=== PATIENT | female | born 1965 ===

== ENCOUNTER 2020-04-21 08:56 | Outpatient (REF) | payer MEDICARE, MEDICAID, SELFPAY ==
--- NOTE | 2020-04-21 13:27 | MHC.AU.AEV ---
Adult Audiological Evaluation Date of Visit: 04/21/20 Reason for Appointment: Audiologic evaluation due to intermittent difficulty understanding speech, particularly when in a noisy environment or when the speaker is talking from a different room. Does patient feel they have a hearing loss?: Yes If Yes, Which Ear?: Both Ears When Was Hearing Difficulty First Noticed?: Approximately one year ago. Has hearing been tested previously?: No Hearing Handicap Inventory HHIE SCORE: 18 Based on HHIE score, patient has: Mild to moderate perceived hearing handicap Ear History: Family History of Hearing Loss?: Yes: Father Recent Ear Infections: Both Ears Medical History: Medical History: Experiences intermittent episodes of sharp ear pain which may last anywhere a few seconds to 2 days. Was treated with eardrops for an ear infection approximately 2 months ago. Medication List: Elissa is also diagnosed with a Depressive Disorder for which she takes Effexor and Trazodone. Otoscopy: Right Ear: Unremarkable Left Ear: Unremarkable Tympanometry: Right Ear: Normal Middle Ear System (Type A) Left Ear: Normal Middle Ear System (Type A) Otoacoustic Emissions: Frequency Range Used: 5085-5494 Hz Right Ear Results: Present 3914-0282 Hz Absent 6000 and 8000 Hz Analysis: Present emissions suggest normal cochlear function Reduced/Absent emissions suggest cochlear dysfunction Left Ear Results: Present 9613-6624 Hz Absent 8000 Hz Analysis: Present emissions suggest normal cochlear function Reduced/Absent emissions suggest cochlear dysfunction Hearing Evaluation: Transducer(s) Used: Insert Earphones Method: Conventional Audiometry Stimuli Used: Pure Tones Right Ear: Description of Hearing: Normal hearing thresholds from 250-6000 Hz with a mild loss at 8000 Hz Left Ear: Description of Hearing: Normal hearing thresholds at 250-8000 Hz Speech Recognition Threshold (SRT): Method Used: Monitored Live Voice Stimuli Used: Spondee Words Right Ear: 10 Left Ear: 10 Word Discrimination: Method: Recorded Lists Word Lists Used: NU-6 Right Ear: 92% at 55 dB HL Left Ear: 92% at 55 dB HL QuickSIN: Binaural score of 17 dB SNR Loss which suggests Elissa experiences severe difficulty understanding speech when background noise is present. Comparison: Compared to the most recent evaluation: N/A Recommendations: Recommendations: Audiological re-evaluation if changes are noted. Recommendations (Other): Discussed the difference between hearing and listening skills and how attention influences these skills. Provided a handout to share with her family/friends regarding communication strategies to use to improve speech understanding. Also discussed how medications such as Effexor and Trazodone may slow down auditory processing skills which increases difficulty understanding speech when in difficult listening environments. The communication strategies provided are very important to use in this case. Diagnosis: Primary Diagnosis: H93.293 Abnormal Auditory Perception Services Performed: Services Performed: Comprehensive Audiological Evaluation (CPT 62520) Diagnostic Otoacoustic Emissions (CPT 18845, 26+TC) Tympanometry (CPT 62136) Signature: Provider: Neel Montalvo CCC-A Adult Audiological Evaluation NEEL- Audiology Adult New Evaluation Start: 04/21/20 13:02 Freq: Status: Active Protocol: Activity Type Activity Date Activity User E-Sign Co-Sign Detail Recorded Client Recorded Date Recorded By Document 04/21/20 13:02 TRENA [id number] 04/21/20 13:26 TRENA 04/21/20 13:02 Adult Audiological Evaluation [Date of Visit] -Date of Visit 04/21/20 [Reason For Appointment] -Reason for Appointment Audiologic evaluation due to intermittent difficulty understanding speech, particularly when in a noisy environment or when the speaker is talking from a different room. -Does patient feel they have a hearing Yes loss? -If Yes, Which Ear? Both Ears -When Was Hearing Difficulty First Approximately Noticed? one year ago. [Previous Testing] -Has hearing been tested previously? No [Hearing Handicap Inventory (HHIE)] -Does a hearing problem cause you to No feel embarrassed when you meet new people? -Does a hearing problem cause you to Yes feel frustrated when talking to members of you family? -Do you have difficulty when someone Yes speaks in a whisper? -Do you feel handicapped by a hearing No problem? -Does a hearing problem cause you No difficulty when visiting friends, relatives, or neighbors? -Does a hearing problem cause you to No attend synagogue services less often than you would like? -Does a hearing problem cause you to Yes have arguments with family members? -Does a hearing problem cause you Sometimes difficulty when listening to TV or radio ? -Do you feel that any difficulty with No your hearing limits or hampers your personal or social life? -Does a hearing problem cause you Yes difficulty when in a restaurant with relatives or friends? -HHIE SCORE 18 -Based on HHIE score, patient has: Mild to moderate perceived hearing handicap [Reported History] -Recent Ear Pain Left Ear -Family History of Hearing Loss? Yes: Father -Recent Ear Infections Both Ears [Medical History] -Medical History Experiences intermittent episodes of sharp ear pain which may last anywhere a few seconds to 2 days. Was treated with eardrops for an ear infection approximately 2 months ago. -Medication List Elissa is also diagnosed with a Depressive Disorder for which she takes Effexor and Trazodone. [Otoscopy] -Otoscopy- Right Ear Unremarkable -Otoscopy- Left Ear Unremarkable [Tympanometry] -Tympanometry- Right Ear Normal Middle Ear System ( Type A) -Tympanometry- Left Ear Normal Middle Ear System ( Type A) [Otoacoustic Emissions] -Frequency Range Used: 8627-7354 Hz -Otoacoustic Emissions- Right Ear- Present 1600- Other 5000 Hz Absent 6000 and 8000 Hz -OAE Analysis- Right Ear Present emissions suggest normal cochlear function, Reduced/Absent emissions suggest cochlear dysfunction -Otoacoustic Emissions- Left Ear- Present 1600- Other 6000 Hz Absent 8000 Hz -OAE Analysis- Left Ear Present emissions suggest normal cochlear function, Reduced/Absent emissions suggest cochlear dysfunction [Hearing Test Methods] -Transducer(s) Used Insert Earphones -Method Conventional Audiometry -Stimuli Used Pure Tones [Hearing- Right Ear] -Description of Hearing- Right Ear Normal hearing thresholds from 250-6000 Hz with a mild loss at 8000 Hz [Hearing- Left Ear] -Description of Hearing- Left Ear Normal hearing thresholds at 250-8000 Hz [Speech Recognition Threshold (SRT)] -Method Used Monitored Live Voice -Stimuli Used Spondee Words -Speech Recognition Threshold (SRT)- 10 Right Ear (in dBHL) -Speech Recognition Threshold (SRT)- 10 Left Ear (in dBHL) [Word Discrimination] -Method: Recorded Lists -Word Lists Used: NU-6 -Word Discrimination- Right Ear 92% at 55 dB HL -Word Discrimination- Left Ear 92% at 55 dB HL [QuickSIN] -QuickSIN Binaural score of 17 dB SNR Loss which suggests Elissa experiences severe difficulty understanding speech when background noise is present. [Compared to Most Recent Evaluation:] -Compared to the most recent N/A evaluation: [Recommendations] -Recommendations No further audiological action is indicated at this time., Audiological re -evaluation if changes are noted. -Recommendations (Other) Discussed the difference between hearing and listening skills and how attention influences these skills. Provided a handout to share with her family/friends regarding communication strategies to use to improve speech understanding. Also discussed how medications such as Effexor and Trazodone may slow down auditory processing skills which increases difficulty understanding speech when in difficult listening environments. The communication strategies provided are very important to use in this case. [Diagnosis] -Primary Diagnosis: H93.293 Abnormal Auditory Perception -Secondary Diagnosis: N/A [Services Performed] -Services Performed Comprehensive Audiological Evaluation (CPT 28334), Diagnostic Otoacoustic Emissions (CPT 90165, 26+TC), Tympanometry ( CPT 03002) Signature [Signature] -Provider Neel Montalvo, [facility]
== END 2020-04-21 08:57 | disposition home or self-care (01) ==
LOC: HO.SH 08:56
PROVIDERS: Visit Provider Nurse Practitioner Family
DX: H93.293 Other abnormal auditory perceptions, bilateral (principal)
CPT/HCPCS: 92557; 92567; 92588

== ENCOUNTER 2020-05-03 09:16 | Emergency (ER) | payer MEDICARE, MEDICAID, SELFPAY ==
[2020-05-03 09:22] VITALS: BP 129/75; PULSE 112; RESP 16; TEMP 37.1; O2SAT 96; BMI 31.2
--- NOTE | 2020-05-03 09:22 | XR_ITS ---
EXAMINATION: XR CHEST CLINICAL INFORMATION: Cough COMPARISON: Previous chest x-ray March 2011 TECHNIQUE: Frontal view of the chest was obtained. FINDINGS: No significant abnormality is noted involving the heart, lungs, mediastinum, bony thorax or soft tissues. XR/XR chest 1V IMPRESSION: Unremarkable examination.
[2020-05-03 10:05] LABS: MANUAL DIFF FLAG NO
[2020-05-03] MEDS: methylPREDNISolone Sod Succ/PF 125 MG/2 ML VIAL IVPUSH (10:05)
[2020-05-03 10:06] LABS: Basophils Percent Auto 0.1 % (0-2); Eosinophils Percent Auto 0.3 % (0-4); Hematocrit 45.5 % (37-47); Hemoglobin 14.2 g/dl (12.0-16.0); Imm Gran Abs Auto 0.01 X10*3/uL (0.00-0.03); Imm Gran Pct Auto 0.1 % (0.0-0.4); Lymphocytes Absolute Auto 1.8 X10*3/uL (1.2-4.9); Lymphocytes Percent Auto 26.9 % (20-40); Mean Corpuscular HGB Conc 31.2 g/dl (31.0-35.0); Mean Corpuscular Hemoglobin 26.1 pg (27.0-33.0); Mean Corpuscular Volume 83.6 fL (80-98); Mean Platelet Volume 10.5 fL (9.4-12.3); Monocytes Absolute Auto 0.5 X10*3/uL (0.1-1.2); Monocytes Percent Auto 7.1 % (2-11); Neutrophils Absolute Auto 4.4 X10*3/uL (2.0-8.3); Neutrophils Percent Auto 65.5 % (45-73); Platelet Count 252 X10*3/uL (160-400); Red Blood Count 5.44 X10*6/uL (4.20-5.50); Red Cell Distribution Width 13.7 % (11.0-16.0); White Blood Count 6.7 X10*3/uL (4.8-10.8)
[2020-05-03] MEDS: 0.9 % Sodium Chloride 500 ML 1000 ML IV (10:06)
[2020-05-03 10:11] LABS: Prothrombin Time 12.4 SEC (10.8-13.0)
[2020-05-03 10:13] LABS: Partial Thromboplastin Time 35.8 SEC (24.1-38.0)
[2020-05-03 10:15] LABS: D Dimer < 200 NG/ML
[2020-05-03] MEDS: Albuterol Sulfate 90 MCG 8 GM INHALER 4 PUFF INHALE (10:23)
[2020-05-03 10:34] LABS: Alanine Aminotransferase 19 U/L (0-31); Albumin Level 4.2 g/dL (3.5-5.0); Alkaline Phosphatase 77 U/L (39-117); Anion Gap 14 (12-20); Aspartate Amino Transferase 22 U/L (5-31); Bilirubin Total 0.4 mg/dL (0.0-1.0); Blood Urea Nitrogen 13 mg/dL (9-16); Calcium 8.4 mg/dL (8.4-10.2); Carbon Dioxide 25 mmol/L (22-29); Chloride 105 mmol/L (96-108); Creatinine Clr Calc Pharmacy 71.4; Estimated Glomerular Filt Rate > 60; Glucose Random 93 mg/dL (60-115); Lactate Dehydrogenase 200 U/L (122-220); Potassium 3.6 mmol/l (3.3-5.1); Sodium 140 mmol/L (135-145); Total Protein 7.1 g/dL (6.5-8.0)
[2020-05-03 10:41] LABS: B Type Natriuretic Peptide < 10 pg/mL (<100); Troponin-I High Sensitivity < 3.5 ng/L (<3.5-17.0)
--- NOTE | 2020-05-03 10:45 | ED_ITS ---
HPI - SOB/Dyspnea General Chief Complaint: Dyspnea Stated Complaint: + covid, sob Time Seen by Provider: 05/03/20 09:22 Source: patient Mode of arrival: ambulatory Limitations: no limitations History of Present Illness HPI Narrative: 55-YEAR-OLD FEMALE WITH PAST MEDICAL HISTORY THAT IS SIGNIFICANT FOR ASTHMA WELL OTHER HISTORY NOTED BELOW SHE PRESENTS TODAY WITH COMPLAINT OF STATES SHE WELL HER TESTED POSITIVE FOR COVID-19 HER 'S ASYMPTOMATIC HOWEVER SHE HAS HAD SOME DRY COUGH SINCE YESTERDAY BECAME WORSE TODAY. SHE FOUND OUT YESTERDAY SHE WAS POSITIVE AFTER TESTING OVER THE WEEKEND. SHE DOES REPORT THERE IS COUGH WITH ASSOCIATED CHEST DISCOMFORT. COUGH DOES CAUSE SOME SHORTNESS OF BREATH. THERE IS NO LOWER EXTREMITY SWELLING. THERE IS NO CHEST PAIN WITHOUT THE COUGH. THERE IS NO SHORTNESS OF BREATH WITHOUT COUGH. THERE IS NO RECENT TRAVEL OR RECENT ANTIBIOTIC USE. SHE REPORTS SHE HAS NOT BEEN ADMITTED TO THE HOSPITAL FOR HER ASTHMA IN THE PAST. MD elicited complaint: shortness of breath Pertinent past history: asthma Onset (ago): day(s) (1) Context: recent illness Timing: intermittent Severity: moderate Exacerbating factors: nothing Relieving factors: bronchodilators Known history of: asthma Associated symptoms: chest pain Treatment prior to arrival: bronchodilator Related Data Previous Rx's Medication Instructions Recorded azithromycin [Zithromax Z-Lukasz] 250 mg PO DAILY 6 Days #6 tab 05/03/20 benzonatate [Tessalon Perles] 100 mg PO BID PRN #14 cap 05/03/20 prednisone 60 mg PO DAILY 5 Days #15 tab 05/03/20 Allergies Allergy/AdvReac Type Severity Reaction Status Date / Time No Known Allergies Allergy Verified 05/03/20 09:48 [No Known Allergies*] Review of Systems Review of Systems: Constitutional: No Weight loss, No Fever, + Chills, No Night Sweats, No Fatigue, No Malaise ENT/Mouth: No Hearing loss, No Ear Pain, + Nasal Congestion, No Sinus Pain, No Hoarseness, No sore throat, No Rhinorrhea, No Swallowing Difficulty Eyes: No Eye Pain, No Swelling, No Redness, No Foreign Body, No Discharge, No Vision Changes Cardiovascular: Cough Chest Pain, Cough causes SOB, No Dyspnea on Exertion, No Orthopnea, No Edema, No Palpitations Respiratory: + Cough, No Sputum, + Wheezing, No Smoke Exposure, No Dyspnea Gastrointestinal: No Nausea, No Vomiting, No Diarrhea, No Constipation, No ab dominal Pain, No Hematochezia, No Melena Genitourinary: no irregular bleeding, No Dysuria, No Urinary Frequency, No Hematuria, No Urinary Incontinence, No Urgency, No Flank Pain, No Urinary Flow Changes, No Hesitancy Musculoskeletal: No joint pain, No Myalgias, No Joint Swelling Skin: No Skin Lesions, No rash Neuro: No Weakness, No Numbness, No Paresthesias, No Loss of Consciousness, No Dizziness, No Headache Psych: No Anxiety/Panic, No Social Issues Heme/Lymph: No Bruising, No Bleeding,No Lymphadenopathy Endocrine: No Polyuria, No Polydipsia, No Temperature Intolerance Yes all other systems are reviewed and are negative [facility] Past Medical History Attestation statement: The following information was validated with the patient. Medical History (Updated 05/03/20 @ 11:06 by Roger Messer NP) Arthritis Asthma Hypertension Surgical History Hx of knee surgery Social History Social History Alcohol intake: never Smoking Status: Never smoker Use of substances other than those prescribed or required for medical reasons: No Advance Directives: No Advance Directives Information Provided: No Physical Exam Vital Signs: Vital Signs: Vital Signs Temp Pulse Resp BP Pulse Ox 05/03/20 09:22 98.7 F 112 H 16 129/75 96 Body Mass Index 31.2 REVIEWED Const: General: cooperative and healthy appearing; No acute distress or intoxicated appearing Nutritional Appearance: average body habitus Orientation/consciousness: patient oriented x3 HENMT: Head: Yes normal to inspection Ears: hearing grossly normal bilaterally Eyes: General: appearance normal, both eyes and all related structures Visual White: normal visual white by confrontation Neck: Neck: Yes normal visual inspection and No tender Thyroid: Thyroid normal Chest: Chest palpation & inspection: normal inspection of the chest Resp: Other: + mild dry bronchial cough Effort & Inspection: normal respiratory effort Auscultation: clear to auscultation bilaterally Cardio: Jugular venous distension: no JVD Rate: regular rate Rhythm: regular rhythm GI: Inspection: Yes normal to inspection Percussion: Yes normal to percussion Auscultation: normal bowel sounds : General: Yes no CVA tenderness Back/Spine/Pelvis: Back: no CVA tenderness Skin: General skin exam: no rashes or lesions noted Neuro: General: patient oriented x3 Extrem: General: Yes normal to inspection MDM - SOB/Dyspnea MDM Narrative Medical decision making narrative: Has remained 96-99 % on room air. Did receive IV Solu-Medrol and albuterol inh. Diagnostics rodriguez there is no leukocytosis, comprehensive metabolic profile along with troponin, BNP and D- dimer negative. Differential Diagnosis Differential diagnosis: Likely pneumonia and asthma with exacerbation; Unlikely acute exacerbation of chronic obstructive airways disease, congestive heart failure, pulmonary embolism, pleural effusion, sleep apnea and anemia Medical Records Attestation: I reviewed the patient's medical records. Lab Data Attestation: I reviewed the patient's lab results. Result diagrams: 05/03/20 09:56 05/03/20 09:56 Labs: Lab Results 05/03/20 05/03/20 05/03/20 Range/Units 09:56 09:56 09:56 WBC 6.7 (4.8-10.8) X10*3/uL RBC 5.44 (4.20-5.50) X10*6/uL Hgb 14.2 (12.0-16.0) g/dl Hct 45.5 (37-47) % MCV 83.6 (80-98) fL MCH 26.1 L (27.0-33.0) pg MCHC 31.2 (31.0-35.0) g/dl RDW 13.7 (11.0-16.0) % Plt Count 252 (160-400) X10*3/uL MPV 10.5 (9.4-12.3) fL Immature Gran % (Auto) 0.1 (0.0-0.4) % Neut % (Auto) 65.5 (45-73) % Lymph % (Auto) 26.9 (20-40) % Twiggs % (Auto) 7.1 (2-11) % Eos % (Auto) 0.3 (0-4) % Baso % (Auto) 0.1 (0-2) % Lymph # (Auto) 1.8 (1.2-4.9) X10*3/uL Twiggs # (Auto) 0.5 (0.1-1.2) X10*3/uL Eos # (Auto) 0.0 (0.0-0.4) X10*3/uL Baso # (Auto) 0.0 (0.0-0.2) X10*3/uL Abs Immat Gran (auto) 0.01 (0.00-0.03) X10*3/uL Absolute Neuts (auto) 4.4 (2.0-8.3) X10*3/uL Absolute Nucleated RBC 0.000 (0.0-0.012) X10*3/uL Nucleated RBC % (auto) 0.0 (0.0-0.2) /100WBC PT 12.4 (10.8-13.0) SEC INR 1.0 (0.9-1.1) APTT 35.8 (24.1-38.0) SEC D-Dimer < 200 NG/ML Sodium 140 (135-145) mmol/L Potassium 3.6 (3.3-5.1) mmol/l Chloride 105 (96-108) mmol/L Carbon Dioxide 25 (22-29) mmol/L Anion Gap 14 (12-20) BUN 13 (9-16) mg/dL Creatinine 0.81 (0.5-1.4) mg/dL Estim Creat Clear Calc 71.4 Estimated GFR > 60 Random Glucose 93 (60-115) mg/dL Lactic Acid (0.5-2.0) mmol/L Calcium 8.4 (8.4-10.2) mg/dL Total Bilirubin 0.4 (0.0-1.0) mg/dL AST 22 (5-31) U/L ALT 19 (0-31) U/L Alkaline Phosphatase 77 (39-117) U/L Lactate Dehydrogenase 200 (122-220) U/L Troponin I High Sens (<3.5-17.0) ng/L B-Natriuretic Peptide (<100) pg/mL Total Protein 7.1 (6.5-8.0) g/dL Albumin 4.2 (3.5-5.0) g/dL 05/03/20 05/03/20 Range/Units 09:56 10:35 WBC (4.8-10.8) X10*3/uL RBC (4.20-5.50) X10*6/uL Hgb (12.0-16.0) g/dl Hct (37-47) % MCV (80-98) fL MCH (27.0-33.0) pg MCHC (31.0-35.0) g/dl RDW (11.0-16.0) % Plt Count (160-400) X10*3/uL MPV (9.4-12.3) fL Immature Gran % (Auto) (0.0-0.4) % Neut % (Auto) (45-73) % Lymph % (Auto) (20-40) % Twiggs % (Auto) (2-11) % Eos % (Auto) (0-4) % Baso % (Auto) (0-2) % Lymph # (Auto) (1.2-4.9) X10*3/uL Twiggs # (Auto) (0.1-1.2) X10*3/uL Eos # (Auto) (0.0-0.4) X10*3/uL Baso # (Auto) (0.0-0.2) X10*3/uL Abs Immat Gran (auto) (0.00-0.03) X10*3/uL Absolute Neuts (auto) (2.0-8.3) X10*3/uL Absolute Nucleated RBC (0.0-0.012) X10*3/uL Nucleated RBC % (auto) (0.0-0.2) /100WBC PT (10.8-13.0) SEC INR (0.9-1.1) APTT (24.1-38.0) SEC D-Dimer NG/ML Sodium (135-145) mmol/L Potassium (3.3-5.1) mmol/l Chloride (96-108) mmol/L Carbon Dioxide (22-29) mmol/L Anion Gap (12-20) BUN (9-16) mg/dL Creatinine (0.5-1.4) mg/dL Estim Creat Clear Calc Estimated GFR Random Glucose (60-115) mg/dL Lactic Acid 1.7 (0.5-2.0) mmol/L Calcium (8.4-10.2) mg/dL Total Bilirubin (0.0-1.0) mg/dL AST (5-31) U/L ALT (0-31) U/L Alkaline Phosphatase (39-117) U/L Lactate Dehydrogenase (122-220) U/L Troponin I High Sens < 3.5 (<3.5-17.0) ng/L B-Natriuretic Peptide < 10 (<100) pg/mL Total Protein (6.5-8.0) g/dL Albumin (3.5-5.0) g/dL Imaging Data Chest x-ray: Radiologist's impression: [address] [address] XRay Report Signed Patient: Morgan Cates#: [id number] : 1965Acct:[id number] Age/Sex: 55 / FADM Date: 05/03/20 Loc: .ED Attending Dr: Ordering Physician: Roger Messer NP Date of Service: 05/03/20 Procedure(s): XR chest 1V Accession Number(s): [id number] cc: Roger Messer [employer]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 FINDINGS: No significant abnormality is noted involving the heart, lungs, mediastinum, bony thorax or soft tissues. XR/XR chest 1V IMPRESSION: Unremarkable examination. Dictated By:DEEDEE GLOVER MD Signed By:<Electronically signed by DEEDEE GLOVER MD in OV>05/03/20 1031 DD/ 0922 TD/TT: Sweet Potato Disintegrator: KAREN ECG Data Interpretation: Normal sinus rhythm Heart rate [address] segment changes Discharge Plan Discharge Clinical Impression: COVID-19 Asthma with exacerbation Qualifiers: Asthma severity: unspecified severity Asthma persistence: unspecified Qualified Code(s): J45.901 - Unspecified asthma with (acute) exacerbation Patient Disposition: Home, Self-Care Instructions: Asthma (ED), How to Use a Nebulizer (ED), COVID-19 (Coronavirus Disease 2019) (ED) Additional Instructions: You have COVID-19 that is triggering her asthma. Your medical workup today was overall very reassuring Home care as reviewed including social distancing/wear mask and self-monitoring Take medications as prescribed Monitor oxygen level at home on a pulse oximeter Return if any concerns or worsening symptoms otherwise follow CDC guidelines as provided Thank you Prescriptions: New azithromycin [Zithromax Z-Lukasz] 250 mg tablet 250 mg PO DAILY 6 Days Qty: 6 RF: 0 benzonatate [Tessalon Perles] 100 mg capsule 100 mg PO BID PRN (Reason: cough) Qty: 14 RF: 0 prednisone 20 mg tablet 60 mg PO DAILY 5 Days Qty: 15 RF: 0 Referrals: Rancho Overton NP [Primary Care Provider] - 5 days (PHONE VISIT )
[2020-05-03 11:07] LABS: Lactic Acid 1.7 mmol/L (0.5-2.0)
== END 2020-05-03 12:21 | disposition home or self-care (01) ==
PROVIDERS: Nurse Practitioner Primary Care; Emergency Provider Emergency Medicine; PCP Nurse Practitioner Family
DX: U07.1 COVID-19 (principal); J45.901 Unspecified asthma with (acute) exacerbation; Z79.899 Other long term (current) drug therapy; Z20.828 Contact with and (suspected) exposure to other viral communicable diseases
CPT/HCPCS: 36415; 71045; 80053; 83605; 83615; 83880; 84484; 85025; 85379; 85610; 85730; 87040; 96374; 99284; J2930

== ENCOUNTER 2020-05-05 11:48 | Inpatient (IN) | payer MEDICARE, MEDICAID, SELFPAY ==
[2020-05-05 12:00] VITALS: PULSE 107; RESP 16; TEMP 36.8; O2SAT 93; BMI 31.2
--- NOTE | 2020-05-05 12:20 | XR_ITS ---
EXAMINATION: XR CHEST CLINICAL INFORMATION: Worsening SOB and malaise COMPARISON: Chest 05/03/2020 TECHNIQUE: Frontal view of the chest was obtained. FINDINGS: The lungs are hypoventilated with patchy prominent parenchymal densities in both lungs, new infiltrates or interstitial disease. Heart size and pulmonary vascularity is normal. No gross bony abnormality seen. XR/XR chest 1V IMPRESSION: New patchy focal and interstitial changes with a consolidation left lower lobe consistent with infiltrates likely related to COVID disease at
--- NOTE | 2020-05-05 12:41 | ED_ITS ---
HPI - SOB/Dyspnea General Chief Complaint: Dyspnea Stated Complaint: fever, vomiting Time Seen by Provider: 05/05/20 12:20 Source: patient Mode of arrival: ambulatory Limitations: no limitations History of Present Illness HPI Narrative: 55yoF c PMHx of recently dx c COVID-19 on Friday At [place], asthma and HTN presenting to the ED c c/o worsening malaise, chills, body aches, n/v, dry cough and shortness of breath Since Friday worse today. Denies being on any antibiotics. Denies any other symptoms complaints or concerns at this time. patient was also seen here on Friday and had a full workup and all her lab s were within normal limits. Her chest x-ray was within normal limits. Related Data Home Medications Medication Instructions Recorded Confirmed hydrochlorothiazide 12.5 mg PO DAILY 05/05/20 05/05/20 montelukast 10 mg PO BEDTIME 05/05/20 05/05/20 simvastatin 40 mg PO BEDTIME 05/05/20 05/05/20 trazodone 50 mg PO BEDTIME 05/05/20 05/05/20 venlafaxine 37.5 mg PO DAILY 05/05/20 05/05/20 Allergies Allergy/AdvReac Type Severity Reaction Status Date / Time No Known Allergies Allergy Verified 05/03/20 09:48 [No Known Allergies*] Review of Systems Review of Systems: Constitutional : + Fever, + Chills, + fatigue, + Malaise ENT/Mouth : No sore throat, No runny nose Eyes: No Discharge Cardiovascular : + SOB, No Chest Pain Respiratory : + Cough, No Sputum, No Wheezing, No Smoke Exposure, No Dyspnea Gastrointestinal : + Nausea, + Vomiting, No Diarrhea Genitourinary : No irregular bleeding, No Dysuria, No Urinary Frequency, No Hematuria, No Urinary Incontinence, No Urgency, No Flank Pain, Musculoskeletal : No Myalgia Skin : No rash Neuro : No Headache Yes all other systems are reviewed and are negative [facility] Past Medical History Attestation statement: The following information was validated with the patient. Medical History Arthritis Asthma Coronavirus infection Hypertension Surgical History Hx of knee surgery Social History Social History Alcohol intake: never Smoking Status: Never smoker Physical Exam Vital Signs: Vital Signs: Vital Signs Temp Pulse Resp BP Pulse Ox 05/05/20 15:31 96 05/05/20 15:16 98.7 F 105 H 16 112/68 91 L 05/05/20 12:00 98.3 F 107 H 16 93 Body Mass Index 31.2 vital signs have been reviewed as normal and appeared to be correct. Blood pressure normal. Heart rate normal. Respiration rate normal. Temperature normal. Oxygen saturation normal although on the lower side. Appearance: Alert. Oriented X3. No acute distress. Head: Normal external exam. Normocephalic. Atraumatic. No Levi signs noted. No raccoon eyes noted Eyes: PERRLA. EOMI. Conjunctiva and sclera normal. Eyelids normal. ENT: EAC normal. TM's Normal. Pharynx normal. Uvula midline. Moist mucous membra yusuf. No trismus noted. No drooling noted. No muffled voice noted. Neck: Normal inspection. Neck supple. FROM. No adenopathy. Thyroid Normal. No meningeal signs. No neck mass noted. CVS: Normal heart rate and rhythm. Heart sound normal. No murmurs noted. Pulses normal throughout. Respiratory: No respiratory distress. Painless inspiration. Breath sounds normal. No wheezes/rales/rhonchi noted. Chest nontender. No accessory muscle usage noted or decreased air movement noted. Abdomen: Soft and nontender. Bowel sounds normal in all 4 quadrants. No distention noted. No organomegaly noted. No visible injury noted. Back: No CVA tenderness. Full range of motion noted. Skin: Skin warm and dry. Normal skin color. Normal skin turgor. No rashes/lesions/lacerations noted. Extremities: No lower extremity edema. Extremities exhibit normal range of motion. Extremities nontender. Neuro: Oriented X 3. No motor deficit. No sensory deficit. Reflexes normal. Course Course Course Narrative: 12:20PM - 55yoF c PMHx of recently dx c COVID-19 on Friday At [place], asthma and HTN presenting to the ED c c/o worsening malaise, chills, body aches, n/v, dry cough and shortness of breath since friday worse today. - Concern for COVID-19 vs PNA vs PE. - Plan: Labs, CXR, Blood cultures, Lactic acid, UA, UHCG. EKG. provide IV fluids, IV abx's c zosyn and symptomatic treatment and re-evaluate. Reevaluation(s) Reevaluation #1: Patient's WBC count elevated at 12,500. D-dimer was also elevated at 290. LDH 226. all other labs are within normal limits. CTA of chest and chest x-ray confirmed pneumonia. Therefore I did a walking exercise trial as the patient has been stable at 93 % while on room air with nasal cannula oxygen 2 L she is at 96% air although when she walks on room air she drops to 88% therefore will admit for COVID-19 with pneumonia with hypoxia and sepsis. Patient understands and agrees with this plan. Time: 15:36 MDM - SOB/Dyspnea Medical Records Attestation: I reviewed the patient's medical records. Lab Data Attestation: I reviewed the patient's lab results. Result diagrams: 05/05/20 12:40 05/05/20 12:40 Labs: Lab Results 05/05/20 05/05/20 05/05/20 Range/Units 12:40 12:40 12:40 WBC 12.5 H (4.8-10.8) X10*3/uL RBC 4.74 (4.20-5.50) X10*6/uL Hgb 12.5 (12.0-16.0) g/dl Hct 39.6 (37-47) % MCV 83.5 (80-98) fL MCH 26.4 L (27.0-33.0) pg MCHC 31.6 (31.0-35.0) g/dl RDW 14.0 (11.0-16.0) % Plt Count 236 (160-400) X10*3/uL MPV 10.2 (9.4-12.3) fL Immature Gran % (Auto) 0.6 H (0.0-0.4) % Neut % (Auto) 85.5 H (45-73) % Lymph % (Auto) 8.3 L (20-40) % Barnwell % (Auto) 5.5 (2-11) % Eos % (Auto) 0.0 (0-4) % Baso % (Auto) 0.1 (0-2) % Lymph # (Auto) 1.0 L (1.2-4.9) X10*3/uL Barnwell # (Auto) 0.7 (0.1-1.2) X10*3/uL Eos # (Auto) 0.0 (0.0-0.4) X10*3/uL Baso # (Auto) 0.0 (0.0-0.2) X10*3/uL Abs Immat Gran (auto) 0.07 H (0.00-0.03) X10*3/uL Absolute Neuts (auto) 10.7 H (2.0-8.3) X10*3/uL Absolute Nucleated RBC 0.000 (0.0-0.012) X10*3/uL Nucleated RBC % (auto) 0.0 (0.0-0.2) /100WBC Hold Purple Top SEE NOTE PT 12.9 (10.8-13.0) SEC INR 1.1 (0.9-1.1) D-Dimer 290 NG/ML Sodium (135-145) mmol/L Potassium (3.3-5.1) mmol/l Chloride (96-108) mmol/L Carbon Dioxide (22-29) mmol/L Anion Gap (12-20) BUN (9-16) mg/dL Creatinine (0.5-1.4) mg/dL Estim Creat Clear Calc Estimated GFR Random Glucose (60-115) mg/dL Lactic Acid (0.5-2.0) mmol/L Calcium (8.4-10.2) mg/dL Magnesium (1.6-2.6) mg/dL Ferritin (10-250) ng/mL Total Bilirubin (0.0-1.0) mg/dL Direct Bilirubin (0.0-0.5) mg/dL AST (5-31) U/L ALT (0-31) U/L Alkaline Phosphatase (39-117) U/L Lactate Dehydrogenase (122-220) U/L Troponin I High Sens (<3.5-17.0) ng/L B-Natriuretic Peptide (<100) pg/mL Total Protein (6.5-8.0) g/dL Albumin (3.5-5.0) g/dL 10/30/20 10/30/20 10/30/20 Range/Units 12:40 12:40 12:40 WBC (4.8-10.8) X10*3/uL RBC (4.20-5.50) X10*6/uL Hgb (12.0-16.0) g/dl Hct (37-47) % MCV (80-98) fL MCH (27.0-33.0) pg MCHC (31.0-35.0) g/dl RDW (11.0-16.0) % Plt Count (160-400) X10*3/uL MPV (9.4-12.3) fL Immature Gran % (Auto) (0.0-0.4) % Neut % (Auto) (45-73) % Lymph % (Auto) (20-40) % Barnwell % (Auto) (2-11) % Eos % (Auto) (0-4) % Baso % (Auto) (0-2) % Lymph # (Auto) (1.2-4.9) X10*3/uL Barnwell # (Auto) (0.1-1.2) X10*3/uL Eos # (Auto) (0.0-0.4) X10*3/uL Baso # (Auto) (0.0-0.2) X10*3/uL Abs Immat Gran (auto) (0.00-0.03) X10*3/uL Absolute Neuts (auto) (2.0-8.3) X10*3/uL Absolute Nucleated RBC (0.0-0.012) X10*3/uL Nucleated RBC % (auto) (0.0-0.2) /100WBC Hold Purple Top PT (10.8-13.0) SEC INR (0.9-1.1) D-Dimer NG/ML Sodium 141 (135-145) mmol/L Potassium 3.7 (3.3-5.1) mmol/l Chloride 106 (96-108) mmol/L Carbon Dioxide 25 (22-29) mmol/L Anion Gap 14 (12-20) BUN 19 H (9-16) mg/dL Creatinine 0.76 (0.5-1.4) mg/dL Estim Creat Clear Calc 76.1 Estimated GFR > 60 Random Glucose 100 (60-115) mg/dL Lactic Acid (0.5-2.0) mmol/L Calcium 8.0 L (8.4-10.2) mg/dL Magnesium 2.3 (1.6-2.6) mg/dL Ferritin 104 (10-250) ng/mL Total Bilirubin 0.9 (0.0-1.0) mg/dL Direct Bilirubin 0.3 (0.0-0.5) mg/dL AST 19 (5-31) U/L ALT 16 (0-31) U/L Alkaline Phosphatase 59 D (39-117) U/L Lactate Dehydrogenase 226 H (122-220) U/L Troponin I High Sens < 3.5 (<3.5-17.0) ng/L B-Natriuretic Peptide 50 (<100) pg/mL Total Protein 6.6 (6.5-8.0) g/dL Albumin 3.9 (3.5-5.0) g/dL 05/05/20 Range/Units 12:41 WBC (4.8-10.8) X10*3/uL RBC (4.20-5.50) X10*6/uL Hgb (12.0-16.0) g/dl Hct (37-47) % MCV (80-98) fL MCH (27.0-33.0) pg MCHC (31.0-35.0) g/dl RDW (11.0-16.0) % Plt Count (160-400) X10*3/uL MPV (9.4-12.3) fL Immature Gran % (Auto) (0.0-0.4) % Neut % (Auto) (45-73) % Lymph % (Auto) (20-40) % Barnwell % (Auto) (2-11) % Eos % (Auto) (0-4) % Baso % (Auto) (0-2) % Lymph # (Auto) (1.2-4.9) X10*3/uL Barnwell # (Auto) (0.1-1.2) X10*3/uL Eos # (Auto) (0.0-0.4) X10*3/uL Baso # (Auto) (0.0-0.2) X10*3/uL Abs Immat Gran (auto) (0.00-0.03) X10*3/uL Absolute Neuts (auto) (2.0-8.3) X10*3/uL Absolute Nucleated RBC (0.0-0.012) X10*3/uL Nucleated RBC % (auto) (0.0-0.2) /100WBC Hold Purple Top PT (10.8-13.0) SEC INR (0.9-1.1) D-Dimer NG/ML Sodium (135-145) mmol/L Potassium (3.3-5.1) mmol/l Chloride (96-108) mmol/L Carbon Dioxide (22-29) mmol/L Anion Gap (12-20) BUN (9-16) mg/dL Creatinine (0.5-1.4) mg/dL Estim Creat Clear Calc Estimated GFR Random Glucose (60-115) mg/dL Lactic Acid 1.5 (0.5-2.0) mmol/L Calcium (8.4-10.2) mg/dL Magnesium (1.6-2.6) mg/dL Ferritin (10-250) ng/mL Total Bilirubin (0.0-1.0) mg/dL Direct Bilirubin (0.0-0.5) mg/dL AST (5-31) U/L ALT (0-31) U/L Alkaline Phosphatase (39-117) U/L Lactate Dehydrogenase (122-220) U/L Troponin I High Sens (<3.5-17.0) ng/L B-Natriuretic Peptide (<100) pg/mL Total Protein (6.5-8.0) g/dL Albumin (3.5-5.0) g/dL Imaging Data cxr: Attestation: I personally reviewed and interpreted this imaging study as follows: Radiologist's impression: FINDINGS: The lungs are hypoventilated with patchy prominent parenchymal densities in both lungs, new infiltrates or interstitial disease. Heart size and pulmonary vascularity is normal. No gross bony abnormality seen. XR/XR chest 1V IMPRESSION: New patchy focal and interstitial changes with a consolidation left lower lobe consistent with infiltrates likely related to COVID disease at CTA chest: Attestation: I personally reviewed and interpreted this imaging study as follows: Radiologist's impression: IMPRESSION: No evidence of PE. No evidence aortic dissection. Multilobar infiltrates most prominent in both lower lobes. VTE: Negative Critical Care Time Critical Care Time Critical Care Time: Yes Total Critical Care Time: 60 Attestation: I personally attest to this time spent taking care of the patient Discharge Plan Discharge Prescriptions: No Action venlafaxine 37.5 mg capsule,extended release 24hr 37.5 mg PO DAILY RF: 0 trazodone 50 mg tablet 50 mg PO BEDTIME RF: 0 simvastatin 40 mg tablet 40 mg PO BEDTIME RF: 0 montelukast 10 mg tablet 10 mg PO BEDTIME RF: 0 hydrochlorothiazide 12.5 mg tablet 12.5 mg PO DAILY RF: 0
[2020-05-05] MEDS: 0.9 % Sodium Chloride 1,000 ML 999 ML IVCONT (12:44)
[2020-05-05 12:51] LABS: MANUAL DIFF FLAG NO
--- NOTE | 2020-05-05 12:52 | ECG_ITS ---
Test Reason : SOB Blood Pressure : / mmHG Vent. Rate : 102 BPM Atrial Rate : 102 BPM P-R Int : 122 ms QRS Dur : 094 ms QT Int : 372 ms P-R-T Axes : 036 071 044 degrees QTc Int : 484 ms Sinus tachycardia Otherwise normal ECG When compared with ECG of 17-DEC-2001 08:29, Heart rate has increased Referred By: Gretel Javed Electronically Signed By:JAYLENE GARCIA MD
[2020-05-05 12:53] LABS: Basophils Percent Auto 0.1 % (0-2); Hematocrit 39.6 % (37-47); Hemoglobin 12.5 g/dl (12.0-16.0); Imm Gran Abs Auto 0.07 X10*3/uL (0.00-0.03); Imm Gran Pct Auto 0.6 % (0.0-0.4); Lymphocytes Percent Auto 8.3 % (20-40); Mean Corpuscular HGB Conc 31.6 g/dl (31.0-35.0); Mean Corpuscular Hemoglobin 26.4 pg (27.0-33.0); Mean Corpuscular Volume 83.5 fL (80-98); Mean Platelet Volume 10.2 fL (9.4-12.3); Monocytes Absolute Auto 0.7 X10*3/uL (0.1-1.2); Monocytes Percent Auto 5.5 % (2-11); Neutrophils Absolute Auto 10.7 X10*3/uL (2.0-8.3); Neutrophils Percent Auto 85.5 % (45-73); Platelet Count 236 X10*3/uL (160-400); Red Blood Count 4.74 X10*6/uL (4.20-5.50); White Blood Count 12.5 X10*3/uL (4.8-10.8)
[2020-05-05 13:08] LABS: INTERNATIONAL NORM RATIO 1.1 (0.9-1.1); Prothrombin Time 12.9 SEC (10.8-13.0)
[2020-05-05 13:11] LABS: D Dimer 290 NG/ML
[2020-05-05 13:19] LABS: Lactic Acid 1.5 mmol/L (0.5-2.0)
[2020-05-05 13:22] LABS: Lactate Dehydrogenase 226 U/L (122-220)
[2020-05-05 13:26] LABS: Alanine Aminotransferase 16 U/L (0-31); Albumin Level 3.9 g/dL (3.5-5.0); Alkaline Phosphatase 59 U/L (39-117); Anion Gap 14 (12-20); Aspartate Amino Transferase 19 U/L (5-31); Bilirubin Direct 0.3 mg/dL (0.0-0.5); Bilirubin Total 0.9 mg/dL (0.0-1.0); Blood Urea Nitrogen 19 mg/dL (9-16); Carbon Dioxide 25 mmol/L (22-29); Chloride 106 mmol/L (96-108); Creatinine Clr Calc Pharmacy 76.1; Estimated Glomerular Filt Rate > 60; Glucose Random 100 mg/dL (60-115); Magnesium 2.3 mg/dL (1.6-2.6); Potassium 3.7 mmol/l (3.3-5.1); Sodium 141 mmol/L (135-145); Total Protein 6.6 g/dL (6.5-8.0)
[2020-05-05 13:27] LABS: B Type Natriuretic Peptide 50 pg/mL (<100); Troponin-I High Sensitivity < 3.5 ng/L (<3.5-17.0)
--- NOTE | 2020-05-05 13:31 | CT_ITS ---
EXAMINATION: CT ANGIOGRAM OF THE CHEST WITH AND WITHOUT CONTRAST (CT PULMONARY ANGIOGRAM FOR PE) CLINICAL INFORMATION: Reason for Exam pt c sob ? PE COVID-19 + COMPARISON: None TECHNIQUE: Prior to contrast administration, noncontrast localization images were obtained. Subsequently, multidetector volumetric imaging was performed from the thoracic inlet to below the diaphragms following the administration of 80 mLOmnipaque 350 intravenous contrast. No contrast reaction reported Sagittal, coronal, and MIP oblique sagittal reformatted images were obtained on the CT workstation, uploaded to PACS, and reviewed. This CT examination was performed using dose optimization techniques as appropriate, variously including the following: *Automated exposure control *Adjustment of mA and/or kV according to patient size (this includes techniques or standardized protocols for targeted exams where dose is matched to indication/reason for exam; i.e. extremities or head) *Use of iterative reconstruction technique Total exam dose-length product 257 mGy-cm FINDINGS: QUALITY OF STUDY/CONTRAST BOLUS: Satisfactory. PULMONARY ARTERIES: No central or segmental pulmonary emboli. THORACIC AORTA: No aneurysm or dissection. LUNG: There are small focal areas of ill-defined patchy opacity in both upper lobes, lower lobes. In addition there is bilateral lower lobe airspace consolidation and atelectatic changes in the lingula and right middle lobe. PLEURA: There is minimal bilateral posterior pleural thickening MEDIASTINUM: Normal heart size. No pericardial effusion. No hilar or mediastinal lymphadenopathy. No evidence of septal bowing or right heart strain. CHEST WALL/AXILLA: No axillary or internal mammary lymphadenopathy. OSSEOUS STRUCTURES: There is mild ventral spondylosis. No lytic or sclerotic process seen. UPPER ABDOMEN: Visualized liver, spleen, pancreas and bilateral adrenal glands are unremarkable. No reflux of contrast into the hepatic veins to suggest elevated right heart pressures. CT/CT angio chest PE protocol IMPRESSION: No evidence of PE. No evidence aortic dissection. Multilobar infiltrates most prominent in both lower lobes. VTE: Negative
[2020-05-05] MEDS: guaiFEN/Codeine SF 200/20/10ML 10 ML LIQUID PO (13:38)
[2020-05-05] MEDS: Piperacillin Sodium/Tazobactam 3.375 GM in 0.9 % Sodium Chloride 50 ML IV (13:38)
[2020-05-05 13:45] LABS: Ferritin 104 ng/mL (10-250)
[2020-05-05] MEDS: Albuterol Sulfate 90 MCG 8 GM INHALER 2 PUFF INHALE (14:20)
[2020-05-05] MEDS: iohexoL 350 MG/ML 100 ML INFUS..BTL 65 ML IV (14:25)
[2020-05-05] MEDS: Cyclobenzaprine HCl 10 MG TABLET PO (15:14)
[2020-05-05 15:16] VITALS: BP 112/68; PULSE 105; RESP 16; TEMP 37.1; O2SAT 91
[2020-05-05 15:31] VITALS: O2SAT 96
--- NOTE | 2020-05-05 15:59 | PC.RT ---
PATIENT'S OXYGEN DURING EXERCISE PULSE OXIMETRY WAS 88 PERCENT ON ROOM AIR
[2020-05-05 16:23] LABS: C Reactive Protein 6.27 mg/dL (< or = 0.50)
--- NOTE | 2020-05-05 16:52 | P.HPIM_ITS ---
History of Present Illness Date of Service: 05/05/20 <OLIVER Horan - Last Filed: 05/05/20 17:03> Chief Complaint: body aches <OLIVER Horan - Last Filed: 05/05/20 17:03> this is a 55-year-old female with history of asthma who presents to the emergency department with body aches. Patient reports she started to feel ill last Friday with body aches fever and cough. She was evaluated in Urgent Care over the weekend and her rapid test was positive for coronavirus. she was seen in the emergency department 2 days ago and treated for asthma exacerbation. She was discharged home with prednisone, azithromycin. She returns today with shortness of breath. She was afebrile while in the emergency department. But she did report shortness of breath continues to have cough and body aches. Lab work was essentially unremarkable. She underwent CTA which showed multifocal pneumonia. She was noted to become hypoxic with an oxygen saturation of 88% on room air during ambulation and there further decision was made to admit her for further management. She was given a dose of empiric antibiotics. <OLIVER Horan - Last Filed: 05/05/20 17:03> Review of Systems Review of Systems: Yes all other systems are reviewed and are negative <OLIVER Horan - Last Filed: 05/05/20 17:03> Constitutional: Constitutional: Reports body ache(s) and Reports fever(s) <OLIVER Horan - Last Filed: 05/05/20 17:03> Cardiovascular: Cardiovascular: Reports dyspnea <OLIVER Horan - Last Filed: 05/05/20 17:03> Respiratory: Respiratory: Reports cough and Reports dyspnea <OLIVER Horan - Last Filed: 05/05/20 17:03> [facility] Medical History: Medical History Arthritis Asthma Coronavirus infection Depression HLD (hyperlipidemia) Hypertension <OLIVER Horan Last Filed: 05/05/20 17:03> Functional capacity: independent ambulation <OLIVER Horan - Last Filed: 05/05/20 17:03> Family History: Family History Other No family history of coronary artery disease <OLIVER Horan - Last Filed: 05/05/20 17:03> Surgical History: Surgical History Hx of knee surgery <OLIVER Horan - Last Filed: 05/05/20 17:03> Social History: Social History Household Members: Spouse Housing: Apartment Do you presently have visiting nurse or other home services: No Alcohol intake: never Smoking Status: Never smoker Smoked in Last 30 Days: No Use of substances other than those prescribed or required for medical reasons: No Currently Displaying Signs/Symptoms of Drug Intoxication Withdrawal: No Have you been hit, kicked, punched, or otherwise hurt by someone within the past year? If so, by whom?: No Do you feel safe in your current relationship?: Yes Is there a partner from a previous relationship who is making you feel unsafe now?: No Are you made to feel afraid or neglected: No Advance Directives: No Advance Directives Information Provided: No Advance Directives on File: No Do you have thoughts of harming others: None Do you have a plan to hurt others: No Plan <OLIVER Horan - Last Filed: 05/05/20 17:03> Meds Allergies/Adverse reactions: Allergies Allergy/AdvReac Type Severity Reaction Status Date / Time No Known Allergies Allergy Verified 05/03/20 09:48 [No Known Allergies*] <OLIVER Horan - Last Filed: 05/05/20 17:03> Home medications: Home Medications Medication Instructions Recorded Confirmed Type hydrochlorothiazide 12.5 mg PO DAILY 05/05/20 05/05/20 History montelukast 10 mg PO BEDTIME 05/05/20 05/05/20 History simvastatin 40 mg PO BEDTIME 05/05/20 05/05/20 History trazodone 50 mg PO BEDTIME 05/05/20 05/05/20 History venlafaxine 37.5 mg PO DAILY 05/05/20 05/05/20 History <OLIVER Horan - Last Filed: 05/05/20 17:03> Physical Exam Vital Signs and Narrative: Vital Signs: Last Vital Signs Temp 98.7 F 05/05/20 15:16 Pulse 105 H 05/05/20 15:16 Resp 16 05/05/20 15:16 BP 112/68 05/05/20 15:16 Pulse Ox 96 05/05/20 15:31 Body Mass Index 31.2 <OLIVER Horan - Last Filed: 05/05/20 17:03> Const: Orientation/consciousness: patient oriented x3 <OLIVER Horan - Last Filed: 05/05/20 17:03> HENMT: Head: Yes normocephalic and Yes atraumatic <OLIVER Horan - Last Filed: 05/05/20 17:03> Eyes: Sclerae: sclerae normal <OLIVER Horan - Last Filed: 17:03> Chest: Chest palpation & inspection: normal inspection of the chest <OLIVER Horan - Last Filed: 05/05/20 17:03> Resp: Effort & Inspection: normal respiratory effort and no respiratory distress <OLIVER Horan - Last Filed: 05/05/20 17:03> Auscultation: clear to auscultation bilaterally <OLIVER Horan - Last Filed: 05/05/20 17:03> Cardio: Rate: regular rate <OLIVER Horan - Last Filed: 05/05/20 17:03> Rhythm: regular rhythm <OLIVER Horan - Last Filed: 05/05/20 17:03> GI: Palpation (GI): Soft to palpation and nontender <OLIVER Horan - Last Filed: 05/05/20 17:03> Skin: General skin exam: no rashes or lesions noted <OLIVER Horan - Last Filed: 05/05/20 17:03> Neuro: General: patient oriented x3 <OLIVER Horan - Last Filed: 05/05/20 17:03> Cranial nerves: Yes CN's II-XII intact bilaterally and Yes Bilaterally intact EOM present <OLIVER Horan - Last Filed: 05/05/20 17:03> Extrem: General: Yes normal to inspection <OLIVER Horan - Last Filed: 05/05/20 17:03> Results Labs Labs: Laboratory Tests 05/05/20 05/05/20 05/05/20 12:40 12:40 12:40 WBC 12.5 H RBC 4.74 Hgb 12.5 Hct 39.6 MCV 83.5 MCH 26.4 L MCHC 31.6 RDW 14.0 Plt Count 236 MPV 10.2 Immature Gran % (Auto) 0.6 H Neut % (Auto) 85.5 H Lymph % (Auto) 8.3 L Dyer % (Auto) 5.5 Eos % (Auto) 0.0 Baso % (Auto) 0.1 Lymph # (Auto) 1.0 L Dyer # (Auto) 0.7 Eos # (Auto) 0.0 Baso # (Auto) 0.0 Abs Immat Gran (auto) 0.07 H Absolute Neuts (auto) 10.7 H Absolute Nucleated RBC 0.000 Nucleated RBC % (auto) 0.0 Hold Purple Top SEE NOTE PT 12.9 INR 1.1 D-Dimer 290 Sodium Potassium Chloride Carbon Dioxide Anion Gap BUN Creatinine Estim Creat Clear Calc Estimated GFR Random Glucose Lactic Acid Calcium Magnesium Ferritin Total Bilirubin Direct Bilirubin AST ALT Alkaline Phosphatase Lactate Dehydrogenase Troponin I High Sens C-Reactive Protein B-Natriuretic Peptide Total Protein Albumin 05/05/20 05/05/20 05/05/20 12:40 12:40 12:40 WBC RBC Hgb Hct MCV MCH MCHC RDW Plt Count MPV Immature Gran % (Auto) Neut % (Auto) Lymph % (Auto) Dyer % (Auto) Eos % (Auto) Baso % (Auto) Lymph # (Auto) Dyer # (Auto) Eos # (Auto) Baso # (Auto) Abs Immat Gran (auto) Absolute Neuts (auto) Absolute Nucleated RBC Nucleated RBC % (auto) Hold Purple Top PT INR D-Dimer Sodium 141 Potassium 3.7 Chloride 106 Carbon Dioxide 25 Anion Gap 14 BUN 19 H Creatinine 0.76 Estim Creat Clear Calc 76.1 Estimated GFR > 60 Random Glucose 100 Lactic Acid Calcium 8.0 L Magnesium 2.3 Ferritin 104 Total Bilirubin 0.9 Direct Bilirubin 0.3 AST 19 ALT 16 Alkaline Phosphatase 59 D Lactate Dehydrogenase 226 H Troponin I High Sens < 3.5 C-Reactive Protein 6.27 H B-Natriuretic Peptide 50 Total Protein 6.6 Albumin 3.9 05/05/20 12:41 WBC RBC Hgb Hct MCV MCH MCHC RDW Plt Count MPV Immature Gran % (Auto) Neut % (Auto) Lymph % (Auto) Dyer % (Auto) Eos % (Auto) Baso % (Auto) Lymph # (Auto) Dyer # (Auto) Eos # (Auto) Baso # (Auto) Abs Immat Gran (auto) Absolute Neuts (auto) Absolute Nucleated RBC Nucleated RBC % (auto) Hold Purple Top PT INR D-Dimer Sodium Potassium Chloride Carbon Dioxide Anion Gap BUN Creatinine Estim Creat Clear Calc Estimated GFR Random Glucose Lactic Acid 1.5 Calcium Magnesium Ferritin Total Bilirubin Direct Bilirubin AST ALT Alkaline Phosphatase Lactate Dehydrogenase Troponin I High Sens C-Reactive Protein B-Natriuretic Peptide Total Protein Albumin <OLIVER Horan - Last Filed: 05/05/20 17:03> Assessment and Plan (1) COVID-19: Problem details: She has COVID pneumonia No signs of bacterial infection or atypical infection at this time <OLIVER Horan - Last Filed: 05/05/20 17:03> Status: Acute <OLIVER Horan - Last Filed: 05/05/20 17:03> this is a 55-year-old female with a history of asthma, hypertension, dyslipidemia, recently diagnosed with COVID-19 who presents to the emergency department with shortness of breath found to have multifocal pneumonia and hypoxia. Acute respiratory failure with hypoxia oxygen saturation dropped to 88% on room air during ambulation related to underlying COVID-19 pneumonia - continue supplemental oxygen COVID-19 pneumonia D-dimer 290, LDH 226, ferritin 104, CRP 6.27 CTA no PE, multifocal PNA - dexamethasone - supplemental oxygen as needed - ID consult leukocytosis likely related to recent steroid use. LA wnl. no evidence of sepsis hypertension blood pressure controlled - continue hydrochlorothiazide hyperlipidemia - continue statin mood - continue venlafaxine DVT prophylaxis- Lovenox code status- full code this case was discussed with Dr. Winston <OLIVER Horan - Last Filed: 05/05/20 17:03>
[2020-05-05 17:22] LABS: Procalcitonin 0.04 ng/mL
[2020-05-05 17:30] LABS: SARS COV2 PCR INHOUSE POSITIVE (Negative)
[2020-05-05 17:56] VITALS: BP 123/67; PULSE 96; RESP 16; TEMP 37.1; O2SAT 95
--- NOTE | 2020-05-05 17:58 | PC.NURSE ---
Pt reports decrease in pain, denies needs or complaints. awaiting bed assignment
--- NOTE | 2020-05-05 18:28 | PC.NURSE ---
called for report-awaiting callback
--- NOTE | 2020-05-05 18:52 | P.EN_ITS ---
Event Note Event Note: Patient came to the hospital because of myalgias and tiredness, as per ED physician that patient be sats with walking Denies any chest pain or abdominal pain or fever Patient also says she has cough nonproductive Physical exam: Cvs: rrr, [id number] , no murmur res: Grossly fair air entry, diminished at bases. abd: no rebound or guarding ,nt, bs present. ext pulses present , no cyanosis neuro: axo3 , nonfocal. Lab imaging reviewed Her COVID test is positive and CT also shows Multilobar infiltrates most promin ent in both lower lobes. C-reactive protein high, procalcitonin level low LDH slightly elevated, has lymphopenia D-dimer 290 range Assessment and plan: Probable COVID infection Desats with walking as per ED Will start the patient on she dexamethasone and supportive management for now ID terry
--- NOTE | 2020-05-05 19:18 | PC.NURSE ---
x2 call for report
[2020-05-05 20:00] VITALS: BP 122/78; PULSE 107; RESP 16; TEMP 37.1; O2SAT 97
[2020-05-05 21:19] LABS: Glucose Urine UA NEG (NEG); Leukocyte Esterase Urine NEG (NEG); Nitrite Urine NEG (NEG); Urine Blood NEG (NEG); Urine Ketones NEG (NEG); Urine Protein NEG (NEG-TRACE)
[2020-05-05 21:20] LABS: Appearance Urine CLEAR; Color Urine YELLOW
[2020-05-05 21:22] LABS: UPreg QC Valid YES; Urine Pregnancy NEGATIVE (NEGATIVE)
[2020-05-05 21:50] VITALS: BP 169/80; PULSE 102; RESP 18; TEMP 37.6; O2SAT 97
[2020-05-05] MEDS: dexAMETHasone sod phosphate 4 MG/ML VIAL 6 MG IVPUSH (21:54)
[2020-05-05] MEDS: Acetaminophen 325 MG TABLET 650 MG PO (21:54)
[2020-05-05] MEDS: Enoxaparin Sodium 40 MG/0.4 ML SYRINGE SUBCUT (21:54)
[2020-05-05] MEDS: 0.9 % Sodium Chloride Flush 3 ML SYRINGE IVFLUSH (21:55)
[2020-05-05] MEDS: traZODone HCL 50 MG TABLET PO (21:55)
[2020-05-05] MEDS: Montelukast Sodium 10 MG TABLET PO (21:55)
[2020-05-06] VITALS (10 sets, daily range): BP systolic 115–145; BP diastolic 70–81; PULSE 98–125; RESP 18–20; TEMP 36.4–38.7; O2SAT 90–94
[2020-05-06] MEDS: Acetaminophen 325 MG TABLET 650 MG PO ×2 (03:52→16:05)
[2020-05-06 07:06] LABS: Hematocrit 38.7 % (37-47); Mean Corpuscular Hemoglobin 25.8 pg (27.0-33.0); Mean Platelet Volume 10.2 fL (9.4-12.3); Platelet Count 213 X10*3/uL (160-400); Red Blood Count 4.66 X10*6/uL (4.20-5.50); Red Cell Distribution Width 13.9 % (11.0-16.0); White Blood Count 12.3 X10*3/uL (4.8-10.8)
[2020-05-06 07:28] LABS: Anion Gap 14 (12-20); Blood Urea Nitrogen 16 mg/dL (9-16); Carbon Dioxide 26 mmol/L (22-29); Chloride 104 mmol/L (96-108); Creatinine Clr Calc Pharmacy 81.4; Estimated Glomerular Filt Rate > 60; Glucose Random 106 mg/dL (60-115); Potassium 4.1 mmol/l (3.3-5.1); Sodium 140 mmol/L (135-145)
[2020-05-06] MEDS: dexAMETHasone sod phosphate 4 MG/ML VIAL 6 MG IVPUSH (08:26)
[2020-05-06] MEDS: 0.9 % Sodium Chloride Flush 3 ML SYRINGE IVFLUSH ×3 (08:26→21:22)
[2020-05-06] MEDS: Atorvastatin Calcium 10 MG TABLET PO (08:27)
[2020-05-06] MEDS: Venlafaxine HCl ER 37.5 MG CAP.ER.24H PO (08:27)
[2020-05-06] MEDS: hydroCHLOROthiazide 12.5 MG TABLET PO (08:34)
[2020-05-06] MEDS: guaiFEN/Codeine SF 200/20/10ML 10 ML LIQUID 5 ML PO ×3 (13:11→21:21)
--- NOTE | 2020-05-06 14:04 | P.PNIM_ITS ---
Subjective Subjective Date of Service: 05/06/20 Interval History: covid inf Review of Systems Still feels short of breath and has cough.. Denies any chest pain or abdominal pain or fever or chills, no urinary complaints. Yet Physical Exam Vital Signs: Vital Signs: Vital Signs Temp Pulse Resp BP Pulse Ox 05/06/20 11:29 97.5 F 112 H 18 137/72 92 05/06/20 08:00 97.7 F 100 18 132/75 92 05/06/20 05:26 99.8 F 05/06/20 03:45 101.4 F H 101 H 18 145/74 H 94 05/06/20 00:00 100.2 F 104 H 18 145/81 H 93 05/05/20 21:50 99.7 F 102 H 18 169/80 H 97 05/05/20 20:00 98.7 F 107 H 16 122/78 97 05/05/20 17:56 98.8 F 96 16 123/67 95 05/05/20 15:31 96 05/05/20 15:16 98.7 F 105 H 16 112/68 91 L Body Mass Index 31.2 Physical exam: Constitutional: Nigerian speaking female, seems short of breath HEENT: No rhinorrhea Anicteric Cvs: rrr, [id number] , no murmur res: Air entry slightly diminished at bases, has few rhonchi. abd: no rebound or guarding ,nt, bs present. ext pulses present , no cyanosis neuro: axo3 , nonfocal. Objective Data Current Medications Generic Name Dose Route Start Last Admin Trade Name Freq PRN Reason Stop Dose Admin Acetaminophen 650 mg 05/05/20 20:54 05/06/20 03:52 Acetaminophen 325 Mg Tablet PO 650 mg Q6H PRN Administration Pain, Mild (Pain Scale 1-3) Albuterol Sulfate 2 puff 05/05/20 20:54 Albuterol Sulfate 90 Mcg 8 Gm Inhaler INHALE Q4H PRN shortness of breath Atorvastatin Calcium 10 mg 05/06/20 09:00 05/06/20 08:27 Atorvastatin Calcium 10 Mg Tablet PO 10 mg DAILY KASI Administration Dexamethasone Sodium Phosphate 6 mg 05/05/20 20:54 05/06/20 08:26 Dexamethasone Sod Phosphate 4 Mg/Ml Vial IVPUSH 6 mg DAILY KASI Administration Docusate Sodium 100 mg 05/05/20 20:54 Docusate Sodium 100 Mg Capsule PO DAILY PRN Constipation Enoxaparin Sodium 40 mg 05/05/20 21:00 05/05/20 21:54 Enoxaparin Sodium 40 Mg/0.4 Ml Syringe SUBCUT 40 mg Q24H KASI Administration Guaifenesin/Codeine Phosphate 5 ml 05/06/20 11:00 05/06/20 13:11 Guaifen/Codeine Sf 200/20/10ml 10 Ml Liquid PO 5 ml Q6H KASI Administration Hydrochlorothiazide 12.5 mg 05/06/20 09:00 05/06/20 08:34 Hydrochlorothiazide 12.5 Mg Tablet PO 12.5 mg DAILY KASI Administration Protocol Montelukast Sodium 10 mg 05/05/20 21:00 05/05/20 21:55 Montelukast Sodium 10 Mg Tablet PO 10 mg BEDTIME KASI Administration Ondansetron HCl 4 mg 05/05/20 20:54 Ondansetron Hcl 4 Mg/2 Ml Vial IVPUSH Q8H PRN Nausea and Vomiting Pharmacy Consult 1 each 05/05/20 15:36 Consult Rx Perform Med Rec MISCELLANE ONCE PRN Consult order Sodium Chloride 3 ml 05/06/20 00:00 05/06/20 08:26 0.9 % Sodium Chloride Flush 3 Ml Syringe IVFLUSH 3 ml QSHIFT KASI Administration Trazodone HCl 50 mg 05/05/20 21:00 05/05/20 21:55 Trazodone Hcl 50 Mg Tablet PO 50 mg BEDTIME KASI Administration Venlafaxine HCl 37.5 mg 05/06/20 09:00 05/06/20 08:27 Venlafaxine Hcl Er 37.5 Mg Cap.Er.24h PO 37.5 mg DAILY KASI Administration Labs CBC & Chem 7: 05/06/20 06:33 05/06/20 06:33 Assessment and Plan (1) COVID-19: Status: Acute (2) Pneumonia: Status: Acute Assessment and Plan: 55-year-old female with a history of asthma, hypertension, dyslipidemia, recently diagnosed with COVID-19 who presents to the emergency department with shortness of breath found to have multifocal pneumonia and hypoxia. 1. Acute respiratory failure with hypoxia,COVID-19 pneumonia yesterday oxygen saturation dropped to 88% on room air during ambulation related to underlying COVID-19 pneumonia D-dimer 290, LDH 226, ferritin 104, CRP 6.27 CTA no PE, multifocal PNA Still feel short of breath and has lot of cough nonproductive Still feel winded Will continue dexamethasone, oxygen and supportive care Id evaluation pending. 2. leukocytosis likely related to recent steroid use. LA wnl. no evidence of sepsis 3. hypertension blood pressure controlled- continue hydrochlorothiazide 4.hyperlipidemia- continue statin 5. mood- continue venlafaxine
--- NOTE | 2020-05-06 14:47 | W.PM.IDCN ---
History of Present Illness Data of Consult Service Date: 05/06/20 Requesting physician: Beth Winston Primary Care Provider: Rancho Overton NP HPI Reason for consult: shortness of breath She presents to hospital with shortness of breath She has asthma and body aches Her saturation is 88% RA She has a COVID positive household Her test is positive Review of Systems Review of Systems: Yes all other systems are reviewed and are negative Cardiovascular: Cardiovascular: Reports dyspnea on exertion Respiratory: Respiratory: Reports dyspnea on exertion PMFSH Past Medical History Medical History Arthritis Asthma Coronavirus infection Depression HLD (hyperlipidemia) Hypertension Functional capacity: independent ambulation Family History Family History Other No family history of coronary artery disease Surgical History Surgical History Hx of knee surgery Social History Social History Household Members: Spouse Housing: Apartment Do you presently have visiting nurse or other home services: No Alcohol intake: never Smoking Status: Never smoker Smoked in Last 30 Days: No Use of substances other than those prescribed or required for medical reasons: No Currently Displaying Signs/Symptoms of Drug Intoxication Withdrawal: No Have you been hit, kicked, punched, or otherwise hurt by someone within the past year? If so, by whom?: No Do you feel safe in your current relationship?: Yes Is there a partner from a previous relationship who is making you feel unsafe now?: No Are you made to feel afraid or neglected: No Advance Directives: No Advance Directives Information Provided: No Advance Directives on File: No Do you have thoughts of harming others: None Do you have a plan to hurt others: No Plan service: No Current occupational status: unemployed and disabled Meds Allergies Allergy/AdvReac Type Severity Reaction Status Date / Time No Known Allergies Allergy Verified 05/03/20 09:48 [No Known Allergies*] Home Medications Medication Instructions Recorded Confirmed Type hydrochlorothiazide 12.5 mg PO DAILY 05/05/20 05/05/20 History montelukast 10 mg PO BEDTIME 05/05/20 05/05/20 History simvastatin 40 mg PO BEDTIME 05/05/20 05/05/20 History trazodone 50 mg PO BEDTIME 05/05/20 05/05/20 History venlafaxine 37.5 mg PO DAILY 05/05/20 05/05/20 History Physical Exam Vital Signs: Vital Signs: Vital Signs Temp Pulse Resp BP Pulse Ox 05/06/20 11:29 97.5 F 112 H 18 137/72 92 05/06/20 08:00 97.7 F 100 18 132/75 92 05/06/20 05:26 99.8 F 05/06/20 03:45 101.4 F H 101 H 18 145/74 H 94 05/06/20 00:00 100.2 F 104 H 18 145/81 H 93 05/05/20 21:50 99.7 F 102 H 18 169/80 H 97 05/05/20 20:00 98.7 F 107 H 16 122/78 97 05/05/20 17:56 98.8 F 96 16 123/67 95 05/05/20 15:31 96 05/05/20 15:16 98.7 F 105 H 16 112/68 91 L Body Mass Index 31.2 Const: General: cooperative Orientation/consciousness: patient oriented x3 HENMT: Head: Yes normal to inspection Resp: Effort & Inspection: normal respiratory effort Cardio: Rate: regular rate Rhythm: regular rhythm GI: Palpation (GI): nontender Skin: General skin exam: no rashes or lesions noted Neuro: General: patient oriented x3 Assessment and Plan (1) COVID-19: Problem details: She has COVID pneumonia No signs of bacterial infection or atypical infection at this time Status: Acute Dexamethasone 6 mg IV daily,may change to po when better for 10 days May be Remdesivir candidate if worsens,would run by Pharmacy then No antibiotics Supportive oxygen (2) Sepsis: Qualifiers: Sepsis acute organ dysfunction status: without acute organ dysfunction Sepsis type: sepsis due to unspecified organism Qualified Code(s): A41.9 - Sepsis, unspecified organism Status: Acute (3) Pneumonia: Qualifiers: Laterality: bilateral Lung location: lower lobe of lung Pneumonia type: due to unspecified organism Qualified Code(s): J18.9 - Pneumonia, unspecified organism Status: Acute Results Labs CBC & Chem 7: 05/06/20 06:33 05/07/20 13:13 Labs: Short CBC 05/06/20 Range/Units 06:33 WBC 12.3 H (4.8-10.8) X10*3/uL Hgb 12.0 (12.0-16.0) g/dl Hct 38.7 (37-47) % Plt Count 213 (160-400) X10*3/uL BMP 05/06/20 06:33 Sodium 140 Potassium 4.1 Chloride 104 Carbon Dioxide 26 BUN 16 Creatinine 0.71 Calcium 8.0 L Urine 05/05/20 Range/Units 21:08 Urine Color YELLOW Urine Appearance CLEAR Urine pH 7.0 (5.0-8.0) Ur Specific [place] 1.010 (1.005-1.025) Urine Protein NEG (NEG-TRACE) MG/DL Urine Glucose (UA) NEG (NEG) MG/DL
[2020-05-06] MEDS: traZODone HCL 50 MG TABLET PO (21:21)
[2020-05-06] MEDS: Montelukast Sodium 10 MG TABLET PO (21:21)
[2020-05-06] MEDS: Enoxaparin Sodium 40 MG/0.4 ML SYRINGE SUBCUT (21:21)
[2020-05-07] VITALS (7 sets, daily range): BP systolic 114–158; BP diastolic 70–88; PULSE 96–123; RESP 18–24; TEMP 36.3–38.7; O2SAT 81–98
--- NOTE | 2020-05-07 | XR_ITS ---
EXAMINATION: XR CHEST CLINICAL INFORMATION: Covid pneumonia COMPARISON: Prior chest x-ray 05/05/2020. Chest CT 05/05/2020. TECHNIQUE: Frontal view of the chest was obtained. FINDINGS: Bilateral patchy opacities unchanged. Cardiac silhouette mediastinum pulmonary vascularity normal. Bone and soft tissues unremarkable XR/XR chest 1V IMPRESSION: Stable bilateral lung opacities could reflect bilateral pneumonia.
[2020-05-07] MEDS: diphenhydrAMINE HCL 50 MG/ML VIAL 25 MG IVPUSH (01:00)
--- NOTE | 2020-05-07 01:04 | PC.NURSE ---
PT HAVING EXCESSIVE COUGHING SPELLS AND UNABLE TO CATCH HER BREATH. HR TAHY TO 140S. O2 INCREASD TO 4L NC. PT GIVEN ALBUTEROL INHALER WITH LITTLE EFFECT. MD NOTIFIED. PT GIVEN 5AM DOSE OF COUGH SYRUP EARLY AND ALSO 25MG IV BENADRYL FOR ANXIETY/SLEEP. WILL CONTINUE TO MONITOR.
[2020-05-07] MEDS: Albuterol Sulfate 90 MCG 8 GM INHALER 2 PUFF INHALE (01:50)
[2020-05-07] MEDS: guaiFEN/Codeine SF 200/20/10ML 10 ML LIQUID 5 ML PO (01:59)
[2020-05-07] MEDS: dexAMETHasone sod phosphate 4 MG/ML VIAL 6 MG IVPUSH (08:33)
[2020-05-07] MEDS: 0.9 % Sodium Chloride Flush 3 ML SYRINGE IVFLUSH (08:33)
[2020-05-07] MEDS: Atorvastatin Calcium 10 MG TABLET PO (08:33)
[2020-05-07] MEDS: Venlafaxine HCl ER 37.5 MG CAP.ER.24H PO (08:33)
[2020-05-07] MEDS: hydroCHLOROthiazide 12.5 MG TABLET PO (08:35)
[2020-05-07] MEDS: Acetaminophen 325 MG TABLET 650 MG PO (08:47)
[2020-05-07] MEDS: guaiFEN/Codeine SF 200/20/10ML 10 ML LIQUID PO ×3 (09:48→20:36)
[2020-05-07 11:10] LABS: Alanine Aminotransferase 24 U/L (0-31); Albumin Level 3.8 g/dL (3.5-5.0); Alkaline Phosphatase 56 U/L (39-117); Aspartate Amino Transferase 24 U/L (5-31); Bilirubin Direct 0.4 mg/dL (0.0-0.5); Bilirubin Total 0.7 mg/dL (0.0-1.0); Total Protein 6.8 g/dL (6.5-8.0)
--- NOTE | 2020-05-07 13:10 | HO.PM.IMPN ---
Subjective Subjective Date of Service: 05/07/20 Interval History: Acute respiratory failure hypoxemic secondary to probably COVID infection Review of Systems Patient still short of breath and currently on 45% oxygen with mask, has aggressive coughing, has fever or malaise. Denies any chest pain or abdominal pain or any any urinary urinary complaints or any weakness or numbness Physical Exam Vital Signs: Vital Signs: Vital Signs Temp Pulse Resp BP Pulse Ox 05/07/20 11:36 98.2 F 110 H 20 124/73 91 L 05/07/20 08:00 101.6 F H 123 H 20 158/88 H 05/07/20 04:00 98.6 F 108 H 20 135/74 98 05/06/20 23:49 98.5 F 125 H 20 141/81 H 90 L 05/06/20 19:41 99.3 F 98 20 115/70 92 05/06/20 17:37 100.1 F 05/06/20 16:12 91 L 05/06/20 15:38 101.7 F H 111 H 20 134/77 90 L Body Mass Index 31.2 Physical exam Cvs: rrr, [id number] , no murmur res: Patient has diminished breath sounds at bases, also has some wheezing abd: no rebound or guarding ,nt, bs present. ext pulses present , no cyanosis neuro: axo3 , nonfocal. Objective Data Current Medications Generic Name Dose Route Start Last Admin Trade Name Freq PRN Reason Stop Dose Admin Acetaminophen 650 mg 05/05/20 20:54 05/07/20 08:47 Acetaminophen 325 Mg Tablet PO 650 mg Q6H PRN Administration Pain, Mild (Pain Scale 1-3) Albuterol Sulfate 2 puff 05/05/20 20:54 05/07/20 01:50 EDT Albuterol Sulfate 90 Mcg 8 Gm Inhaler INHALE 2 puff Q4H PRN Administration shortness of breath Atorvastatin Calcium 10 mg 05/06/20 09:00 05/07/20 08:33 Atorvastatin Calcium 10 Mg Tablet PO 10 mg DAILY KASI Administration Dexamethasone Sodium Phosphate 6 mg 05/05/20 20:54 05/07/20 08:33 Dexamethasone Sod Phosphate 4 Mg/Ml Vial IVPUSH 6 mg DAILY KASI Administration Docusate Sodium 100 mg 05/05/20 20:54 Docusate Sodium 100 Mg Capsule PO DAILY PRN Constipation Enoxaparin Sodium 40 mg 05/05/20 21:00 05/06/20 21:21 Enoxaparin Sodium 40 Mg/0.4 Ml Syringe SUBCUT 40 mg Q24H KASI Administration Guaifenesin/Codeine Phosphate 10 ml 05/07/20 09:20 05/07/20 09:48 Guaifen/Codeine Sf 200/20/10ml 10 Ml Liquid PO 10 ml Q6H KASI Administration Hydrochlorothiazide 12.5 mg 05/06/20 09:00 05/07/20 08:35 Hydrochlorothiazide 12.5 Mg Tablet PO 12.5 mg DAILY KASI Administration Protocol Montelukast Sodium 10 mg 05/05/20 21:00 05/06/20 21:21 Montelukast Sodium 10 Mg Tablet PO 10 mg BEDTIME KASI Administration Ondansetron HCl 4 mg 05/05/20 20:54 Ondansetron Hcl 4 Mg/2 Ml Vial IVPUSH Q8H PRN Nausea and Vomiting Pharmacy Consult 1 each 05/05/20 15:36 Consult Rx Perform Med Rec MISCELLANE ONCE PRN Consult order Sodium Chloride 3 ml 05/06/20 00:00 05/07/20 08:33 0.9 % Sodium Chloride Flush 3 Ml Syringe IVFLUSH 3 ml QSHIFT KASI Administration Trazodone HCl 50 mg 05/05/20 21:00 05/06/20 21:21 Trazodone Hcl 50 Mg Tablet PO 50 mg BEDTIME KASI Administration Venlafaxine HCl 37.5 mg 05/06/20 09:00 05/07/20 08:33 Venlafaxine Hcl Er 37.5 Mg Cap.Er.24h PO 37.5 mg DAILY KASI Administration Labs CBC & Chem 7: 05/08/20 05:45 05/08/20 05:45 Microbiology Microbiology Results: Microbiology 05/05/20 13:37 Blood - Venous Blood Culture - Preliminary No growth after 24 hours. 05/05/20 13:29 Blood - Venous Blood Culture - Preliminary No growth after 24 hours. Assessment and Plan (1) COVID-19: Problem details: She has COVID pneumonia No signs of bacterial infection or atypical infection at this time Status: Acute (2) Pneumonia: Status: Acute (3) Acute hypoxemic respiratory failure: Status: Acute Assessment and Plan: 55-year-old female with a history of asthma, hypertension, dyslipidemia, recently diagnosed with COVID-19 who presents to the emergency department with shortness of breath found to have multifocal pneumonia and hypoxia. 1. Acute hypoxemic respiratory failure with hypoxia,COVID-19 pneumonia intial D-dimer 290, LDH 226, ferritin 104, CRP 6.27 CTA no PE, multifocal PNA Patient shortness of breath is worsening overnight and now on 45% oxygen and high-flow Will continue and dexamethasone, added conversant plasma, ID follow-up for further management-Remdesvir, subsequently times a severe added. 2. leukocytosis: slightly trending down slightly likely related to recent steroid use. LA wnl. no evidence of sepsis 3. hypertension: blood pressure controlled- hold hydrochlorothiazide, may need amlodipine if needed for blood pressure. 4.hyperlipidemia- continue statin. 5. mood- continue venlafaxine.
[2020-05-07 14:07] LABS: Anion Gap 14 (12-20); Blood Urea Nitrogen 26 mg/dL (9-16); Calcium 8.2 mg/dL (8.4-10.2); Carbon Dioxide 25 mmol/L (22-29); Chloride 105 mmol/L (96-108); Creatinine Clr Calc Pharmacy 76.1; Estimated Glomerular Filt Rate > 60; Glucose Random 116 mg/dL (60-115); Potassium 4.1 mmol/l (3.3-5.1); Sodium 140 mmol/L (135-145)
--- NOTE | 2020-05-07 15:02 | PC.NURSE ---
Kim with pt daughter Wei at [phone] for update. Pt gave permission to update daughter. Daughter would like update tomorrow, will pass on to night RN.
--- NOTE | 2020-05-07 15:26 | MHC.CM.PN ---
PT CURRENTLY ON HIGH FLOW O2. CONSTRUCTION COST ESTIMATOR COMPLETED WITH HER S/O TA MORRELL([phone]) VIA T/C WITH THE ASSISTANCE OF [employer] #[id number]. TA REPORTS THE PT IS INDEPENDENT WITH PERSONAL CARE AND HAS NO SERVICES. TA REPORTS THE PT USES A CANE SINCE HER KNEE SURGERY AND ALSO HAS BAD ARTHRITIS. HE REPORTS ALTHOUGH SHE IS USUALLY INDEPENDENT HE DOES HELP HER SOMETIMES AND HE IS WORRIED ABOUT HOW SHE WILL FEEL AT DC AND IF SHE WILL NEED ANY HOME CARE. TA WAS ASSURED THAT THE PATIENT WOULD BE INVOLVED IN HER DISCHARGE PLANS TO DETERMINE IF SERVICES WERE NEEDED. TA CONFIRMS PTS PCP IS RUT BERGMAN AND REPORTS HE DRIVES HER TO APPOINTMENTS. PT DOES NOT HAVE A HCP TO HIS KNOWLEDGE. PTS CURRENT DC PLAN IS HOME WITH NO SERVICES CM FOLLOWING FOR CHANGING DC NEEDS S/O TA WILL TRANSPORT AT DC IMM VERBALLY DELIVERED AND COPY WILL BE MAILED
[2020-05-07] MEDS: Remdesivir 200 MG in 0.9 % Sodium Chloride 210 ML 125 MG IV (16:44)
[2020-05-07] MEDS: traZODone HCL 50 MG TABLET PO (20:36)
[2020-05-07] MEDS: Montelukast Sodium 10 MG TABLET PO (20:36)
[2020-05-07] MEDS: Enoxaparin Sodium 40 MG/0.4 ML SYRINGE SUBCUT (20:36)
[2020-05-08] VITALS (13 sets, daily range): BP systolic 117–149; BP diastolic 66–93; PULSE 61–103; RESP 19–24; TEMP 36.1–37.9; O2SAT 89–96; BMI 31.2
[2020-05-08] MEDS: guaiFEN/Codeine SF 200/20/10ML 10 ML LIQUID PO ×4 (03:12→22:09)
[2020-05-08] MEDS: Acetaminophen 325 MG TABLET 650 MG PO (03:18)
[2020-05-08 06:50] LABS: Hematocrit 38.1 % (37-47); Hemoglobin 12.2 g/dl (12.0-16.0); Mean Corpuscular Hemoglobin 26.5 pg (27.0-33.0); Mean Corpuscular Volume 82.8 fL (80-98); Mean Platelet Volume 10.4 fL (9.4-12.3); Platelet Count 304 X10*3/uL (160-400); Red Cell Distribution Width 13.8 % (11.0-16.0); White Blood Count 12.6 X10*3/uL (4.8-10.8)
[2020-05-08 07:00] LABS: Alanine Aminotransferase 21 U/L (0-31); Albumin Level 3.6 g/dL (3.5-5.0); Alkaline Phosphatase 51 U/L (39-117); Anion Gap 17 (12-20); Aspartate Amino Transferase 20 U/L (5-31); Bilirubin Direct 0.4 mg/dL (0.0-0.5); Bilirubin Total 0.8 mg/dL (0.0-1.0); Blood Urea Nitrogen 31 mg/dL (9-16); Calcium 8.4 mg/dL (8.4-10.2); Carbon Dioxide 23 mmol/L (22-29); Chloride 107 mmol/L (96-108); Estimated Glomerular Filt Rate > 60; Glucose Random 91 mg/dL (60-115); Potassium 4.2 mmol/l (3.3-5.1); Sodium 143 mmol/L (135-145); Total Protein 6.7 g/dL (6.5-8.0)
[2020-05-08 07:01] LABS: Anion Gap 17 (12-20); Blood Urea Nitrogen 31 mg/dL (9-16); Calcium 8.6 mg/dL (8.4-10.2); Carbon Dioxide 24 mmol/L (22-29); Chloride 106 mmol/L (96-108); Creatinine Clr Calc Pharmacy 83.8; Estimated Glomerular Filt Rate > 60; Glucose Random 91 mg/dL (60-115); Potassium 4.2 mmol/l (3.3-5.1); Sodium 143 mmol/L (135-145)
[2020-05-08] MEDS: dexAMETHasone sod phosphate 4 MG/ML VIAL 6 MG IVPUSH (08:21)
[2020-05-08] MEDS: Venlafaxine HCl ER 37.5 MG CAP.ER.24H PO (08:21)
[2020-05-08] MEDS: Atorvastatin Calcium 10 MG TABLET PO (08:21)
[2020-05-08] MEDS: 0.9 % Sodium Chloride Flush 3 ML SYRINGE IVFLUSH ×3 (08:22→23:40)
--- NOTE | 2020-05-08 09:50 | PM.CNPUL ---
History of Present Illness History of Present Illness Chief complaint: COVID PNEUMONIA Narrative: The patient is a 55-year-old woman with a known history of asthma presenting with worsening respiratory symptoms consistent with acute respiratory failure due to COVID 19. The patient initially presented to the hospital on 05/03/2020 after developing respiratory symptoms. The point the patient was found to have bilateral pneumonia and admitted to the hospital. She was placed on Decadron and also started on remdesivir due to the respiratory failure. Ultimately she did receive 1 dose of convalescent plasma pleural respiratory condition has been getting worse now on 100% high-flow. We try doing proning, but, the patient could not tolerated due to significant coughing. She is having some hard time with her breathing at this time. Her cough is mainly dry. Review of Systems Constitutional: Constitutional: Reports fatigue, Reports malaise and Reports weakness ENT: Denies change in voice, Denies lip swelling, Denies mouth pain, Reports nasal congestion, Reports nasal discharge and Denies tongue swelling Cardiovascular: Cardiovascular: Denies chest pain and Reports dyspnea Respiratory: Respiratory: Reports cough and Reports dyspnea Gastrointestinal: Gastrointestinal: Denies abdominal pain Musculoskeletal: Musculoskeletal: Denies no additional musculoskeletal complaints Neurologic: Denies Neuro-related abnormal movements and Reports weakness Psychiatric: Psychiatric: Denies no additional psychiatric complaints Endocrine: Endocrine: Reports fatigue Hematologic/Lymphatic: Hematologic/Lymphatic: Denies easy bleeding and Denies lymphadenopathy Allergic/Immunologic: Allergic/Immunologic: Denies lip swelling and Denies tongue swelling PMFSH Past Medical History Medical History Arthritis Asthma Coronavirus infection Depression HLD (hyperlipidemia) Hypertension Functional capacity: independent ambulation Family History Family History Other No family history of coronary artery disease Surgical History Surgical History (Reviewed 05/08/20 @ :00 by Afshin Allen MD) Hx of knee surgery Social History Social History (Reviewed 05/08/20 @ :00 by Afshin Allen MD) Household Members: Spouse Housing: Apartment Do you presently have visiting nurse or other home services: No Alcohol intake: never Smoking Status: Never smoker Smoked in Last 30 Days: No Use of substances other than those prescribed or required for medical reasons: No Currently Displaying Signs/Symptoms of Drug Intoxication Withdrawal: No Have you been hit, kicked, punched, or otherwise hurt by someone within the past year? If so, by whom?: No Do you feel safe in your current relationship?: Yes Is there a partner from a previous relationship who is making you feel unsafe now?: No Are you made to feel afraid or neglected: No Advance Directives: No Advance Directives Information Provided: No Advance Directives on File: No Do you have thoughts of harming others: None Do you have a plan to hurt others: No Plan service: No Current occupational status: unemployed and disabled Meds Allergies Allergy/AdvReac Type Severity Reaction Status Date / Time No Known Allergies Allergy Verified 05/03/20 09:48 [No Known Allergies*] Home Medications Medication Instructions Recorded Confirmed Type hydrochlorothiazide 12.5 mg PO DAILY 05/05/20 05/05/20 History montelukast 10 mg PO BEDTIME 05/05/20 05/05/20 History simvastatin 40 mg PO BEDTIME 05/05/20 05/05/20 History trazodone 50 mg PO BEDTIME 05/05/20 05/05/20 History venlafaxine 37.5 mg PO DAILY 05/05/20 05/05/20 History Physical Exam Vital Signs: Vital Signs: Vital Signs Temp Pulse Resp BP Pulse Ox 05/08/20 09:07 22 H 05/08/20 08:00 97.8 F 91 20 130/71 89 L 05/08/20 03:15 100.2 F 80 20 117/66 93 05/08/20 00:00 98.3 F 61 20 144/74 H 92 05/07/20 19:00 98.0 F 120 H 24 H 151/80 H 81 L 05/07/20 15:57 97.4 F 96 18 123/75 91 L 05/07/20 13:24 97.4 F 99 20 117/74 05/07/20 13:10 97.8 F 105 H 18 114/70 05/07/20 11:36 98.2 F 110 H 20 124/73 91 L Body Mass Index 31.2 Const: General: alert, acute distress moderate, diaphoretic and ill appearing HENMT: General nose exam: Abnormal external nose present and Nasal discharge present Eyes: Pupils: Equal, round and reactive pupils present Neck: Neck: Yes normal visual inspection, Yes full ROM and Yes no lymphadenopathy Chest: Chest palpation & inspection: normal inspection of the chest Resp: Auscultation: diminished lung sounds Cardio: Rate: regular rate Rhythm: regular rhythm Heart sounds: S1 normal heart sound present and S2 normal heart sound present GI: Palpation (GI): Soft to palpation and nontender Auscultation: normal bowel sounds : General: Yes no CVA tenderness Back/Spine/Pelvis: Back: no CVA tenderness Skin: General skin exam: rashes and/or lesions noted Neuro: Cranial nerves: Yes Equal, round and reactive pupils present Results Laboratory Findings CBC and BMP: 05/08/20 05:45 05/08/20 05:45 ABG, PT/INR, D-dimer: PT/INR, D-dimer PT 12.9 SEC (10.8-13.0) 05/05/20 12:40 INR 1.1 (0.9-1.1) 05/05/20 12:40 D-Dimer 290 NG/ML 05/05/20 12:40 Abnormal lab findings: Abnormal Labs 05/05/20 05/05/20 05/05/20 12:40 12:40 12:40 WBC 12.5 H MCH 26.4 L Immature Gran % (Auto) 0.6 H Neut % (Auto) 85.5 H Lymph % (Auto) 8.3 L Lymph # (Auto) 1.0 L Abs Immat Gran (auto) 0.07 H Absolute Neuts (auto) 10.7 H BUN 19 H Random Glucose Calcium 8.0 L Lactate Dehydrogenase 226 H C-Reactive Protein 6.27 H Coronavirus (PCR) 05/05/20 05/06/20 05/06/20 16:06 06:33 06:33 WBC 12.3 H MCH 25.8 L Immature Gran % (Auto) Neut % (Auto) Lymph % (Auto) Lymph # (Auto) Abs Immat Gran (auto) Absolute Neuts (auto) BUN Random Glucose Calcium 8.0 L Lactate Dehydrogenase C-Reactive Protein Coronavirus (PCR) POSITIVE A 05/07/20 05/08/20 05/08/20 13:13 05:45 05:45 WBC 12.6 H MCH 26.5 L Immature Gran % (Auto) Neut % (Auto) Lymph % (Auto) Lymph # (Auto) Abs Immat Gran (auto) Absolute Neuts (auto) BUN 26 H D 31 H Random Glucose 116 H Calcium 8.2 L Lactate Dehydrogenase C-Reactive Protein Coronavirus (PCR) 05/08/20 05:45 WBC MCH Immature Gran % (Auto) Neut % (Auto) Lymph % (Auto) Lymph # (Auto) Abs Immat Gran (auto) Absolute Neuts (auto) BUN 31 H Random Glucose Calcium Lactate Dehydrogenase C-Reactive Protein Coronavirus (PCR) Microbiology: Microbiology 05/05/20 13:37 Blood - Venous Blood Culture - Preliminary No growth after 48 hours. 05/05/20 13:29 Blood - Venous Blood Culture - Preliminary No growth after 48 hours. Assessment and Plan (1) Acute hypoxemic respiratory failure: Status: Acute Continue HF Add NRB if hypoxic Encourage awake proning Continue IV decadron Continue IV Remdisivir Give 2nd dose of convolecent plasma (2) COVID-19: Problem details: She has COVID pneumonia No signs of bacterial infection or atypical infection at this time Status: Acute (3) Pneumonia: Qualifiers: Laterality: bilateral Lung location: lower lobe of lung Pneumonia type: due to unspecified organism Qualified Code(s): J18.9 - Pneumonia, unspecified organism Status: Acute Start Doxy (4) Asthma: Status: Acute
[2020-05-08 10:50] LABS: D Dimer 545 NG/ML
[2020-05-08] MEDS: Doxycycline Hyclate 100 MG in 0.9 % Sodium Chloride 250 ML 166.67 MG IV ×2 (10:54→23:40)
--- NOTE | 2020-05-08 11:11 | PC.NURSE ---
Addendum entered by Estelle Bailey RN 05/08/20 17:24: Patient refusing prone position with this RN and MD in room, education repeatedly given with the necessity of at least trying the prone position. Patient agreed to lying on her left side, approximately 1.5 hours on left side. Oxygen maintained within mid 90s throughout afternoon. Patient suddenly desatted to 85%, WOB was WNL, patient not in any distress, respiratory on unit and placed non re-breather 15LPM on top of 100% high flow 60LPM, sats maintaining at 90-91% ICU MD assessed patient, will place order for PICC line for 05/09, Nursing automobile body repair supervisor attempting peripheral access. Original Note: Patient desatting to the low 80s, WOB increased, ventimask at 15L maxed. Call to respiratory, high flow to be administered. High flow initiated at 100% 50LPM and patient sats rising low to mid 90s, WOB decreased. Subscription Clerk on unit, encouraged to have patient rest on her side or on her stomach as tolerated.
--- NOTE | 2020-05-08 11:46 | PM.EVENT ---
Event Note Event Note: Dr. Winston asked me to look at Mrs. Cates this morning bec of her requirement for 100% HFNC oxygen. The patient is a 55 year old women with PMHx of asthma, HTN, and DM. She tested positive for COVID-19 on Apr 30. She was seen in our ED on May 03 c/o dry cough x 2 days. RR was 16, Sat 96-99% on room air. CBC, CMP, and troponin, BNP, D-dimer, and CXR were negative. She was treated with steroids and BDs and discharged. The patient represented to the ED on May 05 c/o worsening malaise, chills, body aches, n/v, dry cough and shortness of breath since the . Sat was 93% on RA, 96% on 2L. WBC count 12,500. D-dimer was 290, LDH 226, all other labs WNL. CXR and CTA confirmed pneumonia c/w COVID-19. On walk test, she dropped to 88% on room air. The patient was started on dexamethasone and admitted for tx of COVID-19 pneumonia. Yesterday, her oxygenation worsened. She was advanced to a non-rebreather face mask and started on a 5 day course of remdesivir. At some point, she was given convalesce plasma. This morning she was advanced to 100% high-flow nasal cannula, and Dr. Winston asked me to see her. On my exam this morning, the patient is mildly tachypneic on HFNC 100%/50L, with RR about 24, but no access musc use, no incr WOB beyond the increased RR. I looked in on her twice to make sure. She looks to me like she could breathe like this for a week if she needed to. DDimer is increasing, to 545 today. IMPRESSION: Bilat COVID pneumonia, following a typical course. At this point, there is no indication for further resp intervention (e.g. BiPAP or mech ventilation). She can safely stay on IMC. I recommeneded proning In regards to other management issues: Given the very limited evidence for the efficacy of convalesc plasma, I would recommend not giving another dose. I will continue to see Mrs. Cates twice daily, morning and evening, for the rest of this week. ADDENDUM: I went to see the patient again at 17:30. Since the morning, on the 100% HFNC she?d desaturated to 85%, altho still looked fully comfortable, according to her nurse. So a NRBFM was added. Currently on the 100% HFNC and NRBFM, she?s breathing fully comfortably and looks thoroughly nontoxic. RR about 24-26. No increased WOB, no access musc. She can safely stay on IMC at this time. Time (including extended chart rev, three visits to the bedside, and three teleph calls with Dr. Winston: 70+ min ([id number])
--- NOTE | 2020-05-08 13:29 | MHC.CM.PN ---
Patient is on 100% FIO2 and 15 liters NRB mask. Also on IV Decadron and IV Remdesivir for COVID + PNA. Discharge plan is home no services, however this may change. [facility] Petit will provide transportation. CM will continue to follow for discharge needs.
--- NOTE | 2020-05-08 13:57 | HO.PM.IMPN ---
Subjective Subjective Date of Service: 05/08/20 Interval History: Acute hypoxemic respiratory failure secondary to COVID infection Review of Systems Patient seems still short of breath progressively worsening slowly Request 100% oxygen now, also respiratory is working on high-flow, may also need prone positioning as per ICU Physical Exam Vital Signs: Vital Signs: Vital Signs Temp Pulse Resp BP Pulse Ox 05/08/20 12:00 97.5 F 102 H 21 H 142/87 H 91 L 05/08/20 11:29 20 05/08/20 09:07 22 H 05/08/20 08:00 97.8 F 91 20 130/71 89 L 05/08/20 03:15 100.2 F 80 20 117/66 93 05/08/20 00:00 98.3 F 61 20 144/74 H 92 05/07/20 19:00 98.0 F 120 H 24 H 151/80 H 81 L 05/07/20 15:57 97.4 F 96 18 123/75 91 L Body Mass Index 31.2 Physical exam: Constitutional:seems sob heent: anicteric , neck supple Cvs: rrr, [id number] , no murmur res: diminshed at bases , few scattered rhonchii , no rales . abd: no rebound or guarding ,nt, bs present. ext pulses present , no cyanosis neuro: axo3 , nonfocal. Objective Data Current Medications Generic Name Dose Route Start Last Admin Trade Name Freq PRN Reason Stop Dose Admin Acetaminophen 650 mg 05/05/20 20:54 05/08/20 03:18 Acetaminophen 325 Mg Tablet PO 650 mg Q6H PRN Administration Pain, Mild (Pain Scale 1-3) Albuterol Sulfate 2 puff 05/05/20 20:54 05/07/20 01:50 EDT Albuterol Sulfate 90 Mcg 8 Gm Inhaler INHALE 2 puff Q4H PRN Administration shortness of breath Atorvastatin Calcium 10 mg 05/06/20 09:00 05/08/20 08:21 Atorvastatin Calcium 10 Mg Tablet PO 10 mg DAILY KASI Administration Dexamethasone Sodium Phosphate 6 mg 05/05/20 20:54 05/08/20 08:21 Dexamethasone Sod Phosphate 4 Mg/Ml Vial IVPUSH 6 mg DAILY KASI Administration Docusate Sodium 100 mg 05/05/20 20:54 Docusate Sodium 100 Mg Capsule PO DAILY PRN Constipation Enoxaparin Sodium 40 mg 05/05/20 21:00 05/07/20 20:36 Enoxaparin Sodium 40 Mg/0.4 Ml Syringe SUBCUT 40 mg Q24H KASI Administration Guaifenesin/Codeine Phosphate 10 ml 05/07/20 09:20 05/08/20 08:21 Guaifen/Codeine Sf 200/20/10ml 10 Ml Liquid PO 10 ml Q6H KASI Administration Hydrochlorothiazide 12.5 mg 05/06/20 09:00 05/08/20 08:16 Hydrochlorothiazide 12.5 Mg Tablet PO Not Given DAILY [facility] Protocol Remdesivir 100 mg/ Sodium 250 mls @ 125 mls/hr 05/08/20 16:00 Chloride IV 05/11/20 17:59 Q24H KASI Doxycycline Hyclate 100 mg/ 250 mls @ 166.67 mls/hr 05/08/20 10:00 05/08/20 12:24 Sodium Chloride IV Infused Q12H KASI Infusion Montelukast Sodium 10 mg 05/05/20 21:00 05/07/20 20:36 Montelukast Sodium 10 Mg Tablet PO 10 mg BEDTIME KASI Administration Ondansetron HCl 4 mg 05/05/20 20:54 Ondansetron Hcl 4 Mg/2 Ml Vial IVPUSH Q8H PRN Nausea and Vomiting Pharmacy Consult 1 each 05/05/20 15:36 Consult Rx Perform Med Rec MISCELLANE ONCE PRN Consult order Sodium Chloride 3 ml 05/06/20 00:00 05/08/20 08:22 0.9 % Sodium Chloride Flush 3 Ml Syringe IVFLUSH 3 ml QSHIFT KASI Administration Trazodone HCl 50 mg 05/05/20 21:00 05/07/20 20:36 Trazodone Hcl 50 Mg Tablet PO 50 mg BEDTIME [facility] Administration Venlafaxine HCl 37.5 mg 05/06/20 09:00 05/08/20 08:21 Venlafaxine Hcl Er 37.5 Mg Cap.Er.24h PO 37.5 mg DAILY KAIS Administration Labs CBC & Chem 7: 05/08/20 05:45 05/08/20 05:45 Microbiology Microbiology Results: Microbiology 05/05/20 13:37 Blood - Venous Blood Culture - Preliminary No growth after 48 hours. 05/05/20 13:29 Blood - Venous Blood Culture - Preliminary No growth after 48 hours. Assessment and Plan (1) Acute hypoxemic respiratory failure: Status: Acute Assessment and Plan: 55-year-old female with a history of asthma, hypertension, dyslipidemia, recently diagnosed with COVID-19 who presents to the emergency department with shortness of breath found to have multifocal pneumonia and hypoxia. 1. Acute hypoxemic respiratory failure with hypoxia,COVID-19 pneumonia intial D-dimer 290, LDH 226, ferritin 104, CRP 6.27 CTA no PE, multifocal PNA Shortness of breath, now the patient is on drips and oxygen, still tachycardic and tachypnea Will continue dexamethasone, received conversant plasma, Remdesvir ID following Pulmonary recommended to give 2nd dose of [facility] sent plasma which is ordered. Patient was seen by ICU also Dr. harrison: Recommended to monitor on the floor and ICU will be monitoring the patient closely If patient condition worsen further respiratory rodriguez or any hemodynamically instability will call ICU back . 2. leukocytosis: slightly seems similar near 12.6 likely related to recent steroid use. LA wnl. no evidence of sepsis 3. hypertension: blood pressure controlled- hold hydrochlorothiazide, may need amlodipine if needed for blood pressure. 4.hyperlipidemia- continue statin. 5. mood- continue venlafaxine. (2) COVID-19: Problem details: She has COVID pneumonia No signs of bacterial infection or atypical infection at this time Status: Acute (3) Pneumonia: Status: Acute
[2020-05-08] MEDS: Remdesivir 100 MG in 0.9 % Sodium Chloride 230 ML 125 MG IV (16:23)
[2020-05-08] MEDS: Montelukast Sodium 10 MG TABLET PO (22:10)
[2020-05-08] MEDS: traZODone HCL 50 MG TABLET PO (22:10)
[2020-05-08] MEDS: Enoxaparin Sodium 40 MG/0.4 ML SYRINGE SUBCUT (22:10)
[2020-05-09] VITALS (12 sets, daily range): BP systolic 120–177; BP diastolic 67–85; PULSE 77–97; RESP 16–24; TEMP 36.1–37; O2SAT 90–100
--- NOTE | 2020-05-09 00:12 | PC.NURSE ---
Pt. received 2nd bag of convalescent covid plasma. VSS. No reactions noted. Pt. able to be weaned ofgg
--- NOTE | 2020-05-09 00:15 | PC.NURSE ---
Pt. received 2nd bag of convalescent covid plasma. VSS. No reactions noted. Pt. able to be weaned off nonrebreather satting 96% with high flow 100%. Pt. wristband is able to be scanned, issue with 2nd witness d/t SEAN Hanna PIN # unable to verify. Hop Farmer aware. Pt. resting in bed at this time. Medicated per EMAR. Will continue to monitor.
[2020-05-09] MEDS: guaiFEN/Codeine SF 200/20/10ML 10 ML LIQUID PO ×4 (04:29→21:18)
[2020-05-09] MEDS: 0.9 % Sodium Chloride Flush 3 ML SYRINGE IVFLUSH ×2 (08:18→16:06)
[2020-05-09] MEDS: dexAMETHasone sod phosphate 4 MG/ML VIAL 6 MG IVPUSH (08:19)
[2020-05-09] MEDS: Doxycycline Hyclate 100 MG in 0.9 % Sodium Chloride 250 ML 166.67 MG IV ×2 (10:24→21:18)
[2020-05-09] MEDS: hydroCHLOROthiazide 12.5 MG TABLET PO (11:26)
--- NOTE | 2020-05-09 11:45 | PM.EVENT ---
Event Note Event Note: 55 yo woman with bilat COVID-19 pneumonia. Breathing easy on 100% HFNC, w RR 18-20. Sat up to 97%. No incr in WOB at all. Rec tapering FiO2 to Sat 89-90%. Safe to stay on IMC. I'll see her again tomorrow morning. Time: [id number].
--- NOTE | 2020-05-09 11:49 | HO.PM.IMPN ---
Subjective Subjective Date of Service: 05/09/20 Interval History: Acute hypoxemic respiratory failure, COVID pneumonia probable Review of Systems Patient says the shortness of breath seems alert to yesterday but may be slightly improving, denies any chest pain or abdominal pain or fever or chills Says the cough is improving since yesterday Physical Exam Vital Signs: Vital Signs: Vital Signs Temp Pulse Resp BP Pulse Ox 05/09/20 11:23 20 05/09/20 08:10 22 H 05/09/20 07:45 97.0 F 86 17 131/67 94 05/09/20 04:09 24 H 05/09/20 03:12 96.9 F 80 19 128/68 95 05/09/20 00:12 24 H 05/08/20 23:52 97.7 F 92 22 H 142/93 H 05/08/20 23:25 97.0 F 72 19 93 05/08/20 22:04 97.4 F 88 20 140/74 H 05/08/20 21:48 97.6 F 92 20 138/78 05/08/20 19:31 98.2 F 87 22 H 149/75 H 94 05/08/20 19:25 24 H 05/08/20 15:39 98.9 F 96 22 H 126/74 93 05/08/20 12:00 97.5 F 102 H 21 H 142/87 H 91 L Body Mass Index 31.2 Physical exam: Constitutional: Slightly obese woman, seems more comfortable breathing rodriguez today HEENT: Eyes anicteric, no rinnrhae Cvs: rrr, [id number] , no murmur res: Intermittently slightly tachypneic, breath sounds diminished at bases, has some scattered rhonchi also. abd: no rebound or guarding ,nt, bs present. ext pulses present , no cyanosis neuro: axo3 , nonfocal. Objective Data Current Medications Generic Name Dose Route Start Last Admin Trade Name Freq PRN Reason Stop Dose Admin Acetaminophen 650 mg 05/05/20 20:54 05/08/20 03:18 Acetaminophen 325 Mg Tablet PO 650 mg Q6H PRN Administration Pain, Mild (Pain Scale 1-3) Albuterol Sulfate 2 puff 05/05/20 20:54 05/07/20 01:50 EDT Albuterol Sulfate 90 Mcg 8 Gm Inhaler INHALE 2 puff Q4H PRN Administration shortness of breath Atorvastatin Calcium 10 mg 05/09/20 21:00 Atorvastatin Calcium 10 Mg Tablet PO BEDTIME KASI Dexamethasone Sodium Phosphate 6 mg 05/05/20 20:54 05/09/20 08:19 Dexamethasone Sod Phosphate 4 Mg/Ml Vial IVPUSH 6 mg DAILY KASI Administration Docusate Sodium 100 mg 05/05/20 20:54 Docusate Sodium 100 Mg Capsule PO DAILY PRN Constipation Enoxaparin Sodium 40 mg 05/05/20 21:00 05/08/20 22:10 Enoxaparin Sodium 40 Mg/0.4 Ml Syringe SUBCUT 40 mg Q24H KASI Administration Guaifenesin/Codeine Phosphate 10 ml 05/07/20 09:20 05/09/20 08:19 Guaifen/Codeine Sf 200/20/10ml 10 Ml Liquid PO 10 ml Q6H KASI Administration Hydrochlorothiazide 12.5 mg 05/09/20 11:15 05/09/20 11:26 Hydrochlorothiazide 12.5 Mg Tablet PO 12.5 mg DAILY KASI Administration Protocol Remdesivir 100 mg/ Sodium 250 mls @ 125 mls/hr 05/08/20 16:00 05/08/20 20:59 Chloride IV 05/11/20 17:59 Infused Q24H KASI Infusion Doxycycline Hyclate 100 mg/ 250 mls @ 166.67 mls/hr 05/08/20 10:00 05/09/20 10:24 Sodium Chloride IV 166.67 mls/hr Q12H KASI Administration Montelukast Sodium 10 mg 05/05/20 21:00 05/08/20 22:10 Montelukast Sodium 10 Mg Tablet PO 10 mg BEDTIME KASI Administration Ondansetron HCl 4 mg 05/05/20 20:54 Ondansetron Hcl 4 Mg/2 Ml Vial IVPUSH Q8H PRN Nausea and Vomiting Pharmacy Consult 1 each 05/05/20 15:36 Consult Rx Perform Med Rec MISCELLANE ONCE PRN Consult order Sodium Chloride 3 ml 05/06/20 00:00 05/09/20 08:18 0.9 % Sodium Chloride Flush 3 Ml Syringe IVFLUSH 3 ml QSHIFT KASI Administration Trazodone HCl 50 mg 05/05/20 21:00 05/08/20 22:10 Trazodone Hcl 50 Mg Tablet PO 50 mg BEDTIME KASI Administration Venlafaxine HCl 37.5 mg 05/09/20 21:00 Venlafaxine Hcl Er 37.5 Mg Cap.Er.24h PO BEDTIME KASI Labs CBC & Chem 7: 05/21/20 06:41 05/21/20 06:41 Microbiology Microbiology Results: Microbiology 05/05/20 13:37 Blood - Venous Blood Culture - Preliminary No growth after 48 hours. 05/05/20 13:29 Blood - Venous Blood Culture - Preliminary No growth after 48 hours. Assessment and Plan (1) Acute hypoxemic respiratory failure: Status: Acute Assessment and Plan: 55-year-old female with a history of asthma, hypertension, dyslipidemia, recently diagnosed with COVID-19 who presents to the emergency department with shortness of breath found to have multifocal pneumonia and hypoxia. 1. Acute hypoxemic respiratory failure with hypoxia,COVID-19 pneumonia intial D-dimer 290, LDH 226, ferritin 104, CRP 6.27 CTA no PE, multifocal PNA Shortness of breath some what improving, now the patient is on drips and oxygen, still intermittent tachypnea continue dexamethasone, received conversant plasmax2 given , Remdesvir, oxygen still on high flow. morning labs pending pulm and iCU followin. 2. leukocytosis: slightly seems similar near 12.6 likely related to recent steroid use. LA wnl. no evidence of sepsis 3. hypertension: blood pressure controlled- hold hydrochlorothiazide, may need amlodipine if needed for blood pressure. 4.hyperlipidemia- continue statin. 5. mood- continue venlafaxine. (2) COVID-19: Status: Acute (3) Pneumonia: Status: Acute
--- NOTE | 2020-05-09 13:05 | P.PNPL_ITS ---
Subjective Subjective Interval history: The patient was seen and examined. Currently on 100% high- flow. Still having dry cough and also shortness of breath. She is feeling a little better this morning. She did have a hard time with prone. Again I emphasized to her the importance to prone to expand her lung capacity. The D- dimer is elevated, she already had a CTA ruled out PE. If her D-dimer increases further >3K consider therapeutic anticoagulation. Objective Data Labs CBC & Chem 7: 05/08/20 05:45 05/08/20 05:45 Labs: Laboratory Results - last 24 hr 05/07/20 09:38 Blood Type O Positive Antibody Screen NEGATIVE Microbiology Microbiology Results: Microbiology 05/05/20 13:37 Blood - Venous Blood Culture - Preliminary No growth after 48 hours. 05/05/20 13:29 Blood - Venous Blood Culture - Preliminary No growth after 48 hours. Review of Systems Constitutional: Reports fatigue, Reports malaise and Reports weakness Cardiovascular: Denies Abdominal Distension, Denies chest pain and Reports dyspnea Respiratory: Reports cough, Denies hemoptysis and Reports dyspnea Gastrointestinal: Denies excessive flatus Musculoskeletal: Reports no additional musculoskeletal complaints Denies Neuro-related abnormal movements and Reports weakness Endocrine: Reports fatigue Allergic/Immunologic: Denies urticaria Physical Exam Vital Signs: Vital Signs: Vital Signs Temp Pulse Resp BP Pulse Ox 05/09/20 11:23 20 05/09/20 08:10 22 H 05/09/20 07:45 97.0 F 86 17 131/67 94 05/09/20 04:09 24 H 05/09/20 03:12 96.9 F 80 19 128/68 95 05/09/20 00:12 24 H 05/08/20 23:52 97.7 F 92 22 H 142/93 H 05/08/20 23:25 97.0 F 72 19 93 05/08/20 22:04 97.4 F 88 20 140/74 H 05/08/20 21:48 97.6 F 92 20 138/78 05/08/20 19:31 98.2 F 87 22 H 149/75 H 94 05/08/20 19:25 24 H 05/08/20 15:39 98.9 F 96 22 H 126/74 93 Body Mass Index 31.2 Const: General: comfortable, no acute distress and alert HENMT: General nose exam: Abnormal external nose present and Nasal discharge present Eyes: Pupils: Equal, round and reactive pupils present Neck: Neck: Yes normal visual inspection, Yes full ROM and Yes no lymphadenopathy Chest: Chest palpation & inspection: normal inspection of the chest Resp: Auscultation: diminished lung sounds Cardio: Rate: regular rate Rhythm: regular rhythm Heart sounds: S1 normal heart sound present and S2 normal heart sound present GI: Palpation (GI): Soft to palpation and nontender Auscultation: normal bowel sounds Skin: General skin exam: rashes and/or lesions noted Neuro: Cranial nerves: Yes Equal, round and reactive pupils present Assessment and Plan Assessment and plan (1) Acute hypoxemic respiratory failure: Status: Acute Assessment and Plan: Continue high-flow If he saturates had non-rebreather to the high-flow Needs to prone while awake as tolerated Monitor D-dimer as it is climbing (2) COVID-19: Problem details: She has COVID pneumonia No signs of bacterial infection or atypical infection at this time Status: Acute (3) Pneumonia: Status: Acute Assessment and Plan: Continue doxycycline (4) Asthma: Status: Acute Assessment and Plan: Respiratory therapy Time Spent With Patient Time: Total time spent is greater than 50% in coordination of care (as documented) at patient's floor/unit and/or counseling patient: Time with patient: 15 - 24 minutes
[2020-05-09 13:43] LABS: Hematocrit 40.5 % (37-47); Hemoglobin 12.8 g/dl (12.0-16.0); Mean Corpuscular HGB Conc 31.6 g/dl (31.0-35.0); Mean Corpuscular Hemoglobin 26.4 pg (27.0-33.0); Mean Corpuscular Volume 83.7 fL (80-98); Mean Platelet Volume 9.2 fL (9.4-12.3); Platelet Count 370 X10*3/uL (160-400); Red Blood Count 4.84 X10*6/uL (4.20-5.50); Red Cell Distribution Width 14.1 % (11.0-16.0); White Blood Count 10.6 X10*3/uL (4.8-10.8)
[2020-05-09 14:10] LABS: Anion Gap 13 (12-20); Blood Urea Nitrogen 29 mg/dL (9-16); Calcium 8.8 mg/dL (8.4-10.2); Carbon Dioxide 27 mmol/L (22-29); Chloride 107 mmol/L (96-108); Creatinine Clr Calc Pharmacy 82.6; Estimated Glomerular Filt Rate > 60; Potassium 4.5 mmol/l (3.3-5.1); Sodium 142 mmol/L (135-145)
[2020-05-09 14:11] LABS: Alanine Aminotransferase 18 U/L (0-31); Albumin Level 3.8 g/dL (3.5-5.0); Alkaline Phosphatase 54 U/L (39-117); Aspartate Amino Transferase 18 U/L (5-31); Bilirubin Direct 0.3 mg/dL (0.0-0.5)
[2020-05-09 14:20] LABS: Glucose Random 116 mg/dL (60-115)
[2020-05-09] MEDS: Remdesivir 100 MG in 0.9 % Sodium Chloride 230 ML 125 MG IV (17:40)
--- NOTE | 2020-05-09 19:29 | PC.NURSE ---
SATS BETWEEN 94-97% MOST OF DAY. THIS EVENING SATS DOWN TO 88-91%. SOME SOB WITH EXERTION NOTED. STATES FEELS DIZZY AT TIMES. ASSISTED WITH REPOSITIONING IN BED
[2020-05-09] MEDS: Enoxaparin Sodium 40 MG/0.4 ML SYRINGE SUBCUT (21:18)
[2020-05-09] MEDS: Atorvastatin Calcium 10 MG TABLET PO (21:19)
[2020-05-09] MEDS: Venlafaxine HCl ER 37.5 MG CAP.ER.24H PO (21:19)
[2020-05-09] MEDS: Montelukast Sodium 10 MG TABLET PO (21:19)
[2020-05-09] MEDS: traZODone HCL 50 MG TABLET PO (21:19)
[2020-05-10] VITALS (13 sets, daily range): BP systolic 108–128; BP diastolic 61–75; PULSE 64–87; RESP 16–22; TEMP 35.6–37.1; O2SAT 92–100
[2020-05-10] MEDS: 0.9 % Sodium Chloride Flush 3 ML SYRINGE IVFLUSH ×3 (00:31→16:55)
[2020-05-10] MEDS: guaiFEN/Codeine SF 200/20/10ML 10 ML LIQUID PO ×3 (03:19→20:32)
[2020-05-10 07:01] LABS: Hemoglobin 12.8 g/dl (12.0-16.0); Mean Corpuscular HGB Conc 31.2 g/dl (31.0-35.0); Mean Corpuscular Hemoglobin 26.2 pg (27.0-33.0); Mean Corpuscular Volume 83.8 fL (80-98); Mean Platelet Volume 11.3 fL (9.4-12.3); Platelet Count 317 X10*3/uL (160-400); Red Blood Count 4.89 X10*6/uL (4.20-5.50); White Blood Count 11.4 X10*3/uL (4.8-10.8)
[2020-05-10 07:02] LABS: Anion Gap 17 (12-20); Blood Urea Nitrogen 29 mg/dL (9-16); Calcium 8.4 mg/dL (8.4-10.2); Carbon Dioxide 22 mmol/L (22-29); Chloride 107 mmol/L (96-108); Creatinine Clr Calc Pharmacy 96.4; Estimated Glomerular Filt Rate > 60; Glucose Random 82 mg/dL (60-115); Potassium 4.3 mmol/l (3.3-5.1); Sodium 142 mmol/L (135-145)
[2020-05-10] MEDS: Doxycycline Hyclate 100 MG in 0.9 % Sodium Chloride 250 ML 166.67 MG IV ×2 (08:37→21:20)
[2020-05-10] MEDS: hydroCHLOROthiazide 12.5 MG TABLET PO (08:38)
[2020-05-10] MEDS: dexAMETHasone sod phosphate 4 MG/ML VIAL 6 MG IVPUSH (08:39)
--- NOTE | 2020-05-10 08:55 | PM.EVENT ---
Event Note Event Note: 55 yo woman with bilat COVID-19 pneumonia. Breathing easy on 100% HFNC, w RR 18-20. Sat 93-100%. No incr in WOB at all. Rec tapering FiO2 to Sat 89-90%. Safe to stay on IMC. I'll see her again tomorrow morning. Time: [id number].
[2020-05-10] MEDS: ondansetron HCL 4 MG/2 ML VIAL IVPUSH (09:14)
[2020-05-10 10:11] LABS: D Dimer 417 NG/ML
--- NOTE | 2020-05-10 11:50 | HO.PM.IMPN ---
Subjective Subjective Date of Service: 05/10/20 Interval History: seen and examined this AM reports breathing minimal improvement some nausea this AM, but no abdominal pain Review of Systems General - no fevers or chills, +malaise Cardiovascular - no chest pain Respiratory - +HALL Abdominal- no abdominal pain, +n/v Physical Exam Vital Signs: Vital Signs: Vital Signs Temp Pulse Resp BP Pulse Ox 05/10/20 11:17 20 05/10/20 11:16 97.7 F 87 18 118/66 90 L 05/10/20 07:52 98.0 F 81 18 119/68 93 05/10/20 07:35 20 05/10/20 04:16 18 05/10/20 03:21 98.7 F 86 20 128/70 96 05/10/20 00:36 20 05/09/20 23:40 98.6 F 77 20 120/68 100 05/09/20 19:12 98.1 F 81 20 135/70 90 L 05/09/20 18:56 16 05/09/20 14:46 97.8 F 84 20 124/70 97 05/09/20 12:30 97.3 F 83 18 148/73 H 93 Body Mass Index 31.2 General - ill appearing, but no major distress Cardiovascular - regular rate and rhythm, S1-S2 Lungs - non labored breathing Abdomen - soft, nontender, no rebound regarding Extremities - no edema bilaterally Neuro - awake and alert, no focal deficits Objective Data Current Medications Generic Name Dose Route Start Last Admin Trade Name Freq PRN Reason Stop Dose Admin Acetaminophen 650 mg 05/05/20 20:54 05/08/20 03:18 Acetaminophen 325 Mg Tablet PO 650 mg Q6H PRN Administration Pain, Mild (Pain Scale 1-3) Albuterol Sulfate 2 puff 05/05/20 20:54 05/07/20 01:50 EDT Albuterol Sulfate 90 Mcg 8 Gm Inhaler INHALE 2 puff Q4H PRN Administration shortness of breath Atorvastatin Calcium 10 mg 05/09/20 21:00 05/09/20 21:19 Atorvastatin Calcium 10 Mg Tablet PO 10 mg BEDTIME KASI Administration Dexamethasone Sodium Phosphate 6 mg 05/05/20 20:54 05/10/20 08:39 Dexamethasone Sod Phosphate 4 Mg/Ml Vial IVPUSH 6 mg DAILY KASI Administration Docusate Sodium 100 mg 05/05/20 20:54 Docusate Sodium 100 Mg Capsule PO DAILY PRN Constipation Enoxaparin Sodium 40 mg 05/05/20 21:00 05/09/20 21:18 Enoxaparin Sodium 40 Mg/0.4 Ml Syringe SUBCUT 40 mg Q24H KASI Administration Famotidine 20 mg 05/10/20 12:00 Famotidine 20 Mg Tablet PO BID KASI Guaifenesin/Codeine Phosphate 10 ml 05/07/20 09:20 05/10/20 08:37 Guaifen/Codeine Sf 200/20/10ml 10 Ml Liquid PO 10 ml Q6H KASI Administration Hydrochlorothiazide 12.5 mg 05/09/20 11:15 05/10/20 08:38 Hydrochlorothiazide 12.5 Mg Tablet PO 12.5 mg DAILY KASI Administration Protocol Remdesivir 100 mg/ Sodium 250 mls @ 125 mls/hr 05/08/20 16:00 05/09/20 19:42 Chloride IV 05/11/20 17:59 Infused Q24H KASI Infusion Doxycycline Hyclate 100 mg/ 250 mls @ 166.67 mls/hr 05/08/20 10:00 05/10/20 10:41 Sodium Chloride IV Infused Q12H KASI Infusion Montelukast Sodium 10 mg 05/05/20 21:00 05/09/20 21:19 Montelukast Sodium 10 Mg Tablet PO 10 mg BEDTIME KASI Administration Ondansetron HCl 4 mg 05/05/20 20:54 05/10/20 09:14 Ondansetron Hcl 4 Mg/2 Ml Vial IVPUSH 4 mg Q8H PRN Administration Nausea and Vomiting Pharmacy Consult 1 each 05/05/20 15:36 Consult Rx Perform Med Rec MISCELLANE ONCE PRN Consult order Sodium Chloride 3 ml 05/06/20 00:00 05/10/20 08:39 0.9 % Sodium Chloride Flush 3 Ml Syringe IVFLUSH 3 ml QSHIFT KASI Administration Trazodone HCl 50 mg 05/05/20 21:00 05/09/20 21:19 Trazodone Hcl 50 Mg Tablet PO 50 mg BEDTIME KASI Administration Venlafaxine HCl 37.5 mg 05/09/20 21:00 05/09/20 21:19 Venlafaxine Hcl Er 37.5 Mg Cap.Er.24h PO 37.5 mg BEDTIME KASI Administration Labs CBC & Chem 7: 05/10/20 05:36 05/10/20 05:36 Microbiology Microbiology Results: Microbiology 05/05/20 13:37 Blood - Venous Blood Culture - Preliminary No growth after 48 hours. 05/05/20 13:29 Blood - Venous Blood Culture - Preliminary No growth after 48 hours. Assessment and Plan (1) COVID-19: Status: Acute Assessment and Plan: This is a 55 yo F PMH of asthma, HTN, HLD who is admitted for acute hypoxic resp. failure due to COVID-19. She is admitted for further treatment. 1. Acute hypoxic respiratory failure due to COVID-19 On HFNC (80%/55 LPM this AM)-- wean as tolerated On decadron, day #6; Remesivir day #4/5, empiric doxy day #3 s/p Plasma x 2 trend inflammatory makers 2. HTN continue hctz 3. Mood continue hoime meds 4. N/V add pepcic zofran PRN Full Code DVT pptx, lovenox
--- NOTE | 2020-05-10 11:51 | MHC.CM.PN ---
Female 55 DX COVID+. DP Home no services. S.O. will provide transport at DC. Pt continues on 100% oxygen. CM will follow to assess for change in DC needs.
[2020-05-10 12:16] LABS: Alanine Aminotransferase 16 U/L (0-31); Albumin Level 3.4 g/dL (3.5-5.0); Alkaline Phosphatase 49 U/L (39-117); Aspartate Amino Transferase 18 U/L (5-31); Bilirubin Direct 0.3 mg/dL (0.0-0.5); Bilirubin Total 0.7 mg/dL (0.0-1.0); Total Protein 6.5 g/dL (6.5-8.0)
--- NOTE | 2020-05-10 12:31 | PM.PNPUL ---
Subjective Subjective Interval history: seen and examined this AM Still on the HF. Reports breathing minimal improvement. Some nausea this AM, but no abdominal pain. Took zofran. Not able to prone. Objective Data Labs CBC & Chem 7: 05/10/20 05:36 05/10/20 05:36 Labs: Laboratory Results - last 24 hr 05/09/20 05/09/20 05/09/20 13:19 13:19 13:19 WBC 10.6 RBC 4.84 Hgb 12.8 Hct 40.5 MCV 83.7 MCH 26.4 L MCHC 31.6 RDW 14.1 Plt Count 370 MPV 9.2 L Absolute Nucleated RBC 0.000 Nucleated RBC % (auto) 0.0 D-Dimer Sodium 142 Potassium 4.5 Chloride 107 Carbon Dioxide 27 Anion Gap 13 BUN 29 H Creatinine 0.70 Estim Creat Clear Calc 82.6 Estimated GFR > 60 Random Glucose 116 H Calcium 8.8 Total Bilirubin 1.0 Direct Bilirubin 0.3 AST 18 ALT 18 Alkaline Phosphatase 54 Total Protein 7.0 Albumin 3.8 05/10/20 05/10/20 05/10/20 05:36 05:36 09:10 WBC 11.4 H RBC 4.89 Hgb 12.8 Hct 41.0 MCV 83.8 MCH 26.2 L MCHC 31.2 RDW 14.0 Plt Count 317 MPV 11.3 Absolute Nucleated RBC 0.000 Nucleated RBC % (auto) 0.0 D-Dimer Cancelled Sodium 142 Potassium 4.3 Chloride 107 Carbon Dioxide 22 Anion Gap 17 BUN 29 H Creatinine 0.60 Estim Creat Clear Calc 96.4 Estimated GFR > 60 Random Glucose 82 Calcium 8.4 Total Bilirubin 0.7 Direct Bilirubin 0.3 AST 18 ALT 16 Alkaline Phosphatase 49 Total Protein 6.5 Albumin 3.4 L 05/10/20 09:10 WBC RBC Hgb Hct MCV MCH MCHC RDW Plt Count MPV Absolute Nucleated RBC Nucleated RBC % (auto) D-Dimer 417 Sodium Potassium Chloride Carbon Dioxide Anion Gap BUN Creatinine Estim Creat Clear Calc Estimated GFR Random Glucose Calcium Total Bilirubin Direct Bilirubin AST ALT Alkaline Phosphatase Total Protein Albumin Microbiology Microbiology Results: Microbiology 05/05/20 13:37 Blood - Venous Blood Culture - Preliminary No growth after 48 hours. 05/05/20 13:29 Blood - Venous Blood Culture - Preliminary No growth after 48 hours. Review of Systems Constitutional: Reports weakness Denies change in voice, Denies lip swelling, Denies mouth pain, Reports nasal congestion, Reports nasal discharge and Denies tongue swelling Cardiovascular: Denies chest pain Respiratory: Reports cough Gastrointestinal: Reports nausea Musculoskeletal: Denies no additional musculoskeletal complaints Denies Neuro-related abnormal movements and Reports weakness Psychiatric: Denies no additional psychiatric complaints Hematologic/Lymphatic: Denies easy bleeding and Denies lymphadenopathy Allergic/Immunologic: Denies lip swelling and Denies tongue swelling Physical Exam Vital Signs: Vital Signs: Vital Signs Temp Pulse Resp BP Pulse Ox 05/10/20 11:17 20 05/10/20 11:16 97.7 F 87 18 118/66 94 05/10/20 07:52 98.0 F 81 18 119/68 93 05/10/20 07:35 20 05/10/20 04:16 18 05/10/20 03:21 98.7 F 86 20 128/70 96 05/10/20 00:36 20 05/09/20 23:40 98.6 F 77 20 120/68 100 05/09/20 19:12 98.1 F 81 20 135/70 90 L 05/09/20 18:56 16 05/09/20 14:46 97.8 F 84 20 124/70 97 Body Mass Index 31.2 Const: General: alert, ill appearing and tired appearing HENMT: General nose exam: Abnormal external nose present and Nasal discharge present Neck: Neck: Yes normal visual inspection, Yes full ROM and Yes no lymphadenopathy Chest: Chest palpation & inspection: normal inspection of the chest Resp: Auscultation: diminished lung sounds Cardio: Rate: regular rate Rhythm: regular rhythm Heart sounds: S1 normal heart sound present and S2 normal heart sound present GI: Palpation (GI): Soft to palpation and nontender Auscultation: normal bowel sounds Skin: General skin exam: rashes and/or lesions noted Assessment and Plan Assessment and plan (1) Acute hypoxemic respiratory failure: Status: Acute Assessment and Plan: Repeat CXR Continue Decadron, Remdisivir OOB to chair and proning when GI symptoms improve (2) COVID-19: Status: Acute (3) Pneumonia: Status: Acute Assessment and Plan: Continue Doxy Time Spent With Patient Time: Total time spent is greater than 50% in coordination of care (as documented) at patient's floor/unit and/or counseling patient: Time with patient: 15 - 24 minutes
[2020-05-10] MEDS: Famotidine 20 MG TABLET PO ×2 (12:55→20:31)
[2020-05-10] MEDS: Remdesivir 100 MG in 0.9 % Sodium Chloride 230 ML 125 MG IV (16:54)
[2020-05-10] MEDS: Venlafaxine HCl ER 37.5 MG CAP.ER.24H PO (20:31)
[2020-05-10] MEDS: traZODone HCL 50 MG TABLET PO (20:31)
[2020-05-10] MEDS: Atorvastatin Calcium 10 MG TABLET PO (20:31)
[2020-05-10] MEDS: Enoxaparin Sodium 40 MG/0.4 ML SYRINGE SUBCUT (20:31)
[2020-05-10] MEDS: Montelukast Sodium 10 MG TABLET PO (20:31)
[2020-05-11] VITALS (12 sets, daily range): BP systolic 112–123; BP diastolic 61–80; PULSE 62–89; RESP 16–20; TEMP 36.2–37; O2SAT 90–98
[2020-05-11] MEDS: 0.9 % Sodium Chloride Flush 3 ML SYRINGE IVFLUSH ×4 (00:04→20:34)
[2020-05-11] MEDS: guaiFEN/Codeine SF 200/20/10ML 10 ML LIQUID PO ×4 (03:01→20:34)
[2020-05-11] MEDS: Doxycycline Hyclate 100 MG in 0.9 % Sodium Chloride 250 ML 166.67 MG IV ×2 (08:45→21:11)
[2020-05-11] MEDS: dexAMETHasone sod phosphate 4 MG/ML VIAL 6 MG IVPUSH (08:47)
[2020-05-11] MEDS: Famotidine 20 MG TABLET PO ×2 (09:24→20:35)
[2020-05-11] MEDS: hydroCHLOROthiazide 12.5 MG TABLET PO (09:25)
--- NOTE | 2020-05-11 11:37 | MHC.CM.PN ---
FEMALE 55 COVID+ A referral was made to [facility] for home services.
[2020-05-11] MEDS: Acetaminophen 325 MG TABLET 650 MG PO (13:12)
--- NOTE | 2020-05-11 14:30 | PC.NURSE ---
PATIENT C/O SEVERE SINUS PAIN/PRESSURE A BURNING SENSATION. STILL ON THE HIGH FLOW NASAL CANNULA. BEING WEANED DOWN PER RESPIRATORY TOLERATED THROUGH DAY BUT STILL ON 75%/50 L O2. OFFERED ICE PACK,REPOSITIONED DEVICE.HOSPITALIST MADE AWARE. TYLENOL GIVEN.SALINE NASAL SPRAY TO BE ORDERED. SWITCHED TO 100 % NONREBREATHER PER RESPIRATORY RECOMMENDATION IN THE MEAN TIME.
[2020-05-11] MEDS: Remdesivir 100 MG in 0.9 % Sodium Chloride 230 ML 125 MG IV (15:38)
--- NOTE | 2020-05-11 16:46 | HO.PM.IMPN ---
Subjective Subjective Date of Service: 05/11/20 Interval History: seen and examined this AM breathing unchanged some [facility] Review of Systems General - no fevers or chills, +malaise Cardiovascular - no chest pain Respiratory - +HALL Abdominal- no abdominal pain, Physical Exam Vital Signs: Vital Signs: Last Vital Signs Temp 97.9 F 05/11/20 14:58 Pulse 80 05/11/20 14:58 Resp 20 05/11/20 16:40 BP 118/61 05/11/20 14:58 Pulse Ox 98 05/11/20 14:58 Body Mass Index 31.2 General - ill appearing, but no major distress Cardiovascular - regular rate and rhythm, S1-S2 Lungs - non labored breathing Abdomen - soft, nontender, no rebound regarding Extremities - no edema bilaterally Neuro - awake and alert, no focal deficits Objective Data Current Medications Generic Name Dose Route Start Last Admin Trade Name Freq PRN Reason Stop Dose Admin Acetaminophen 650 mg 05/05/20 20:54 05/11/20 13:12 Acetaminophen 325 Mg Tablet PO 650 mg Q6H PRN Administration Pain, Mild (Pain Scale 1-3) Albuterol Sulfate 2 puff 05/05/20 20:54 05/07/20 01:50 EDT Albuterol Sulfate 90 Mcg 8 Gm Inhaler INHALE 2 puff Q4H PRN Administration shortness of breath Atorvastatin Calcium 10 mg 05/09/20 21:00 05/10/20 20:31 Atorvastatin Calcium 10 Mg Tablet PO 10 mg BEDTIME KASI Administration Dexamethasone Sodium Phosphate 6 mg 05/05/20 20:54 05/11/20 08:47 Dexamethasone Sod Phosphate 4 Mg/Ml Vial IVPUSH 6 mg DAILY KASI Administration Docusate Sodium 100 mg 05/05/20 20:54 Docusate Sodium 100 Mg Capsule PO DAILY PRN Constipation Enoxaparin Sodium 40 mg 05/05/20 21:00 05/10/20 20:31 Enoxaparin Sodium 40 Mg/0.4 Ml Syringe SUBCUT 40 mg Q24H KASI Administration Famotidine 20 mg 05/10/20 12:00 05/11/20 09:24 Famotidine 20 Mg Tablet PO 20 mg BID KASI Administration Guaifenesin/Codeine Phosphate 10 ml 05/07/20 09:20 05/11/20 15:39 Guaifen/Codeine Sf 200/20/10ml 10 Ml Liquid PO 10 ml Q6H KASI Administration Hydrochlorothiazide 12.5 mg 05/09/20 11:15 05/11/20 09:25 Hydrochlorothiazide 12.5 Mg Tablet PO 12.5 mg DAILY KASI Administration Protocol Remdesivir 100 mg/ Sodium 250 mls @ 125 mls/hr 05/08/20 16:00 05/11/20 15:38 Chloride IV 05/11/20 17:59 125 mls/hr Q24H KAIS Administration Doxycycline Hyclate 100 mg/ 250 mls @ 166.67 mls/hr 05/08/20 10:00 05/11/20 11:05 Sodium Chloride IV Infused Q12H KASI Infusion Montelukast Sodium 10 mg 05/05/20 21:00 05/10/20 20:31 Montelukast Sodium 10 Mg Tablet PO 10 mg BEDTIME KASI Administration Ondansetron HCl 4 mg 05/05/20 20:54 05/10/20 09:14 Ondansetron Hcl 4 Mg/2 Ml Vial IVPUSH 4 mg Q8H PRN Administration Nausea and Vomiting Ondansetron HCl 4 mg 05/10/20 12:14 Ondansetron Hcl 4 Mg/2 Ml Vial IVPUSH Q8H PRN Nausea and Vomiting Pharmacy Consult 1 each 05/05/20 15:36 Consult Rx Perform Med Rec MISCELLANE ONCE PRN Consult order Sodium Chloride 3 ml 05/06/20 00:00 05/11/20 15:39 0.9 % Sodium Chloride Flush 3 Ml Syringe IVFLUSH 3 ml QSHIFT KASI Administration Trazodone HCl 50 mg 05/05/20 21:00 05/10/20 20:31 Trazodone Hcl 50 Mg Tablet PO 50 mg BEDTIME KASI Administration Venlafaxine HCl 37.5 mg 05/09/20 21:00 05/10/20 20:31 Venlafaxine Hcl Er 37.5 Mg Cap.Er.24h PO 37.5 mg BEDTIME KASI Administration Labs CBC & Chem 7: 05/10/20 05:36 05/10/20 05:36 Microbiology Microbiology Results: Microbiology 05/05/20 13:37 Blood - Venous Blood Culture - Final No growth after 5 days. 05/05/20 13:29 Blood - Venous Blood Culture - Final No growth after 5 days. Assessment and Plan (1) COVID-19: Status: Acute Assessment and Plan: This is a 55 yo F PMH of asthma, HTN, HLD who is admitted for acute hypoxic resp. failure due to COVID-19. She is admitted for further treatment. 1. Acute hypoxic respiratory failure due to COVID-19 On HFNC (80%/55 LPM this AM)-- wean as tolerating; On decadron, day #7; Remesivir day #4/5, empiric doxy day #4 s/p Plasma x 2 trend inflammatory makers 2. HTN continue hctz 3. Mood continue home meds 4. N/V add pepcic zofran PRN Full Code DVT pptx, lovenox
--- NOTE | 2020-05-11 18:43 | PC.NURSE ---
tolerating 100% nonrebreather at this time with sao2 94-96%. pt prefers mask over high flow nc.
[2020-05-11] MEDS: Atorvastatin Calcium 10 MG TABLET PO (20:35)
[2020-05-11] MEDS: Montelukast Sodium 10 MG TABLET PO (20:35)
[2020-05-11] MEDS: traZODone HCL 50 MG TABLET PO (20:35)
[2020-05-11] MEDS: Venlafaxine HCl ER 37.5 MG CAP.ER.24H PO (20:35)
[2020-05-11] MEDS: Enoxaparin Sodium 40 MG/0.4 ML SYRINGE SUBCUT (20:35)
[2020-05-12] VITALS (13 sets, daily range): BP systolic 102–117; BP diastolic 54–73; PULSE 72–108; RESP 18–28; TEMP 36.6–37.1; O2SAT 90–98
--- NOTE | 2020-05-12 | XR_ITS ---
EXAMINATION: XR CHEST CLINICAL INFORMATION: Hypoxia COMPARISON: May 07, 2020 and May 05, 2020 TECHNIQUE: AP portable view of the chest was obtained. FINDINGS: There are again noted to be patchy regions of interstitial and airspace disease bilaterally. Heart normal size. No evidence of pulmonary edema. No pneumothorax or significant pleural effusion. XR/XR chest 1V IMPRESSION: No significant change in bilateral patchy regions of interstitial and airspace disease.
[2020-05-12] MEDS: guaiFEN/Codeine SF 200/20/10ML 10 ML LIQUID PO ×2 (03:36→08:30)
[2020-05-12 06:12] LABS: MANUAL DIFF FLAG NO
[2020-05-12 06:57] LABS: Basophils Percent Auto 0.2 % (0-2); Eosinophils Percent Auto 0.1 % (0-4); Hematocrit 40.1 % (37-47); Hemoglobin 12.6 g/dl (12.0-16.0); Imm Gran Abs Auto 0.49 X10*3/uL (0.00-0.03); Imm Gran Pct Auto 2.9 % (0.0-0.4); Lymphocytes Absolute Auto 2.1 X10*3/uL (1.2-4.9); Lymphocytes Percent Auto 12.5 % (20-40); Mean Corpuscular HGB Conc 31.4 g/dl (31.0-35.0); Mean Corpuscular Hemoglobin 26.1 pg (27.0-33.0); Mean Corpuscular Volume 83.2 fL (80-98); Mean Platelet Volume 9.9 fL (9.4-12.3); Monocytes Absolute Auto 1.1 X10*3/uL (0.1-1.2); Monocytes Percent Auto 6.6 % (2-11); Neutrophils Absolute Auto 13.1 X10*3/uL (2.0-8.3); Neutrophils Percent Auto 77.7 % (45-73); Platelet Count 431 X10*3/uL (160-400); Red Blood Count 4.82 X10*6/uL (4.20-5.50); Red Cell Distribution Width 13.5 % (11.0-16.0); White Blood Count 16.9 X10*3/uL (4.8-10.8)
[2020-05-12 06:57] LABS: Alanine Aminotransferase 13 U/L (0-31); Albumin Level 3.2 g/dL (3.5-5.0); Alkaline Phosphatase 52 U/L (39-117); Anion Gap 16 (12-20); Aspartate Amino Transferase 18 U/L (5-31); Bilirubin Direct 0.4 mg/dL (0.0-0.5); Bilirubin Total 1.1 mg/dL (0.0-1.0); Blood Urea Nitrogen 28 mg/dL (9-16); Calcium 8.1 mg/dL (8.4-10.2); Carbon Dioxide 22 mmol/L (22-29); Chloride 106 mmol/L (96-108); Creatinine Clr Calc Pharmacy 94.8; Estimated Glomerular Filt Rate > 60; Glucose Random 73 mg/dL (60-115); Potassium 4.1 mmol/l (3.3-5.1); Sodium 140 mmol/L (135-145)
[2020-05-12 07:00] LABS: D Dimer 573 NG/ML
[2020-05-12] MEDS: Doxycycline Hyclate 100 MG in 0.9 % Sodium Chloride 250 ML 166.67 MG IV (08:29)
[2020-05-12] MEDS: dexAMETHasone sod phosphate 4 MG/ML VIAL 6 MG IVPUSH (08:30)
[2020-05-12] MEDS: 0.9 % Sodium Chloride Flush 3 ML SYRINGE IVFLUSH ×2 (08:30→18:06)
[2020-05-12] MEDS: Famotidine 20 MG TABLET PO ×2 (08:31→21:09)
[2020-05-12] MEDS: hydroCHLOROthiazide 12.5 MG TABLET PO (08:31)
--- NOTE | 2020-05-12 09:43 | P.PNPL_ITS ---
Subjective Subjective Interval history: seen and examined this AM breathing unchanged some discomfort from HCFN in the nares. Briefly had a NRB, now back on the HF. Nausea is better. Has some dizziness. Trying to use the incentive spirometry Objective Data Labs CBC & Chem 7: 05/12/20 05:40 05/12/20 05:41 Labs: Laboratory Results - last 24 hr 05/12/20 05/12/20 05/12/20 05:40 05:40 05:41 WBC 16.9 H RBC 4.82 Hgb 12.6 Hct 40.1 MCV 83.2 MCH 26.1 L MCHC 31.4 RDW 13.5 Plt Count 431 H D MPV 9.9 Immature Gran % (Auto) 2.9 H Neut % (Auto) 77.7 H Lymph % (Auto) 12.[address] [place] % (Auto) 6.6 Eos % (Auto) 0.1 Baso % (Auto) 0.2 Lymph # (Auto) 2.1 [place] # (Auto) 1.1 Eos # (Auto) 0.0 Baso # (Auto) 0.0 Abs Immat Gran (auto) 0.49 H Absolute Neuts (auto) 13.1 H Absolute Nucleated RBC 0.000 Nucleated RBC % (auto) 0.0 D-Dimer 573 Sodium 140 Potassium 4.1 Chloride 106 Carbon Dioxide 22 Anion Gap 16 BUN 28 H Creatinine 0.61 Estim Creat Clear Calc 94.8 Estimated GFR > 60 Random Glucose 73 Calcium 8.1 L Total Bilirubin 1.1 H Direct Bilirubin 0.4 AST 18 ALT 13 Alkaline Phosphatase 52 C-Reactive Protein 6.80 H Total Protein 6.0 L Albumin 3.2 L Microbiology Microbiology Results: Microbiology 05/05/20 13:37 Blood - Venous Blood Culture - Final No growth after 5 days. 05/05/20 13:29 Blood - Venous Blood Culture - Final No growth after 5 days. Review of Systems Constitutional: Reports fatigue, Reports lethargy, Reports malaise and Reports weakness Reports dizziness, Denies lip swelling, Denies mouth pain, Reports nasal congestion, Reports nasal discharge and Denies tongue swelling Cardiovascular: Denies chest pain and Reports dyspnea Respiratory: Reports cough and Reports dyspnea Gastrointestinal: Denies abdominal pain Musculoskeletal: Denies no additional musculoskeletal complaints Denies Neuro-related abnormal movements, Reports dizziness and Reports weakness Psychiatric: Denies no additional psychiatric complaints Endocrine: Reports fatigue Hematologic/Lymphatic: Denies easy bleeding and Denies lymphadenopathy Allergic/Immunologic: Denies lip swelling and Denies tongue swelling Physical Exam Vital Signs: Vital Signs: Last Vital Signs Temp 98.5 F 05/12/20 04:00 Pulse 77 05/12/20 04:00 Resp 24 H 05/12/20 08:06 BP 102/65 05/12/20 08:11 Pulse Ox 91 L 05/12/20 04:00 Body Mass Index 31.2 Const: General: alert and ill appearing HENMT: General nose exam: Abnormal external nose present and Nasal discharge present Eyes: Pupils: Equal, round and reactive pupils present Neck: Neck: Yes normal visual inspection, Yes full ROM and Yes no lymphadenopathy Chest: Chest palpation & inspection: normal inspection of the chest Resp: Auscultation: diminished lung sounds Cardio: Rate: regular rate Rhythm: regular rhythm Heart sounds: S1 normal heart sound present and S2 normal heart sound present GI: Palpation (GI): Soft to palpation and nontender Auscultation: normal bowel sounds : General: Yes no CVA tenderness Back/Spine/Pelvis: Back: no CVA tenderness Skin: General skin exam: rashes and/or lesions noted Neuro: Cranial nerves: Yes Equal, round and reactive pupils present Assessment and Plan Assessment and plan (1) Acute hypoxemic respiratory failure: Status: Acute Assessment and Plan: Continue HF ISS Awake proning Repeat CXR serial ddimer and inflammatory markers Remdisivir Decadron x 10 days (2) COVID-19: Status: Acute (3) Pneumonia: Status: Acute Assessment and Plan: continue doxy Time Spent With Patient Time: Total time spent is greater than 50% in coordination of care (as documented) at patient's floor/unit and/or counseling patient: Time with patient: 15 - 24 minutes
--- NOTE | 2020-05-12 09:59 | PM.EVENT ---
Event Note Date of Service: 05/12/2020 Event Note: 55 yo woman with bilat COVID-19 pneumonia. Looks washed out, no change from last few days. On HFNC w FiO2 now down to 86%. RR 24, Sat 91%. Mild incr in WOB consistent with her RR; no access musc use. Safe to stay on IMC. I'll see her again tomorrow morning. Time: 90632.
--- NOTE | 2020-05-12 13:54 | HO.PM.IMPN ---
Subjective Subjective Date of Service: 05/12/20 Interval History: seen and examined this AM breathing about the same dizzy today nausea / better gives permission to speak with her daughter Review of Systems General - no fevers or chills, +malaise Cardiovascular - no chest pain, dizzy Respiratory - +HALL Abdominal- no abdominal pain Physical Exam Vital Signs: Vital Signs: Last Vital Signs Temp 97.9 F 05/12/20 11:55 Pulse 102 H 05/12/20 11:55 Resp 20 05/12/20 12:34 BP 110/54 L 05/12/20 11:55 Pulse Ox 95 05/12/20 11:55 Body Mass Index 31.2 General - ill appearing, but no major distress Cardiovascular - regular rate and rhythm, S1-S2 Lungs - non labored breathing Abdomen - soft, nontender, no rebound regarding Extremities - no edema bilaterally Neuro - awake and alert, no focal deficits Psych - appears anxious Objective Data Current Medications Generic Name Dose Route Start Last Admin Trade Name Freq PRN Reason Stop Dose Admin Acetaminophen 650 mg 05/05/20 20:54 05/11/20 13:12 Acetaminophen 325 Mg Tablet PO 650 mg Q6H PRN Administration Pain, Mild (Pain Scale 1-3) Albuterol Sulfate 2 puff 05/05/20 20:54 05/07/20 01:50 EDT Albuterol Sulfate 90 Mcg 8 Gm Inhaler INHALE 2 puff Q4H PRN Administration shortness of breath Atorvastatin Calcium 10 mg 05/09/20 21:00 05/11/20 20:35 Atorvastatin Calcium 10 Mg Tablet PO 10 mg BEDTIME KASI Administration Dexamethasone Sodium Phosphate 6 mg 05/05/20 20:54 05/12/20 08:30 Dexamethasone Sod Phosphate 4 Mg/Ml Vial IVPUSH 6 mg DAILY KASI Administration Docusate Sodium 100 mg 05/05/20 20:54 Docusate Sodium 100 Mg Capsule PO DAILY PRN Constipation Enoxaparin Sodium 40 mg 05/05/20 21:00 05/11/20 20:35 Enoxaparin Sodium 40 Mg/0.4 Ml Syringe SUBCUT 40 mg Q24H KASI Administration Famotidine 20 mg 05/10/20 12:00 05/12/20 08:31 Famotidine 20 Mg Tablet PO 20 mg BID KASI Administration Hydrochlorothiazide 12.5 mg 05/09/20 11:15 05/12/20 08:31 Hydrochlorothiazide 12.5 Mg Tablet PO 12.5 mg DAILY KASI Administration Protocol Doxycycline Hyclate 100 mg/ 250 mls @ 166.67 mls/hr 05/08/20 10:00 05/12/20 10:39 Sodium Chloride IV Infused Q12H KASI Infusion Montelukast Sodium 10 mg 05/05/20 21:00 05/11/20 20:35 Montelukast Sodium 10 Mg Tablet PO 10 mg BEDTIME KASI Administration Ondansetron HCl 4 mg 05/05/20 20:54 05/10/20 09:14 Ondansetron Hcl 4 Mg/2 Ml Vial IVPUSH 4 mg Q8H PRN Administration Nausea and Vomiting Ondansetron HCl 4 mg 05/10/20 12:14 Ondansetron Hcl 4 Mg/2 Ml Vial IVPUSH Q8H PRN Nausea and Vomiting Pharmacy Consult 1 each 05/05/20 15:36 Consult Rx Perform Med Rec MISCELLANE ONCE PRN Consult order Sodium Chloride 3 ml 05/06/20 00:00 05/12/20 08:30 0.9 % Sodium Chloride Flush 3 Ml Syringe IVFLUSH 3 ml QSHIFT KASI Administration Trazodone HCl 50 mg 05/05/20 21:00 05/11/20 20:35 Trazodone Hcl 50 Mg Tablet PO 50 mg BEDTIME KASI Administration Venlafaxine HCl 37.5 mg 05/09/20 21:00 05/11/20 20:35 Venlafaxine Hcl Er 37.5 Mg Cap.Er.24h PO 37.5 mg BEDTIME KASI Administration Labs CBC & Chem 7: 05/12/20 05:40 05/12/20 05:41 Microbiology Microbiology Results: Microbiology 05/05/20 13:37 Blood - Venous Blood Culture - Final No growth after 5 days. 05/05/20 13:29 Blood - Venous Blood Culture - Final No growth after 5 days. Assessment and Plan (1) COVID-19: Status: Acute Assessment and Plan: This is a 55 yo F PMH of asthma, HTN, HLD who is admitted for acute hypoxic resp. failure due to COVID-19. She is admitted for further treatment. 1. Acute hypoxic respiratory failure due to COVID-19 On HFNC (85%/55 LPM this AM), slight up from yesterday On decadron, day #7; Remesivir course completed, empiric doxy day #11/13 s/p Plasma x 2 trend inflammatory makers - dimer / CRP about the same. check procalcintonin -- may need additional antibiotics. 2. HTN continue hctz 3. Mood continue home meds 4. N/V resolved pepcid zofran PRN 5. Asthma singulair prn albuterol Full Code DVT pptx, lovenox will inform daughter once telephone number obtained
--- NOTE | 2020-05-12 15:46 | MHC.CM.PN ---
DP HOME WITH NEW REFERRAL TO [facility]. fAMILY WILL TRANSPORT.
[2020-05-12 16:29] LABS: Procalcitonin 0.03 ng/mL
--- NOTE | 2020-05-12 18:40 | PC.NURSE ---
PATIENT STATES SHE FEELS WORSE THIS AM. MORE EASILY FATIGUED. POOR ACTIVITY TOLERATION. DESAT DOWN TO 78% WITH SYMPTOMS OF FEELING DIZZY AND VERY SHORT OF BREATH JUST MOVING TOT HE SIDE OF THE BED. NONREBREATHER PLACED OVER HIGH FLOW NC FOR PIVOT TO OOB TO CHAIR. HIGH FLOW NC TITRATED TO 50L OR 80% PER RESPIRATORY.
[2020-05-12] MEDS: Venlafaxine HCl ER 37.5 MG CAP.ER.24H PO (21:09)
[2020-05-12] MEDS: Montelukast Sodium 10 MG TABLET PO (21:09)
[2020-05-12] MEDS: Atorvastatin Calcium 10 MG TABLET PO (21:09)
[2020-05-12] MEDS: traZODone HCL 50 MG TABLET PO (21:09)
[2020-05-12] MEDS: Enoxaparin Sodium 40 MG/0.4 ML SYRINGE SUBCUT (21:09)
[2020-05-13] VITALS (12 sets, daily range): BP systolic 100–124; BP diastolic 55–74; PULSE 67–121; RESP 18–22; TEMP 36.1–36.9; O2SAT 90–95
[2020-05-13] MEDS: 0.9 % Sodium Chloride Flush 3 ML SYRINGE IVFLUSH ×4 (00:21→23:23)
[2020-05-13 07:08] LABS: MANUAL DIFF FLAG NO
[2020-05-13 07:14] LABS: Hematocrit 42.3 % (37-47); Hemoglobin 13.4 g/dl (12.0-16.0); Imm Gran Pct Auto 2.4 % (0.0-0.4); Lymphocytes Percent Auto 13.6 % (20-40); Mean Corpuscular HGB Conc 31.7 g/dl (31.0-35.0); Mean Corpuscular Hemoglobin 25.9 pg (27.0-33.0); Mean Corpuscular Volume 81.7 fL (80-98); Mean Platelet Volume 9.7 fL (9.4-12.3); Monocytes Percent Auto 6.4 % (2-11); Neutrophils Percent Auto 77.2 % (45-73); Platelet Count 492 X10*3/uL (160-400); Red Blood Count 5.18 X10*6/uL (4.20-5.50); Red Cell Distribution Width 13.2 % (11.0-16.0); White Blood Count 17.8 X10*3/uL (4.8-10.8)
[2020-05-13 07:15] LABS: Basophils Percent Auto 0.1 % (0-2); Eosinophils Absolute Auto 0.1 X10*3/uL (0.0-0.4); Eosinophils Percent Auto 0.3 % (0-4); Imm Gran Abs Auto 0.42 X10*3/uL (0.00-0.03); Lymphocytes Absolute Auto 2.4 X10*3/uL (1.2-4.9); Monocytes Absolute Auto 1.1 X10*3/uL (0.1-1.2); Neutrophils Absolute Auto 13.8 X10*3/uL (2.0-8.3)
[2020-05-13 07:30] LABS: D Dimer 519 NG/ML
[2020-05-13 07:43] LABS: Anion Gap 13 (12-20); Blood Urea Nitrogen 26 mg/dL (9-16); Calcium 8.4 mg/dL (8.4-10.2); Carbon Dioxide 26 mmol/L (22-29); Chloride 101 mmol/L (96-108); Creatinine Clr Calc Pharmacy 82.6; Estimated Glomerular Filt Rate > 60; Glucose Random 72 mg/dL (60-115); Potassium 3.9 mmol/l (3.3-5.1); Sodium 136 mmol/L (135-145)
[2020-05-13 08:02] LABS: Procalcitonin 0.03 ng/mL
[2020-05-13] MEDS: dexAMETHasone sod phosphate 4 MG/ML VIAL 6 MG IVPUSH (09:27)
[2020-05-13] MEDS: hydroCHLOROthiazide 12.5 MG TABLET PO (09:27)
[2020-05-13] MEDS: Famotidine 20 MG TABLET PO ×2 (09:27→22:14)
--- NOTE | 2020-05-13 11:16 | P.EN_ITS ---
Event Note Date of Service: 05/13/2020 Event Note: 55 yo woman with bilat COVID-19 pneumonia. Resting in bed, looks a little less 'washed out' than yesterday. On HFNC, w FiO2 now down to 80%. RR 20-22, Sat 95%. Minimal incr in WOB consistent with her RR; no access musc use whatsoever. Overall, looks very com fortable. Safe to stay on IMC. Would recommend turning FiO2 down to 75% if her Sat stays at 95%, and then tapering the FiO2 slowly from here if her oxygenation continues to improve. Signing off. Please call me if her situation worsens. Time: 72073.
--- NOTE | 2020-05-13 12:18 | HO.PM.IMPN ---
Subjective Subjective Date of Service: 05/13/20 Interval History: seen and examined no new issues appears comfortable Review of Systems General - no fevers or chills, +malaise Cardiovascular - no chest pain, dizzy Respiratory - sob / [place] - both about the same Abdominal- no abdominal pain Physical Exam Vital Signs: Vital Signs: Last Vital Signs Temp 98 F 05/13/20 11:00 Pulse 101 H 05/13/20 11:00 Resp 20 05/13/20 11:25 BP 100/55 L 05/13/20 11:00 Pulse Ox 90 L 05/13/20 11:00 Body Mass Index 31.2 General - ill appearing, but no major distress Cardiovascular - regular rate and rhythm, S1-S2 Lungs - non labored breathing Abdomen - soft, nontender, no rebound regarding Extremities - no edema bilaterally Neuro - awake and alert, no focal deficits Psych - appears anxious Objective Data Current Medications Generic Name Dose Route Start Last Admin Trade Name Freq PRN Reason Stop Dose Admin Acetaminophen 650 mg 05/05/20 20:54 05/11/20 13:12 Acetaminophen 325 Mg Tablet PO 650 mg Q6H PRN Administration Pain, Mild (Pain Scale 1-3) Albuterol Sulfate 2 puff 05/05/20 20:54 05/07/20 01:50 EDT Albuterol Sulfate 90 Mcg 8 Gm Inhaler INHALE 2 puff Q4H PRN Administration shortness of breath Atorvastatin Calcium 10 mg 05/09/20 21:00 05/12/20 21:09 Atorvastatin Calcium 10 Mg Tablet PO 10 mg BEDTIME KASI Administration Dexamethasone Sodium Phosphate 6 mg 05/05/20 20:54 05/13/20 09:27 Dexamethasone Sod Phosphate 4 Mg/Ml Vial IVPUSH 6 mg DAILY KASI Administration Docusate Sodium 100 mg 05/05/20 20:54 Docusate Sodium 100 Mg Capsule PO DAILY PRN Constipation Doxycycline Hyclate 100 mg 05/12/20 22:00 05/13/20 09:27 Doxycycline Hyclate 100 Mg Tablet PO 100 mg Q12H KASI Administration Enoxaparin Sodium 40 mg 05/05/20 21:00 05/12/20 21:09 Enoxaparin Sodium 40 Mg/0.4 Ml Syringe SUBCUT 40 mg Q24H KASI Administration Famotidine 20 mg 05/10/20 12:00 05/13/20 09:27 Famotidine 20 Mg Tablet PO 20 mg BID KASI Administration Hydrochlorothiazide 12.5 mg 05/09/20 11:15 05/13/20 09:27 Hydrochlorothiazide 12.5 Mg Tablet PO 12.5 mg DAILY KASI Administration Protocol Montelukast Sodium 10 mg 05/05/20 21:00 05/12/20 21:09 Montelukast Sodium 10 Mg Tablet PO 10 mg BEDTIME KASI Administration Ondansetron HCl 4 mg 05/05/20 20:54 05/10/20 09:14 Ondansetron Hcl 4 Mg/2 Ml Vial IVPUSH 4 mg Q8H PRN Administration Nausea and Vomiting Ondansetron HCl 4 mg 05/10/20 12:14 Ondansetron Hcl 4 Mg/2 Ml Vial IVPUSH Q8H PRN Nausea and Vomiting Pharmacy Consult 1 each 05/05/20 15:36 Consult Rx Perform Med Rec MISCELLANE ONCE PRN Consult order Sodium Chloride 3 ml 05/06/20 00:00 05/13/20 09:27 0.9 % Sodium Chloride Flush 3 Ml Syringe IVFLUSH 3 ml QSHIFT KASI Administration Trazodone HCl 50 mg 05/05/20 21:00 05/12/20 21:09 Trazodone Hcl 50 Mg Tablet PO 50 mg BEDTIME KASI Administration Venlafaxine HCl 37.5 mg 05/09/20 21:00 05/12/20 21:09 Venlafaxine Hcl Er 37.5 Mg Cap.Er.24h PO 37.5 mg BEDTIME KASI Administration Labs CBC & Chem 7: 05/13/20 06:18 05/13/20 06:18 Microbiology Microbiology Results: Microbiology 05/05/20 13:37 Blood - Venous Blood Culture - Final No growth after 5 days. 05/05/20 13:29 Blood - Venous Blood Culture - Final No growth after 5 days. Assessment and Plan (1) COVID-19: Status: Acute Assessment and Plan: This is a 55 yo F PMH of asthma, HTN, HLD who is admitted for acute hypoxic resp. failure due to COVID-19. She is admitted for further treatment. 1. Acute hypoxic respiratory failure due to COVID-19 On HFNC (80%/50 LPM this AM), improved from yesterday On decadron, day #8/10; Remesivir course completed, empiric doxy day #6/ s/p Plasma x 2 trend inflmmatory biomakers q2d or sooner if needed -- remain stable at this time called lilly again -- @ [phone], went to 2. HTN continue hctz 3. Mood continue home meds 4. N/V resolved pepcid zofran PRN 5. Asthma singulair prn albuterol Full Code DVT pptx, lovenox
[2020-05-13] MEDS: Throat Lozenge, Medicated LOZENGE 1 LOZENGE MUCOUS MEM (22:13)
[2020-05-13] MEDS: Enoxaparin Sodium 40 MG/0.4 ML SYRINGE SUBCUT (22:13)
[2020-05-13] MEDS: traZODone HCL 50 MG TABLET PO (22:14)
[2020-05-13] MEDS: Montelukast Sodium 10 MG TABLET PO (22:14)
[2020-05-13] MEDS: Atorvastatin Calcium 10 MG TABLET PO (22:14)
[2020-05-13] MEDS: Venlafaxine HCl ER 37.5 MG CAP.ER.24H PO (22:14)
[2020-05-14] VITALS (13 sets, daily range): BP systolic 98–129; BP diastolic 59–78; PULSE 83–118; RESP 16–28; TEMP 35.9–37.2; O2SAT 91–97
--- NOTE | 2020-05-14 | XR_ITS ---
EXAMINATION: XR CHEST CLINICAL INFORMATION: Covid positive. Worsening hypoxia. COMPARISON: Recent priors. TECHNIQUE: Frontal view of the chest was obtained. FINDINGS: There is stable appearance of mild diffuse interstitial prominence with patchy bibasilar airspace opacity consistent with pneumonia. No new abnormality. The pleural spaces are clear. The heart and mediastinal structures are normal. XR/XR chest 1V IMPRESSION: Stable appearance of bilateral interstitial and patchy bibasilar airspace opacity consistent with multifocal pneumonia.
[2020-05-14] MEDS: Morphine Sulfate 4 MG/ML CARTRIDGE IVPUSH (00:30)
--- NOTE | 2020-05-14 02:39 | PC.NURSE ---
Pt's SaO2 remaining at 87-89% while on high flow nasal cannula at 50 L or 80%. Pt noted to be anxious and uncomfortable w/ WOB and high flow cannula rate increased to 60 L or 100%. Per Dr Biggs, one time order for morphine sulfate 4 mg IVP to be given. Medication administered. Within 10 minutes of admin of MS, pt's WOB decreased and SaO2 also increased to 92%. Pt able to fall asleep shortly afterwards and is resting comfortably. Will continue to monitor and safety measures in place with call minor within reach.
[2020-05-14] MEDS: hydroCHLOROthiazide 12.5 MG TABLET PO (08:34)
[2020-05-14] MEDS: Famotidine 20 MG TABLET PO ×2 (08:34→20:25)
[2020-05-14] MEDS: dexAMETHasone sod phosphate 4 MG/ML VIAL 6 MG IVPUSH (08:34)
[2020-05-14] MEDS: 0.9 % Sodium Chloride Flush 3 ML SYRINGE IVFLUSH ×4 (08:34→20:26)
[2020-05-14 09:01] LABS: MANUAL DIFF FLAG NO
[2020-05-14 09:07] LABS: Basophils Percent Auto 0.1 % (0-2); Eosinophils Absolute Auto 0.2 X10*3/uL (0.0-0.4); Eosinophils Percent Auto 0.9 % (0-4); Hematocrit 42.7 % (37-47); Hemoglobin 13.8 g/dl (12.0-16.0); Imm Gran Abs Auto 0.33 X10*3/uL (0.00-0.03); Imm Gran Pct Auto 1.5 % (0.0-0.4); Lymphocytes Absolute Auto 1.9 X10*3/uL (1.2-4.9); Lymphocytes Percent Auto 8.4 % (20-40); Mean Corpuscular HGB Conc 32.3 g/dl (31.0-35.0); Mean Corpuscular Hemoglobin 26.4 pg (27.0-33.0); Mean Corpuscular Volume 81.8 fL (80-98); Mean Platelet Volume 9.7 fL (9.4-12.3); Monocytes Absolute Auto 1.4 X10*3/uL (0.1-1.2); Monocytes Percent Auto 6.1 % (2-11); Neutrophils Absolute Auto 18.4 X10*3/uL (2.0-8.3); Platelet Count 573 X10*3/uL (160-400); Red Blood Count 5.22 X10*6/uL (4.20-5.50); Red Cell Distribution Width 13.5 % (11.0-16.0); White Blood Count 22.1 X10*3/uL (4.8-10.8)
[2020-05-14] MEDS: Morphine Sulfate 2 MG/ML CARTRIDGE IVPUSH ×3 (09:08→20:25)
[2020-05-14] MEDS: Enoxaparin Sodium 80 MG/0.8 ML SYRINGE 75 MG SUBCUT ×2 (09:09→21:13)
[2020-05-14 09:14] LABS: D Dimer 476 NG/ML
[2020-05-14 09:48] LABS: Anion Gap 19 (12-20); Blood Urea Nitrogen 30 mg/dL (9-16); Calcium 9.2 mg/dL (8.4-10.2); Carbon Dioxide 22 mmol/L (22-29); Chloride 101 mmol/L (96-108); Creatinine Clr Calc Pharmacy 81.4; Estimated Glomerular Filt Rate > 60; Glucose Random 77 mg/dL (60-115); Potassium 3.7 mmol/l (3.3-5.1); Sodium 138 mmol/L (135-145)
[2020-05-14 09:50] LABS: Procalcitonin 0.03 ng/mL
[2020-05-14 09:55] LABS: HCO3 VBG 25 mmol/L; PCO2 VBG 35 mmhg; PO2 VBG 60 mmhg; pH VBG 7.46 (7.32-7.43)
[2020-05-14 09:56] LABS: Base Excess VBG 1.1 mmol/L; Oxygen Saturation VBG 92.9 %
--- NOTE | 2020-05-14 16:11 | P.EN_ITS ---
Event Note Date of Service: 05/14/2020 Event Note: 55 yo woman with bilat COVID-19 pneumonia. Discussed at length with Dr. Puga this morning. Some concern about RR and WOB at that time. Treated successfully with opioids. Currently resting in bed, looks close to the best and most comfortable I've seen her. A little less 'washed out' than yesterday. On HFNC, w FiO2 at 80%. RR 20-22, Sat 93%. No access musc use, no incr in WOB whatsoever. Overall, looks very comfortable. She told me that she feels adrian r. Safe to stay on IMC. Signing off. Please call if her situation worsens. Time: [id number].
--- NOTE | 2020-05-14 17:00 | HO.PM.IMPN ---
Subjective Subjective Interval History: seen and examined no new issues appears comfortable Physical Exam Vital Signs: Vital Signs: Last Vital Signs Temp 97.9 F 05/14/20 15:38 Pulse 99 05/14/20 15:38 Resp 22 H 05/14/20 15:38 BP 124/78 05/14/20 15:38 Pulse Ox 95 05/14/20 15:38 Body Mass Index 31.2 General - ill appearing, but no major distress Cardiovascular - regular rate and rhythm, S1-S2 Lungs - non labored breathing Abdomen - soft, nontender, no rebound regarding Extremities - no edema bilaterally Neuro - awake and alert, no focal deficits Psych - appears anxious Objective Data Current Medications Generic Name Dose Route Start Last Admin Trade Name Freq PRN Reason Stop Dose Admin Acetaminophen 650 mg 05/05/20 20:54 05/11/20 13:12 Acetaminophen 325 Mg Tablet PO 650 mg Q6H PRN Administration Pain, Mild (Pain Scale 1-3) Albuterol Sulfate 2 puff 05/05/20 20:54 05/07/20 01:50 EDT Albuterol Sulfate 90 Mcg 8 Gm Inhaler INHALE 2 puff Q4H PRN Administration shortness of breath Atorvastatin Calcium 80 mg 05/14/20 21:00 Atorvastatin Calcium 80 Mg Tablet PO BEDTIME KASI Benzocaine 1 lozenge 05/13/20 21:23 05/13/20 22:13 Throat Lozenge, Medicated Lozenge MUCOUS MEM 1 lozenge Q2H PRN Administration Sore Throat Docusate Sodium 100 mg 05/05/20 20:54 Docusate Sodium 100 Mg Capsule PO DAILY PRN Constipation Doxycycline Hyclate 100 mg 05/12/20 22:00 05/14/20 08:34 Doxycycline Hyclate 100 Mg Tablet PO 100 mg Q12H KASI Administration Enoxaparin Sodium 75 mg 05/14/20 09:00 05/14/20 09:09 Enoxaparin Sodium 80 Mg/0.8 Ml Syringe 1 mg/kg (75 mg) 75 mg SUBCUT Administration Q12H KASI Famotidine 20 mg 05/10/20 12:00 05/14/20 08:34 Famotidine 20 Mg Tablet PO 20 mg BID KASI Administration Methylprednisolone Sodium Succinate 60 mg 05/14/20 21:00 Methylprednisolone Sod Succ/Pf 125 Mg/2 Ml Vial IVPUSH Q12H KASI Montelukast Sodium 10 mg 10/30/20 21:00 05/13/20 22:14 Montelukast Sodium 10 Mg Tablet PO 10 mg BEDTIME KASI Administration Morphine Sulfate 2 mg 05/14/20 09:12 05/14/20 16:26 Morphine Sulfate 2 Mg/Ml Cartridge IVPUSH 2 mg Q4H PRN Administration Respiratory Distress Ondansetron HCl 4 mg 05/05/20 20:54 05/10/20 09:14 Ondansetron Hcl 4 Mg/2 Ml Vial IVPUSH 4 mg Q8H PRN Administration Nausea and Vomiting Ondansetron HCl 4 mg 05/10/20 12:14 Ondansetron Hcl 4 Mg/2 Ml Vial IVPUSH Q8H PRN Nausea and Vomiting Pharmacy Consult 1 each 05/05/20 15:36 Consult Rx Perform Med Rec MISCELLANE ONCE PRN Consult order Sodium Chloride 3 ml 05/06/20 00:00 05/14/20 16:27 0.9 % Sodium Chloride Flush 3 Ml Syringe IVFLUSH 3 ml QSHIFT AKSI Administration Trazodone HCl 50 mg 05/05/20 21:00 05/13/20 22:14 Trazodone Hcl 50 Mg Tablet PO 50 mg BEDTIME KASI Administration Venlafaxine HCl 37.5 mg 05/09/20 21:00 05/13/20 22:14 Venlafaxine Hcl Er 37.5 Mg Cap.Er.24h PO 37.5 mg BEDTIME KASI Administration Labs CBC & Chem 7: 05/14/20 08:45 05/14/20 08:45 Microbiology Microbiology Results: Microbiology 05/05/20 13:37 Blood - Venous Blood Culture - Final No growth after 5 days. 05/05/20 13:29 Blood - Venous Blood Culture - Final No growth after 5 days. Assessment and Plan (1) COVID-19: Status: Acute Assessment and Plan: This is a 55 yo F PMH of asthma, HTN, HLD who is admitted for acute hypoxic resp. failure due to COVID-19. She is admitted for further treatment. 1. Acute hypoxic respiratory failure due to COVID-19 O2 requirements increased last night, but now improved again and back on FiO2 80% steriods increased to solu-medrol giving full dose lovenox for the time being due morphine PRN s/p Plasma x 2 / remdesivir called daughter again -- @ [phone] and upated 2. HTN continue hctz 3. Mood continue home meds 4. N/V resolved pepcid zofran PRN 5. Asthma singulair prn albuterol Full Code DVT pptx, lovenox treatment dose
[2020-05-14] MEDS: Montelukast Sodium 10 MG TABLET PO (20:24)
[2020-05-14] MEDS: traZODone HCL 50 MG TABLET PO (20:25)
[2020-05-14] MEDS: Venlafaxine HCl ER 37.5 MG CAP.ER.24H PO (20:25)
[2020-05-14] MEDS: methylPREDNISolone Sod Succ/PF 125 MG/2 ML VIAL 60 MG IVPUSH (20:25)
[2020-05-14] MEDS: Atorvastatin Calcium 80 MG TABLET PO (20:25)
[2020-05-15] VITALS (14 sets, daily range): BP systolic 108–139; BP diastolic 57–78; PULSE 80–120; RESP 14–22; TEMP 36.1–37.6; O2SAT 90–96
[2020-05-15] MEDS: Morphine Sulfate 2 MG/ML CARTRIDGE IVPUSH ×2 (01:20→11:28)
[2020-05-15 06:18] LABS: Hematocrit 41.5 % (37-47); Hemoglobin 13.6 g/dl (12.0-16.0); Mean Corpuscular HGB Conc 32.8 g/dl (31.0-35.0); Mean Corpuscular Hemoglobin 26.7 pg (27.0-33.0); Mean Corpuscular Volume 81.4 fL (80-98); Mean Platelet Volume 9.8 fL (9.4-12.3); Platelet Count 543 X10*3/uL (160-400); Red Cell Distribution Width 13.2 % (11.0-16.0); White Blood Count 17.5 X10*3/uL (4.8-10.8)
[2020-05-15 06:27] LABS: D Dimer 502 NG/ML
[2020-05-15 06:58] LABS: Anion Gap 16 (12-20); Blood Urea Nitrogen 30 mg/dL (9-16); Calcium 9.2 mg/dL (8.4-10.2); Carbon Dioxide 25 mmol/L (22-29); Chloride 102 mmol/L (96-108); Creatinine Clr Calc Pharmacy 82.6; Estimated Glomerular Filt Rate > 60; Glucose Random 115 mg/dL (60-115); Potassium 3.7 mmol/l (3.3-5.1); Sodium 139 mmol/L (135-145)
[2020-05-15] MEDS: Famotidine 20 MG TABLET PO ×2 (07:57→21:26)
[2020-05-15] MEDS: methylPREDNISolone Sod Succ/PF 125 MG/2 ML VIAL 60 MG IVPUSH ×2 (07:57→21:25)
[2020-05-15] MEDS: Acetaminophen 325 MG TABLET 650 MG PO (07:57)
[2020-05-15] MEDS: Enoxaparin Sodium 80 MG/0.8 ML SYRINGE 75 MG SUBCUT ×2 (07:57→21:26)
--- NOTE | 2020-05-15 09:48 | HO.PM.IMPN ---
Subjective Subjective Date of Service: 05/15/20 Interval History: seen and examined reports feeling better this morning reports breathing feels a bit easier for the first time ROS General - no fevers or chills, tired Cardiovascular - no chest pain Respiratory - breathing easier, but still HALL Abdominal- no abdominal pain, nausea, vomiting, diarrhea Physical Exam Vital Signs: Vital Signs: Last Vital Signs Temp 99.7 F 05/15/20 07:54 Pulse 101 H 05/15/20 07:17 Resp 20 05/15/20 07:22 BP 120/74 05/15/20 07:17 Pulse Ox 91 L 05/15/20 07:17 Body Mass Index 31.2 General - no distress, ill appearing - but slightly improved Cardiovascular - regular rate and rhythm, S1-S2 Lungs - non labored breathing Abdomen - soft, nontender, no rebound regarding Extremities - no edema bilaterally Neuro - awake and alert, no focal deficits Psych - appears anxious Objective Data Current Medications Generic Name Dose Route Start Last Admin Trade Name Freq PRN Reason Stop Dose Admin Acetaminophen 650 mg 05/05/20 20:54 05/15/20 07:57 Acetaminophen 325 Mg Tablet PO 650 mg Q6H PRN Administration Pain, Mild (Pain Scale 1-3) Albuterol Sulfate 2 puff 05/05/20 20:54 05/07/20 01:50 EDT Albuterol Sulfate 90 Mcg 8 Gm Inhaler INHALE 2 puff Q4H PRN Administration shortness of breath Atorvastatin Calcium 80 mg 05/14/20 21:00 05/14/20 20:25 Atorvastatin Calcium 80 Mg Tablet PO 80 mg BEDTIME KASI Administration Benzocaine 1 lozenge 05/13/20 21:23 05/13/20 22:13 Throat Lozenge, Medicated Lozenge MUCOUS MEM 1 lozenge Q2H PRN Administration Sore Throat Docusate Sodium 100 mg 05/05/20 20:54 Docusate Sodium 100 Mg Capsule PO DAILY PRN Constipation Doxycycline Hyclate 100 mg 05/12/20 22:00 05/14/20 20:25 Doxycycline Hyclate 100 Mg Tablet PO 100 mg Q12H KASI Administration Enoxaparin Sodium 75 mg 05/14/20 09:00 05/15/20 07:57 Enoxaparin Sodium 80 Mg/0.8 Ml Syringe 1 mg/kg (75 mg) 75 mg SUBCUT Administration Q12H KASI Famotidine 20 mg 05/10/20 12:00 05/15/20 07:57 Famotidine 20 Mg Tablet PO 20 mg BID KASI Administration Methylprednisolone Sodium Succinate 60 mg 05/14/20 21:00 05/15/20 07:57 Methylprednisolone Sod Succ/Pf 125 Mg/2 Ml Vial IVPUSH 60 mg Q12H KASI Administration Montelukast Sodium 10 mg 05/05/20 21:00 05/14/20 20:24 Montelukast Sodium 10 Mg Tablet PO 10 mg BEDTIME KASI Administration Morphine Sulfate 2 mg 05/14/20 09:12 05/15/20 01:20 Morphine Sulfate 2 Mg/Ml Cartridge IVPUSH 2 mg Q4H PRN Administration Respiratory Distress Ondansetron HCl 4 mg 05/05/20 20:54 05/10/20 09:14 Ondansetron Hcl 4 Mg/2 Ml Vial IVPUSH 4 mg Q8H PRN Administration Nausea and Vomiting Ondansetron HCl 4 mg 05/10/20 12:14 Ondansetron Hcl 4 Mg/2 Ml Vial IVPUSH Q8H PRN Nausea and Vomiting Pharmacy Consult 1 each 05/05/20 15:36 Consult Rx Perform Med Rec MISCELLANE ONCE PRN Consult order Sodium Chloride 3 ml 05/06/20 00:00 05/14/20 20:26 0.9 % Sodium Chloride Flush 3 Ml Syringe IVFLUSH 3 ml QSHIFT KASI Administration Trazodone HCl 50 mg 05/05/20 21:00 05/14/20 20:25 Trazodone Hcl 50 Mg Tablet PO 50 mg BEDTIME KASI Administration Venlafaxine HCl 37.5 mg 05/09/20 21:00 05/14/20 20:25 Venlafaxine Hcl Er 37.5 Mg Cap.Er.24h PO 37.5 mg BEDTIME KASI Administration Labs CBC & Chem 7: 05/15/20 05:45 05/15/20 05:45 Microbiology Microbiology Results: Microbiology 05/05/20 13:37 Blood - Venous Blood Culture - Final No growth after 5 days. 05/05/20 13:29 Blood - Venous Blood Culture - Final No growth after 5 days. Assessment and Plan (1) COVID-19: Status: Acute Assessment and Plan: This is a 55 yo F PMH of asthma, HTN, HLD who is admitted for acute hypoxic resp. failure due to COVID-19. She is admitted for further treatment. 1. Acute hypoxic respiratory failure due to COVID-19 slowly improving on HFNC - 70%/60L continue high dose solu-medrol 60mg bid, full dose lovenox continue doxy 10d course morphine PRN for respiratory distress s/p Plasma x 2 / remdesivir coursed called daughter again -- @ [phone] and updated Pulm/ID on board ICU following as needed -- call if o2 requirements worsens 2. HTN bp was on low-side; hctz on hold 3. Mood continue home meds 4. N/V resolved pepcid zofran PRN 5. Asthma singulair prn albuterol Full Code DVT pptx, lovenox treatment dose
[2020-05-15 10:16] LABS: Procalcitonin 0.02 ng/mL
--- NOTE | 2020-05-15 11:37 | MHC.CM.PN ---
DP home with services. Referral made to [facility]. Patient is open to [facility] if needed. CM will follow.
--- NOTE | 2020-05-15 11:57 | HO.PICC ---
PICC Line Insertion NPICC Diagnosis: [HYPOXIC] Indication: [US [employer] IV ANTIBIOTICS] Pertinent Labs: [REVIEWED] Technique: Following informed consent including risks, benefits and alternatives and using sterile technique including cap and mask, sterile gown, glove and drape, the [RIGHT] arm was prepped and draped in the usual sterile fashion of full barrier technique with CHG. Following completion of Fenton Protocol the skin and soft tissues were anesthetized with 1% Lidocaine plain. Using ultrasound guidance, [THE RIGHT BASCILIC] vein access was obtained BY DR. GLOVER AFTER ATTEMPTS MADE BY THE RN'S. Over an 0.018 wire through peel-away sheath, a [SINGLE LUMEN] PICC line was positioned. Catheter length is [43 CM] internal length, [1 CM] external length, for a total trimmed length of [44 CM]. The procedure was performed in [ROOM 478]. Tip verification was performed by Nate Gill with [employer] 3CG. Tip located in SVC. Ultrasound was used to document vein patency and for needle entry. A formal ultrasound picture and cardiac rhythm strip was recorded. [employer] has released the line for use and it is currently dressed with a StatLock, Tegaderm, and CHG disc. Verification has been performed for blood return and line patency. Arm Circumference: [31.5] Equipment: [[email or web address] POWER PICC SOLO] Catheter Type: [4 FR SINGLE LUMEN PICC] Lot #: [[id number]]
--- NOTE | 2020-05-15 13:28 | MHC.CLN ---
F/U 75% AVG PO INTAKE DIET RX: REG-APPROPRIATE RECOMMEND 1250 CALORIES PER DAY TO PROMOTE SLOW WT LOSS FOLLOWING
[2020-05-15] MEDS: 0.9 % Sodium Chloride Flush 3 ML SYRINGE IVFLUSH ×2 (14:36→21:26)
[2020-05-15] MEDS: Atorvastatin Calcium 80 MG TABLET PO (21:26)
[2020-05-15] MEDS: Venlafaxine HCl ER 37.5 MG CAP.ER.24H PO (21:26)
[2020-05-15] MEDS: Montelukast Sodium 10 MG TABLET PO (21:26)
[2020-05-15] MEDS: traZODone HCL 50 MG TABLET PO (21:26)
[2020-05-16] VITALS (13 sets, daily range): BP systolic 113–126; BP diastolic 64–72; PULSE 67–112; RESP 16–22; TEMP 35.9–36.5; O2SAT 82–99
[2020-05-16 07:14] LABS: Hematocrit 40.6 % (37-47); Hemoglobin 12.9 g/dl (12.0-16.0); Mean Corpuscular HGB Conc 31.8 g/dl (31.0-35.0); Mean Corpuscular Hemoglobin 25.9 pg (27.0-33.0); Mean Corpuscular Volume 81.5 fL (80-98); Mean Platelet Volume 9.9 fL (9.4-12.3); Platelet Count 521 X10*3/uL (160-400); Red Blood Count 4.98 X10*6/uL (4.20-5.50); Red Cell Distribution Width 13.4 % (11.0-16.0); White Blood Count 19.8 X10*3/uL (4.8-10.8)
[2020-05-16 07:38] LABS: Anion Gap 15 (12-20); Blood Urea Nitrogen 32 mg/dL (9-16); Carbon Dioxide 27 mmol/L (22-29); Chloride 103 mmol/L (96-108); Estimated Glomerular Filt Rate > 60; Glucose Random 103 mg/dL (60-115); Potassium 3.8 mmol/l (3.3-5.1); Sodium 141 mmol/L (135-145)
[2020-05-16] MEDS: Morphine Sulfate 2 MG/ML CARTRIDGE IVPUSH ×2 (09:01→21:27)
[2020-05-16] MEDS: methylPREDNISolone Sod Succ/PF 125 MG/2 ML VIAL 60 MG IVPUSH ×2 (09:16→21:26)
[2020-05-16] MEDS: Famotidine 20 MG TABLET PO ×2 (09:16→21:27)
[2020-05-16] MEDS: 0.9 % Sodium Chloride Flush 3 ML SYRINGE IVFLUSH ×2 (09:16→15:54)
[2020-05-16] MEDS: Enoxaparin Sodium 80 MG/0.8 ML SYRINGE 75 MG SUBCUT ×2 (09:17→21:26)
--- NOTE | 2020-05-16 10:14 | MHC.CDI.CONC ---
CDI Concurrent Query Service Date: 05/16/20 Documentation Clarification: Please clarify if you are treating a probable/suspected/likely or confirmed: Sepsis due to Covid-19/pneumonia POA Sepsis due to Covid-19/pneumonia with acute hypoxic respiratory failure POA Severe sepsis due to Covid-19/pneumonia with acute hypoxic respiratory failure POA Please specify if known Provider Response: Other Other Diagnosis: Sepsis due to pneumonia, long ago, now resolved PLEASE DO NOT DELETE/MODIFY EXISTING CONTENT Additional information is needed in order to code to the highest accuracy and appropriate Severity of Illness (SOI). Please clarify the information noted below in your progress notes and discharge summary. Risk Factors/Clinical Indicators/Treatments Acute hypoxic respiratory failure poa, Covid-19 pneumonia placed on Remesivir, Decadron, empiric Doxycycline, IV fluids, Oxygen. HR 100 118 RR 28 22 WBC 12.5 17.8 19.8 Temp 97.5 96.7 Pulse ox 84 c Evaluation date on admit under Problems - Sepsis, covid-19 pneumonia, Acute respiratory failure. CDS: Sayra Middleton [facility], CDIS Contact Number: [phone] Please Review the information above and exercise your independent professional judgment in responding to the query. If you concur, pleas document in the PROGRESS NOTES and DISCHARGE SUMMARY. If you do not agree with the query, please document in the query above. THIS QUERY IS PART OF THE PERMANENT MEDICAL RECORD
--- NOTE | 2020-05-16 10:56 | HO.PM.IMPN ---
Subjective Subjective Date of Service: 05/16/20 Interval History: Seen in f/u for covid related respiratory failure with prolonged hospitalization and slow to improve. She is still on high flow with requirement going up this morning but may have been anxiety driven ROS: Gen: no fever Resp: no sob, no cough CV: no chest, no HALL, no leg edema GI: No n/v, no abd pain Neuro: No confusion Physical Exam Vital Signs: Vital Signs: Last Vital Signs Temp 97.2 F 05/16/20 07:57 Pulse 110 H 05/16/20 07:57 Resp 18 05/16/20 07:57 BP 126/68 05/16/20 07:57 Pulse Ox 90 L 05/16/20 08:05 Body Mass Index 31.2 General - no distress, ill appearing - but slightly improved Cardiovascular - regular rate and rhythm, S1-S2 Lungs - non labored breathing Abdomen - soft, nontender, no rebound regarding Extremities - no edema bilaterally Neuro - awake and alert, no focal deficits Psych - appears anxious Objective Data Current Medications Generic Name Dose Route Start Last Admin Trade Name Tundeq PRN Reason Stop Dose Admin Acetaminophen 650 mg 05/05/20 20:54 05/15/20 07:57 Acetaminophen 325 Mg Tablet PO 650 mg Q6H PRN Administration Pain, Mild (Pain Scale 1-3) Albuterol Sulfate 2 puff 05/05/20 20:54 05/07/20 01:50 EDT Albuterol Sulfate 90 Mcg 8 Gm Inhaler INHALE 2 puff Q4H PRN Administration shortness of breath Atorvastatin Calcium 80 mg 05/14/20 21:00 05/15/20 21:26 Atorvastatin Calcium 80 Mg Tablet PO 80 mg BEDTIME KASI Administration Benzocaine 1 lozenge 05/13/20 21:23 05/13/20 22:13 Throat Lozenge, Medicated Lozenge MUCOUS MEM 1 lozenge Q2H PRN Administration Sore Throat Docusate Sodium 100 mg 05/05/20 20:54 Docusate Sodium 100 Mg Capsule PO DAILY PRN Constipation Doxycycline Hyclate 100 mg 05/12/20 22:00 05/16/20 10:13 Doxycycline Hyclate 100 Mg Tablet PO 05/22/20 21:59 100 mg Q12H KASI Administration Enoxaparin Sodium 75 mg 05/14/20 09:00 05/16/20 09:17 Enoxaparin Sodium 80 Mg/0.8 Ml Syringe 1 mg/kg (75 mg) 75 mg SUBCUT Administration Q12H KASI Famotidine 20 mg 05/10/20 12:00 05/16/20 09:16 Famotidine 20 Mg Tablet PO 20 mg BID KASI Administration Methylprednisolone Sodium Succinate 60 mg 05/14/20 21:00 05/16/20 09:16 Methylprednisolone Sod Succ/Pf 125 Mg/2 Ml Vial IVPUSH 60 mg Q12H KASI Administration Montelukast Sodium 10 mg 05/05/20 21:00 05/15/20 21:26 Montelukast Sodium 10 Mg Tablet PO 10 mg BEDTIME KASI Administration Morphine Sulfate 2 mg 05/14/20 09:12 05/16/20 09:01 Morphine Sulfate 2 Mg/Ml Cartridge IVPUSH 2 mg Q4H PRN Administration Respiratory Distress Ondansetron HCl 4 mg 05/05/20 20:54 05/10/20 09:14 Ondansetron Hcl 4 Mg/2 Ml Vial IVPUSH 4 mg Q8H PRN Administration Nausea and Vomiting Ondansetron HCl 4 mg 05/10/20 12:14 Ondansetron Hcl 4 Mg/2 Ml Vial IVPUSH Q8H PRN Nausea and Vomiting Pharmacy Consult 1 each 05/05/20 15:36 Consult Rx Perform Med Rec MISCELLANE ONCE PRN Consult order Sodium Chloride 3 ml 05/06/20 00:00 05/16/20 09:16 0.9 % Sodium Chloride Flush 3 Ml Syringe IVFLUSH 3 ml QSHIFT KASI Administration Trazodone HCl 50 mg 05/05/20 21:00 05/15/20 21:26 Trazodone Hcl 50 Mg Tablet PO 50 mg BEDTIME KASI Administration Venlafaxine HCl 37.5 mg 05/09/20 21:00 05/15/20 21:26 Venlafaxine Hcl Er 37.5 Mg Cap.Er.24h PO 37.5 mg BEDTIME KASI Administration Labs CBC & Chem 7: 05/16/20 06:10 05/16/20 06:10 Microbiology Microbiology Results: Microbiology 05/05/20 13:37 Blood - Venous Blood Culture - Final No growth after 5 days. 05/05/20 13:29 Blood - Venous Blood Culture - Final No growth after 5 days. Assessment and Plan (1) COVID-19: Status: Acute Assessment and Plan: 55 yo F PMH of asthma, HTN, HLD who is admitted for acute hypoxic resp. failure due to COVID-19. She is admitted for further treatment. 1. Acute hypoxic respiratory failure due to COVID-19 slowly improving on HFNC - 70%/60L, wean as much as possible continue high dose solu-medrol 60mg bid, full dose lovenox continue doxy 10d course morphine PRN for respiratory distress s/p Plasma x 2 / remdesivir coursed called daughter -- @ [phone] no ansower Pulm/ID on board ICU following as needed -- call if o2 requirements worsens 2. HTN--BP within normal. Hold HCTZ 3. Mood continue home meds 4. N/V resolved pepcid zofran PRN 5. Asthma singulair prn albuterol Full Code DVT pptx, lovenox treatment dose
[2020-05-16] MEDS: Docusate Sodium 100 MG CAPSULE PO (19:31)
[2020-05-16] MEDS: Montelukast Sodium 10 MG TABLET PO (21:27)
[2020-05-16] MEDS: Atorvastatin Calcium 80 MG TABLET PO (21:27)
[2020-05-16] MEDS: Venlafaxine HCl ER 37.5 MG CAP.ER.24H PO (21:27)
[2020-05-16] MEDS: traZODone HCL 50 MG TABLET PO (21:27)
[2020-05-17] VITALS (14 sets, daily range): BP systolic 111–126; BP diastolic 60–73; PULSE 76–392; RESP 12–20; TEMP 36.4–36.9; O2SAT 89–97
[2020-05-17] MEDS: 0.9 % Sodium Chloride Flush 3 ML SYRINGE IVFLUSH ×3 (00:57→17:27)
[2020-05-17 06:50] LABS: Hematocrit 39.1 % (37-47); Hemoglobin 12.5 g/dl (12.0-16.0); Mean Corpuscular Hemoglobin 26.3 pg (27.0-33.0); Mean Corpuscular Volume 82.1 fL (80-98); Mean Platelet Volume 9.7 fL (9.4-12.3); Platelet Count 490 X10*3/uL (160-400); Red Blood Count 4.76 X10*6/uL (4.20-5.50); Red Cell Distribution Width 13.8 % (11.0-16.0); White Blood Count 18.4 X10*3/uL (4.8-10.8)
[2020-05-17 07:03] LABS: Anion Gap 13 (12-20); Blood Urea Nitrogen 34 mg/dL (9-16); Calcium 9.1 mg/dL (8.4-10.2); Carbon Dioxide 27 mmol/L (22-29); Chloride 103 mmol/L (96-108); Creatinine Clr Calc Pharmacy 87.6; Estimated Glomerular Filt Rate > 60; Glucose Random 105 mg/dL (60-115); Potassium 4.1 mmol/l (3.3-5.1); Sodium 139 mmol/L (135-145)
[2020-05-17] MEDS: methylPREDNISolone Sod Succ/PF 125 MG/2 ML VIAL 60 MG IVPUSH ×2 (07:55→20:35)
[2020-05-17] MEDS: Famotidine 20 MG TABLET PO ×2 (07:55→20:36)
[2020-05-17] MEDS: Enoxaparin Sodium 80 MG/0.8 ML SYRINGE 75 MG SUBCUT (07:56)
--- NOTE | 2020-05-17 10:13 | MHC.CM.PN ---
FEMALE 55 COVID + DP HOME WITH [facility] AND [facility]. IF REQUIRED , PT WILL GO TO [facility]. CM WILL FOLLOW. PT CONTINUES ON HIGH FLOW OXYGEN.
[2020-05-17] MEDS: LORazepam 0.5 MG TABLET PO (10:50)
--- NOTE | 2020-05-17 11:53 | PC.NURSE ---
Addendum entered by Collette Valencia RN 05/17/20 15:48: PT PICC line site still bleeding small ammount. Needed dsg luis, weston AZEVEDO, order to stop lovenox and apply pressure dsg. Bleeding has not continued since dsg change/pressure dsg Original Note: PT PICC line slightly bleeding. Previous RN changed dsg at about 0630. Noted that dsg needed to be changed again. notified md, will continue to monitor.
--- NOTE | 2020-05-17 13:09 | HO.PM.IMPN ---
Subjective Subjective Date of Service: 05/17/20 Interval History: patient continued to be on high-flow oxygen noted to have drop in oxygenation despite being on- high-flow oxygen patient denies fever chills, no shortness of breath no cough or sputum production. Review of Systems General no headache no dizziness no fever chills, feels anxious. CVS no chest pain, no palpitation. Respiratory no cough , no respiratory distress. Gastrointestinal no nausea , no vomiting, no abdominal pain Physical Exam Vital Signs: Vital Signs: Last Vital Signs Temp 97.5 F 05/17/20 11:25 Pulse 105 H 05/17/20 11:25 Resp 18 05/17/20 11:43 BP 119/70 05/17/20 11:25 Pulse Ox 93 05/17/20 11:25 Body Mass Index 31.2 General patient resting comfortably in no acute distress. Neck is supple no JVD. CVS regular rate rhythm, Respiratory lungs coarse breath sounds, no respiratory distress, no wheeze, no rhonchi. Gastrointestinal abdomen soft, nontender, bowel sounds audible. Extremities no clubbing cyanosis or edema. Neuro nonfocal skin no rash, bleeding noted from PICC line dressing Objective Data Current Medications Generic Name Dose Route Start Last Admin Trade Name Freq PRN Reason Stop Dose Admin Acetaminophen 650 mg 05/05/20 20:54 05/15/20 07:57 Acetaminophen 325 Mg Tablet PO 650 mg Q6H PRN Administration Pain, Mild (Pain Scale 1-3) Albuterol Sulfate 2 puff 05/05/20 20:54 05/07/20 01:50 EDT Albuterol Sulfate 90 Mcg 8 Gm Inhaler INHALE 2 puff Q4H PRN Administration shortness of breath Atorvastatin Calcium 80 mg 05/14/20 21:00 05/16/20 21:27 Atorvastatin Calcium 80 Mg Tablet PO 80 mg BEDTIME KASI Administration Benzocaine 1 lozenge 05/13/20 21:23 05/13/20 22:13 Throat Lozenge, Medicated Lozenge MUCOUS MEM 1 lozenge Q2H PRN Administration Sore Throat Docusate Sodium 100 mg 05/05/20 20:54 05/16/20 19:31 Docusate Sodium 100 Mg Capsule PO 100 mg DAILY PRN Administration Constipation Doxycycline Hyclate 100 mg 05/12/20 22:00 05/17/20 10:50 Doxycycline Hyclate 100 Mg Tablet PO 05/22/20 21:59 100 mg Q12H KASI Administration Famotidine 20 mg 05/10/20 12:00 05/17/20 07:55 Famotidine 20 Mg Tablet PO 20 mg BID KASI Administration Lorazepam 0.5 mg 05/17/20 09:52 05/17/20 10:50 Lorazepam 0.5 Mg Tablet PO 0.5 mg Q8H PRN Administration Anxiety Methylprednisolone Sodium Succinate 60 mg 05/14/20 21:00 05/17/20 07:55 Methylprednisolone Sod Succ/Pf 125 Mg/2 Ml Vial IVPUSH 60 mg Q12H KASI Administration Montelukast Sodium 10 mg 05/05/20 21:00 05/16/20 21:27 Montelukast Sodium 10 Mg Tablet PO 10 mg BEDTIME KASI Administration Morphine Sulfate 2 mg 05/14/20 09:12 05/16/20 21:27 Morphine Sulfate 2 Mg/Ml Cartridge IVPUSH 2 mg Q4H PRN Administration Respiratory Distress Ondansetron HCl 4 mg 05/05/20 20:54 05/10/20 09:14 Ondansetron Hcl 4 Mg/2 Ml Vial IVPUSH 4 mg Q8H PRN Administration Nausea and Vomiting Ondansetron HCl 4 mg 05/10/20 12:14 Ondansetron Hcl 4 Mg/2 Ml Vial IVPUSH Q8H PRN Nausea and Vomiting Pharmacy Consult 1 each 05/05/20 15:36 Consult Rx Perform Med Rec MISCELLANE ONCE PRN Consult order Sodium Chloride 3 ml 05/06/20 00:00 05/17/20 07:55 0.9 % Sodium Chloride Flush 3 Ml Syringe IVFLUSH 3 ml QSHIFT KASI Administration Trazodone HCl 50 mg 05/05/20 21:00 05/16/20 21:27 Trazodone Hcl 50 Mg Tablet PO 50 mg BEDTIME KASI Administration Venlafaxine HCl 37.5 mg 05/09/20 21:00 05/16/20 21:27 Venlafaxine Hcl Er 37.5 Mg Cap.Er.24h PO 37.5 mg BEDTIME KASI Administration Labs CBC & Chem 7: 05/17/20 05:57 05/17/20 05:57 Microbiology Microbiology Results: Microbiology 05/05/20 13:37 Blood - Venous Blood Culture - Final No growth after 5 days. 05/05/20 13:29 Blood - Venous Blood Culture - Final No growth after 5 days. Assessment and Plan (1) Acute hypoxemic respiratory failure: Status: Acute (2) COVID-19: Status: Acute (3) Sepsis: Status: Acute (4) Pneumonia: Status: Acute (5) Arthritis: Status: Acute (6) Hypertension: Status: Acute (7) Asthma: Status: Acute Assessment and Plan: 55 yo F PMH of asthma, HTN, HLD who is admitted for acute hypoxic resp. failure due to COVID-19. She is admitted for further treatment. 1. Acute hypoxic respiratory failure due to COVID-19 slowly improving on HFNC 70%/60L, on iv solu-medrol 60mg bid, full dose lovenox, on doxy day5/10 morphine PRN for respiratory distress s/p Plasma x 2 /s/p remdesivir patient noted to have bleeding from PICC line site will discontinue Lovenox since D-dimer not significantly elevated, hematocrit stable, apply pressure dressing, CTA showed no PE, will taper high-flow oxygen Will start incentive spirometry ,and try Oxymizer SARs COVID IgG is pending, multiple repeat chest x-ray showed persistent bilateral infiltrate consistent with covid Pulm/ID on board 2. HTN--BP is stable will continue to hold HCTZ 3. Mood feels nervous will add Ativan and continue trazodone and venlafaxine 4. N/V resolved continue pepcid and zofran PRN 5. Asthma no acute exacerbation on singulair, prn albuterol Full Code DVT pptx, lovenox treatment dose
[2020-05-17 14:12] LABS: SARS COV2 IgG Positive (Negative)
[2020-05-17] MEDS: Montelukast Sodium 10 MG TABLET PO (20:36)
[2020-05-17] MEDS: traZODone HCL 50 MG TABLET PO (20:36)
[2020-05-17] MEDS: Atorvastatin Calcium 80 MG TABLET PO (20:36)
[2020-05-17] MEDS: Venlafaxine HCl ER 37.5 MG CAP.ER.24H PO (20:36)
[2020-05-18] VITALS (9 sets, daily range): BP systolic 100–120; BP diastolic 55–65; PULSE 85–110; RESP 18–22; TEMP 35.9–36.9; O2SAT 91–99
[2020-05-18] MEDS: 0.9 % Sodium Chloride Flush 3 ML SYRINGE IVFLUSH ×4 (00:36→23:52)
[2020-05-18 07:16] LABS: Basophils Percent Auto 0.1 % (0-2); Hematocrit 38.4 % (37-47); Hemoglobin 12.3 g/dl (12.0-16.0); Imm Gran Abs Auto 0.14 X10*3/uL (0.00-0.03); Imm Gran Pct Auto 0.9 % (0.0-0.4); Lymphocytes Percent Auto 6.5 % (20-40); MANUAL DIFF FLAG NO; Mean Corpuscular Hemoglobin 26.5 pg (27.0-33.0); Mean Corpuscular Volume 82.6 fL (80-98); Mean Platelet Volume 10.1 fL (9.4-12.3); Monocytes Absolute Auto 1.1 X10*3/uL (0.1-1.2); Monocytes Percent Auto 6.7 % (2-11); Neutrophils Absolute Auto 13.5 X10*3/uL (2.0-8.3); Neutrophils Percent Auto 85.8 % (45-73); Platelet Count 472 X10*3/uL (160-400); Red Blood Count 4.65 X10*6/uL (4.20-5.50); Red Cell Distribution Width 14.1 % (11.0-16.0); White Blood Count 15.8 X10*3/uL (4.8-10.8)
[2020-05-18 07:52] LABS: Anion Gap 14 (12-20); Blood Urea Nitrogen 33 mg/dL (9-16); Calcium 8.5 mg/dL (8.4-10.2); Carbon Dioxide 27 mmol/L (22-29); Chloride 105 mmol/L (96-108); Creatinine Clr Calc Pharmacy 90.4; Estimated Glomerular Filt Rate > 60; Glucose Random 94 mg/dL (60-115); Potassium 4.1 mmol/l (3.3-5.1); Sodium 142 mmol/L (135-145)
[2020-05-18] MEDS: methylPREDNISolone Sod Succ/PF 125 MG/2 ML VIAL 60 MG IVPUSH (09:45)
[2020-05-18] MEDS: Famotidine 20 MG TABLET PO ×2 (09:47→21:45)
--- NOTE | 2020-05-18 13:27 | PC.NURSE ---
pt up to chair, resting quietly. She denies pain. Pt has high flow oxygen, states she tried to use a walker and became short of breath. Will continue to monitor
--- NOTE | 2020-05-18 15:18 | P.PNIM_ITS ---
Subjective Subjective Date of Service: 05/18/20 Interval History: Patient complaining of intermittent shortness of breath and weakness is still on high-flow oxygen with finger oximetry 91% Review of Systems General no headache no dizziness , complaining of weakness,no fever chills. CVS no chest pain, no palpitation. Respiratory no cough, intermittent shortness of breath Gastrointestinal no nausea no vomiting, no abdominal pain Physical Exam Vital Signs: Vital Signs: Last Vital Signs Temp 98.5 F 05/18/20 12:00 Pulse 104 H 05/18/20 12:00 Resp 18 05/18/20 12:00 BP 101/55 L 05/18/20 12:00 Pulse Ox 97 05/18/20 12:00 Body Mass Index 31.2 General patient appears ill, no acute distress. Neck is supple no JVD. CVS regular rate rhythm, Respiratory lungs coarse breath sounds, no respiratory distress, no wheeze, no rhonchi. Gastrointestinal abdomen soft, nontender, bowel sounds audible. Extremities no clubbing cyanosis or edema. Neuro nonfocal skin no rash, Old clotted blood at PICC line dressing , no new bleeding. Objective Data Current Medications Generic Name Dose Route Start Last Admin Trade Name Freq PRN Reason Stop Dose Admin Acetaminophen 650 mg 05/05/20 20:54 05/15/20 07:57 Acetaminophen 325 Mg Tablet PO 650 mg Q6H PRN Administration Pain, Mild (Pain Scale 1-3) Albuterol Sulfate 2 puff 05/05/20 20:54 05/07/20 01:50 EDT Albuterol Sulfate 90 Mcg 8 Gm Inhaler INHALE 2 puff Q4H PRN Administration shortness of breath Atorvastatin Calcium 80 mg 05/14/20 21:00 05/17/20 20:36 Atorvastatin Calcium 80 Mg Tablet PO 80 mg BEDTIME KASI Administration Benzocaine 1 lozenge 05/13/20 21:23 05/13/20 22:13 Throat Lozenge, Medicated Lozenge MUCOUS MEM 1 lozenge Q2H PRN Administration Sore Throat Docusate Sodium 100 mg 05/05/20 20:54 05/16/20 19:31 Docusate Sodium 100 Mg Capsule PO 100 mg DAILY PRN Administration Constipation Doxycycline Hyclate 100 mg 05/12/20 22:00 05/18/20 09:47 Doxycycline Hyclate 100 Mg Tablet PO 05/22/20 21:59 100 mg Q12H KASI Administration Famotidine 20 mg 05/10/20 12:00 05/18/20 09:47 Famotidine 20 Mg Tablet PO 20 mg BID KASI Administration Lorazepam 0.5 mg 05/17/20 09:52 05/17/20 10:50 Lorazepam 0.5 Mg Tablet PO 0.5 mg Q8H PRN Administration Anxiety Methylprednisolone Sodium Succinate 60 mg 05/14/20 21:00 05/18/20 09:45 Methylprednisolone Sod Succ/Pf 125 Mg/2 Ml Vial IVPUSH 60 mg Q12H KASI Administration Montelukast Sodium 10 mg 05/05/20 21:00 05/17/20 20:36 Montelukast Sodium 10 Mg Tablet PO 10 mg BEDTIME KASI Administration Morphine Sulfate 2 mg 05/14/20 09:12 05/16/20 21:27 Morphine Sulfate 2 Mg/Ml Cartridge IVPUSH 2 mg Q4H PRN Administration Respiratory Distress Ondansetron HCl 4 mg 05/05/20 20:54 05/10/20 09:14 Ondansetron Hcl 4 Mg/2 Ml Vial IVPUSH 4 mg Q8H PRN Administration Nausea and Vomiting Ondansetron HCl 4 mg 05/10/20 12:14 Ondansetron Hcl 4 Mg/2 Ml Vial IVPUSH Q8H PRN Nausea and Vomiting Pharmacy Consult 1 each 05/05/20 15:36 Consult Rx Perform Med Rec MISCELLANE ONCE PRN Consult order Sodium Chloride 3 ml 05/06/20 00:00 05/18/20 09:47 0.9 % Sodium Chloride Flush 3 Ml Syringe IVFLUSH 3 ml QSHIFT KASI Administration Trazodone HCl 50 mg 05/05/20 21:00 05/17/20 20:36 Trazodone Hcl 50 Mg Tablet PO 50 mg BEDTIME KASI Administration Venlafaxine HCl 37.5 mg 05/09/20 21:00 05/17/20 20:36 Venlafaxine Hcl Er 37.5 Mg Cap.Er.24h PO 37.5 mg BEDTIME KASI Administration Labs CBC & Chem 7: 05/18/20 05:52 05/18/20 05:52 Microbiology Microbiology Results: Microbiology 05/05/20 13:37 Blood - Venous Blood Culture - Final No growth after 5 days. 05/05/20 13:29 Blood - Venous Blood Culture - Final No growth after 5 days. Assessment and Plan (1) Acute hypoxemic respiratory failure: Status: Acute (2) COVID-19: Status: Acute (3) Sepsis: Status: Acute (4) Pneumonia: Status: Acute (5) Arthritis: Status: Acute (6) Hypertension: Status: Acute (7) Asthma: Status: Acute Assessment and Plan: 55 yo F PMH of asthma, HTN, HLD who is admitted for acute hypoxic resp. failure due to COVID-19. She is admitted for further treatment. 1. Acute hypoxic respiratory failure due to COVID-19 slowly improving on HFNC 70%/60L, on iv solu-medrol 60mg bid, on doxy day 12/14 patient not requiring morphine therefore will discontinue s/p Plasma x 2 /s/p remdesivir bleeding from PICC line is stabilized, since Lovenox discontinued.CTA showed no PE, will taper high-flow oxygen , encourage incentive spirometry , recommend out of bed to chair SARs COVID IgG is positive, multiple repeat chest x-ray showed persistent bilateral infiltrate consistent with covid, procalcitonin 0.02, will repeat C- reactive protein, electrolytes stable, elevated WBC likely due to steroid Pulm/ID on board, will continue supportive care 2. HTN--BP is stable will continue to hold HCTZ 3. Mood stable continue as needed Ativan and continue trazodone and venlafaxine 4. N/V resolved continue pepcid and zofran PRN 5. Asthma no acute exacerbation on singulair, prn albuterol 6. Hyperlipidemia will reduce dose of Lipitor to 20 mg since take Zocor 40 mg at home Full Code DVT pptx, will add compression boots and recommend out of bed to chair.
[2020-05-18] MEDS: methylPREDNISolone Sod Succ/PF 125 MG/2 ML VIAL 40 MG IVPUSH (16:19)
[2020-05-18] MEDS: Montelukast Sodium 10 MG TABLET PO (21:45)
[2020-05-18] MEDS: Venlafaxine HCl ER 37.5 MG CAP.ER.24H PO (21:45)
[2020-05-18] MEDS: traZODone HCL 50 MG TABLET PO (21:45)
[2020-05-18] MEDS: Atorvastatin Calcium 20 MG TABLET PO (21:45)
--- NOTE | 2020-05-18 22:44 | PC.NURSE ---
pt was up to chair, then back to bed with assist of 1 staff. she supervisor paper testing been resting quietly with no complaints. pt ion both high flow and non rebreather oxygen, her saturations with this are 99%. Pt has PICC line to right upper arm. Dressing was heavily soiled with bloody drainage, changed dressing and resucured with Tegaderm dressing. Pt tolerated well.
[2020-05-19] VITALS (13 sets, daily range): BP systolic 97–121; BP diastolic 55–71; PULSE 85–127; RESP 16–24; TEMP 36.1–37.1; O2SAT 91–100
[2020-05-19] MEDS: methylPREDNISolone Sod Succ/PF 125 MG/2 ML VIAL 40 MG IVPUSH ×2 (03:10→16:51)
[2020-05-19 06:55] LABS: Hematocrit 38.8 % (37-47); Hemoglobin 12.3 g/dl (12.0-16.0); Mean Corpuscular HGB Conc 31.7 g/dl (31.0-35.0); Mean Corpuscular Hemoglobin 26.7 pg (27.0-33.0); Mean Corpuscular Volume 84.3 fL (80-98); Mean Platelet Volume 10.1 fL (9.4-12.3); Platelet Count 383 X10*3/uL (160-400); Red Cell Distribution Width 14.2 % (11.0-16.0); White Blood Count 20.1 X10*3/uL (4.8-10.8)
[2020-05-19 07:10] LABS: C Reactive Protein 0.54 mg/dL (< or = 0.50)
[2020-05-19 07:15] LABS: Anion Gap 12 (12-20); Blood Urea Nitrogen 32 mg/dL (9-16); Calcium 8.4 mg/dL (8.4-10.2); Carbon Dioxide 28 mmol/L (22-29); Chloride 107 mmol/L (96-108); Estimated Glomerular Filt Rate > 60; Glucose Random 81 mg/dL (60-115); Potassium 4.1 mmol/l (3.3-5.1); Sodium 143 mmol/L (135-145)
[2020-05-19] MEDS: Famotidine 20 MG TABLET PO ×2 (08:17→20:34)
[2020-05-19] MEDS: 0.9 % Sodium Chloride Flush 3 ML SYRINGE IVFLUSH ×2 (08:17→16:51)
[2020-05-19] MEDS: LORazepam 0.5 MG TABLET PO ×2 (08:27→18:43)
--- NOTE | 2020-05-19 12:01 | P.PNIM_ITS ---
Subjective Subjective Date of Service: 05/19/20 Interval History: patient feels weak, still requiring high-flow oxygen otherwise no fever, no chills, intermittent shortness of breath. Review of Systems General no headache, no dizziness, no fever ,no chills. CVS no chest pain, no palpitation. Respiratory c/o sob. Gastrointestinal no nausea, no vomiting, no abdominal pain Physical Exam Vital Signs: Vital Signs: Last Vital Signs Temp 97.9 F 05/19/20 11:49 Pulse 103 H 05/19/20 11:49 Resp 18 05/19/20 11:49 BP 108/61 05/19/20 11:49 Pulse Ox 96 05/19/20 11:49 Body Mass Index 31.2 General patient appears ill, no acute distress. Neck is supple no JVD. CVS regular rate rhythm, Respiratory lungs coarse breath sounds,diminished, no respiratory distress, no wheeze, no rhonchi. Gastrointestinal abdomen soft, nontender, bowel sounds audible. Extremities no clubbing, cyanosis or edema. Neuro nonfocal skin no rash, PICC line dressing in place no recurrent bleed Objective Data Current Medications Generic Name Dose Route Start Last Admin Trade Name Freq PRN Reason Stop Dose Admin Acetaminophen 650 mg 05/05/20 20:54 05/15/20 07:57 Acetaminophen 325 Mg Tablet PO 650 mg Q6H PRN Administration Pain, Mild (Pain Scale 1-3) Albuterol Sulfate 2 puff 05/05/20 20:54 05/07/20 01:50 EDT Albuterol Sulfate 90 Mcg 8 Gm Inhaler INHALE 2 puff Q4H PRN Administration shortness of breath Atorvastatin Calcium 20 mg 05/18/20 21:00 05/18/20 21:45 Atorvastatin Calcium 20 Mg Tablet PO 20 mg BEDTIME KASI Administration Benzocaine 1 lozenge 05/13/20 21:23 05/13/20 22:13 Throat Lozenge, Medicated Lozenge MUCOUS MEM 1 lozenge Q2H PRN Administration Sore Throat Docusate Sodium 100 mg 05/05/20 20:54 05/16/20 19:31 Docusate Sodium 100 Mg Capsule PO 100 mg DAILY PRN Administration Constipation Doxycycline Hyclate 100 mg 05/12/20 22:00 05/19/20 08:17 Doxycycline Hyclate 100 Mg Tablet PO 05/22/20 21:59 100 mg Q12H KASI Administration Famotidine 20 mg 05/10/20 12:00 05/19/20 08:17 Famotidine 20 Mg Tablet PO 20 mg BID KASI Administration Lorazepam 0.5 mg 05/17/20 09:52 05/19/20 08:27 Lorazepam 0.5 Mg Tablet PO 0.5 mg Q8H PRN Administration Anxiety Methylprednisolone Sodium Succinate 40 mg 05/18/20 15:33 05/19/20 03:10 Methylprednisolone Sod Succ/Pf 125 Mg/2 Ml Vial IVPUSH 40 mg Q12H KASI Administration Montelukast Sodium 10 mg 05/05/20 21:00 05/18/20 21:45 Montelukast Sodium 10 Mg Tablet PO 10 mg BEDTIME KASI Administration Ondansetron HCl 4 mg 05/05/20 20:54 05/10/20 09:14 Ondansetron Hcl 4 Mg/2 Ml Vial IVPUSH 4 mg Q8H PRN Administration Nausea and Vomiting Ondansetron HCl 4 mg 05/10/20 12:14 Ondansetron Hcl 4 Mg/2 Ml Vial IVPUSH Q8H PRN Nausea and Vomiting Pharmacy Consult 1 each 05/05/20 15:36 Consult Rx Perform Med Rec MISCELLANE ONCE PRN Consult order Sodium Chloride 3 ml 05/06/20 00:00 05/19/20 08:17 0.9 % Sodium Chloride Flush 3 Ml Syringe IVFLUSH 3 ml QSHIFT KASI Administration Trazodone HCl 50 mg 05/05/20 21:00 05/18/20 21:45 Trazodone Hcl 50 Mg Tablet PO 50 mg BEDTIME KASI Administration Venlafaxine HCl 37.5 mg 05/09/20 21:00 05/18/20 21:45 Venlafaxine Hcl Er 37.5 Mg Cap.Er.24h PO 37.5 mg BEDTIME KASI Administration Labs CBC & Chem 7: 05/19/20 05:51 05/19/20 05:51 Microbiology Microbiology Results: Microbiology 05/05/20 13:37 Blood - Venous Blood Culture - Final No growth after 5 days. 05/05/20 13:29 Blood - Venous Blood Culture - Final No growth after 5 days. Assessment and Plan (1) Acute hypoxemic respiratory failure: Status: Acute (2) COVID-19: Status: Acute (3) Sepsis: Status: Acute (4) Pneumonia: Status: Acute (5) Arthritis: Status: Acute (6) Hypertension: Status: Acute (7) Asthma: Status: Acute Assessment and Plan: 55 yo F PMH of asthma, HTN, HLD who is admitted for acute hypoxic resp. failure due to COVID-19. She is admitted for further treatment. 1. Acute hypoxic respiratory failure due to COVID-19 slowly improving is still requiring HFNC and non-rebreather mask on doxy day 01/13 and IV steroids 40 mg b.i.d. s/p Plasma x 2, /s/p remdesivir bleeding from PICC line has stopped, CTA showed no PE, will taper high-flow oxygen as tolerated , encourage incentive spirometry , recommend out of bed to chair SARs COVID IgG is positive, multiple repeat chest x-ray showed persistent bilateral infiltrate consistent with covid, procalcitonin 0.02, repeat C- reactive protein has significantly improved to 0.54, electrolytes stable, BUN elevated, elevated WBC likely due to steroid. will add Ensure can due to low protein, will add vitamin-C and Zinc, will encourage by mouth fluid Pulm/ID on board, will continue supportive care, case discussed with ID and Pulmonary no further recommendations they agree with above care. 2. HTN--BP is low stable will continue to hold HCTZ 3. Mood stable continue as needed Ativan and continue trazodone and venlafaxine 4. N/V resolved continue pepcid and zofran PRN 5. Asthma no acute exacerbation on singulair, prn albuterol 6. Hyperlipidemia Continue Lipitor 20 mg , take Zocor 40 mg at home Full Code DVT pptx, compression boots and recommend out of bed to chair as tolerated.
--- NOTE | 2020-05-19 12:11 | MHC.CM.PN ---
DP Home with services, Family will provide transportation. No DC today. Pt continues to require Highflow O2. CM will follow.
[2020-05-19] MEDS: Montelukast Sodium 10 MG TABLET PO (20:34)
[2020-05-19] MEDS: Atorvastatin Calcium 20 MG TABLET PO (20:34)
[2020-05-19] MEDS: traZODone HCL 50 MG TABLET PO (20:34)
[2020-05-19] MEDS: Venlafaxine HCl ER 37.5 MG CAP.ER.24H PO (20:34)
[2020-05-20] VITALS (12 sets, daily range): BP systolic 97–119; BP diastolic 50–73; PULSE 92–129; RESP 18–20; TEMP 36.2–36.9; O2SAT 92–98
[2020-05-20] MEDS: 0.9 % Sodium Chloride Flush 3 ML SYRINGE IVFLUSH ×4 (01:20→23:57)
[2020-05-20] MEDS: methylPREDNISolone Sod Succ/PF 125 MG/2 ML VIAL 40 MG IVPUSH ×2 (02:36→16:03)
[2020-05-20 07:16] LABS: Hematocrit 42.1 % (37-47); Mean Corpuscular HGB Conc 30.9 g/dl (31.0-35.0); Mean Corpuscular Hemoglobin 26.2 pg (27.0-33.0); Mean Corpuscular Volume 84.9 fL (80-98); Platelet Count 402 X10*3/uL (160-400); Red Blood Count 4.96 X10*6/uL (4.20-5.50); Red Cell Distribution Width 14.3 % (11.0-16.0); White Blood Count 18.5 X10*3/uL (4.8-10.8)
[2020-05-20 07:36] LABS: Anion Gap 12 (12-20); Blood Urea Nitrogen 28 mg/dL (9-16); Calcium 8.7 mg/dL (8.4-10.2); Carbon Dioxide 30 mmol/L (22-29); Chloride 105 mmol/L (96-108); Creatinine Clr Calc Pharmacy 93.2; Estimated Glomerular Filt Rate > 60; Glucose Random 75 mg/dL (60-115); Potassium 4.4 mmol/l (3.3-5.1); Sodium 143 mmol/L (135-145)
[2020-05-20] MEDS: Famotidine 20 MG TABLET PO ×2 (09:20→20:57)
[2020-05-20] MEDS: Ascorbic Acid 500 MG TABLET PO (09:20)
[2020-05-20] MEDS: Zinc Sulfate 220 MG CAPSULE PO (09:20)
[2020-05-20] MEDS: Dextrose 5 % and 0.9 % NaCl 1,000 ML 100 ML IVCONT ×2 (09:22→19:22)
--- NOTE | 2020-05-20 12:46 | P.PNIM_ITS ---
Subjective Subjective Date of Service: 05/20/20 Interval History: patient complaining of intermittent chest tightness, otherwise denies cough no shortness of breath no abdominal pain, no nausea , no vomiting, no fevers ,by mouth intake is poor. Review of Systems General no headache, no dizziness, no fever,no chills. CVS no chest pain, no palpitation. Respiratory no cough,no sob. Gastrointestinal no nausea, no vomiting, no abdominal pain Physical Exam Vital Signs: Vital Signs: Last Vital Signs Temp 97.7 F 05/20/20 12:00 Pulse 115 H 05/20/20 12:00 Resp 20 05/20/20 12:00 BP 97/53 L 05/20/20 12:00 Pulse Ox 94 05/20/20 12:00 Body Mass Index 31.2 General patient appears ill, no acute distress. Neck supple no JVD. CVS regular rate rhythm, Respiratory lungs coarse diminished breath sounds,no respiratory distress, no wheeze, no rhonchi. Gastrointestinal abdomen soft, nontender, bowel sounds audible. Extremities no clubbing, cyanosis or edema. Neuro nonfocal awake alert answering appropriately. skin no rash, PICC line dressing in place no recurrent bleed, old clotted blood Objective Data Current Medications Generic Name Dose Route Start Last Admin Trade Name Freq PRN Reason Stop Dose Admin Acetaminophen 650 mg 05/05/20 20:54 05/15/20 07:57 Acetaminophen 325 Mg Tablet PO 650 mg Q6H PRN Administration Pain, Mild (Pain Scale 1-3) Albuterol Sulfate 2 puff 05/05/20 20:54 05/07/20 01:50 EDT Albuterol Sulfate 90 Mcg 8 Gm Inhaler INHALE 2 puff Q4H PRN Administration shortness of breath Ascorbic Acid 500 mg 05/20/20 09:00 05/20/20 09:20 Ascorbic Acid 500 Mg Tablet PO 500 mg DAILY KASI Administration Atorvastatin Calcium 20 mg 05/18/20 21:00 05/19/20 20:34 Atorvastatin Calcium 20 Mg Tablet PO 20 mg BEDTIME KASI Administration Benzocaine 1 lozenge 05/13/20 21:23 05/13/20 22:13 Throat Lozenge, Medicated Lozenge MUCOUS MEM 1 lozenge Q2H PRN Administration Sore Throat Docusate Sodium 100 mg 05/05/20 20:54 05/16/20 19:31 Docusate Sodium 100 Mg Capsule PO 100 mg DAILY PRN Administration Constipation Doxycycline Hyclate 100 mg 05/12/20 22:00 05/20/20 09:20 Doxycycline Hyclate 100 Mg Tablet PO 05/22/20 21:59 100 mg Q12H KASI Administration Famotidine 20 mg 05/10/20 12:00 05/20/20 09:20 Famotidine 20 Mg Tablet PO 20 mg BID KASI Administration Dextrose/Sodium Chloride 1,000 mls @ 100 mls/hr 05/20/20 09:15 05/20/20 09:22 D5ns IVCONT 100 mls/hr .Q10H KASI Administration Lorazepam 0.5 mg 05/17/20 09:52 05/19/20 18:43 Lorazepam 0.5 Mg Tablet PO 0.5 mg Q8H PRN Administration Anxiety Methylprednisolone Sodium Succinate 40 mg 05/18/20 15:33 05/20/20 02:36 Methylprednisolone Sod Succ/Pf 125 Mg/2 Ml Vial IVPUSH 40 mg Q12H KASI Administration Montelukast Sodium 10 mg 05/05/20 21:00 05/19/20 20:34 Montelukast Sodium 10 Mg Tablet PO 10 mg BEDTIME KASI Administration Ondansetron HCl 4 mg 05/05/20 20:54 05/10/20 09:14 Ondansetron Hcl 4 Mg/2 Ml Vial IVPUSH 4 mg Q8H PRN Administration Nausea and Vomiting Ondansetron HCl 4 mg 05/10/20 12:14 Ondansetron Hcl 4 Mg/2 Ml Vial IVPUSH Q8H PRN Nausea and Vomiting Pharmacy Consult 1 each 05/05/20 15:36 Consult Rx Perform Med Rec MISCELLANE ONCE PRN Consult order Sodium Chloride 3 ml 05/06/20 00:00 05/20/20 09:18 0.9 % Sodium Chloride Flush 3 Ml Syringe IVFLUSH 3 ml QSHIFT KASI Administration Trazodone HCl 50 mg 05/05/20 21:00 05/19/20 20:34 Trazodone Hcl 50 Mg Tablet PO 50 mg BEDTIME KASI Administration Venlafaxine HCl 37.5 mg 05/09/20 21:00 05/19/20 20:34 Venlafaxine Hcl Er 37.5 Mg Cap.Er.24h PO 37.5 mg BEDTIME KASI Administration Zinc Sulfate 220 mg 05/20/20 09:00 05/20/20 09:20 Zinc Sulfate 220 Mg Capsule PO 220 mg DAILY KASI Administration Labs CBC & Chem 7: 05/20/20 06:34 05/20/20 06:35 Microbiology Microbiology Results: Microbiology 05/05/20 13:37 Blood - Venous Blood Culture - Final No growth after 5 days. 05/05/20 13:29 Blood - Venous Blood Culture - Final No growth after 5 days. Assessment and Plan (1) Acute hypoxemic respiratory failure: Status: Acute (2) COVID-19: Status: Acute (3) Sepsis: Status: Acute (4) Pneumonia: Status: Acute (5) Arthritis: Status: Acute (6) Hypertension: Status: Acute (7) Asthma: Status: Acute Assessment and Plan: 55 yo F PMH of asthma, HTN, HLD who is admitted for acute hypoxic resp. failure due to COVID-19. She is admitted for further treatment. 1. Acute hypoxic respiratory failure due to COVID-19 slowly improving is still requiring HFNC and non-rebreather mask on doxy day 02/13 and IV steroids 40 mg b.i.d. s/p Plasma x 2, /s/p remdesivir bleeding from PICC line has stopped, CTA showed no PE, will taper high-flow oxygen as tolerated , encourage incentive spirometry , recommend out of bed to chair SARs COVID IgG is positive, multiple repeat chest x-ray showed persistent bilateral infiltrate consistent with covid, procalcitonin 0.02, repeat C- reactive protein has significantly improved to 0.54, electrolytes stable, BUN elevated, elevated WBC likely due to steroid. reassurance provided to patient. Today tele monitor showed tachycardia, patient denies palpitation, no dizziness ,no lightheadedness,had transient intermittent chest pain now resolved, will start IV fluids likely dehydration continue Ensure due to low protein, continue vitamin-C and Zinc, encourage by mouth fluid, will gradually wean oxygen reviewed weaning strategies with respiratory therapy Pulm/ID on board, will continue supportive care, case discussed with ID and Pulmonary no further recommendations they agree with above care. 2. HTN--BP is low stable will continue to hold HCTZ 3. Mood stable continue as needed Ativan and continue trazodone and venlafaxine 4. N/V resolved continue pepcid and zofran PRN 5. Asthma no acute exacerbation on singulair, prn albuterol 6. Hyperlipidemia Continue Lipitor 20 mg , take Zocor 40 mg at home Full Code DVT pptx, compression boots and recommend out of bed to chair as tolerated.
[2020-05-20] MEDS: LORazepam 0.5 MG TABLET PO (13:22)
[2020-05-20] MEDS: traZODone HCL 50 MG TABLET PO (20:57)
[2020-05-20] MEDS: Montelukast Sodium 10 MG TABLET PO (20:57)
[2020-05-20] MEDS: Atorvastatin Calcium 20 MG TABLET PO (20:57)
[2020-05-20] MEDS: Venlafaxine HCl ER 37.5 MG CAP.ER.24H PO (20:57)
--- NOTE | 2020-05-21 | XR_ITS ---
EXAMINATION: Portable chest x-ray marked 12:17 PM CLINICAL INFORMATION: Hypoxia COMPARISON: Prior chest x-ray 05/14/2020 TECHNIQUE: XR chest 1V Tubes and lines: Right PICC line central line catheter tip projecting over the right atrium. Lungs and Taryn: Increased bilateral pulmonary opacification concerning for diffuse infiltrates or interstitial edema. Pleura: Normal. Costophrenic angles are sharp. No pneumothorax. Heart and mediastinum: The mediastinum is within normal limits.. Bones: Skeletal structures included are normal for patient's age. XR/XR chest 1V IMPRESSION: Increased bilateral pulmonary opacification probably diffuse infiltrate and/or edema. Newly positioned right PICC line catheter tip projecting over the right atrium.
[2020-05-21] MEDS: methylPREDNISolone Sod Succ/PF 125 MG/2 ML VIAL 40 MG IVPUSH ×2 (02:50→16:06)
[2020-05-21 03:52] VITALS: BP 127/58; PULSE 107; RESP 18; TEMP 36.4; O2SAT 93
[2020-05-21] MEDS: Dextrose 5 % and 0.9 % NaCl 1,000 ML 100 ML IVCONT (05:26)
[2020-05-21 07:28] LABS: Mean Corpuscular HGB Conc 31.6 g/dl (31.0-35.0); Mean Corpuscular Hemoglobin 26.7 pg (27.0-33.0); Mean Corpuscular Volume 84.6 fL (80-98); Mean Platelet Volume 10.7 fL (9.4-12.3); Platelet Count 274 X10*3/uL (160-400); Red Blood Count 4.49 X10*6/uL (4.20-5.50); Red Cell Distribution Width 14.3 % (11.0-16.0); White Blood Count 15.6 X10*3/uL (4.8-10.8)
[2020-05-21 08:00] VITALS: BP 107/56; PULSE 108; RESP 18; TEMP 37.2; O2SAT 95
[2020-05-21 08:14] LABS: Anion Gap 10 (12-20); Blood Urea Nitrogen 18 mg/dL (9-16); Calcium 7.8 mg/dL (8.4-10.2); Carbon Dioxide 26 mmol/L (22-29); Chloride 109 mmol/L (96-108); Creatinine Clr Calc Pharmacy 115.7; Estimated Glomerular Filt Rate > 60; Glucose Random 84 mg/dL (60-115); Potassium 4.4 mmol/l (3.3-5.1); Sodium 141 mmol/L (135-145)
[2020-05-21] MEDS: 0.9 % Sodium Chloride Flush 3 ML SYRINGE IVFLUSH ×3 (08:31→21:35)
[2020-05-21] MEDS: Zinc Sulfate 220 MG CAPSULE PO (08:31)
[2020-05-21] MEDS: Ascorbic Acid 500 MG TABLET PO (08:31)
[2020-05-21] MEDS: Famotidine 20 MG TABLET PO ×2 (08:32→21:34)
[2020-05-21 09:00] VITALS: PULSE 100; RESP 20; O2SAT 96
--- NOTE | 2020-05-21 10:01 | P.PNCC_ITS ---
Critical Care Event Note Summary Code activated: No Narrative: 55-year-old lady admitted on 05/05/2020 with acute hypoxic respiratory failure secondary to COVID-19, patient has had prolonged hospital course. She has completed at [facility] [place] severe and dexamethasone therapy. At this time her oxygen requirements still remained significant. She continues on systemic glucocorticoids. She has been seen by infectious disease has been started on doxycycline. On my evaluation she has comfortable on non-rebreather with O2 saturation in low 90s. She has been positive for approximately 4.5L since hospital admission. Her last albumin has been checked approximately 1 week prior and has been down trending. She does have some lower extremity edema. Would suggest to continue with current oxygen supplementation. Would consider switching crystalloid to colloid and give a dose of diuretic. Critical Care Time (minutes): 0
[2020-05-21] MEDS: Albumin Human 25 % 100 ML IV ×3 (11:17→21:34)
[2020-05-21 12:00] VITALS: BP 136/66; PULSE 117; RESP 18; TEMP 36.6; O2SAT 95
--- NOTE | 2020-05-21 12:02 | HO.PM.IMPN ---
Subjective Subjective Date of Service: 05/21/20 Interval History: patient resting in bed complaining of back discomfort, otherwise denies fever chills denies worsening shortness of breath of breath or cough. complaining of decreased appetite. Review of Systems General no headache, no dizziness,no fever chills. CVS no chest pain, no palpitation. Respiratory no cough,no sob. Gastrointestinal no nausea no vomiting, no abdominal pain Physical Exam Vital Signs: Vital Signs: Last Vital Signs Temp 98.9 F 05/21/20 08:00 Pulse 108 H 05/21/20 08:00 Resp 20 05/21/20 09:00 BP 107/56 L 05/21/20 08:00 Pulse Ox 95 05/21/20 08:00 Body Mass Index 31.2 General patient appears ill, no acute distress. No change in physical exam Neck supple no JVD. CVS regular rate rhythm, Respiratory lungs diminished breath sounds,no respiratory distress, no wheeze, no rhonchi. Gastrointestinal abdomen soft, nontender, bowel sounds audible. Extremities no clubbing, cyanosis or edema. Neuro nonfocal awake alert answering appropriately. skin no rash, PICC line dressing in place no recurrent bleed, old clotted blood Objective Data Current Medications Generic Name Dose Route Start Last Admin Trade Name Freq PRN Reason Stop Dose Admin Acetaminophen 650 mg 05/05/20 20:54 05/15/20 07:57 Acetaminophen 325 Mg Tablet PO 650 mg Q6H PRN Administration Pain, Mild (Pain Scale 1-3) Albuterol Sulfate 2 puff 05/05/20 20:54 05/07/20 01:50 EDT Albuterol Sulfate 90 Mcg 8 Gm Inhaler INHALE 2 puff Q4H PRN Administration shortness of breath Ascorbic Acid 500 mg 05/20/20 09:00 05/21/20 08:31 Ascorbic Acid 500 Mg Tablet PO 500 mg DAILY KASI Administration Atorvastatin Calcium 20 mg 05/18/20 21:00 05/20/20 20:57 Atorvastatin Calcium 20 Mg Tablet PO 20 mg BEDTIME KASI Administration Benzocaine 1 lozenge 05/13/20 21:23 05/13/20 22:13 Throat Lozenge, Medicated Lozenge MUCOUS MEM 1 lozenge Q2H PRN Administration Sore Throat Docusate Sodium 100 mg 05/05/20 20:54 11/10/20 19:31 Docusate Sodium 100 Mg Capsule PO 100 mg DAILY PRN Administration Constipation Doxycycline Hyclate 100 mg 05/12/20 22:00 05/21/20 08:31 Doxycycline Hyclate 100 Mg Tablet PO 05/22/20 21:59 100 mg Q12H KASI Administration Famotidine 20 mg 05/10/20 12:00 05/21/20 08:32 Famotidine 20 Mg Tablet PO 20 mg BID KASI Administration Albumin Human 100 mls @ 100 mls/hr 05/21/20 10:00 05/21/20 11:17 Kedbumin 25 % IV 05/22/20 04:59 100 mls/hr Q6H KASI Administration Lorazepam 0.5 mg 05/17/20 09:52 05/20/20 13:22 Lorazepam 0.5 Mg Tablet PO 0.5 mg Q8H PRN Administration Anxiety Methylprednisolone Sodium Succinate 40 mg 05/18/20 15:33 05/21/20 02:50 Methylprednisolone Sod Succ/Pf 125 Mg/2 Ml Vial IVPUSH 40 mg Q12H KASI Administration Montelukast Sodium 10 mg 05/05/20 21:00 05/20/20 20:57 Montelukast Sodium 10 Mg Tablet PO 10 mg BEDTIME KASI Administration Ondansetron HCl 4 mg 05/05/20 20:54 05/10/20 09:14 Ondansetron Hcl 4 Mg/2 Ml Vial IVPUSH 4 mg Q8H PRN Administration Nausea and Vomiting Ondansetron HCl 4 mg 05/10/20 12:14 Ondansetron Hcl 4 Mg/2 Ml Vial IVPUSH Q8H PRN Nausea and Vomiting Pharmacy Consult 1 each 05/05/20 15:36 Consult Rx Perform Med Rec MISCELLANE ONCE PRN Consult order Sodium Chloride 3 ml 05/06/20 00:00 05/21/20 08:31 0.9 % Sodium Chloride Flush 3 Ml Syringe IVFLUSH 3 ml QSHIFT KASI Administration Trazodone HCl 50 mg 05/05/20 21:00 05/20/20 20:57 Trazodone Hcl 50 Mg Tablet PO 50 mg BEDTIME KASI Administration Venlafaxine HCl 37.5 mg 05/09/20 21:00 05/20/20 20:57 Venlafaxine Hcl Er 37.5 Mg Cap.Er.24h PO 37.5 mg BEDTIME KASI Administration Zinc Sulfate 220 mg 05/20/20 09:00 05/21/20 08:31 Zinc Sulfate 220 Mg Capsule PO 220 mg DAILY KASI Administration Labs CBC & Chem 7: 05/21/20 06:41 05/21/20 06:41 Microbiology Microbiology Results: Microbiology 05/05/20 13:37 Blood - Venous Blood Culture - Final No growth after 5 days. 05/05/20 13:29 Blood - Venous Blood Culture - Final No growth after 5 days. Assessment and Plan (1) Acute hypoxemic respiratory failure: Status: Acute (2) COVID-19: Status: Acute (3) Sepsis: Status: Acute (4) Pneumonia: Status: Acute (5) Arthritis: Status: Acute (6) Hypertension: Status: Acute (7) Asthma: Status: Acute Assessment and Plan: 55 yo F PMH of asthma, HTN, HLD who is admitted for acute hypoxic resp. failure due to COVID-19. She is admitted for further treatment. 1. Acute hypoxic respiratory failure due to COVID-19 patient was doing better yesterday and was placed on 100% non-rebreather, but this morning noted to be hypoxic requiring high flow oxygen and non-rebreather mask on doxy day 03/16 and IV steroids 40 mg b.i.d. s/p Plasma x 2, /s/p remdesivir bleeding from PICC line has stopped, CTA showed no PE, will taper high-flow oxygen as tolerated , encourage incentive spirometry , out of bed to chair SARs COVID IgG is positive, multiple repeat chest x-ray showed persistent bilateral infiltrate consistent with covid, procalcitonin 0.02, repeat C-reactive protein has significantly improved to 0.54, electrolytes stable, BUN elevated, elevated WBC likely due to steroid. . tachycardia improveing , status post IV fluid, patient denies palpitation, no dizziness ,no lightheadedness, no chest pain continue Ensure, vitamin-C and Zinc, encourage by mouth fluid consulted fiscal services manager today he recommended albumin and IV Lasix, will gradually wean oxygen as tolerated will continue supportive care, repeat chest x-ray one view, will use hot pack for back pain 2. HTN--BP is low stable will continue to hold HCTZ 3. Mood stable continue as needed Ativan and continue trazodone and venlafaxine 4. N/V resolved continue pepcid and zofran PRN 5. Asthma no acute exacerbation on singulair, prn albuterol 6. Hyperlipidemia Continue Lipitor 20 mg , take Zocor 40 mg at home Full Code DVT pptx, compression boots and recommend out of bed to chair as tolerated.
[2020-05-21] MEDS: Furosemide 20 MG/2 ML VIAL IVPUSH (13:01)
[2020-05-21 15:17] VITALS: BP 112/72; PULSE 80; RESP 19; TEMP 36.7; O2SAT 95
[2020-05-21 19:29] VITALS: BP 101/52; PULSE 100; RESP 19; TEMP 36; O2SAT 97
[2020-05-21] MEDS: traZODone HCL 50 MG TABLET PO (21:34)
[2020-05-21] MEDS: Venlafaxine HCl ER 37.5 MG CAP.ER.24H PO (21:34)
[2020-05-21] MEDS: Atorvastatin Calcium 20 MG TABLET PO (21:34)
[2020-05-21] MEDS: Montelukast Sodium 10 MG TABLET PO (21:34)
[2020-05-22] VITALS (12 sets, daily range): BP systolic 105–119; BP diastolic 52–66; PULSE 92–122; RESP 18–20; TEMP 36.7–37.3; O2SAT 91–98
[2020-05-22] MEDS: Albumin Human 25 % 100 ML IV (05:02)
[2020-05-22] MEDS: methylPREDNISolone Sod Succ/PF 125 MG/2 ML VIAL 40 MG IVPUSH ×2 (05:02→16:25)
[2020-05-22 06:57] LABS: Hematocrit 31.8 % (37-47); Mean Corpuscular HGB Conc 31.4 g/dl (31.0-35.0); Mean Corpuscular Hemoglobin 26.2 pg (27.0-33.0); Mean Corpuscular Volume 83.5 fL (80-98); Mean Platelet Volume 10.4 fL (9.4-12.3); Platelet Count 282 X10*3/uL (160-400); Red Blood Count 3.81 X10*6/uL (4.20-5.50); Red Cell Distribution Width 14.4 % (11.0-16.0); White Blood Count 10.8 X10*3/uL (4.8-10.8)
[2020-05-22 07:29] LABS: Anion Gap 16 (12-20); Blood Urea Nitrogen 20 mg/dL (9-16); Calcium 9.3 mg/dL (8.4-10.2); Carbon Dioxide 24 mmol/L (22-29); Chloride 104 mmol/L (96-108); Creatinine Clr Calc Pharmacy 103.3; Estimated Glomerular Filt Rate > 60; Glucose Random 79 mg/dL (60-115); Sodium 140 mmol/L (135-145)
[2020-05-22] MEDS: Ascorbic Acid 500 MG TABLET PO (09:54)
[2020-05-22] MEDS: Zinc Sulfate 220 MG CAPSULE PO (09:54)
[2020-05-22] MEDS: 0.9 % Sodium Chloride Flush 3 ML SYRINGE IVFLUSH ×3 (09:54→21:17)
[2020-05-22] MEDS: Famotidine 20 MG TABLET PO ×2 (09:54→21:50)
--- NOTE | 2020-05-22 11:33 | MHC.CM.PN ---
Patient is COVID + and still requiring O2 at 100% NRB mask to maintain O2 sat>92%. Also on IV Solu-Medrol and PO doxycycline. Discharge plan is pending PT eval and O2 needs. CM will continue to follow for discharge needs.
--- NOTE | 2020-05-22 13:37 | MHC.CLN ---
F/U WILL ADD GLUCERNA BID R/T POOR PO FOLLOWING
--- NOTE | 2020-05-22 16:50 | HO.PM.IMPN ---
Subjective Subjective Date of Service: 05/22/20 Interval History: patient awake alert complaining of intermittent shortness of breath, is starts coughing when moved out of bed to chair, no sputum production. Review of Systems General no headache , no dizziness, no fever chills. CVS no chest pain, no palpitation. Respiratory dry cough with movement, no sputum production . Gastrointestinal no nausea, no vomiting, no abdominal pain Physical Exam Vital Signs: Vital Signs: Last Vital Signs Temp 98.1 F 05/22/20 16:00 Pulse 119 H 05/22/20 16:00 Resp 18 05/22/20 16:00 BP 115/62 05/22/20 16:00 Pulse Ox 92 05/22/20 16:00 Body Mass Index 31.2 General patient appears ill, no acute distress. No change in physical exam Neck supple no JVD. CVS regular rate rhythm, Respiratory lungs diminished breath sounds,no respiratory distress, no wheeze, no rhonchi. Gastrointestinal abdomen soft, nontender, bowel sounds audible. Extremities no clubbing, cyanosis or edema. Neuro nonfocal awake alert answering appropriately. skin no rash, PICC line dressing in place no recurrent bleed, old clotted blood Objective Data Current Medications Generic Name Dose Route Start Last Admin Trade Name Freq PRN Reason Stop Dose Admin Acetaminophen 650 mg 05/05/20 20:54 05/15/20 07:57 Acetaminophen 325 Mg Tablet PO 650 mg Q6H PRN Administration Pain, Mild (Pain Scale 1-3) Albuterol Sulfate 2 puff 05/05/20 20:54 05/07/20 01:50 EDT Albuterol Sulfate 90 Mcg 8 Gm Inhaler INHALE 2 puff Q4H PRN Administration shortness of breath Ascorbic Acid 500 mg 05/20/20 09:00 05/22/20 09:54 Ascorbic Acid 500 Mg Tablet PO 500 mg DAILY KASI Administration Atorvastatin Calcium 20 mg 05/18/20 21:00 05/21/20 21:34 Atorvastatin Calcium 20 Mg Tablet PO 20 mg BEDTIME KASI Administration Benzocaine 1 lozenge 05/13/20 21:23 05/13/20 22:13 Throat Lozenge, Medicated Lozenge MUCOUS MEM 1 lozenge Q2H PRN Administration Sore Throat Docusate Sodium 100 mg 05/05/20 20:54 05/16/20 19:31 Docusate Sodium 100 Mg Capsule PO 100 mg DAILY PRN Administration Constipation Doxycycline Hyclate 100 mg 05/12/20 22:00 05/22/20 09:54 Doxycycline Hyclate 100 Mg Tablet PO 05/22/20 21:59 100 mg Q12H KASI Administration Famotidine 20 mg 05/10/20 12:00 05/22/20 09:54 Famotidine 20 Mg Tablet PO 20 mg BID KASI Administration Lorazepam 0.5 mg 05/17/20 09:52 05/20/20 13:22 Lorazepam 0.5 Mg Tablet PO 0.5 mg Q8H PRN Administration Anxiety Methylprednisolone Sodium Succinate 40 mg 05/18/20 15:33 05/22/20 16:25 Methylprednisolone Sod Succ/Pf 125 Mg/2 Ml Vial IVPUSH 40 mg Q12H KASI Administration Montelukast Sodium 10 mg 05/05/20 21:00 05/21/20 21:34 Montelukast Sodium 10 Mg Tablet PO 10 mg BEDTIME KASI Administration Ondansetron HCl 4 mg 05/05/20 20:54 05/10/20 09:14 Ondansetron Hcl 4 Mg/2 Ml Vial IVPUSH 4 mg Q8H PRN Administration Nausea and Vomiting Ondansetron HCl 4 mg 05/10/20 12:14 Ondansetron Hcl 4 Mg/2 Ml Vial IVPUSH Q8H PRN Nausea and Vomiting Pharmacy Consult 1 each 05/05/20 15:36 Consult Rx Perform Med Rec MISCELLANE ONCE PRN Consult order Sodium Chloride 3 ml 05/06/20 00:00 05/22/20 16:26 0.9 % Sodium Chloride Flush 3 Ml Syringe IVFLUSH 3 ml QSHIFT KASI Administration Trazodone HCl 50 mg 05/05/20 21:00 05/21/20 21:34 Trazodone Hcl 50 Mg Tablet PO 50 mg BEDTIME KASI Administration Venlafaxine HCl 37.5 mg 05/09/20 21:00 05/21/20 21:34 Venlafaxine Hcl Er 37.5 Mg Cap.Er.24h PO 37.5 mg BEDTIME KASI Administration Zinc Sulfate 220 mg 05/20/20 09:00 05/22/20 09:54 Zinc Sulfate 220 Mg Capsule PO 220 mg DAILY KASI Administration Labs CBC & Chem 7: 05/22/20 05:48 05/22/20 05:48 Microbiology Microbiology Results: Microbiology 05/05/20 13:37 Blood - Venous Blood Culture - Final No growth after 5 days. 05/05/20 13:29 Blood - Venous Blood Culture - Final No growth after 5 days. Assessment and Plan (1) Acute hypoxemic respiratory failure: Status: Acute (2) COVID-19: Status: Acute (3) Sepsis: Status: Acute (4) Pneumonia: Status: Acute (5) Arthritis: Status: Acute (6) Hypertension: Status: Acute (7) Asthma: Status: Acute Assessment and Plan: 55 yo F PMH of asthma, HTN, HLD who is admitted for acute hypoxic resp. failure due to COVID-19. She is admitted for further treatment. 1. Acute hypoxic respiratory failure due to COVID-19 patient respiratory status keep fluctuating, at times requiring high-flow oxygen and 100% non-rebreather, currently on 100% non-rebreather and high-flow oxygen on doxy day 04/15 and IV steroids 40 mg b.i.d. s/p Plasma x 2, /s/p remdesivir bleeding from PICC line has stopped, CTA showed no PE, will taper high-flow oxygen as tolerated , encourage incentive spirometry , out of bed to chair SARs COVID IgG is positive, multiple repeat chest x-ray showed persistent bilateral infiltrate consistent with covid, procalcitonin 0.02, repeat C-reactive protein has significantly improved to 0.54, electrolytes stable, stable renal function, WBC normalized . tachycardia improving , status post IV fluid, patient denies palpitation, no dizziness ,no lightheadedness, no chest pain continue Ensure, vitamin-C and Zinc, encourage by mouth fluid consulted community support specialist 05/21 and recieved albumin and IV Lasix, will continue supportive care, use hot pack for back pain repeat chest x-ray showed increased bilateral pulmonary of opacification and probably diffuse infiltrate/or edema, will reduce dose of steroid to 30 b.i.d. will repeat 1 dose of IV Lasix today. 2. HTN--BP is low stable will continue to hold HCTZ 3. Mood stable continue as needed Ativan and continue trazodone and venlafaxine 4. N/V resolved continue pepcid and zofran PRN 5. Asthma no acute exacerbation on singulair, prn albuterol 6. Hyperlipidemia Continue Lipitor 20 mg , take Zocor 40 mg at home 7. Anemia patient noted to have significant drop in hematocrit today to 31.8 no acute bleeding site noted will check stool guaiac and repeat CBC at a.m. Full Code DVT pptx, compression boots and recommend out of bed to chair as tolerated.
[2020-05-22] MEDS: Furosemide 20 MG/2 ML VIAL IVPUSH (18:37)
[2020-05-22] MEDS: traZODone HCL 50 MG TABLET PO (21:17)
[2020-05-22] MEDS: Atorvastatin Calcium 20 MG TABLET PO (21:17)
[2020-05-22] MEDS: Montelukast Sodium 10 MG TABLET PO (21:17)
[2020-05-22] MEDS: Venlafaxine HCl ER 37.5 MG CAP.ER.24H PO (21:17)
[2020-05-22] MEDS: LORazepam 0.5 MG TABLET PO (22:16)
[2020-05-23] VITALS (13 sets, daily range): BP systolic 100–125; BP diastolic 52–73; PULSE 75–118; RESP 14–22; TEMP 35.9–37; O2SAT 90–97
[2020-05-23 07:01] LABS: Hematocrit 35.7 % (37-47); Hemoglobin 11.4 g/dl (12.0-16.0); Mean Corpuscular HGB Conc 31.9 g/dl (31.0-35.0); Mean Corpuscular Hemoglobin 26.7 pg (27.0-33.0); Mean Corpuscular Volume 83.6 fL (80-98); Mean Platelet Volume 10.2 fL (9.4-12.3); Platelet Count 326 X10*3/uL (160-400); Red Blood Count 4.27 X10*6/uL (4.20-5.50); Red Cell Distribution Width 14.6 % (11.0-16.0); White Blood Count 14.9 X10*3/uL (4.8-10.8)
[2020-05-23 07:08] LABS: Anion Gap 13 (12-20); Blood Urea Nitrogen 33 mg/dL (9-16); Calcium 9.4 mg/dL (8.4-10.2); Carbon Dioxide 29 mmol/L (22-29); Chloride 105 mmol/L (96-108); Creatinine Clr Calc Pharmacy 93.2; Estimated Glomerular Filt Rate > 60; Glucose Random 85 mg/dL (60-115); Potassium 3.7 mmol/l (3.3-5.1); Sodium 143 mmol/L (135-145)
[2020-05-23] MEDS: Zinc Sulfate 220 MG CAPSULE PO (09:13)
[2020-05-23] MEDS: Ascorbic Acid 500 MG TABLET PO (09:13)
[2020-05-23] MEDS: 0.9 % Sodium Chloride Flush 3 ML SYRINGE IVFLUSH ×2 (09:13→18:07)
[2020-05-23] MEDS: Famotidine 20 MG TABLET PO ×2 (09:13→20:30)
--- NOTE | 2020-05-23 16:30 | HO.PM.IMPN ---
Subjective Subjective Date of Service: 05/23/20 Interval History: seen and examined this AM reports intermittent sob, repots non-productive cough General - no fevers or chills Cardiovascular - no chest pain Respiratory - +sob, +non-productive cough Abdominal- no abdominal pain, nausea, vomiting, diarrhea Physical Exam Vital Signs: Vital Signs: Last Vital Signs Temp 96.7 F L 05/23/20 16:00 Pulse 90 05/23/20 16:00 Resp 20 05/23/20 16:00 BP 100/65 05/23/20 16:00 Pulse Ox 93 05/23/20 16:00 Body Mass Index 31.2 Objective Data Current Medications Generic Name Dose Route Start Last Admin Trade Name Freq PRN Reason Stop Dose Admin Acetaminophen 650 mg 05/05/20 20:54 05/15/20 07:57 Acetaminophen 325 Mg Tablet PO 650 mg Q6H PRN Administration Pain, Mild (Pain Scale 1-3) Albuterol Sulfate 2 puff 05/05/20 20:54 05/07/20 01:50 EDT Albuterol Sulfate 90 Mcg 8 Gm Inhaler INHALE 2 puff Q4H PRN Administration shortness of breath Ascorbic Acid 500 mg 05/20/20 09:00 05/23/20 09:13 Ascorbic Acid 500 Mg Tablet PO 500 mg DAILY KASI Administration Atorvastatin Calcium 20 mg 05/18/20 21:00 05/22/20 21:17 Atorvastatin Calcium 20 Mg Tablet PO 20 mg BEDTIME KASI Administration Benzocaine 1 lozenge 05/13/20 21:23 05/13/20 22:13 Throat Lozenge, Medicated Lozenge MUCOUS MEM 1 lozenge Q2H PRN Administration Sore Throat Docusate Sodium 100 mg 05/05/20 20:54 05/16/20 19:31 Docusate Sodium 100 Mg Capsule PO 100 mg DAILY PRN Administration Constipation Famotidine 20 mg 05/10/20 12:00 05/23/20 09:13 Famotidine 20 Mg Tablet PO 20 mg BID KASI Administration Lorazepam 0.5 mg 05/17/20 09:52 05/22/20 22:16 Lorazepam 0.5 Mg Tablet PO 0.5 mg Q8H PRN Administration Anxiety Methylprednisolone Sodium Succinate 30 mg 05/23/20 06:00 05/23/20 06:28 Methylprednisolone Sod Succ/Pf 40 Mg/Ml Vial IVPUSH 30 mg Q12H KASI Administration Montelukast Sodium 10 mg 05/05/20 21:00 05/22/20 21:17 Montelukast Sodium 10 Mg Tablet PO 10 mg BEDTIME KASI Administration Ondansetron HCl 4 mg 05/05/20 20:54 05/10/20 09:14 Ondansetron Hcl 4 Mg/2 Ml Vial IVPUSH 4 mg Q8H PRN Administration Nausea and Vomiting Ondansetron HCl 4 mg 05/10/20 12:14 Ondansetron Hcl 4 Mg/2 Ml Vial IVPUSH Q8H PRN Nausea and Vomiting Pharmacy Consult 1 each 05/05/20 15:36 Consult Rx Perform Med Rec MISCELLANE ONCE PRN Consult order Sodium Chloride 3 ml 05/06/20 00:00 05/23/20 09:13 0.9 % Sodium Chloride Flush 3 Ml Syringe IVFLUSH 3 ml QSHIFT KASI Administration Trazodone HCl 50 mg 05/05/20 21:00 05/22/20 21:17 Trazodone Hcl 50 Mg Tablet PO 50 mg BEDTIME KASI Administration Venlafaxine HCl 37.5 mg 05/09/20 21:00 05/22/20 21:17 Venlafaxine Hcl Er 37.5 Mg Cap.Er.24h PO 37.5 mg BEDTIME KASI Administration Zinc Sulfate 220 mg 05/20/20 09:00 05/23/20 09:13 Zinc Sulfate 220 Mg Capsule PO 220 mg DAILY KASI Administration Labs CBC & Chem 7: 05/23/20 05:55 05/23/20 05:55 Microbiology Microbiology Results: Microbiology 05/05/20 13:37 Blood - Venous Blood Culture - Final No growth after 5 days. 05/05/20 13:29 Blood - Venous Blood Culture - Final No growth after 5 days. Assessment and Plan (1) COVID-19: Status: Acute Assessment and Plan: This is a 55 yo F with a PMH of asthma, HTN, HLD who is now hospita day # 18 for covid 19 pneumonia 1. Acute respiratory failure with hypoxia O2 requirements waxing and waning from High Flow to High Flow + NRMB has completed and was some plasma x2, remdesivir course. completed 10 day doxy Was on full-dose Lovenox which was discontinued due to a drop in H&H. No evidence of acute blood loss. Will resume prophylactic dose Lovenox 40 mg daily on steriods, being tapered IgG is positive Empiric lasix. scheduled albuterol Check labs again tomorrow + chest XR. Will have pulmonary f/u tomorrow 2. Anemia h/h was hovering around 12/38 and dropped to 10/31.8; now at 11.4/35.7. Restart lovenox 40mg daily 3. Asthma singular steriods and bronchodilators as above 4. HTN hctz on hold full code dvt pptx, lovenox restarted d/w the her daughter, Jaquelin and updates given
[2020-05-23] MEDS: Furosemide 20 MG/2 ML VIAL IVPUSH (18:06)
[2020-05-23] MEDS: Enoxaparin Sodium 40 MG/0.4 ML SYRINGE SUBCUT (18:13)
[2020-05-23] MEDS: LORazepam 0.5 MG TABLET PO (18:40)
[2020-05-23] MEDS: Atorvastatin Calcium 20 MG TABLET PO (20:30)
[2020-05-23] MEDS: Venlafaxine HCl ER 37.5 MG CAP.ER.24H PO (20:30)
[2020-05-23] MEDS: Montelukast Sodium 10 MG TABLET PO (20:30)
[2020-05-23] MEDS: Albuterol Sulfate 90 MCG 8 GM INHALER 2 PUFF INHALE (20:30)
[2020-05-23] MEDS: traZODone HCL 50 MG TABLET PO (20:30)
[2020-05-24] VITALS (11 sets, daily range): BP systolic 94–110; BP diastolic 52–70; PULSE 92–122; RESP 16–24; TEMP 36.3–36.8; O2SAT 93–99
[2020-05-24] MEDS: 0.9 % Sodium Chloride Flush 3 ML SYRINGE IVFLUSH ×3 (00:56→15:00)
[2020-05-24 06:45] LABS: Hematocrit 39.3 % (37-47); Hemoglobin 12.3 g/dl (12.0-16.0); Mean Corpuscular HGB Conc 31.3 g/dl (31.0-35.0); Mean Corpuscular Hemoglobin 25.9 pg (27.0-33.0); Mean Corpuscular Volume 82.9 fL (80-98); Mean Platelet Volume 10.2 fL (9.4-12.3); Platelet Count 358 X10*3/uL (160-400); Red Blood Count 4.74 X10*6/uL (4.20-5.50); Red Cell Distribution Width 14.6 % (11.0-16.0); White Blood Count 14.7 X10*3/uL (4.8-10.8)
[2020-05-24 06:53] LABS: D Dimer 549 NG/ML
--- NOTE | 2020-05-24 07:00 | XR_ITS ---
EXAMINATION: XR CHEST CLINICAL INFORMATION: Hypoxia. COMPARISON: 05/21/2020 and 05/14/2020 chest radiographs. TECHNIQUE: Frontal view of the chest was obtained. FINDINGS: Support devices: Right PICC is again seen with tip terminating at the atriocaval junction without significant change. Bilateral patchy infiltrates are again seen most pronounced in the left lower lung with similar distribution, but minimal interval improvement. The heart and mediastinal structures are unremarkable. XR/XR chest 1V IMPRESSION: Minimal interval improvement in bilateral patchy infiltrates with similar distribution
[2020-05-24 07:10] LABS: Anion Gap 17 (12-20); Blood Urea Nitrogen 36 mg/dL (9-16); Calcium 9.7 mg/dL (8.4-10.2); Carbon Dioxide 29 mmol/L (22-29); Chloride 100 mmol/L (96-108); Creatinine Clr Calc Pharmacy 86.3; Estimated Glomerular Filt Rate > 60; Glucose Random 85 mg/dL (60-115); Potassium 3.9 mmol/l (3.3-5.1); Sodium 142 mmol/L (135-145)
[2020-05-24] MEDS: Ascorbic Acid 500 MG TABLET PO (07:10)
[2020-05-24] MEDS: Famotidine 20 MG TABLET PO ×2 (07:10→21:26)
[2020-05-24] MEDS: Zinc Sulfate 220 MG CAPSULE PO (07:10)
[2020-05-24 07:12] LABS: C Reactive Protein 2.16 mg/dL (< or = 0.50)
[2020-05-24] MEDS: LORazepam 0.5 MG TABLET PO (07:14)
[2020-05-24 07:38] LABS: Procalcitonin 0.02 ng/mL
[2020-05-24] MEDS: Albuterol Sulfate 90 MCG 8 GM INHALER 2 PUFF INHALE ×4 (08:00→19:55)
--- NOTE | 2020-05-24 13:20 | MHC.CM.PN ---
Addendum entered by Janiya Mccarthy 05/24/20 13:28: FIO@ is at 80% and 60 liters O2 NRB mask. Original Note: Patient continues on IV Solu-medrol for +COVID, FIO2 @ 55% with 14 liters via NRB mask. Discharge plan is home unless PT rec STR. CM will continue to follow patient for discharge needs.
--- NOTE | 2020-05-24 15:37 | HO.PM.IMPN ---
Subjective Subjective Date of Service: 05/15/20 Interval History: seen and examined reports feeling better reports walked around room with RN reports breathing a bit easier ROS General - no fevers or chills, tired Cardiovascular - no chest pain Respiratory - breathing easier, but still HALL which is slowly improving Abdominal- no abdominal pain, nausea, vomiting, diarrhea Physical Exam Vital Signs: Vital Signs: Last Vital Signs Temp 96.7 F L 05/23/20 16:00 Pulse 90 05/23/20 16:00 Resp 20 05/23/20 16:00 BP 100/65 05/23/20 16:00 Pulse Ox 93 05/23/20 16:00 Body Mass Index 31.2 General - no distress, ill appearing - but slightly improved Cardiovascular - S1-S2, slight tachy Lungs - non labored breathing, dim sounds Abdomen - soft, nontender, no rebound regarding Extremities - no edema bilaterally Neuro - awake and alert, no focal deficits Psych - appears anxious Objective Data Current Medications Generic Name Dose Route Start Last Admin Trade Name Freq PRN Reason Stop Dose Admin Acetaminophen 650 mg 05/05/20 20:54 05/15/20 07:57 Acetaminophen 325 Mg Tablet PO 650 mg Q6H PRN Administration Pain, Mild (Pain Scale 1-3) Albuterol Sulfate 2 puff 05/05/20 20:54 05/07/20 01:50 EDT Albuterol Sulfate 90 Mcg 8 Gm Inhaler INHALE 2 puff Q4H PRN Administration shortness of breath Albuterol Sulfate 2 puff 05/23/20 20:00 05/24/20 15:17 Albuterol Sulfate 90 Mcg 8 Gm Inhaler INHALE 2 puff RQ4H WHILE AWAKE KASI Administration Ascorbic Acid 500 mg 05/20/20 09:00 05/24/20 07:10 Ascorbic Acid 500 Mg Tablet PO 500 mg DAILY KASI Administration Atorvastatin Calcium 20 mg 05/18/20 21:00 05/23/20 20:30 Atorvastatin Calcium 20 Mg Tablet PO 20 mg BEDTIME KASI Administration Benzocaine 1 lozenge 05/13/20 21:23 05/13/20 22:13 Throat Lozenge, Medicated Lozenge MUCOUS MEM 1 lozenge Q2H PRN Administration Sore Throat Docusate Sodium 100 mg 05/05/20 20:54 05/16/20 19:31 Docusate Sodium 100 Mg Capsule PO 100 mg DAILY PRN Administration Constipation Enoxaparin Sodium 40 mg 05/23/20 18:00 05/23/20 18:13 Enoxaparin Sodium 40 Mg/0.4 Ml Syringe SUBCUT 40 mg Q24H KASI Administration Famotidine 20 mg 05/10/20 12:00 05/24/20 07:10 Famotidine 20 Mg Tablet PO 20 mg BID KASI Administration Lorazepam 0.5 mg 05/17/20 09:52 05/24/20 07:14 Lorazepam 0.5 Mg Tablet PO 0.5 mg Q8H PRN Administration Anxiety Methylprednisolone Sodium Succinate 30 mg 05/23/20 06:00 05/24/20 05:51 Methylprednisolone Sod Succ/Pf 40 Mg/Ml Vial IVPUSH 30 mg Q12H KASI Administration Montelukast Sodium 10 mg 05/05/20 21:00 05/23/20 20:30 Montelukast Sodium 10 Mg Tablet PO 10 mg BEDTIME KASI Administration Ondansetron HCl 4 mg 05/05/20 20:54 05/10/20 09:14 Ondansetron Hcl 4 Mg/2 Ml Vial IVPUSH 4 mg Q8H PRN Administration Nausea and Vomiting Ondansetron HCl 4 mg 05/10/20 12:14 Ondansetron Hcl 4 Mg/2 Ml Vial IVPUSH Q8H PRN Nausea and Vomiting Pharmacy Consult 1 each 05/05/20 15:36 Consult Rx Perform Med Rec MISCELLANE ONCE PRN Consult order Sodium Chloride 3 ml 05/06/20 00:00 05/24/20 15:00 0.9 % Sodium Chloride Flush 3 Ml Syringe IVFLUSH 3 ml QSHIFT KASI Administration Trazodone HCl 50 mg 05/05/20 21:00 05/23/20 20:30 Trazodone Hcl 50 Mg Tablet PO 50 mg BEDTIME KASI Administration Venlafaxine HCl 37.5 mg 05/09/20 21:00 05/23/20 20:30 Venlafaxine Hcl Er 37.5 Mg Cap.Er.24h PO 37.5 mg BEDTIME KASI Administration Zinc Sulfate 220 mg 05/20/20 09:00 05/24/20 07:10 Zinc Sulfate 220 Mg Capsule PO 220 mg DAILY KASI Administration Labs CBC & Chem 7: 05/24/20 05:40 05/24/20 05:40 Microbiology Microbiology Results: Microbiology 05/05/20 13:37 Blood - Venous Blood Culture - Final No growth after 5 days. 05/05/20 13:29 Blood - Venous Blood Culture - Final No growth after 5 days. Assessment and Plan (1) COVID-19: Status: Acute Assessment and Plan: This is a 55 yo F with a PMH of asthma, HTN, HLD who is now hospita day # 18 for covid 19 pneumonia 1. Acute respiratory failure with hypoxia down to 90%/60L on HFNC CXR looks improved some what remains without fevers/low pct/stable wbc -- no antibiotics at this time has completed and was some plasma x2, remdesivir course. completed 10 day doxy Was on full-dose Lovenox which was discontinued due to a drop in H&H. No evidence of acute blood loss. Will resume prophylactic dose Lovenox 40 mg daily on steriods, being tapered IgG is positive cheduled albuterol d/w the ID/ICU/Pulmonary today on any further input -- continue the current treatment course. 2. Anemia, acute blood loss from PICC line site h/h improved, continue close monitoring. If remains stable, will consider full dose lovenox 3. Asthma singular steriods and bronchodilators as above 4. HTN hctz on hold full code dvt pptx, lovenox restarted will update the family
[2020-05-24] MEDS: Enoxaparin Sodium 40 MG/0.4 ML SYRINGE SUBCUT (18:38)
[2020-05-24] MEDS: Montelukast Sodium 10 MG TABLET PO (21:26)
[2020-05-24] MEDS: traZODone HCL 50 MG TABLET PO (21:26)
[2020-05-24] MEDS: Atorvastatin Calcium 20 MG TABLET PO (21:26)
[2020-05-24] MEDS: Venlafaxine HCl ER 37.5 MG CAP.ER.24H PO (21:26)
[2020-05-25] VITALS (16 sets, daily range): BP systolic 101–151; BP diastolic 58–79; PULSE 80–129; RESP 18–26; TEMP 36.4–37.2; O2SAT 89–99
[2020-05-25] MEDS: 0.9 % Sodium Chloride Flush 3 ML SYRINGE IVFLUSH ×3 (00:12→15:58)
[2020-05-25] MEDS: Albuterol Sulfate 90 MCG 8 GM INHALER 2 PUFF INHALE ×3 (07:45→20:22)
[2020-05-25] MEDS: Famotidine 20 MG TABLET PO ×2 (09:15→20:16)
[2020-05-25] MEDS: LORazepam 0.5 MG TABLET PO ×2 (09:15→20:16)
[2020-05-25] MEDS: Zinc Sulfate 220 MG CAPSULE PO (09:15)
[2020-05-25] MEDS: Ascorbic Acid 500 MG TABLET PO (09:15)
--- NOTE | 2020-05-25 14:19 | HO.PM.IMPN ---
Subjective Subjective Date of Service: 05/25/20 Physical Exam Vital Signs: Vital Signs: Last Vital Signs Temp 97.9 F 05/25/20 12:00 Pulse 129 H 05/25/20 12:00 Resp 19 05/25/20 12:00 BP 107/63 05/25/20 12:00 Pulse Ox 89 L 05/25/20 12:00 Body Mass Index 31.2 Objective Data Current Medications Generic Name Dose Route Start Last Admin Trade Name Freq PRN Reason Stop Dose Admin Acetaminophen 650 mg 05/05/20 20:54 05/15/20 07:57 Acetaminophen 325 Mg Tablet PO 650 mg Q6H PRN Administration Pain, Mild (Pain Scale 1-3) Albuterol Sulfate 2 puff 05/05/20 20:54 05/07/20 01:50 EDT Albuterol Sulfate 90 Mcg 8 Gm Inhaler INHALE 2 puff Q4H PRN Administration shortness of breath Albuterol Sulfate 2 puff 05/23/20 20:00 05/25/20 11:29 Albuterol Sulfate 90 Mcg 8 Gm Inhaler INHALE 2 puff RQ4H WHILE AWAKE KASI Administration Ascorbic Acid 500 mg 05/20/20 09:00 05/25/20 09:15 Ascorbic Acid 500 Mg Tablet PO 500 mg DAILY KASI Administration Atorvastatin Calcium 20 mg 05/18/20 21:00 05/24/20 21:26 Atorvastatin Calcium 20 Mg Tablet PO 20 mg BEDTIME KASI Administration Benzocaine 1 lozenge 05/13/20 21:23 05/13/20 22:13 Throat Lozenge, Medicated Lozenge MUCOUS MEM 1 lozenge Q2H PRN Administration Sore Throat Docusate Sodium 100 mg 05/05/20 20:54 05/16/20 19:31 Docusate Sodium 100 Mg Capsule PO 100 mg DAILY PRN Administration Constipation Enoxaparin Sodium 40 mg 05/25/20 18:00 Enoxaparin Sodium 40 Mg/0.4 Ml Syringe SUBCUT Q24H KASI Famotidine 20 mg 05/10/20 12:00 05/25/20 09:15 Famotidine 20 Mg Tablet PO 20 mg BID KASI Administration Albumin Human 100 mls @ 100 mls/hr 05/25/20 14:15 Kedbumin 25 % IV 05/26/20 09:14 Q6H KASI Lorazepam 0.5 mg 05/17/20 09:52 05/25/20 09:15 Lorazepam 0.5 Mg Tablet PO 0.5 mg Q8H PRN Administration Anxiety Methylprednisolone Sodium Succinate 30 mg 05/23/20 06:00 05/25/20 05:08 Methylprednisolone Sod Succ/Pf 40 Mg/Ml Vial IVPUSH 30 mg Q12H KASI Administration Montelukast Sodium 10 mg 05/05/20 21:00 05/24/20 21:26 Montelukast Sodium 10 Mg Tablet PO 10 mg BEDTIME KASI Administration Morphine Sulfate 2 mg 05/24/20 18:55 Morphine Sulfate 2 Mg/Ml Cartridge IVPUSH Q4H PRN respiratory distress Ondansetron HCl 4 mg 05/05/20 20:54 05/10/20 09:14 Ondansetron Hcl 4 Mg/2 Ml Vial IVPUSH 4 mg Q8H PRN Administration Nausea and Vomiting Ondansetron HCl 4 mg 05/10/20 12:14 Ondansetron Hcl 4 Mg/2 Ml Vial IVPUSH Q8H PRN Nausea and Vomiting Pharmacy Consult 1 each 05/05/20 15:36 Consult Rx Perform Med Rec MISCELLANE ONCE PRN Consult order Sodium Chloride 3 ml 05/06/20 00:00 05/25/20 09:14 0.9 % Sodium Chloride Flush 3 Ml Syringe IVFLUSH 3 ml QSHIFT KASI Administration Trazodone HCl 50 mg 05/05/20 21:00 05/24/20 21:26 Trazodone Hcl 50 Mg Tablet PO 50 mg BEDTIME KASI Administration Venlafaxine HCl 37.5 mg 05/09/20 21:00 05/24/20 21:26 Venlafaxine Hcl Er 37.5 Mg Cap.Er.24h PO 37.5 mg BEDTIME KASI Administration Zinc Sulfate 220 mg 05/20/20 09:00 05/25/20 09:15 Zinc Sulfate 220 Mg Capsule PO 220 mg DAILY KASI Administration Labs CBC & Chem 7: 05/24/20 05:40 05/24/20 05:40 Microbiology Microbiology Results: Microbiology 05/05/20 13:37 Blood - Venous Blood Culture - Final No growth after 5 days. 05/05/20 13:29 Blood - Venous Blood Culture - Final No growth after 5 days.
--- NOTE | 2020-05-25 15:54 | HO.PM.IMPN ---
Subjective Subjective Date of Service: 05/25/20 Interval History: seen and examined reports feeling good today otherwise unchanged ROS General - no fevers or chills, tired Cardiovascular - no chest pain Respiratory - breathing easier, but still HALL which is slowly improving Abdominal- no abdominal pain, nausea, vomiting, diarrhea Physical Exam Vital Signs: Vital Signs: Last Vital Signs Temp 97.7 F 05/25/20 15:39 Pulse 114 H 05/25/20 15:39 Resp 18 05/25/20 15:39 BP 128/69 05/25/20 15:39 Pulse Ox 93 05/25/20 15:39 Body Mass Index 31.2 General - no distress, ill appearing - but slightly improved Cardiovascular - S1-S2, slight tachy Lungs - non labored breathing, dim sounds Abdomen - soft, nontender, no rebound regarding Extremities - no edema bilaterally Neuro - awake and alert, no focal deficits Psych - not anxious today Objective Data Current Medications Generic Name Dose Route Start Last Admin Trade Name Freq PRN Reason Stop Dose Admin Acetaminophen 650 mg 05/05/20 20:54 05/15/20 07:57 Acetaminophen 325 Mg Tablet PO 650 mg Q6H PRN Administration Pain, Mild (Pain Scale 1-3) Albuterol Sulfate 2 puff 05/05/20 20:54 05/07/20 01:50 EDT Albuterol Sulfate 90 Mcg 8 Gm Inhaler INHALE 2 puff Q4H PRN Administration shortness of breath Albuterol Sulfate 2 puff 05/23/20 20:00 05/25/20 15:31 Albuterol Sulfate 90 Mcg 8 Gm Inhaler INHALE Not Given RQ4H WHILE AWAKE KASI Ascorbic Acid 500 mg 05/20/20 09:00 05/25/20 09:15 Ascorbic Acid 500 Mg Tablet PO 500 mg DAILY KASI Administration Atorvastatin Calcium 20 mg 05/18/20 21:00 05/24/20 21:26 Atorvastatin Calcium 20 Mg Tablet PO 20 mg BEDTIME KASI Administration Benzocaine 1 lozenge 05/13/20 21:23 05/13/20 22:13 Throat Lozenge, Medicated Lozenge MUCOUS MEM 1 lozenge Q2H PRN Administration Sore Throat Docusate Sodium 100 mg 05/05/20 20:54 05/16/20 19:31 Docusate Sodium 100 Mg Capsule PO 100 mg DAILY PRN Administration Constipation Enoxaparin Sodium 40 mg 05/25/20 18:00 Enoxaparin Sodium 40 Mg/0.4 Ml Syringe SUBCUT Q24H KASI Famotidine 20 mg 05/10/20 12:00 05/25/20 09:15 Famotidine 20 Mg Tablet PO 20 mg BID KASI Administration Albumin Human 100 mls @ 100 mls/hr 05/25/20 15:00 Kedbumin 25 % IV 05/26/20 09:59 Q6H KASI Lorazepam 0.5 mg 05/17/20 09:52 05/25/20 09:15 Lorazepam 0.5 Mg Tablet PO 0.5 mg Q8H PRN Administration Anxiety Methylprednisolone Sodium Succinate 30 mg 05/23/20 06:00 05/25/20 05:08 Methylprednisolone Sod Succ/Pf 40 Mg/Ml Vial IVPUSH 30 mg Q12H KASI Administration Montelukast Sodium 10 mg 05/05/20 21:00 05/24/20 21:26 Montelukast Sodium 10 Mg Tablet PO 10 mg BEDTIME KASI Administration Morphine Sulfate 2 mg 05/24/20 18:55 Morphine Sulfate 2 Mg/Ml Cartridge IVPUSH Q4H PRN respiratory distress Ondansetron HCl 4 mg 05/05/20 20:54 05/10/20 09:14 Ondansetron Hcl 4 Mg/2 Ml Vial IVPUSH 4 mg Q8H PRN Administration Nausea and Vomiting Ondansetron HCl 4 mg 05/10/20 12:14 Ondansetron Hcl 4 Mg/2 Ml Vial IVPUSH Q8H PRN Nausea and Vomiting Pharmacy Consult 1 each 05/05/20 15:36 Consult Rx Perform Med Rec MISCELLANE ONCE PRN Consult order Sodium Chloride 3 ml 05/06/20 00:00 05/25/20 09:14 0.9 % Sodium Chloride Flush 3 Ml Syringe IVFLUSH 3 ml QSHIFT KASI Administration Trazodone HCl 50 mg 05/05/20 21:00 05/24/20 21:26 Trazodone Hcl 50 Mg Tablet PO 50 mg BEDTIME KASI Administration Venlafaxine HCl 37.5 mg 05/09/20 21:00 05/24/20 21:26 Venlafaxine Hcl Er 37.5 Mg Cap.Er.24h PO 37.5 mg BEDTIME KASI Administration Zinc Sulfate 220 mg 05/20/20 09:00 05/25/20 09:15 Zinc Sulfate 220 Mg Capsule PO 220 mg DAILY KASI Administration Labs CBC & Chem 7: 05/24/20 05:40 05/24/20 05:40 Microbiology Microbiology Results: Microbiology 05/05/20 13:37 Blood - Venous Blood Culture - Final No growth after 5 days. 05/05/20 13:29 Blood - Venous Blood Culture - Final No growth after 5 days. Assessment and Plan (1) Acute hypoxemic respiratory failure: Status: Acute Assessment and Plan: This is a 55 yo F with a PMH of asthma, HTN, HLD who is now hospita day # 18 for covid 19 pneumonia 1. Acute respiratory failure with hypoxia titrated off HFNC today, on NRMB remains without fevers/low pct/stable wbc -- no antibiotics at this time has completed and was some plasma x2, remdesivir course. completed 10 day doxy Was on full-dose Lovenox which was discontinued due to a drop in H&H. No evidence of acute blood loss. Will resume prophylactic dose Lovenox 40 mg daily on steriods, being tapered - possibly start with PO in the next 1-2 days IgG is positive scheduled albuterol d/w the ID/ICU/Pulmonary today on any further input -- continue the current treatment course. 2. Anemia, acute blood loss h/h stable, however had every brisk / significant bleed from picc line while on full dose lovenox continue with treatment dose lovenox for the time being 3. Asthma singular steriods and bronchodilators as above 4. HTN hctz on hold full code dvt pptx, lovenox called daughter Jaquelin @ [phone], unanswered -- will call again tomorrow.
[2020-05-25] MEDS: Furosemide 20 MG/2 ML VIAL IVPUSH (15:58)
[2020-05-25] MEDS: Albumin Human 25 % 100 ML IV ×2 (15:58→20:16)
[2020-05-25] MEDS: Enoxaparin Sodium 40 MG/0.4 ML SYRINGE SUBCUT (18:25)
[2020-05-25] MEDS: Venlafaxine HCl ER 37.5 MG CAP.ER.24H PO (20:16)
[2020-05-25] MEDS: traZODone HCL 50 MG TABLET PO (20:16)
[2020-05-25] MEDS: Montelukast Sodium 10 MG TABLET PO (20:16)
[2020-05-25] MEDS: Atorvastatin Calcium 20 MG TABLET PO (20:16)
[2020-05-25] MEDS: Morphine Sulfate 2 MG/ML CARTRIDGE IVPUSH (21:17)
[2020-05-26] VITALS (11 sets, daily range): BP systolic 101–122; BP diastolic 51–66; PULSE 76–131; RESP 16–24; TEMP 36.1–37.1; O2SAT 75–97
[2020-05-26] MEDS: 0.9 % Sodium Chloride Flush 3 ML SYRINGE IVFLUSH ×4 (00:15→20:05)
[2020-05-26] MEDS: Albumin Human 25 % 100 ML IV ×2 (03:10→08:05)
[2020-05-26] MEDS: Albuterol Sulfate 90 MCG 8 GM INHALER 2 PUFF INHALE ×4 (07:59→19:34)
[2020-05-26] MEDS: Ascorbic Acid 500 MG TABLET PO (08:04)
[2020-05-26] MEDS: Zinc Sulfate 220 MG CAPSULE PO (08:04)
[2020-05-26] MEDS: Famotidine 20 MG TABLET PO ×2 (08:04→20:04)
[2020-05-26 08:45] LABS: Hematocrit 37.2 % (37-47); Hemoglobin 11.6 g/dl (12.0-16.0); Mean Corpuscular HGB Conc 31.2 g/dl (31.0-35.0); Mean Corpuscular Hemoglobin 26.1 pg (27.0-33.0); Mean Corpuscular Volume 83.8 fL (80-98); Platelet Count 306 X10*3/uL (160-400); Red Blood Count 4.44 X10*6/uL (4.20-5.50); Red Cell Distribution Width 15.1 % (11.0-16.0); White Blood Count 17.1 X10*3/uL (4.8-10.8)
[2020-05-26 09:21] LABS: Anion Gap 17 (12-20); Blood Urea Nitrogen 31 mg/dL (9-16); Carbon Dioxide 30 mmol/L (22-29); Chloride 102 mmol/L (96-108); Creatinine Clr Calc Pharmacy 87.6; Estimated Glomerular Filt Rate > 60; Glucose Random 84 mg/dL (60-115); Potassium 3.5 mmol/l (3.3-5.1); Sodium 145 mmol/L (135-145)
--- NOTE | 2020-05-26 11:23 | MHC.CM.PN ---
Female 55 DX Covid+. Slowly improving per MD rounds today. Patient will have a home O2 eval closer to [place]. She is ambulating with staff. DP home with services SN and PT. Pt preferences reviewed, referrals made. CM will follow.
--- NOTE | 2020-05-26 11:56 | PC.NURSE ---
Addendum entered by Collette Valencia RN 05/26/20 13:58: After eating pt c/o SOB and some trouble breathing. Venti mask put back on at 55%, PRN IV morphine given per EMAR. Pt o2 sat stable, states breathing is feeling better. Addendum entered by Collette Valencia RN 05/26/20 11:57: Oximyzer 14L. Pt satting 87-90% while eating. Will continue to monitor Original Note: Placed pt on Venti mask 55%. Pt satting 93% consistently. Remeved mask and placed on Oximyzer while pt eating 14L
[2020-05-26] MEDS: Morphine Sulfate 2 MG/ML CARTRIDGE IVPUSH ×2 (12:05→20:14)
--- NOTE | 2020-05-26 14:09 | P.PNIM_ITS ---
Subjective Subjective Date of Service: 05/26/20 Interval History: seen and examined reports feeling better 2 days in a row walking with staff in the room multiple times during the day ROS General - no fevers or chills, tired Cardiovascular - no chest pain Respiratory - breathing easier, but still HALL which is slowly improving Abdominal- no abdominal pain, nausea, vomiting, diarrhea Physical Exam Vital Signs: Vital Signs: Last Vital Signs Temp 97.7 F 05/25/20 15:39 Pulse 114 H 05/25/20 15:39 Resp 18 05/25/20 15:39 BP 128/69 05/25/20 15:39 Pulse Ox 93 05/25/20 15:39 Body Mass Index 31.2 General - no distress, ill appearing - but slightly improved Cardiovascular - S1-S2, slight tachy Lungs - non labored breathing, dim sounds Abdomen - soft, nontender, no rebound regarding Extremities - no edema bilaterally Neuro - awake and alert, no focal deficits Psych - not anxious today Objective Data Current Medications Generic Name Dose Route Start Last Admin Trade Name Tosin PRN Reason Stop Dose Admin Acetaminophen 650 mg 05/05/20 20:54 05/15/20 07:57 Acetaminophen 325 Mg Tablet PO 650 mg Q6H PRN Administration Pain, Mild (Pain Scale 1-3) Albuterol Sulfate 2 puff 05/05/20 20:54 05/07/20 01:50 EDT Albuterol Sulfate 90 Mcg 8 Gm Inhaler INHALE 2 puff Q4H PRN Administration shortness of breath Albuterol Sulfate 2 puff 05/23/20 20:00 05/26/20 11:19 Albuterol Sulfate 90 Mcg 8 Gm Inhaler INHALE 2 puff RQ4H WHILE AWAKE KASI Administration Ascorbic Acid 500 mg 05/20/20 09:00 05/26/20 08:04 Ascorbic Acid 500 Mg Tablet PO 500 mg DAILY KASI Administration Atorvastatin Calcium 20 mg 05/18/20 21:00 05/25/20 20:16 Atorvastatin Calcium 20 Mg Tablet PO 20 mg BEDTIME KSAI Administration Benzocaine 1 lozenge 05/13/20 21:23 05/13/20 22:13 Throat Lozenge, Medicated Lozenge MUCOUS MEM 1 lozenge Q2H PRN Administration Sore Throat Docusate Sodium 100 mg 05/05/20 20:54 05/16/20 19:31 Docusate Sodium 100 Mg Capsule PO 100 mg DAILY PRN Administration Constipation Enoxaparin Sodium 40 mg 05/25/20 18:00 05/25/20 18:25 Enoxaparin Sodium 40 Mg/0.4 Ml Syringe SUBCUT 40 mg Q24H KASI Administration Famotidine 20 mg 05/10/20 12:00 05/26/20 08:04 Famotidine 20 Mg Tablet PO 20 mg BID KASI Administration Methylprednisolone Sodium Succinate 30 mg 05/23/20 06:00 05/26/20 05:02 Methylprednisolone Sod Succ/Pf 40 Mg/Ml Vial IVPUSH 30 mg Q12H KASI Administration Montelukast Sodium 10 mg 05/05/20 21:00 05/25/20 20:16 Montelukast Sodium 10 Mg Tablet PO 10 mg BEDTIME KASI Administration Morphine Sulfate 2 mg 05/24/20 18:55 05/26/20 12:05 Morphine Sulfate 2 Mg/Ml Cartridge IVPUSH 2 mg Q4H PRN Administration respiratory distress Ondansetron HCl 4 mg 05/05/20 20:54 05/10/20 09:14 Ondansetron Hcl 4 Mg/2 Ml Vial IVPUSH 4 mg Q8H PRN Administration Nausea and Vomiting Ondansetron HCl 4 mg 05/10/20 12:14 Ondansetron Hcl 4 Mg/2 Ml Vial IVPUSH Q8H PRN Nausea and Vomiting Sodium Chloride 3 ml 05/06/20 00:00 05/26/20 08:04 0.9 % Sodium Chloride Flush 3 Ml Syringe IVFLUSH 3 ml QSHIFT [facility] Administration Trazodone HCl 50 mg 05/05/20 21:00 05/25/20 20:16 Trazodone Hcl 50 Mg Tablet PO 50 mg BEDTIME KASI Administration Venlafaxine HCl 37.5 mg 05/09/20 21:00 05/25/20 20:16 Venlafaxine Hcl Er 37.5 Mg Cap.Er.24h PO 37.5 mg BEDTIME KASI Administration Zinc Sulfate 220 mg 05/20/20 09:00 05/26/20 08:04 Zinc Sulfate 220 Mg Capsule PO 220 mg DAILY KASI Administration Labs CBC & Chem 7: 05/26/20 08:08 05/26/20 08:08 Microbiology Microbiology Results: Microbiology 05/05/20 13:37 Blood - Venous Blood Culture - Final No growth after 5 days. 05/05/20 13:29 Blood - Venous Blood Culture - Final No growth after 5 days. Assessment and Plan (1) Acute hypoxemic respiratory failure: Status: Acute Assessment and Plan: This is a 55 yo F with a PMH of asthma, HTN, HLD who is now hospita day # 18 for covid 19 pneumonia 1. Acute respiratory failure with hypoxia down to 55% venti mask will start tapering steroids -- prednisone 40mg starting tomorrow s/p plasma, remdesivir, doxy 10 day course finished IgG positive 2. Anemia, acute blood loss h/h stable, however had every brisk / significant bleed from picc line while on full dose lovenox so will avoid full dose lovenox 3. Asthma singular steroids and bronchodilators as above 4. HTN hctz on hold 5. Asthenia ambulating in the hallway pt wishes to be at home upon d/c - may need vna + pt full code dvt pptx, lovenox
[2020-05-26] MEDS: Enoxaparin Sodium 40 MG/0.4 ML SYRINGE SUBCUT (17:55)
[2020-05-26] MEDS: Atorvastatin Calcium 20 MG TABLET PO (20:04)
[2020-05-26] MEDS: Venlafaxine HCl ER 37.5 MG CAP.ER.24H PO (20:04)
[2020-05-26] MEDS: traZODone HCL 50 MG TABLET PO (20:04)
[2020-05-26] MEDS: Montelukast Sodium 10 MG TABLET PO (20:04)
[2020-05-27] VITALS (11 sets, daily range): BP systolic 96–153; BP diastolic 55–68; PULSE 79–125; RESP 18–24; TEMP 36.3–36.9; O2SAT 84–97
[2020-05-27] MEDS: Albuterol Sulfate 90 MCG 8 GM INHALER 2 PUFF INHALE ×4 (07:48→19:51)
[2020-05-27] MEDS: Morphine Sulfate 2 MG/ML CARTRIDGE IVPUSH ×2 (08:54→20:25)
[2020-05-27] MEDS: 0.9 % Sodium Chloride Flush 3 ML SYRINGE IVFLUSH ×3 (08:54→20:01)
[2020-05-27] MEDS: Zinc Sulfate 220 MG CAPSULE PO (08:55)
[2020-05-27] MEDS: predniSONE 20 MG TABLET 40 MG PO (08:55)
[2020-05-27] MEDS: Ascorbic Acid 500 MG TABLET PO (08:55)
[2020-05-27] MEDS: Famotidine 20 MG TABLET PO ×2 (08:55→20:00)
--- NOTE | 2020-05-27 11:38 | PC.NURSE ---
At approximately 8:30am patient spo2 dropping to 83-85% on 55% on venti mask. Patient reports feeling sob. Patient repositioned and encouraged to deep breathe. PRN IV morphine given with good effect. Patient's Spo2 91-92% on 55% on venti mask after being given morphine. At 11:30 am patient reports she would like to ambulate short distance with walker. Nurse and business director assisted patient with ambulation in room. Patient spo2 dropped to 84-86% on 55% venti mask and heart rate increased to 150s. Patient ambulated approximately 15 feet to recliner with walker.
--- NOTE | 2020-05-27 15:45 | HO.PM.IMPN ---
Subjective Subjective Date of Service: 05/26/20 Interval History: seen and examined continues to improve daily ROS General - no fevers or chills, tired Cardiovascular - no chest pain Respiratory - breathing easier, but still HALL which is slowly improving Abdominal- no abdominal pain, nausea, vomiting, diarrhea Physical Exam Vital Signs: Vital Signs: Last Vital Signs Temp 98.5 F 05/27/20 15:29 Pulse 101 H 05/27/20 15:37 Resp 18 05/27/20 15:29 BP 117/60 05/27/20 15:29 Pulse Ox 94 05/27/20 15:29 Body Mass Index 31.2 General - no distress, ill appearing - but slightly improved Cardiovascular - S1-S2, slight tachy Lungs - non labored breathing, dim sounds Abdomen - soft, nontender, no rebound regarding Extremities - no edema bilaterally Neuro - awake and alert, no focal deficits Psych - not anxious today Objective Data Current Medications Generic Name Dose Route Start Last Admin Trade Name Freq PRN Reason Stop Dose Admin Acetaminophen 650 mg 05/05/20 20:54 05/15/20 07:57 Acetaminophen 325 Mg Tablet PO 650 mg Q6H PRN Administration Pain, Mild (Pain Scale 1-3) Albuterol Sulfate 2 puff 05/05/20 20:54 05/07/20 01:50 EDT Albuterol Sulfate 90 Mcg 8 Gm Inhaler INHALE 2 puff Q4H PRN Administration shortness of breath Albuterol Sulfate 2 puff 05/23/20 20:00 05/27/20 15:36 Albuterol Sulfate 90 Mcg 8 Gm Inhaler INHALE 2 puff RQ4H WHILE AWAKE KASI Administration Ascorbic Acid 500 mg 05/20/20 09:00 05/27/20 08:55 Ascorbic Acid 500 Mg Tablet PO 500 mg DAILY KASI Administration Atorvastatin Calcium 20 mg 05/18/20 21:00 05/26/20 20:04 Atorvastatin Calcium 20 Mg Tablet PO 20 mg BEDTIME KASI Administration Benzocaine 1 lozenge 05/13/20 21:23 05/13/20 22:13 Throat Lozenge, Medicated Lozenge MUCOUS MEM 1 lozenge Q2H PRN Administration Sore Throat Docusate Sodium 100 mg 05/05/20 20:54 05/16/20 19:31 Docusate Sodium 100 Mg Capsule PO 100 mg DAILY PRN Administration Constipation Enoxaparin Sodium 40 mg 05/25/20 18:00 05/26/20 17:55 Enoxaparin Sodium 40 Mg/0.4 Ml Syringe SUBCUT 40 mg Q24H KASI Administration Famotidine 20 mg 05/10/20 12:00 05/27/20 08:55 Famotidine 20 Mg Tablet PO 20 mg BID KASI Administration Montelukast Sodium 10 mg 05/05/20 21:00 05/26/20 20:04 Montelukast Sodium 10 Mg Tablet PO 10 mg BEDTIME KASI Administration Morphine Sulfate 2 mg 05/24/20 18:55 05/27/20 08:54 Morphine Sulfate 2 Mg/Ml Cartridge IVPUSH 2 mg Q4H PRN Administration respiratory distress Ondansetron HCl 4 mg 05/05/20 20:54 05/10/20 09:14 Ondansetron Hcl 4 Mg/2 Ml Vial IVPUSH 4 mg Q8H PRN Administration Nausea and Vomiting Ondansetron HCl 4 mg 05/10/20 12:14 Ondansetron Hcl 4 Mg/2 Ml Vial IVPUSH Q8H PRN Nausea and Vomiting Prednisone 40 mg 05/27/20 09:00 05/27/20 08:55 Prednisone 20 Mg Tablet PO 40 mg DAILY KASI Administration Sodium Chloride 3 ml 05/06/20 00:00 05/27/20 08:54 0.9 % Sodium Chloride Flush 3 Ml Syringe IVFLUSH 3 ml QSHIFT KASI Administration Trazodone HCl 50 mg 05/05/20 21:00 05/26/20 20:04 Trazodone Hcl 50 Mg Tablet PO 50 mg BEDTIME KASI Administration Venlafaxine HCl 37.5 mg 05/09/20 21:00 05/26/20 20:04 Venlafaxine Hcl Er 37.5 Mg Cap.Er.24h PO 37.5 mg BEDTIME KASI Administration Zinc Sulfate 220 mg 05/20/20 09:00 05/27/20 08:55 Zinc Sulfate 220 Mg Capsule PO 220 mg DAILY KASI Administration Labs CBC & Chem 7: 05/26/20 08:08 05/26/20 08:08 Microbiology Microbiology Results: Microbiology 05/05/20 13:37 Blood - Venous Blood Culture - Final No growth after 5 days. 05/05/20 13:29 Blood - Venous Blood Culture - Final No growth after 5 days. Assessment and Plan (1) Acute hypoxemic respiratory failure: Status: Acute Assessment and Plan: This is a 55 yo F with a PMH of asthma, HTN, HLD admitted for covid 1. Acute respiratory failure with hypoxia due to covid 19 on ventimask now, stable prednisone 40mg, day #1 s/p plasma, remdesivir, doxy 10 day course finished IgG positive 2. Anemia, acute blood loss h/h stable, however had very brisk / significant bleed from picc line while on full dose lovenox so will avoid full dose lovenox 3. Asthma singular steroids and bronchodilators as above 4. HTN hctz on hold 5. Asthenia ambulating in the hallway pt wishes to be at home upon d/c - may need vna + pt full code dvt pptx, lovenox
[2020-05-27] MEDS: Enoxaparin Sodium 40 MG/0.4 ML SYRINGE SUBCUT (16:53)
[2020-05-27] MEDS: traZODone HCL 50 MG TABLET PO (20:00)
[2020-05-27] MEDS: Atorvastatin Calcium 20 MG TABLET PO (20:00)
[2020-05-27] MEDS: Venlafaxine HCl ER 37.5 MG CAP.ER.24H PO (20:00)
[2020-05-27] MEDS: Montelukast Sodium 10 MG TABLET PO (20:00)
[2020-05-28] VITALS (8 sets, daily range): BP systolic 104–129; BP diastolic 60–69; PULSE 60–124; RESP 18–24; TEMP 36–36.8; O2SAT 89–98
[2020-05-28] MEDS: Morphine Sulfate 2 MG/ML CARTRIDGE IVPUSH ×3 (05:58→20:04)
[2020-05-28] MEDS: 0.9 % Sodium Chloride Flush 3 ML SYRINGE IVFLUSH ×2 (05:58→16:54)
[2020-05-28] MEDS: Albuterol Sulfate 90 MCG 8 GM INHALER 2 PUFF INHALE ×3 (08:16→15:33)
[2020-05-28] MEDS: Famotidine 20 MG TABLET PO ×2 (08:49→19:53)
[2020-05-28] MEDS: Zinc Sulfate 220 MG CAPSULE PO (08:50)
[2020-05-28] MEDS: predniSONE 20 MG TABLET 40 MG PO (08:50)
[2020-05-28] MEDS: Ascorbic Acid 500 MG TABLET PO (08:50)
--- NOTE | 2020-05-28 14:01 | HO.PM.IMPN ---
Subjective Subjective Date of Service: 05/28/20 Interval History: seen and examined better daily hoping to go home by friday -- told her that she would need to be on NC prior to d/c General - no fevers or chills Cardiovascular - no chest pain Respiratory - sob improving daily Abdominal- no abdominal pain, nausea, vomiting, diarrhea Physical Exam Vital Signs: Vital Signs: Last Vital Signs Temp 97.6 F 05/28/20 12:00 Pulse 96 05/28/20 12:00 Resp 24 H 05/28/20 12:00 BP 126/61 05/28/20 12:00 Pulse Ox 92 05/28/20 12:00 Body Mass Index 31.2 1. Acute respiratory failure with hypoxia due to covid 19 on ventimask now, stable prednisone 40mg, day #3 s/p plasma, remdesivir, doxy 10 day course finished IgG positive 2. Anemia, acute blood loss h/h stable, however had very brisk / significant bleed from picc line while on full dose lovenox so will avoid full dose lovenox 3. Asthma singular steroids and bronchodilators as above 4. HTN hctz on hold 5. Asthenia ambulating in the hallway pt wishes to be at home upon d/c - may need vna + pt full code dvt pptx, lovenox dispo: Home with services, hopefully this week when O2 requirement down to 2-3L by [place] Objective Data Current Medications Generic Name Dose Route Start Last Admin Trade Name Freq PRN Reason Stop Dose Admin Acetaminophen 650 mg 05/05/20 20:54 05/15/20 07:57 Acetaminophen 325 Mg Tablet PO 650 mg Q6H PRN Administration Pain, Mild (Pain Scale 1-3) Albuterol Sulfate 2 puff 05/05/20 20:54 05/07/20 01:50 EDT Albuterol Sulfate 90 Mcg 8 Gm Inhaler INHALE 2 puff Q4H PRN Administration shortness of breath Albuterol Sulfate 2 puff 05/23/20 20:00 05/28/20 11:57 Albuterol Sulfate 90 Mcg 8 Gm Inhaler INHALE 2 puff RQ4H WHILE AWAKE KASI Administration Ascorbic Acid 500 mg 05/20/20 09:00 05/28/20 08:50 Ascorbic Acid 500 Mg Tablet PO 500 mg DAILY KASI Administration Atorvastatin Calcium 20 mg 05/18/20 21:00 05/27/20 20:00 Atorvastatin Calcium 20 Mg Tablet PO 20 mg BEDTIME KASI Administration Benzocaine 1 lozenge 05/13/20 21:23 05/13/20 22:13 Throat Lozenge, Medicated Lozenge MUCOUS MEM 1 lozenge Q2H PRN Administration Sore Throat Docusate Sodium 100 mg 05/05/20 20:54 05/16/20 19:31 Docusate Sodium 100 Mg Capsule PO 100 mg DAILY PRN Administration Constipation Enoxaparin Sodium 40 mg 05/25/20 18:00 05/27/20 16:53 Enoxaparin Sodium 40 Mg/0.4 Ml Syringe SUBCUT 40 mg Q24H KASI Administration Famotidine 20 mg 05/10/20 12:00 05/28/20 08:49 Famotidine 20 Mg Tablet PO 20 mg BID KASI Administration Montelukast Sodium 10 mg 05/05/20 21:00 05/27/20 20:00 Montelukast Sodium 10 Mg Tablet PO 10 mg BEDTIME KASI Administration Morphine Sulfate 2 mg 05/24/20 18:55 05/28/20 10:59 Morphine Sulfate 2 Mg/Ml Cartridge IVPUSH 2 mg Q4H PRN Administration respiratory distress Ondansetron HCl 4 mg 05/05/20 20:54 05/10/20 09:14 Ondansetron Hcl 4 Mg/2 Ml Vial IVPUSH 4 mg Q8H PRN Administration Nausea and Vomiting Ondansetron HCl 4 mg 05/10/20 12:14 Ondansetron Hcl 4 Mg/2 Ml Vial IVPUSH Q8H PRN Nausea and Vomiting Prednisone 40 mg 05/27/20 09:00 05/28/20 08:50 Prednisone 20 Mg Tablet PO 40 mg DAILY KASI Administration Sodium Chloride 3 ml 05/06/20 00:00 05/28/20 05:58 0.9 % Sodium Chloride Flush 3 Ml Syringe IVFLUSH 3 ml QSHIFT KASI Administration Trazodone HCl 50 mg 05/05/20 21:00 05/27/20 20:00 Trazodone Hcl 50 Mg Tablet PO 50 mg BEDTIME KASI Administration Venlafaxine HCl 37.5 mg 05/09/20 21:00 05/27/20 20:00 Venlafaxine Hcl Er 37.5 Mg Cap.Er.24h PO 37.5 mg BEDTIME KASI Administration Zinc Sulfate 220 mg 05/20/20 09:00 05/28/20 08:50 Zinc Sulfate 220 Mg Capsule PO 220 mg DAILY KASI Administration Labs CBC & Chem 7: 05/26/20 08:08 05/26/20 08:08 Microbiology Microbiology Results: Microbiology 05/05/20 13:37 Blood - Venous Blood Culture - Final No growth after 5 days. 05/05/20 13:29 Blood - Venous Blood Culture - Final No growth after 5 days.
--- NOTE | 2020-05-28 15:12 | PC.NURSE ---
After lunch patient asked to ambulate with staff. While sitting on edge of bed patient's spo2 was 93% on 55% on venti mask. Patient had nurse and software engineer advisor with her and took several steps holding onto walker. Patient's spo2 dropped to 73-75% and patient reported feeling very dizzy and sob, heart rate up to 160s Patient ambulated a few stepsback to bed with walker and assitance from two staff members. Patient reports she does not want to sit oob to recliner today and wishes to stay in bed.
[2020-05-28] MEDS: Enoxaparin Sodium 40 MG/0.4 ML SYRINGE SUBCUT (19:52)
[2020-05-28] MEDS: Montelukast Sodium 10 MG TABLET PO (19:53)
[2020-05-28] MEDS: Atorvastatin Calcium 20 MG TABLET PO (19:53)
[2020-05-28] MEDS: Venlafaxine HCl ER 37.5 MG CAP.ER.24H PO (19:53)
[2020-05-28] MEDS: traZODone HCL 50 MG TABLET PO (19:53)
--- NOTE | 2020-05-28 20:13 | PC.NURSE ---
Patient on venti mask at 45%with spo2 96-97% at rest. Per MD request nurse attempted to find oxymizer to put on patient. Nurse contacted respiratory who is also unable to obtain oxymizer. Nurse placed patient on nasal cannula at 5 L/min. Patient's Spo2 93% at rest on 5L/min via nasal cannula. Will continue to monitor oxygen requirements and wean o2 as tolerated.
[2020-05-29] VITALS (11 sets, daily range): BP systolic 109–157; BP diastolic 55–70; PULSE 78–115; RESP 16–22; TEMP 36.2–37.2; O2SAT 89–94
[2020-05-29] MEDS: 0.9 % Sodium Chloride Flush 3 ML SYRINGE IVFLUSH ×4 (00:23→20:07)
[2020-05-29 06:51] LABS: Hematocrit 37.4 % (37-47); Hemoglobin 11.6 g/dl (12.0-16.0); Mean Corpuscular Hemoglobin 26.4 pg (27.0-33.0); Mean Corpuscular Volume 85.2 fL (80-98); Mean Platelet Volume 10.5 fL (9.4-12.3); NRBC Pct Auto 0.2 /100WBC (0.0-0.2); Platelet Count 264 X10*3/uL (160-400); Red Blood Count 4.39 X10*6/uL (4.20-5.50)
--- NOTE | 2020-05-29 07:00 | XR_ITS ---
EXAMINATION: XR CHEST CLINICAL INFORMATION: Follow up Covid infection COMPARISON: Previous chest x-ray most recent 05/24/2020 TECHNIQUE: Frontal view of the chest was obtained. FINDINGS: The cardiac and mediastinal contours are stable. There is a right upper extremity PICC line with tip projecting over the cavoatrial junction. The lung volumes are low. There are bilateral infiltrates similar to previous exam. There is no pleural effusion or pneumothorax. Bony structures are unremarkable. XR/XR chest 1V IMPRESSION: Low lung volumes and bilateral infiltrates similar to previous exam.
[2020-05-29 07:24] LABS: Anion Gap 13 (12-20); Blood Urea Nitrogen 31 mg/dL (9-16); C Reactive Protein 1.53 mg/dL (< or = 0.50); Calcium 9.5 mg/dL (8.4-10.2); Carbon Dioxide 28 mmol/L (22-29); Chloride 106 mmol/L (96-108); Creatinine Clr Calc Pharmacy 101.5; Estimated Glomerular Filt Rate > 60; Glucose Random 73 mg/dL (60-115); Potassium 3.3 mmol/l (3.3-5.1); Sodium 144 mmol/L (135-145)
[2020-05-29 07:36] LABS: Procalcitonin 0.02 ng/mL
[2020-05-29] MEDS: predniSONE 20 MG TABLET 40 MG PO (07:50)
[2020-05-29] MEDS: Zinc Sulfate 220 MG CAPSULE PO (07:50)
[2020-05-29] MEDS: Ascorbic Acid 500 MG TABLET PO (07:50)
[2020-05-29] MEDS: Famotidine 20 MG TABLET PO ×2 (07:51→20:07)
[2020-05-29] MEDS: Morphine Sulfate 2 MG/ML CARTRIDGE IVPUSH ×2 (07:51→17:03)
[2020-05-29] MEDS: Albuterol Sulfate 90 MCG 8 GM INHALER 2 PUFF INHALE ×4 (07:56→19:36)
--- NOTE | 2020-05-29 08:12 | PC.NURSE ---
At start of shift patient in bed asleep, spo2 91-93% on 5L/min via NC. When patient repositioned and sat up for breakfast patient's spo2 dropped to 80-82%. Patient did not appear to be in distress but did ask for her prn morphine. respiratory at bedside and placed patient on venti mask. Spo2 88-89% on Venti mask at 45% with nasal cannula while patient eats breakfast. Patient educated that we will attempt to wean her back to the nasal cannula after breakfast if able.
--- NOTE | 2020-05-29 09:06 | MHC.CM.PN ---
Met with patient to review DC plan. She will DC with [facility]. Patient anticipates DC tomorrow. Oxygen demands are decreasing. CM will follow.
--- NOTE | 2020-05-29 10:00 | MHC.CM.PN ---
PCP update Sherine Bishop. Notified CM office for update. Info sent to [employer].
--- NOTE | 2020-05-29 12:46 | HO.PM.IMPN ---
Subjective Subjective Date of Service: 05/29/20 Interval History: seen and examined no new issues General - no fevers or chills Cardiovascular - no chest pain Respiratory - sob improving daily Abdominal- no abdominal pain, nausea, vomiting, diarrhea Physical Exam Vital Signs: Vital Signs: Last Vital Signs Temp 98.9 F 05/29/20 11:33 Pulse 114 H 05/29/20 11:33 Resp 18 05/29/20 11:33 BP 109/55 L 05/29/20 11:33 Pulse Ox 89 L 05/29/20 11:33 Body Mass Index 31.2 General - no distress, ill appearing - but slightly improved Cardiovascular - S1-S2, slight tachy Lungs - non labored breathing, dim sounds Abdomen - soft, nontender, no rebound regarding Extremities - no edema bilaterally Neuro - awake and alert, no focal deficits Psych - not anxious today Objective Data Current Medications Generic Name Dose Route Start Last Admin Trade Name Freq PRN Reason Stop Dose Admin Acetaminophen 650 mg 05/05/20 20:54 05/15/20 07:57 Acetaminophen 325 Mg Tablet PO 650 mg Q6H PRN Administration Pain, Mild (Pain Scale 1-3) Albuterol Sulfate 2 puff 05/05/20 20:54 05/07/20 01:50 EDT Albuterol Sulfate 90 Mcg 8 Gm Inhaler INHALE 2 puff Q4H PRN Administration shortness of breath Albuterol Sulfate 2 puff 05/23/20 20:00 05/29/20 11:14 Albuterol Sulfate 90 Mcg 8 Gm Inhaler INHALE 2 puff RQ4H WHILE AWAKE KASI Administration Ascorbic Acid 500 mg 05/20/20 09:00 05/29/20 07:50 Ascorbic Acid 500 Mg Tablet PO 500 mg DAILY KASI Administration Atorvastatin Calcium 20 mg 05/18/20 21:00 05/28/20 19:53 Atorvastatin Calcium 20 Mg Tablet PO 20 mg BEDTIME KASI Administration Benzocaine 1 lozenge 05/13/20 21:23 05/13/20 22:13 Throat Lozenge, Medicated Lozenge MUCOUS MEM 1 lozenge Q2H PRN Administration Sore Throat Docusate Sodium 100 mg 05/05/20 20:54 05/16/20 19:31 Docusate Sodium 100 Mg Capsule PO 100 mg DAILY PRN Administration Constipation Enoxaparin Sodium 40 mg 05/25/20 18:00 05/28/20 19:52 Enoxaparin Sodium 40 Mg/0.4 Ml Syringe SUBCUT 40 mg Q24H KASI Administration Famotidine 20 mg 05/10/20 12:00 05/29/20 07:51 Famotidine 20 Mg Tablet PO 20 mg BID KASI Administration Furosemide 40 mg 05/29/20 12:44 Furosemide 40 Mg/4 Ml Vial IVPUSH 05/29/20 12:45 ONCE ONE Protocol Albumin Human 100 mls @ 100 mls/hr 05/29/20 12:45 Kedbumin 25 % IV 05/30/20 07:44 Q6H KASI Montelukast Sodium 10 mg 05/05/20 21:00 05/28/20 19:53 Montelukast Sodium 10 Mg Tablet PO 10 mg BEDTIME KASI Administration Morphine Sulfate 2 mg 05/24/20 18:55 05/29/20 07:51 Morphine Sulfate 2 Mg/Ml Cartridge IVPUSH 2 mg Q4H PRN Administration respiratory distress Ondansetron HCl 4 mg 05/05/20 20:54 05/10/20 09:14 Ondansetron Hcl 4 Mg/2 Ml Vial IVPUSH 4 mg Q8H PRN Administration Nausea and Vomiting Ondansetron HCl 4 mg 05/10/20 12:14 Ondansetron Hcl 4 Mg/2 Ml Vial IVPUSH Q8H PRN Nausea and Vomiting Prednisone 40 mg 05/27/20 09:00 05/29/20 07:50 Prednisone 20 Mg Tablet PO 40 mg DAILY KASI Administration Sodium Chloride 3 ml 05/06/20 00:00 05/29/20 07:59 0.9 % Sodium Chloride Flush 3 Ml Syringe IVFLUSH 3 ml QSHIFT KASI Administration Trazodone HCl 50 mg 05/05/20 21:00 05/28/20 19:53 Trazodone Hcl 50 Mg Tablet PO 50 mg BEDTIME KASI Administration Venlafaxine HCl 37.5 mg 05/09/20 21:00 05/28/20 19:53 Venlafaxine Hcl Er 37.5 Mg Cap.Er.24h PO 37.5 mg BEDTIME KASI Administration Zinc Sulfate 220 mg 05/20/20 09:00 05/29/20 07:50 Zinc Sulfate 220 Mg Capsule PO 220 mg DAILY KASI Administration Labs CBC & Chem 7: 05/29/20 05:32 05/29/20 05:32 Microbiology Microbiology Results: Microbiology 05/05/20 13:37 Blood - Venous Blood Culture - Final No growth after 5 days. 05/05/20 13:29 Blood - Venous Blood Culture - Final No growth after 5 days. Assessment and Plan (1) Acute hypoxemic respiratory failure: Status: Acute Assessment and Plan: 1. Acute respiratory failure with hypoxia due to covid 19 on ventimask now, stable prednisone 40mg, day #3 -- slow taper over next 3-4 weeks s/p plasma, remdesivir, doxy 10 day course finished IgG positive inflammatory makers improving cxr about the same -- will give iv lasix and see repsonse goal is to be down to 2-3L and d/c home with O2 2. Anemia, acute blood loss h/h stable, however had very brisk / significant bleed from picc line while on full dose lovenox so will avoid full dose lovenox 3. Asthma singular steroids and bronchodilators as above 4. HTN hctz on hold 5. Asthenia ambulating in the room full code dvt pptx, lovenox dispo: Home with services, hopefully this week when O2 requirement down to 2-3L by PR
[2020-05-29] MEDS: Albumin Human 25 % 100 ML IV ×3 (13:20→23:47)
[2020-05-29] MEDS: Furosemide 40 MG/4 ML VIAL IVPUSH (13:20)
--- NOTE | 2020-05-29 14:20 | MHC.CLN ---
F/U PO INTAKE 50% AVG DIET RX: REGULAR-APPROPRIATE PT RECEIVING GLUCERNA TO INCREASE KCALS FOLLOWING
[2020-05-29] MEDS: Enoxaparin Sodium 40 MG/0.4 ML SYRINGE SUBCUT (18:11)
[2020-05-29] MEDS: Venlafaxine HCl ER 37.5 MG CAP.ER.24H PO (20:07)
[2020-05-29] MEDS: traZODone HCL 50 MG TABLET PO (20:07)
[2020-05-29] MEDS: Atorvastatin Calcium 20 MG TABLET PO (20:07)
[2020-05-29] MEDS: Montelukast Sodium 10 MG TABLET PO (20:07)
[2020-05-30] VITALS (10 sets, daily range): BP systolic 111–140; BP diastolic 56–70; PULSE 76–109; RESP 18–20; TEMP 36.5–37; O2SAT 92–97
[2020-05-30] MEDS: Albumin Human 25 % 100 ML IV (05:48)
--- NOTE | 2020-05-30 06:19 | PC.NURSE ---
new stage two found on pts left buttocks, pt consented to have pictures taken, placed on chart.pink foam dressing placed. pt reposition to right side. pt HALL with juanpablo little movement but educated to move position as tolerated and allow staff to help as well
[2020-05-30] MEDS: 0.9 % Sodium Chloride Flush 3 ML SYRINGE IVFLUSH ×3 (07:36→20:27)
[2020-05-30] MEDS: Zinc Sulfate 220 MG CAPSULE PO (07:36)
[2020-05-30] MEDS: Famotidine 20 MG TABLET PO ×2 (07:36→20:28)
[2020-05-30] MEDS: Ascorbic Acid 500 MG TABLET PO (07:36)
[2020-05-30] MEDS: predniSONE 20 MG TABLET 40 MG PO (07:36)
[2020-05-30] MEDS: Albuterol Sulfate 90 MCG 8 GM INHALER 2 PUFF INHALE ×4 (07:43→20:59)
--- NOTE | 2020-05-30 08:30 | P.CDIC_ITS ---
CDI Concurrent Query Service Date: 05/30/20 Documentation Clarification: Please clarify if you are treating a proba ble/suspected/likely or confirmed: Consistency of documentation: Sepsis due to Covid-19/pneumonia POA Please specify if known Viral Sepsis, resolved Provider Response: Other Other Diagnosis: viral sepsis,now resolved PLEASE DO NOT DELETE/MODIFY EXISTING CONTENT Additional information is needed in order to code to the highest accuracy and appropriate Severity of Illness (SOI). Please clarify the information noted below in your progress notes and discharge summary. Risk Factors/Clinical Indicators/Treatments Acute respiratory failure poa, COVID-19 pneumonia placed on Remdesivir, Decradon, empiric Doxycycline, IV fluids, Oxygen. Query response 05/16/2020 - Sepsis due to pneumonia WBC 12.5 19.8 HR 100 118 RR 28 22 Temp 97.5 Evaluation: Problems - Sepsis, Covid-19 pneumonia CDS: Sayra Middleton CCS, CDIS Contact Number: [phone] Please Review the information above and exercise your independent professional judgment in responding to the query. If you concur, pleas document in the PROGRESS NOTES and DISCHARGE SUMMARY. If you do not agree with the query, please document in the query above. THIS QUERY IS PART OF THE PERMANENT MEDICAL RECORD
--- NOTE | 2020-05-30 11:33 | HO.PM.IMPN ---
Subjective Subjective Date of Service: 05/30/20 Interval History: seen and examined still requiring 5L and interittent hypoxia with exertion requiring venti mask had an extended conversation with the patient today as she thought she was being discharged today. Explained to her that she has made significant progress but is still not ready to leave due to her O2 requirements. D/W her daughter Luis Enrique @ pt reports constipation, but no abd pain General - no fevers or chills Cardiovascular - no chest pain Respiratory - sob improving daily Abdominal- no abdominal pain, nausea, vomiting, diarrhea, +constipation Physical Exam Vital Signs: Vital Signs: Last Vital Signs Temp 98.6 F 05/30/20 08:00 Pulse 84 05/30/20 08:00 Resp 18 05/30/20 08:00 BP 114/57 L 05/30/20 08:00 Pulse Ox 94 05/30/20 08:00 Body Mass Index 31.2 General - appears fatigued, but better day by day Cardiovascular - S1-S2, tachycardia improved Lungs - non labored breathing, dim sounds Abdomen - soft, nontender, no rebound regarding Extremities - no edema bilaterally Neuro - awake and alert, no focal deficits Psych - not anxious today Objective Data Current Medications Generic Name Dose Route Start Last Admin Trade Name Freq PRN Reason Stop Dose Admin Acetaminophen 650 mg 05/05/20 20:54 05/15/20 07:57 Acetaminophen 325 Mg Tablet PO 650 mg Q6H PRN Administration Pain, Mild (Pain Scale 1-3) Albuterol Sulfate 2 puff 05/05/20 20:54 05/07/20 01:50 EDT Albuterol Sulfate 90 Mcg 8 Gm Inhaler INHALE 2 puff Q4H PRN Administration shortness of breath Albuterol Sulfate 2 puff 05/23/20 20:00 05/30/20 07:43 Albuterol Sulfate 90 Mcg 8 Gm Inhaler INHALE 2 puff RQ4H WHILE AWAKE KASI Administration Ascorbic Acid 500 mg 05/20/20 09:00 05/30/20 07:36 Ascorbic Acid 500 Mg Tablet PO 500 mg DAILY KASI Administration Atorvastatin Calcium 20 mg 05/18/20 21:00 05/29/20 20:07 Atorvastatin Calcium 20 Mg Tablet PO 20 mg BEDTIME KASI Administration Benzocaine 1 lozenge 05/13/20 21:23 05/13/20 22:13 Throat Lozenge, Medicated Lozenge MUCOUS MEM 1 lozenge Q2H PRN Administration Sore Throat Docusate Sodium 100 mg 05/05/20 20:54 05/16/20 19:31 Docusate Sodium 100 Mg Capsule PO 100 mg DAILY PRN Administration Constipation Enoxaparin Sodium 40 mg 05/25/20 18:00 05/29/20 18:11 Enoxaparin Sodium 40 Mg/0.4 Ml Syringe SUBCUT 40 mg Q24H KASI Administration Famotidine 20 mg 05/10/20 12:00 05/30/20 07:36 Famotidine 20 Mg Tablet PO 20 mg BID KASI Administration Montelukast Sodium 10 mg 05/05/20 21:00 05/29/20 20:07 Montelukast Sodium 10 Mg Tablet PO 10 mg BEDTIME KASI Administration Morphine Sulfate 2 mg 05/29/20 19:12 Morphine Sulfate 2 Mg/Ml Cartridge IVPUSH Q4H PRN respiratory distress Ondansetron HCl 4 mg 05/05/20 20:54 05/10/20 09:14 Ondansetron Hcl 4 Mg/2 Ml Vial IVPUSH 4 mg Q8H PRN Administration Nausea and Vomiting Ondansetron HCl 4 mg 05/10/20 12:14 Ondansetron Hcl 4 Mg/2 Ml Vial IVPUSH Q8H PRN Nausea and Vomiting Prednisone 40 mg 05/27/20 09:00 05/30/20 07:36 Prednisone 20 Mg Tablet PO 40 mg DAILY KASI Administration Sodium Chloride 3 ml 05/06/20 00:00 05/30/20 07:36 0.9 % Sodium Chloride Flush 3 Ml Syringe IVFLUSH 3 ml QSHIFT KASI Administration Trazodone HCl 50 mg 05/05/20 21:00 05/29/20 20:07 Trazodone Hcl 50 Mg Tablet PO 50 mg BEDTIME KASI Administration Venlafaxine HCl 37.5 mg 05/09/20 21:00 05/29/20 20:07 Venlafaxine Hcl Er 37.5 Mg Cap.Er.24h PO 37.5 mg BEDTIME KASI Administration Zinc Sulfate 220 mg 05/20/20 09:00 05/30/20 07:36 Zinc Sulfate 220 Mg Capsule PO 220 mg DAILY KASI Administration Labs CBC & Chem 7: 05/29/20 05:32 05/29/20 05:32 Microbiology Microbiology Results: Microbiology 05/05/20 13:37 Blood - Venous Blood Culture - Final No growth after 5 days. 05/05/20 13:29 Blood - Venous Blood Culture - Final No growth after 5 days. Assessment and Plan (1) Acute hypoxemic respiratory failure: Status: Acute Assessment and Plan: 1. COVID 19 leading to acute resp. failure and viral sepsis viral sepsis resolved down to 5L NC, intermittent venti prednisone 40mg, day #4 -- slow taper over next 3-4 weeks s/p plasma, remdesivir, doxy 10 day course finished IgG positive inflammatory makers improving goal is to be down to 2-3L and d/c home with O2 2. Anemia, acute blood loss h/h stable, however had very brisk / significant bleed from picc line while on full dose lovenox so will avoid full dose lovenox 3. Asthma singular steroids and bronchodilators as above 4. HTN restart her hctz 5. Asthenia ambulating in the room full code dvt pptx, lovenox dispo: Home (pt has declined with services, hopefully this week when O2 requirement down to 2-3L by [place] called daughter Jaquelin @ [phone] today and updated
[2020-05-30] MEDS: hydroCHLOROthiazide 25 MG TABLET PO (11:54)
[2020-05-30] MEDS: polyethylene glycoL 3350 17 GM POWD.PACK PO (11:54)
[2020-05-30] MEDS: Furosemide 40 MG/4 ML VIAL IVPUSH (15:47)
[2020-05-30] MEDS: Enoxaparin Sodium 40 MG/0.4 ML SYRINGE SUBCUT (17:21)
[2020-05-30] MEDS: Venlafaxine HCl ER 37.5 MG CAP.ER.24H PO (20:27)
[2020-05-30] MEDS: traZODone HCL 50 MG TABLET PO (20:27)
[2020-05-30] MEDS: Acetaminophen 325 MG TABLET 650 MG PO (20:27)
[2020-05-30] MEDS: Atorvastatin Calcium 20 MG TABLET PO (20:27)
[2020-05-30] MEDS: Montelukast Sodium 10 MG TABLET PO (20:28)
[2020-05-31] VITALS (10 sets, daily range): BP systolic 115–130; BP diastolic 61–78; PULSE 100–123; RESP 18–20; TEMP 36.3–36.8; O2SAT 90–97
[2020-05-31] MEDS: Acetaminophen 325 MG TABLET 650 MG PO ×2 (02:53→09:09)
[2020-05-31] MEDS: hydroCHLOROthiazide 25 MG TABLET PO (09:02)
[2020-05-31] MEDS: polyethylene glycoL 3350 17 GM POWD.PACK PO (09:02)
[2020-05-31] MEDS: 0.9 % Sodium Chloride Flush 3 ML SYRINGE IVFLUSH ×3 (09:02→20:40)
[2020-05-31] MEDS: Zinc Sulfate 220 MG CAPSULE PO (09:03)
[2020-05-31] MEDS: Famotidine 20 MG TABLET PO ×2 (09:03→20:40)
[2020-05-31] MEDS: Ascorbic Acid 500 MG TABLET PO (09:03)
[2020-05-31] MEDS: predniSONE 20 MG TABLET 40 MG PO (09:03)
[2020-05-31] MEDS: ondansetron HCL 4 MG/2 ML VIAL IVPUSH (10:49)
[2020-05-31] MEDS: Albuterol Sulfate 90 MCG 8 GM INHALER 2 PUFF INHALE ×4 (11:24→20:37)
--- NOTE | 2020-05-31 11:38 | HO.PM.IMPN ---
Subjective Subjective Date of Service: 05/31/20 Interval History: feeling better but still sob and tired Cardiovascular Cardiovascular: Reports no additional cardiovascular complaints Gastrointestinal Gastrointestinal: Reports no additional gastrointestinal complaints Physical Exam Vital Signs: Vital Signs: Last Vital Signs Temp 98 F 05/31/20 10:51 Pulse 112 H 05/31/20 11:26 Resp 20 05/31/20 10:51 BP 115/64 05/31/20 10:51 Pulse Ox 95 05/31/20 10:51 Body Mass Index 31.2 General: AO X 3, no acute distress Resp: diminished CVS: S1,S2,RRR GI: soft, non tender, non distended Neuro: motor grossly intact Psych: appropriate affect Objective Data Current Medications Generic Name Dose Route Start Last Admin Trade Name Freq PRN Reason Stop Dose Admin Acetaminophen 650 mg 05/05/20 20:54 05/31/20 09:09 Acetaminophen 325 Mg Tablet PO 650 mg Q6H PRN Administration Pain, Mild (Pain Scale 1-3) Albuterol Sulfate 2 puff 05/05/20 20:54 05/07/20 01:50 EDT Albuterol Sulfate 90 Mcg 8 Gm Inhaler INHALE 2 puff Q4H PRN Administration shortness of breath Albuterol Sulfate 2 puff 05/23/20 20:00 05/31/20 11:24 Albuterol Sulfate 90 Mcg 8 Gm Inhaler INHALE 2 puff RQ4H WHILE AWAKE KASI Administration Ascorbic Acid 500 mg 05/20/20 09:00 05/31/20 09:03 Ascorbic Acid 500 Mg Tablet PO 500 mg DAILY KASI Administration Atorvastatin Calcium 20 mg 05/18/20 21:00 05/30/20 20:27 Atorvastatin Calcium 20 Mg Tablet PO 20 mg BEDTIME KASI Administration Benzocaine 1 lozenge 05/13/20 21:23 05/13/20 22:13 Throat Lozenge, Medicated Lozenge MUCOUS MEM 1 lozenge Q2H PRN Administration Sore Throat Docusate Sodium 100 mg 05/05/20 20:54 05/16/20 19:31 Docusate Sodium 100 Mg Capsule PO 100 mg DAILY PRN Administration Constipation Enoxaparin Sodium 40 mg 05/25/20 18:00 05/30/20 17:21 Enoxaparin Sodium 40 Mg/0.4 Ml Syringe SUBCUT 40 mg Q24H KASI Administration Famotidine 20 mg 05/10/20 12:00 05/31/20 09:03 Famotidine 20 Mg Tablet PO 20 mg BID KASI Administration Hydrochlorothiazide 25 mg 05/30/20 11:45 05/31/20 09:02 Hydrochlorothiazide 25 Mg Tablet PO 25 mg DAILY KASI Administration Protocol Montelukast Sodium 10 mg 05/05/20 21:00 05/30/20 20:28 Montelukast Sodium 10 Mg Tablet PO 10 mg BEDTIME KASI Administration Morphine Sulfate 2 mg 05/29/20 19:12 Morphine Sulfate 2 Mg/Ml Cartridge IVPUSH Q4H PRN respiratory distress Ondansetron HCl 4 mg 05/05/20 20:54 05/31/20 10:49 Ondansetron Hcl 4 Mg/2 Ml Vial IVPUSH 4 mg Q8H PRN Administration Nausea and Vomiting Ondansetron HCl 4 mg 05/10/20 12:14 Ondansetron Hcl 4 Mg/2 Ml Vial IVPUSH Q8H PRN Nausea and Vomiting Polyethylene Glycol 17 gm 05/30/20 11:45 05/31/20 09:02 Polyethylene Glycol 3350 17 Gm Powd.Pack PO 17 gm DAILY KASI Administration Prednisone 40 mg 05/27/20 09:00 05/31/20 09:03 Prednisone 20 Mg Tablet PO 40 mg DAILY KASI Administration Sodium Chloride 3 ml 05/06/20 00:00 05/31/20 09:02 0.9 % Sodium Chloride Flush 3 Ml Syringe IVFLUSH 3 ml QSHIFT KASI Administration Trazodone HCl 50 mg 05/05/20 21:00 05/30/20 20:27 Trazodone Hcl 50 Mg Tablet PO 50 mg BEDTIME KASI Administration Venlafaxine HCl 37.5 mg 05/09/20 21:00 05/30/20 20:27 Venlafaxine Hcl Er 37.5 Mg Cap.Er.24h PO 37.5 mg BEDTIME KASI Administration Zinc Sulfate 220 mg 05/20/20 09:00 05/31/20 09:03 Zinc Sulfate 220 Mg Capsule PO 220 mg DAILY KASI Administration Labs CBC & Chem 7: 05/29/20 05:32 05/29/20 05:32 Microbiology Microbiology Results: Microbiology 05/05/20 13:37 Blood - Venous Blood Culture - Final No growth after 5 days. 05/05/20 13:29 Blood - Venous Blood Culture - Final No growth after 5 days. Assessment and Plan (1) Acute hypoxemic respiratory failure: Status: Acute Assessment and Plan: 55F presented with sob acute hypoxic respiratory failure due to covid viral sepsis resolved down to 5L NC, intermittent venti prednisone 40mg, day #5 -- slow taper over next 3-4 weeks s/p plasma, remdesivir, doxy 10 day course finished IgG positive inflammatory makers improving goal is to be down to 2-3L and d/c home with O2 Anemia, acute blood loss h/h stable, however had very brisk / significant bleed from picc line while on full dose lovenox so will avoid full dose lovenox Asthma singular steroids and bronchodilators as above HTN restarted her hctz Asthenia ambulating in the room full code dvt pptx, lovenox
--- NOTE | 2020-05-31 13:34 | MHC.CM.PN ---
DP Home with [facility], and a referral to [facility]. Reason for continued stay, supplemental oxygen required.
--- NOTE | 2020-05-31 14:04 | PC.NURSE ---
1200 PATIENT 02 SAT 98% ON VENTI-MASK AND 5L NC. PATIENT WEAN DOWN TO 5L NC. SATING 96%.WILL CONTINUE TO MONITOR AND ASSESS
[2020-05-31] MEDS: Enoxaparin Sodium 40 MG/0.4 ML SYRINGE SUBCUT (16:37)
[2020-05-31] MEDS: Atorvastatin Calcium 20 MG TABLET PO (20:40)
[2020-05-31] MEDS: Montelukast Sodium 10 MG TABLET PO (20:40)
[2020-05-31] MEDS: traZODone HCL 50 MG TABLET PO (20:40)
[2020-05-31] MEDS: Venlafaxine HCl ER 37.5 MG CAP.ER.24H PO (20:40)
--- NOTE | 2020-05-31 21:03 | HO.WOUNDCONS ---
History of Present Illness Data of Consult Service Date: 05/31/20 Requesting physician: Jravis Puga Primary Care Provider: BENITO Salazar Reason for consult: left buttock wound Review of Systems Constitutional: Constitutional: Reports weakness ENT: Reports dizziness Neurologic: Denies Neuro-related abnormal movements, Reports dizziness and Reports weakness [facility] Medical History Arthritis Asthma Coronavirus infection Depression HLD (hyperlipidemia) Hypertension Functional capacity: independent ambulation Family History Other No family history of coronary artery disease Surgical History Hx of knee surgery Social History Household Members: Spouse Housing: Apartment Do you presently have visiting nurse or other home services: No Alcohol intake: never Smoking Status: Never smoker Smoked in Last 30 Days: No Use of substances other than those prescribed or required for medical reasons: No Currently Displaying Signs/Symptoms of Drug Intoxication Withdrawal: No Have you been hit, kicked, punched, or otherwise hurt by someone within the past year? If so, by whom?: No Do you feel safe in your current relationship?: Yes Is there a partner from a previous relationship who is making you feel unsafe now?: No Are you made to feel afraid or neglected: No Advance Directives: No Advance Directives Information Provided: No Advance Directives on File: No Do you have thoughts of harming others: None Do you have a plan to hurt others: No Plan service: No Current occupational status: unemployed and disabled Meds Allergies Allergy/AdvReac Type Severity Reaction Status Date / Time No Known Allergies Allergy Verified 05/03/20 09:48 [No Known Allergies*] Home Medications Medication Instructions Recorded Confirmed Type hydrochlorothiazide 12.5 mg PO DAILY 05/05/20 05/05/20 History montelukast 10 mg PO BEDTIME 05/05/20 05/05/20 History simvastatin 40 mg PO BEDTIME 05/05/20 05/05/20 History trazodone 50 mg PO BEDTIME 05/05/20 05/05/20 History venlafaxine 37.5 mg PO DAILY 05/05/20 05/05/20 History Physical Exam Vital Signs and Narrative: Vital Signs: Last Vital Signs Temp 98.2 F 05/31/20 20:00 Pulse 100 05/31/20 20:38 Resp 20 05/31/20 20:00 BP 115/78 05/31/20 20:00 Pulse Ox 97 05/31/20 20:00 Body Mass Index 31.2 1. Acute respiratory failure with hypoxia due to covid 19 on ventimask now, stable prednisone 40mg, day #3 s/p plasma, remdesivir, doxy 10 day course finished IgG positive 2. Anemia, acute blood loss h/h stable, however had very brisk / significant bleed from picc line while on full dose lovenox so will avoid full dose lovenox 3. Asthma singular steroids and bronchodilators as above 4. HTN hctz on hold 5. Asthenia ambulating in the hallway pt wishes to be at home upon d/c - may need vna + pt full code dvt pptx, lovenox dispo: Home with services, hopefully this week when O2 requirement down to 2-3L by [place] Cardio: Other: Last Vital Signs Temp 97.6 F 05/28/20 12:00 Pulse 96 05/28/20 12:00 Resp 24 H 05/28/20 12:00 BP 126/61 05/28/20 12:00 Pulse Ox 92 05/28/20 12:00 Body Mass Index 31.2 Skin: Other: small areas of stage 2 breakdown of skin on left buttock cheek. no evidence of cellulitis. Results Labs CBC and Chem 7: 05/29/20 05:32 05/29/20 05:32 Assessment and Plan (1) Acute hypoxemic respiratory failure: Problem details: stage 2 ulcer on left buttock probably from transfering shearing injury - looks ok and clean - con with barrier cream and alevyn to protect if sitting in one place for long. cont offloading and of course cont with treatment of covid sx. Status: Acute 55F presented with sob acute hypoxic respiratory failure due to covid viral sepsis resolved down to 5L NC, intermittent venti prednisone 40mg, day #5 -- slow taper over next 3-4 weeks s/p plasma, remdesivir, doxy 10 day course finished IgG positive inflammatory makers improving goal is to be down to 2-3L and d/c home with O2 Anemia, acute blood loss h/h stable, however had very brisk / significant bleed from picc line while on full dose lovenox so will avoid full dose lovenox Asthma singular steroids and bronchodilators as above HTN restarted her hctz Asthenia ambulating in the room full code dvt pptx, lovenox
[2020-05-31] MEDS: Zinc Oxide 20% Ointment 28.35 GM TUBE 1 APPL TOPICAL (22:42)
[2020-06-01 01:07] VITALS: BP 110/54; PULSE 121; RESP 18; TEMP 37.8; O2SAT 91
[2020-06-01] MEDS: Acetaminophen 325 MG TABLET 650 MG PO (01:21)
[2020-06-01 04:00] VITALS: BP 114/67; PULSE 110; RESP 18; TEMP 36.6; O2SAT 95
[2020-06-01 08:00] VITALS: BP 126/67; PULSE 134; RESP 22; TEMP 36.4; O2SAT 91
[2020-06-01] MEDS: hydroCHLOROthiazide 25 MG TABLET PO (09:14)
[2020-06-01] MEDS: Zinc Oxide 20% Ointment 28.35 GM TUBE 1 APPL TOPICAL (09:14)
[2020-06-01] MEDS: predniSONE 20 MG TABLET 40 MG PO (09:14)
[2020-06-01] MEDS: Famotidine 20 MG TABLET PO (09:14)
[2020-06-01] MEDS: Zinc Sulfate 220 MG CAPSULE PO (09:14)
[2020-06-01] MEDS: Ascorbic Acid 500 MG TABLET PO (09:14)
[2020-06-01] MEDS: 0.9 % Sodium Chloride Flush 3 ML SYRINGE IVFLUSH (09:15)
--- NOTE | 2020-06-01 11:50 | P.DS_ITS ---
DS: Providers Provider Date of admission: 05/05/20 16:51 Primary care physician: Rancho Overton NP Consults: 05/05/20 20:54 Consult to Infectious Diseases Routine Consulting Provider: Adore Siddiqui Reason for consultation: covid pna 05/30/20 10:04 Consult to Wound Care Provider Routine Consulting Provider: [facility] Wound Care Management Reason for consultation: stage 2 ulcers DS: Diagnosis Discharge Diagnosis (1) Acute hypoxemic respiratory failure: Status: Acute Problem details: stage 2 ulcer on left buttock probably from transfering shearing injury - looks ok and clean - con with barrier cream and alevyn to protect if sitting in one place for long. cont offloading and of course cont with treatment of covid sx. (2) COVID-19: Status: Acute (3) Sepsis: Status: Acute (4) Pneumonia: Status: Acute DS: Medications Discharge Medications Home Medications: Home Medications Medication Instructions Recorded Confirmed hydrochlorothiazide 12.5 mg PO DAILY 05/05/20 05/05/20 montelukast 10 mg PO BEDTIME 05/05/20 05/05/20 simvastatin 40 mg PO BEDTIME 05/05/20 05/05/20 trazodone 50 mg PO BEDTIME 05/05/20 05/05/20 venlafaxine 37.5 mg PO DAILY 05/05/20 05/05/20 Previous Rx's Medication Instructions Recorded prednisone 10 mg PO DAILY #45 tab 06/01/20 DS: Summary Hospital Course Hospital Course: Patient had prolonged admission, please see complete medical record for full course. In summary patient was admitted for viral sepsis due to COVID-19 pneumonia complicated by acute hypoxic respiratory failure. She received complex and plasma, remdesivir, doxycycline, prednisone taper. She was eventually able to be weaned off high levels of oxygen. she is feeling much better will be discharged home to complete 3 more weeks of her prednisone taper. Time Spent with Patient Time attestation: Total time spent providing and/or coordinating discharge services: Physical Exam Vital Signs: Vital Signs: Last Vital Signs Temp 97.5 F 06/01/20 08:00 Pulse 134 H 06/01/20 08:00 Resp 22 H 06/01/20 08:00 BP 126/67 06/01/20 08:00 Pulse Ox 91 L 06/01/20 08:00 Body Mass Index 31.2 General: AO X 3, no acute distress Resp: CTA bilateral CVS: S1,S2,RRR GI: soft, non tender, non distended Neuro: motor grossly intact Psych: appropriate affect DS: Data Data Completed and Pending Labs on day of discharge: 05/05/20 12:20 XR chest 1V Stat 0.9 % Sodium Chloride [Ns] 1,000 ml IVCONT 999 mls/hr 05/05/20 12:40 B Type Natriuretic Peptide Stat Basic Metabolic Panel Stat C Reactive Protein Stat Complete Blood Count Auto Diff Stat D Dimer Stat Ferritin Stat Hold Lav - Possible Hematology Stat Lactate Dehydrogenase Stat Liver Panel Stat Magnesium Stat Procalcitonin Stat Prothrombin Time INR Stat Troponin-I High Sensitivity Stat 05/05/20 12:41 Lactic Acid Stat 05/05/20 12:52 ECG 12 lead EKG Stat EKG Documentation DIRECTED Albuterol Sulfate (0.083%) [Ventolin (0.083%)] 5 mg INHALE ONCE ONE 05/05/20 12:53 guaiFEN/Codeine SF 200/20/10ML [Robitussin AC 200/20/10ML] 10 ml PO ONCE ONE 05/05/20 13:08 Piperacillin Sodium/Tazobactam [Zosyn] 3.375 gm 0.9 % Sodium Chloride [Ns] 50 ml IV ONCE 05/05/20 13:31 CT angio chest PE protocol Stat 05/05/20 13:32 Piperacillin Sodium/Tazobactam [Zosyn] 3.375 gm IV .STK-MED ONE 05/05/20 13:37 Blood Culture X2 [BC] Stat 05/05/20 14:15 Albuterol Sulfate [Ventolin] 2 puff INHALE ONCE ONE 05/05/20 14:25 iohexoL 350 MG/ML [Omnipaque 350 MG/ML] 65 ml IV ONCE ONE 05/05/20 15:07 Acetaminophen with Codeine # 3 [Tylenol with Codeine #3] 1 tab PO ONCE ONE Cyclobenzaprine HCl [Flexeril] 10 mg PO ONCE ONE 05/05/20 15:36 Consult Rx Perform Med Rec 1 each MISCELLANE ONCE PRN 05/05/20 16:06 SARS COV2 PCR INHOUSE Stat 05/05/20 16:11 Add Laboratory Test Stat 05/05/20 16:43 Transfer Order Routine 05/05/20 Dinner Regular Diet 05/05/20 20:54 dexAMETHasone sod phosphate [Decadron] 6 mg IVPUSH DAILY 05/05/20 21:00 Enoxaparin Sodium [Lovenox] 40 mg SUBCUT Q24H 05/05/20 21:08 UA CC w/rflx Micro + Cult Stat Ur Preg Test Stat 05/06/20 06:33 Basic Metabolic Panel DAILY@0600 Complete Blood Count no Diff DAILY@0600 05/06/20 09:00 Atorvastatin Calcium [Lipitor] 10 mg PO DAILY Venlafaxine HCl ER [Effexor XR] 37.5 mg PO DAILY hydroCHLOROthiazide [Microzide] 12.5 mg PO DAILY 05/06/20 11:00 guaiFEN/Codeine SF 200/20/10ML [Robitussin AC 200/20/10ML] 5 ml PO Q6H 05/07/20 XR chest 1V Urgent 05/07/20 01:54 diphenhydrAMINE HCL [Benadryl] 25 mg IVPUSH ONCE ONE 05/07/20 09:20 guaiFEN/Codeine SF 200/20/10ML [Robitussin AC 200/20/10ML] 10 ml PO Q6H 05/07/20 09:38 Convalescent Covid Plasma Routine Type and Screen Routine 05/07/20 10:39 Liver Panel Routine 05/07/20 13:13 Basic Metabolic Panel Stat 05/07/20 15:30 Remdesivir 200 mg 0.9 % Sodium Chloride [Ns] 210 ml IV ONCE 05/08/20 05:45 Basic Metabolic Panel DAILY Basic Metabolic Panel DAILY@0600 Complete Blood Count no Diff DAILY@0600 Liver Panel DAILY@0600 05/08/20 10:00 Doxycycline Hyclate [Vibramycin] 100 mg 0.9 % Sodium Chloride [Ns] 250 ml IV Q12H 05/08/20 10:32 D Dimer Routine 05/08/20 10:38 Doxycycline Hyclate [Vibramycin] 100 mg IV .STK-MED ONE 05/08/20 16:00 Remdesivir 100 mg 0.9 % Sodium Chloride [Ns] 230 ml IV Q24H 05/08/20 23:37 Doxycycline Hyclate [Vibramycin] 100 mg IV .STK-MED ONE 05/09/20 10:19 Doxycycline Hyclate [Vibramycin] 100 mg IV .STK-MED ONE 05/09/20 11:15 hydroCHLOROthiazide [Microzide] 12.5 mg PO DAILY 05/09/20 13:19 Basic Metabolic Panel Urgent Complete Blood Count no Diff Urgent Liver Panel Urgent 05/09/20 21:00 Atorvastatin Calcium [Lipitor] 10 mg PO BEDTIME 05/09/20 21:17 Doxycycline Hyclate [Vibramycin] 100 mg IV .STK-MED ONE 05/10/20 05:36 Basic Metabolic Panel DAILY@0600 Complete Blood Count no Diff DAILY@0600 Liver Panel Routine 05/10/20 08:33 Doxycycline Hyclate [Vibramycin] 100 mg IV .STK-MED ONE 05/10/20 09:10 D Dimer Routine 05/10/20 12:01 Add Laboratory Test Routine 05/10/20 21:17 Doxycycline Hyclate [Vibramycin] 100 mg IV .STK-MED ONE 05/11/20 08:40 Doxycycline Hyclate [Vibramycin] 100 mg IV .STK-MED ONE 05/11/20 21:05 Doxycycline Hyclate [Vibramycin] 100 mg IV .STK-MED ONE 05/12/20 XR chest 1V Routine 05/12/20 05:40 Complete Blood Count Auto Diff DAILY@0600 D Dimer Routine 05/12/20 05:41 Basic Metabolic Panel DAILY@0600 C Reactive Protein Routine Liver Panel DAILY@0600 Procalcitonin Routine 05/12/20 08:24 Doxycycline Hyclate [Vibramycin] 100 mg IV .STK-MED ONE 05/12/20 14:56 Add Laboratory Test Routine 05/12/20 22:00 Doxycycline Hyclate [Vibramycin] 100 mg PO Q12H 05/13/20 06:18 Basic Metabolic Panel DAILY@0600 Complete Blood Count Auto Diff DAILY@0600 D Dimer Routine Procalcitonin Routine 05/14/20 XR chest 1V Stat 05/14/20 00:19 Morphine Sulfate 4 mg IVPUSH ONCE ONE 05/14/20 08:40 Morphine Sulfate 2 mg IVPUSH ONCE ONE 05/14/20 08:45 Basic Metabolic Panel Routine Complete Blood Count Auto Diff Routine D Dimer Routine Procalcitonin Routine 05/14/20 09:00 Enoxaparin Sodium [Lovenox] 75 mg SUBCUT Q12H methylPREDNISolone Sod Succ/PF [SOLU-MedroL] 60 mg IVPUSH Q12H 05/14/20 09:12 Morphine Sulfate 2 mg IVPUSH Q4H PRN 05/14/20 09:35 Venous Blood Gas Routine 05/14/20 21:00 Atorvastatin Calcium [Lipitor] 80 mg PO BEDTIME methylPREDNISolone Sod Succ/PF [SOLU-MedroL] 60 mg IVPUSH Q12H 05/15/20 IR cvc insert peripheral Urgent 05/15/20 05:45 Basic Metabolic Panel DAILY@0600 C Reactive Protein Routine Complete Blood Count no Diff DAILY@0600 D Dimer Routine Procalcitonin Routine 05/15/20 09:41 Add Laboratory Test Routine 05/15/20 10:51 Lidocaine HCl 1 % MPF [Xylocaine 1 % MPF] 5 ml .ROUTE .STK-MED ONE 05/16/20 06:10 Basic Metabolic Panel DAILY@0600 Complete Blood Count no Diff DAILY@0600 05/16/20 11:34 SARS COV2 IgG Routine 05/17/20 05:57 Basic Metabolic Panel DAILY@0600 Complete Blood Count no Diff DAILY@0600 05/17/20 09:52 LORazepam [Ativan] 0.5 mg PO Q8H PRN 05/18/20 05:52 Basic Metabolic Panel Routine Complete Blood Count Auto Diff Routine 05/18/20 15:33 methylPREDNISolone Sod Succ/PF [SOLU-MedroL] 40 mg IVPUSH Q12H 05/19/20 05:51 Basic Metabolic Panel DAILY@0600 C Reactive Protein Routine Complete Blood Count no Diff DAILY@0600 05/19/20 Lunch Regular Diet 05/20/20 06:34 Complete Blood Count no Diff DAILY@0600 05/20/20 06:35 Basic Metabolic Panel DAILY@0600 05/20/20 09:15 Dextrose 5 % and 0.9 % NaCl [D5ns] 1,000 ml IVCONT 100 mls/hr 05/21/20 XR chest 1V Routine 05/21/20 06:41 Basic Metabolic Panel DAILY@0600 Complete Blood Count no Diff DAILY@0600 05/21/20 10:00 Albumin Human 25 % [Kedbumin 25 %] 100 ml IV Q6H 05/21/20 12:00 Furosemide [Lasix] 20 mg IVPUSH ONCE ONE 05/22/20 05:48 Basic Metabolic Panel DAILY@0600 Complete Blood Count no Diff DAILY@0600 05/22/20 17:02 Furosemide [Lasix] 20 mg IVPUSH ONCE ONE methylPREDNISolone Sod Succ/PF [SOLU-MedroL] 30 mg IVPUSH Q12H 05/23/20 05:55 Basic Metabolic Panel DAILY@0600 Complete Blood Count no Diff DAILY@0600 05/23/20 06:00 methylPREDNISolone Sod Succ/PF [SOLU-MedroL] 30 mg IVPUSH Q12H 05/23/20 16:30 Furosemide [Lasix] 20 mg IVPUSH ONCE ONE 05/23/20 18:00 Enoxaparin Sodium [Lovenox] 40 mg SUBCUT Q24H 05/24/20 05:40 Basic Metabolic Panel DAILY@0600 C Reactive Protein Routine Complete Blood Count no Diff DAILY@0600 D Dimer Routine Procalcitonin Routine 05/24/20 07:00 XR chest 1V Routine 05/24/20 18:55 Morphine Sulfate 2 mg IVPUSH Q4H PRN 05/25/20 14:14 Furosemide [Lasix] 20 mg IVPUSH ONCE ONE 05/25/20 15:00 Albumin Human 25 % [Kedbumin 25 %] 100 ml IV Q6H 05/26/20 08:08 Basic Metabolic Panel Routine Complete Blood Count no Diff Routine 05/29/20 05:32 Basic Metabolic Panel DAILY@0600 C Reactive Protein Routine Complete Blood Count no Diff DAILY@0600 Procalcitonin Routine 05/29/20 07:00 XR chest 1V Routine 05/29/20 12:44 Furosemide [Lasix] 40 mg IVPUSH ONCE ONE 05/29/20 12:45 Albumin Human 25 % [Kedbumin 25 %] 100 ml IV Q6H 05/30/20 14:58 Furosemide [Lasix] 40 mg IVPUSH ONCE ONE 05/31/20 21:08 Zinc Oxide 20% Ointment 1 appl TOPICAL DAILY ONE Laboratory Last Values WBC 10.0 X10*3/uL (4.8-10.8) 05/29/20 05:32 RBC 4.39 X10*6/uL (4.20-5.50) 05/29/20 05:32 Hgb 11.6 g/dl (12.0-16.0) L 05/29/20 05:32 Hct 37.4 % (37-47) 05/29/20 05:32 MCV 85.2 fL (80-98) 05/29/20 05:32 MCH 26.4 pg (27.0-33.0) L 05/29/20 05:32 MCHC 31.0 g/dl (31.0-35.0) 05/29/20 05:32 RDW 16.0 % (11.0-16.0) 05/29/20 05:32 Plt Count 264 X10*3/uL (160-400) 05/29/20 05:32 MPV 10.5 fL (9.4-12.3) 05/29/20 05:32 Immature Gran % (Auto) Cancelled 05/23/20 05:55 Neut % (Auto) Cancelled 05/23/20 05:55 Lymph % (Auto) Cancelled 05/23/20 05:55 [place] % (Auto) Cancelled 05/23/20 05:55 Eos % (Auto) Cancelled 05/23/20 05:55 Baso % (Auto) Cancelled 05/23/20 05:55 Lymph # (Auto) Cancelled 05/23/20 05:55 [place] # (Auto) Cancelled 05/23/20 05:55 Eos # (Auto) Cancelled 05/23/20 05:55 Baso # (Auto) Cancelled 05/23/20 05:55 Abs Immat Gran (auto) Cancelled 05/23/20 05:55 Absolute Neuts (auto) Cancelled 05/23/20 05:55 Absolute Nucleated RBC 0.020 X10*3/uL (0.0-0.012) H 05/29/20 05:32 Nucleated RBC % (auto) 0.2 /100WBC (0.0-0.2) 05/29/20 05:32 Hold Purple Top SEE NOTE 05/05/20 12:40 PT 12.9 SEC (10.8-13.0) 05/05/20 12:40 INR 1.1 (0.9-1.1) 05/05/20 12:40 D-Dimer 549 NG/ML 05/24/20 05:40 VBG pH 7.46 (7.32-7.43) H 05/14/20 09:35 VBG pCO2 35 mmhg 05/14/20 09:35 VBG Oxygen Liters/Min Not Reportable 05/14/20 09:35 VBG pO2 60 mmhg 05/14/20 09:35 VBG HCO3 25 mmol/L 05/14/20 09:35 VBG O2 Saturation 92.9 % 05/14/20 09:35 VBG Base Excess 1.1 mmol/L 05/14/20 09:35 Sodium 144 mmol/L (135-145) 05/29/20 05:32 Potassium 3.3 mmol/l (3.3-5.1) 05/29/20 05:32 Chloride 106 mmol/L (96-108) 05/29/20 05:32 Carbon Dioxide 28 mmol/L (22-29) 05/29/20 05:32 Anion Gap 13 (-20) 05/29/20 05:32 BUN 31 mg/dL (9-16) H 05/29/20 05:32 Creatinine 0.57 mg/dL (0.5-1.4) 05/29/20 05:32 Estim Creat Clear Calc 101.5 05/29/20 05:32 Estimated GFR > 60 05/29/20 05:32 Random Glucose 73 mg/dL (60-115) 05/29/20 05:32 Lactic Acid 1.5 mmol/L (0.5-2.0) 05/05/20 12:41 Calcium 9.5 mg/dL (8.4-10.2) 05/29/20 05:32 Magnesium 2.3 mg/dL (1.6-2.6) 05/05/20 12:40 Ferritin 104 ng/mL (10-250) 05/05/20 12:40 Total Bilirubin 1.1 mg/dL (0.0-1.0) H 05/12/20 05:41 Direct Bilirubin 0.4 mg/dL (0.0-0.5) 05/12/20 05:41 AST 18 U/L (5-31) 05/12/20 05:41 ALT 13 U/L (0-31) 05/12/20 05:41 Alkaline Phosphatase 52 U/L (39-117) 05/12/20 05:41 Lactate Dehydrogenase 226 U/L (122-220) H 05/05/20 12:40 Troponin I High Sens < 3.5 ng/L (<3.5-17.0) 05/05/20 12:40 C-Reactive Protein 1.53 mg/dL (< or = 0.50) H 05/29/20 05:32 B-Natriuretic Peptide 50 pg/mL (<100) 05/05/20 12:40 Total Protein 6.0 g/dL (6.5-8.0) L 05/12/20 05:41 Albumin 3.2 g/dL (3.5-5.0) L 05/12/20 05:41 Procalcitonin 0.02 ng/mL 05/29/20 05:32 Urine Color YELLOW 05/05/20 21:08 Urine Appearance CLEAR 05/05/20 21:08 Urine pH 7.0 (5.0-8.0) 05/05/20 21:08 Ur Specific [place] 1.010 (1.005-1.025) 05/05/20 21:08 Urine Protein NEG MG/DL (NEG-TRACE) 05/05/20 21:08 Urine Glucose (UA) NEG MG/DL (NEG) 05/05/20 21:08 Urine Ketones NEG MG/DL (NEG) 05/05/20 21:08 Urine Blood NEG (NEG) 05/05/20 21:08 Urine Nitrite NEG (NEG) 05/05/20 21:08 Ur Leukocyte Esterase NEG (NEG) 05/05/20 21:08 Urine Test NEGATIVE (NEGATIVE) 05/05/20 21:08 Coronavirus (PCR) POSITIVE (Negative) A 05/05/20 16:06 SARS-CoV-2 IgG Ab Positive (Negative) 05/16/20 11:34 Blood Type O Positive 05/07/20 09:38 Antibody Screen NEGATIVE 05/07/20 09:38 Discharge Plan Discharge Patient Disposition: Home, Self-Care Referrals: Rancho Overton NP [Primary Care Provider] - Discharge Medications: New prednisone 10 mg tablet 10 mg PO DAILY Qty: 45 RF: 0 Continued venlafaxine 37.5 mg capsule,extended release 24hr 37.5 mg PO DAILY RF: 0 trazodone 50 mg tablet 50 mg PO BEDTIME RF: 0 simvastatin 40 mg tablet 40 mg PO BEDTIME RF: 0 montelukast 10 mg tablet 10 mg PO BEDTIME RF: 0 hydrochlorothiazide 12.5 mg tablet 12.5 mg PO DAILY RF: 0 Discharge Orders: Discharge Order (Routine); Ordered 06/01/20 Ordered By: Pranay Nelson Activity on Discharge: As tolerated Visit Report Forms: Patient Portal Discharge page Care Plan Goals: recovery Health Concerns: covid Plan of Treatment: steroid taper
[2020-06-01 12:00] VITALS: BP 115/71; PULSE 127; RESP 22; TEMP 36.3; O2SAT 97
--- NOTE | 2020-06-01 12:06 | MHC.CM.PN ---
Patient has been medically cleared for dc to home today, no services.
--- NOTE | 2020-06-01 12:25 | MHC.CM.PN ---
CM received a call from Patient's RN, stating that Patient will be going home on new O2 that is not yet set up in the home and that Patient wants VNA at the time of dc. VIVIANE met with RT/Gayathri, who explained that it is very unlikely that a new O2 set up is possible today with limited staffing (thanksgiving). VIVIANE relayed this information to MD and CM requested that MD speak directly with RT. CM will continue to follow.
--- NOTE | 2020-06-01 12:57 | HO.PM.IMPN ---
Subjective Subjective Date of Service: 06/01/20 Interval History: sob improved Cardiovascular Cardiovascular: Reports no additional cardiovascular complaints Gastrointestinal Gastrointestinal: Reports no additional gastrointestinal complaints Physical Exam Vital Signs: Vital Signs: Last Vital Signs Temp 97.5 F 06/01/20 08:00 Pulse 134 H 06/01/20 08:00 Resp 22 H 06/01/20 08:00 BP 126/67 06/01/20 08:00 Pulse Ox 91 L 06/01/20 08:00 Body Mass Index 31.2 General: AO X 3, no acute distress Resp: CTA bilateral CVS: S1,S2,RRR GI: soft, non tender, non distended Neuro: motor grossly intact Psych: appropriate affect Objective Data Current Medications Generic Name Dose Route Start Last Admin Trade Name Freq PRN Reason Stop Dose Admin Acetaminophen 650 mg 05/05/20 20:54 06/01/20 01:21 Acetaminophen 325 Mg Tablet PO 650 mg Q6H PRN Administration Pain, Mild (Pain Scale 1-3) Albuterol Sulfate 2 puff 05/05/20 20:54 05/07/20 01:50 EDT Albuterol Sulfate 90 Mcg 8 Gm Inhaler INHALE 2 puff Q4H PRN Administration shortness of breath Albuterol Sulfate 2 puff 05/23/20 20:00 06/01/20 10:36 Albuterol Sulfate 90 Mcg 8 Gm Inhaler INHALE Not Given RQ4H WHILE AWAKE KASI Ascorbic Acid 500 mg 05/20/20 09:00 06/01/20 09:14 Ascorbic Acid 500 Mg Tablet PO 500 mg DAILY KASI Administration Atorvastatin Calcium 20 mg 05/18/20 21:00 05/31/20 20:40 Atorvastatin Calcium 20 Mg Tablet PO 20 mg BEDTIME KASI Administration Benzocaine 1 lozenge 05/13/20 21:23 05/13/20 22:13 Throat Lozenge, Medicated Lozenge MUCOUS MEM 1 lozenge Q2H PRN Administration Sore Throat Docusate Sodium 100 mg 05/05/20 20:54 05/16/20 19:31 Docusate Sodium 100 Mg Capsule PO 100 mg DAILY PRN Administration Constipation Enoxaparin Sodium 40 mg 05/25/20 18:00 05/31/20 16:37 Enoxaparin Sodium 40 Mg/0.4 Ml Syringe SUBCUT 40 mg Q24H KASI Administration Famotidine 20 mg 05/10/20 12:00 06/01/20 09:14 Famotidine 20 Mg Tablet PO 20 mg BID KASI Administration Hydrochlorothiazide 25 mg 05/30/20 11:45 06/01/20 09:14 Hydrochlorothiazide 25 Mg Tablet PO 25 mg DAILY KASI Administration Protocol Montelukast Sodium 10 mg 05/05/20 21:00 05/31/20 20:40 Montelukast Sodium 10 Mg Tablet PO 10 mg BEDTIME KASI Administration Morphine Sulfate 2 mg 05/29/20 19:12 Morphine Sulfate 2 Mg/Ml Cartridge IVPUSH Q4H PRN respiratory distress Ondansetron HCl 4 mg 05/05/20 20:54 05/31/20 10:49 Ondansetron Hcl 4 Mg/2 Ml Vial IVPUSH 4 mg Q8H PRN Administration Nausea and Vomiting Ondansetron HCl 4 mg 05/10/20 12:14 Ondansetron Hcl 4 Mg/2 Ml Vial IVPUSH Q8H PRN Nausea and Vomiting Polyethylene Glycol 17 gm 05/30/20 11:45 06/01/20 09:15 Polyethylene Glycol 3350 17 Gm Powd.Pack PO Not Given DAILY [facility] Prednisone 40 mg 05/27/20 09:00 06/01/20 09:14 Prednisone 20 Mg Tablet PO 40 mg DAILY [facility] Administration Sodium Chloride 3 ml 05/06/20 00:00 06/01/20 09:15 0.9 % Sodium Chloride Flush 3 Ml Syringe IVFLUSH 3 ml QSHIFT [facility] Administration Trazodone HCl 50 mg 05/05/20 21:00 05/31/20 20:40 Trazodone Hcl 50 Mg Tablet PO 50 mg BEDTIME KASI Administration Venlafaxine HCl 37.5 mg 05/09/20 21:00 05/31/20 20:40 Venlafaxine Hcl Er 37.5 Mg Cap.Er.24h PO 37.5 mg BEDTIME [facility] Administration Zinc Oxide 1 appl 06/01/20 09:00 06/01/20 09:14 Zinc Oxide 20% Ointment 28.35 Gm Tube TOPICAL 1 appl DAILY [facility] Administration Protocol Zinc Sulfate 220 mg 05/20/20 09:00 06/01/20 09:14 Zinc Sulfate 220 Mg Capsule PO 220 mg DAILY [facility] Administration Labs CBC & Chem 7: 05/29/20 05:32 05/29/20 05:32 Microbiology Microbiology Results: Microbiology 05/05/20 13:37 Blood - Venous Blood Culture - Final No growth after 5 days. 05/05/20 13:29 Blood - Venous Blood Culture - Final No growth after 5 days. Assessment and Plan (1) Acute hypoxemic respiratory failure: Problem details: stage 2 ulcer on left buttock probably from transfering shearing injury - looks ok and clean - con with barrier cream and alevyn to protect if sitting in one place for long. cont offloading and of course cont with treatment of covid sx. Status: Acute (2) COVID-19: Status: Acute (3) Sepsis: Status: Acute (4) Pneumonia: Status: Acute Assessment and Plan: 55F presented with sob acute hypoxic respiratory failure due to covid viral sepsis resolved weaned to 2L at rest, 6L on exertion expect to conitnue slow recovery, would dc once home o2 set up prednisone taper Anemia, acute blood loss h/h stable, however had very brisk / significant bleed from picc line while on full dose lovenox so will avoid full dose lovenox Asthma singular steroids and bronchodilators as above HTN restarted her hctz Asthenia ambulating in the room full code dvt pptx, lovenox
[2020-06-01 13:42] VITALS: PULSE 163; PULSE 166; PULSE 170; O2SAT 80; O2SAT 85; O2SAT 86; O2SAT 93
--- NOTE | 2020-06-01 13:42 | MHC.CM.PN ---
After further discussion with , VIVIANE contacted RT Director/Shamar at home. Shamar has reached out to [facility] to determine if there is anyone information technology advisor today, who can assist with a new O2 set up in the home today. VIVIANE awaits further notice regarding the ability to secure O2 in the home and will continue to follow for dc planning. made aware.
[2020-06-01 15:57] VITALS: BP 124/68; PULSE 126; RESP 22; TEMP 36.3; O2SAT 93
--- NOTE | 2020-06-01 16:16 | MHC.CM.PN ---
Per RN, new home O2 was able to be arranged in the home and Patient can be dc at 5 PM; MD aware and in agreement with this dc plan. IMM addressed today and Patient is aware and pleased with the dc plan.
--- NOTE | 2020-06-01 16:57 | PC.NURSE ---
PICC line removed by this RN at this time. Patient tolerated well. 44 cm at tip. No resp distress, occlusive dressing applied and remains D&I.
== END 2020-06-01 18:12 | disposition home health service (06) | DRG 871 ==
LOC: HO.ED 15:55 → HO.IMC 18:22
PROVIDERS: Family Medicine; Hospitalist; Internal Medicine; Physician Assistant Medical; Admitting Provider Internal Medicine; Emergency Provider Emergency Medicine; PCP Nurse Practitioner Family; Visit Provider Internal Medicine
DX: A41.89 Other specified sepsis (principal); U07.1 COVID-19; J96.01 Acute respiratory failure with hypoxia; J12.89 Other viral pneumonia; D62 Acute posthemorrhagic anemia; E78.5 Hyperlipidemia, unspecified; I10 Essential (primary) hypertension; D72.829 Elevated white blood cell count, unspecified; L89.322 Pressure ulcer of left buttock, stage 2; Z79.899 Other long term (current) drug therapy
CPT/HCPCS: 36415; 36573; 71045; 71275; 80048; 80053; 80076; 81003; 81025; 82728; 82803; 83605; 83615; 83735; 83880; 84145; 84484; 85025; 85027; 85379; 85610; 85730; 86140; 86769; 86850; 86900; 86901; 87040; 93005; 96361; 96374; 99284; 99291; C1751; C1894; J1100; J1200; J1650; J1940; J2270; J2405; J2543; J2920; J2930; J3490; P9047; Q9967; U0003

== ENCOUNTER → 2020-09-04 09:25 | Outpatient (BNVA) | payer MEDICARE, MEDICAID, SELFPAY | PROVIDERS: PCP Nurse Practitioner Family; Visit Provider Advanced Practice Midwife ==

== ENCOUNTER 2020-10-23 12:45 | Outpatient (REF) | payer MEDICARE, MEDICAID, SELFPAY ==
--- NOTE | ~2020-10-23 | MM_ITS ---
EXAMINATION: MM SCREENING DIGITAL BREAST TOMOSYNTHESIS, BILATERAL CLINICAL INFORMATION: Screening. Asymptomatic. The lifetime risk of breast cancer based on the Tyrer-Cuzick Model is 7%. COMPARISON: Mammography: 01/28/2019, 12/30/2017, 12/16/2016 TECHNIQUE: Digital breast tomosynthesis is performed in both the craniocaudal and mediolateral oblique views along with computer-aided detection (CAD). Synthesized 2D images are generated from the tomosynthesis. FINDINGS: There are scattered areas of fibroglandular density (ACR BI-RADS breast composition Category b). Parenchymal pattern is similar to prior studies. There is no interval mass or architectural abnormality. Left breast again has smooth oval mass approximately 1.2 x 1.0 cm central anterior breast and smaller nodularity central right breast on CC view. There is no developing density. No abnormal calcifications. The axilla and skin contours are unremarkable. MM/MM tomosynthesis screening BI IMPRESSION: No significant changes from prior exams. ASSESSMENT: BI-RADS 2: Benign RECOMMENDATION: Routine annual mammography screening. This patient's information was entered into a reminder system with a target due date for their next mammogram.
== END 2020-10-23 12:46 | disposition home or self-care (01) ==
LOC: HO.MAMMO 12:45
PROVIDERS: PCP Family Medicine; Visit Provider Family Medicine
DX: Z12.31 Encounter for screening mammogram for malignant neoplasm of breast (principal)
CPT/HCPCS: 77063; 77067

== ENCOUNTER → 2020-10-26 15:23 | Outpatient (BNVA) | payer MEDICARE, MEDICAID, SELFPAY | PROVIDERS: Visit Provider Urology | CPT/HCPCS: Q3014 ==

== ENCOUNTER 2020-12-12 12:03 | Outpatient (REF) | payer MEDICARE, MEDICAID, SELFPAY ==
--- NOTE | ~2020-12-12 | XR_ITS ---
EXAMINATION: XR RIBS, RIGHT CLINICAL INFORMATION: Status post fall with pleurodynia. COMPARISON: Chest radiograph 05/29/2020. TECHNIQUE: 3 views of the right ribs were obtained. FINDINGS: Moderate interstitial lung disease is visualized in the right lung, slightly improved when compared to the prior study. This is most likely the residua of the previous COVID infection. The cardiomediastinal silhouette and pulmonary vasculature are normal. Osseous structures are unremarkable. Ribs are intact. No fractures are identified. XR/XR ribs RT 2V IMPRESSION: No rib fractures seen. Underlying pulmonary disease secondary to resolving COVID.
== END 2020-12-12 12:04 | disposition home or self-care (01) ==
LOC: HO.XRAY 12:03
PROVIDERS: PCP Family Medicine; Visit Provider Registered Nurse
DX: R07.81 Pleurodynia (principal); Z91.81 History of falling
CPT/HCPCS: 71100

== ENCOUNTER → 2021-03-20 12:52 | Outpatient (BNVA) | payer MEDICARE, MEDICAID, SELFPAY | PROVIDERS: PCP Family Medicine | DX: R32 Unspecified urinary incontinence (principal) | CPT/HCPCS: 99212 ==

== ENCOUNTER 2021-07-16 11:41 | Outpatient (REF) | payer MEDICARE, MEDICAID, SELFPAY ==
--- NOTE | ~2021-07-16 | XR_ITS ---
EXAMINATION: XR CHEST CLINICAL INFORMATION: Moderate persistent asthma with acute exacerbation COMPARISON: None TECHNIQUE: 2 views of the chest were obtained. FINDINGS: The lungs are well-expanded with increased bilateral parahilar vascular markings. There is patchy infiltrate left upper lobe. There is no pleural effusion. The heart size is normal. No gross bony abnormality. XR/XR chest 2V IMPRESSION: Left increased bilateral parahilar markings with the left upper lobe patchy infiltrate.
== END 2021-07-16 11:42 | disposition home or self-care (01) ==
LOC: HO.XRAY 11:41
PROVIDERS: PCP Family Medicine; Visit Provider Nurse Practitioner
DX: J45.41 Moderate persistent asthma with (acute) exacerbation (principal)
CPT/HCPCS: 71046

== ENCOUNTER 2021-08-23 10:49 | Outpatient (REF) | payer MEDICARE, MEDICAID, SELFPAY ==
[2021-08-23 11:46] LABS: Anion Gap 11 (12-20); Blood Urea Nitrogen 17 mg/dL (9-16); Calcium 9.6 mg/dL (8.4-10.2); Carbon Dioxide 26 mmol/L (22-29); Chloride 110 mmol/L (96-108); Estimated Glomerular Filt Rate > 60; Potassium 4.4 mmol/L (3.3-5.1); Sodium 143 mmol/L (135-145)
[2021-08-23 11:59] LABS: Appearance Urine HAZY; Color Urine YELLOW; Glucose Urine UA NEG (NEG); Leukocyte Esterase Urine NEG (NEG); Nitrite Urine NEG (NEG); PH 5.5 (5.0-8.0); Specific Gravity - Urine >= 1.030 (1.005-1.025); Urine Blood NEG (NEG); Urine Ketones NEG (NEG); Urine Protein TRACE MG/DL (NEG-TRACE)
[2021-08-23 12:03] LABS: Protein/Creatinine Ratio, Ur 0.05 (<0.2); Total Protein Urine Random 12 mg/dL (<12)
[2021-08-23 12:21] LABS: RBC Urine 0 /HPF (0); Squamous Epithelial Cell Urine TRACE /LPF
[2021-08-23 12:22] LABS: Mucus Urine 1+ /LPF; WBC Urine 0-2 /HPF (0-4)
[2021-08-23 12:23] LABS: Amorphous Sediment Urine 1+ /LPF
== END 2021-08-23 10:50 | disposition home or self-care (01) ==
LOC: HO.LAB 10:49
PROVIDERS: Visit Provider Internal Medicine Nephrology
DX: R80.9 Proteinuria, unspecified (principal)
CPT/HCPCS: 36415; 80051; 81001; 82310; 82565; 84156; 84520

== ENCOUNTER 2021-10-18 10:32 | Outpatient (REF) | payer MEDICARE, MEDICAID, SELFPAY ==
[2021-10-22 14:26] LABS: HPV mRNA E6/E7 rflx Not Detected (Not Detected)
== END 2021-10-18 10:33 | disposition home or self-care (01) ==
LOC: HO.LAB 10:32
PROVIDERS: PCP Family Medicine; Visit Provider Advanced Practice Midwife
DX: Z01.419 Encounter for gynecological examination (general) (routine) without abnormal findings (principal); Z11.51 Encounter for screening for human papillomavirus (HPV); R68.82 Decreased libido
CPT/HCPCS: 87624; 88142

== ENCOUNTER 2021-10-25 08:58 | Outpatient (REF) | payer MEDICARE, MEDICAID, SELFPAY ==
--- NOTE | ~2021-10-25 | MM_ITS ---
EXAMINATION: MM SCREENING DIGITAL BREAST TOMOSYNTHESIS, BILATERAL CLINICAL INFORMATION: Screening. Asymptomatic. The lifetime risk of breast cancer based on the Tyrer-Cuzick Model is 7.7%. COMPARISON: Mammography: October 23, 2020 and studies dating back to October 29, 2013 TECHNIQUE: Digital breast tomosynthesis is performed in both the craniocaudal and mediolateral oblique views along with computer-aided detection (CAD). Synthesized 2D images are generated from the tomosynthesis. FINDINGS: There are scattered areas of fibroglandular density (ACR BI-RADS breast composition Category b). There are no significant masses, abnormal calcifications, or other abnormalities. MM/MM tomosynthesis screening BI IMPRESSION: There are no significant changes from prior study. ASSESSMENT: BI-RADS 1: Negative RECOMMENDATION: Routine annual mammography screening. This patient's information was entered into a reminder system with a target due date for their next mammogram.
== END 2021-10-25 08:59 | disposition home or self-care (01) ==
LOC: HO.MAMMO 08:58
PROVIDERS: Visit Provider Family Medicine
DX: Z12.31 Encounter for screening mammogram for malignant neoplasm of breast (principal)
CPT/HCPCS: 77063; 77067

== ENCOUNTER 2021-11-22 09:01 | Outpatient (REF) | payer MEDICARE, MEDICAID, SELFPAY ==
--- NOTE | ~2021-11-22 | XR_ITS ---
EXAMINATION: XR KNEE, RIGHT XR KNEE, LEFT CLINICAL INFORMATION: Bilateral primary osteoarthritis. COMPARISON: None TECHNIQUE: Each knee is imaged in 4 views. There are total of 8 views. FINDINGS: Right: Normal bony mineralization. No fracture or dislocation or destructive process. There is osteoarthritis medial knee joint compartment with joint narrowing and osteophytes and mild genu varus. There is trace suprapatellar effusion with mild thickening of the bursa. Mild narrowing lateral patellofemoral joint. There is spurring at the quadriceps insertion patella. Hoffa's fat pad is unremarkable. Left: Normal bony mineralization. No fracture or dislocation or destructive process. There is osteoarthritis medial knee joint compartment with joint narrowing and osteophytes and mild genu varus. There is trace suprapatellar effusion with mild thickening of the bursa. Mild narrowing lateral patellofemoral joint. There is spurring at the quadriceps insertion patella. Hoffa's fat pad is unremarkable. XR/XR knee LT 4V IMPRESSION: -Bilateral osteoarthritis medial knee joint compartments with secondary genu varus and small effusions. -Bilateral narrowing patellofemoral joints.
--- NOTE | ~2021-11-22 | XR_ITS ---
EXAMINATION: XR KNEE, RIGHT XR KNEE, LEFT CLINICAL INFORMATION: Bilateral primary osteoarthritis. COMPARISON: None TECHNIQUE: Each knee is imaged in 4 views. There are total of 8 views. FINDINGS: Right: Normal bony mineralization. No fracture or dislocation or destructive process. There is osteoarthritis medial knee joint compartment with joint narrowing and osteophytes and mild genu varus. There is trace suprapatellar effusion with mild thickening of the bursa. Mild narrowing lateral patellofemoral joint. There is spurring at the quadriceps insertion patella. Hoffa's fat pad is unremarkable. Left: Normal bony mineralization. No fracture or dislocation or destructive process. There is osteoarthritis medial knee joint compartment with joint narrowing and osteophytes and mild genu varus. There is trace suprapatellar effusion with mild thickening of the bursa. Mild narrowing lateral patellofemoral joint. There is spurring at the quadriceps insertion patella. Hoffa's fat pad is unremarkable. XR/XR knee RT 4V IMPRESSION: -Bilateral osteoarthritis medial knee joint compartments with secondary genu varus and small effusions. -Bilateral narrowing patellofemoral joints.
[2021-11-22 09:25] LABS: MANUAL DIFF FLAG NO
[2021-11-22 09:53] LABS: Basophils Percent Auto 0.4 % (0-2); Eosinophils Absolute Auto 0.1 X10*3/uL (0.0-0.4); Eosinophils Percent Auto 1.6 % (0-4); Hematocrit 42.5 % (37.0-47.0); Hemoglobin 13.2 g/dl (12.0-16.0); Imm Gran Abs Auto 0.02 X10*3/uL (0.00-0.03); Imm Gran Pct Auto 0.2 % (0.0-0.4); Lymphocytes Absolute Auto 2.5 X10*3/uL (1.2-4.9); Lymphocytes Percent Auto 30.2 % (20-40); Mean Corpuscular HGB Conc 31.1 g/dl (31.0-35.0); Mean Corpuscular Hemoglobin 26.9 pg (27.0-33.0); Mean Corpuscular Volume 86.6 fL (80.0-98.0); Monocytes Absolute Auto 0.7 X10*3/uL (0.1-1.2); Monocytes Percent Auto 7.8 % (2-11); Neutrophils Percent Auto 59.8 % (45-73); Platelet Count 332 X10*3/uL (160-400); Red Blood Count 4.91 X10*6/uL (4.20-5.50); Red Cell Distribution Width 13.9 % (11.0-16.0); White Blood Count 8.4 X10*3/uL (4.8-10.8)
[2021-11-22 10:25] LABS: Alanine Aminotransferase 16 U/L (0-31); Alkaline Phosphatase 99 U/L (39-117); Anion Gap 12 (12-20); Aspartate Amino Transferase 14 U/L (5-31); Bilirubin Direct 0.4 mg/dL (0.0-0.5); Bilirubin Total 1.2 mg/dL (0.0-1.0); Blood Urea Nitrogen 17 mg/dL (9-16); Calcium 9.4 mg/dL (8.4-10.2); Carbon Dioxide 23 mmol/L (22-29); Chloride 109 mmol/L (96-108); Cholesterol 162 mg/dL; Estimated Glomerular Filt Rate > 60; Glucose Random 86 mg/dL (60-115); HDL Cholesterol 45 mg/dL; LDL Cholesterol Calculated 97 mg/dl; Potassium 4.3 mmol/L (3.3-5.1); Sodium 140 mmol/L (135-145); Total Protein 6.7 g/dL (6.5-8.0); Triglycerides 100 mg/dL
[2021-11-22 10:34] LABS: TSH reflex Free T4 1.82 uIU/mL (0.32-4.0); Vitamin D 25-OH Total 25.9 ng/mL (>30)
[2021-11-22 10:35] LABS: HIV AB/AG Nonreactive (Nonreactive); HIV Num 1 0.05 S/CO (0.00-0.99); ~HepC Num1 0.09 S/CO (0.00-0.79); ~Hepatitis C Antibody Nonreactive (Nonreactive)
== END 2021-11-22 09:02 | disposition home or self-care (01) ==
LOC: HO.XRAY 09:01
PROVIDERS: PCP Internal Medicine; Visit Provider Internal Medicine
DX: Z11.4 Encounter for screening for human immunodeficiency virus [HIV] (principal); M17.0 Bilateral primary osteoarthritis of knee; R53.83 Other fatigue
CPT/HCPCS: 36415; 73564; 80048; 80061; 80076; 82306; 84443; 85025; 86803; 87389; 87522

== ENCOUNTER 2022-04-19 12:47 | Outpatient (REF) | payer MEDICARE, MEDICAID, SELFPAY ==
--- NOTE | ~2022-04-19 | US_ITS ---
EXAMINATION: US RETROPERITONEAL LIMITED (RENAL ONLY) CLINICAL INFORMATION: Pelvic and perineal pain, dysuria. COMPARISON: Ultrasound retroperitoneal complete (renal) 11/29/2016. CT abdomen and pelvis without contrast 04/02/2014. TECHNIQUE: Real-time imaging of the kidneys. FINDINGS: RIGHT KIDNEY: 11.0 x 4.6 x 5.0 cm (SAG x AP x TRV). The kidney is normal in size, contour, and echogenicity. Renal cortical thickness is normal. No renal calculi or focal parenchymal lesions. There is mild hydronephrosis. LEFT KIDNEY: 11.3 x 5.9 x 4.0 cm (SAG x AP x TRV). The kidney is normal in size, contour, and echogenicity. Renal cortical thickness is normal. No renal calculi or focal parenchymal lesions. There is mild hydronephrosis. BLADDER: Bilateral ureteral jets are demonstrated. US/US renal BI IMPRESSION: 1. No radiopaque renal calculi. Mild hydronephrosis. 2. Normal bilateral ureteral jets seen.
--- NOTE | ~2022-04-19 | US_ITS ---
EXAMINATION: US PELVIS CLINICAL INFORMATION: Pelvic and perineal pain. COMPARISON: None TECHNIQUE: Ultrasound of the pelvis is performed using both transabdominal and transvaginal transducers along with Doppler. Transvaginal imaging is performed due to inadequate visualization transabdominally. FINDINGS: Uterus: The uterus is anteverted and measures 10.4 cm in length, 2.8 mL in AP and 4.2 cm in transverse dimension. The double wall endometrial thickness is 0.3 cm. The uterus is smooth in contour and has normal myometrial echogenicity. No visible fibroid. However, there are small anechoic myometrial cysts in the lower uterine segment measuring 0.6 x 0.3 x 0.4 cm. There is a complex echogenic nabothian cyst measuring 0.9 x 0.3 x 0.9 cm. Adnexa: Both ovaries are visualized. There is normal color flow to the adnexa. There is no ovarian torsion. There is no pelvic ascites or fluid collection. Right ovary is not visualized. Left ovary measures 2.2 x 1.2 x 1.36 cm and volume 1.8 mL. There is no free fluid in the cul-de-sac. US/US pelvic and transvaginal IMPRESSION: Complex nabothian cysts in cervix. Small myometrial cyst in the uterus. Ill-defined endometrial thickness is 0.3 cm. Right ovary not visualized. Left ovary is unremarkable.
== END 2022-04-19 12:48 | disposition home or self-care (01) ==
LOC: HO.US 12:47
PROVIDERS: Visit Provider Emergency Medicine
DX: R10.2 Pelvic and perineal pain (principal); R30.0 Dysuria
CPT/HCPCS: 76775; 76830; 76856

== ENCOUNTER → 2022-05-16 14:19 | Outpatient (BNVA) | payer MEDICARE, MEDICAID, SELFPAY | PROVIDERS: PCP Internal Medicine; Visit Provider Advanced Practice Midwife | DX: N95.1 Menopausal and female climacteric states (principal); R68.82 Decreased libido | CPT/HCPCS: 99212 ==

== ENCOUNTER 2022-05-17 10:54 | Outpatient (REF) | payer MEDICARE, MEDICAID, SELFPAY ==
--- NOTE | ~2022-05-17 | CT_ITS ---
EXAMINATION: CT ABDOMEN AND PELVIS WITHOUT CONTRAST CLINICAL INFORMATION: Abdominal pain. COMPARISON: Ultrasound renal and pelvis 04/19/2022. TECHNIQUE: Multidetector volumetric imaging was performed from the superior aspect of the liver through the pubic symphysis. Sagittal and coronal reformatted images were obtained on the technologist's workstation. This CT examination was performed using dose optimization techniques as appropriate, variously including the following: *Automated exposure control *Adjustment of mA and/or kV according to patient size (this includes techniques or standardized protocols for targeted exams where dose is matched to indication/reason for exam; i.e. extremities or head) *Use of iterative reconstruction technique DLP: 47 mGy-cm. FINDINGS: LUNG BASES: There is mild ground-glass attenuation seen in the right middle lobe and right lower lobe with mild centrilobular emphysema. There is bibasilar linear atelectasis or scarring. Heart size is normal. LIVER, GALLBLADDER, AND BILIARY TREE: The liver is normal in size, shape, and attenuation. There is a 7 mm nodule right hepatic lobe image 14/3. No additional lesions seen. There is no intrahepatic ductal dilatation. The gallbladder is unremarkable with no evidence of radiopaque gallstones, gallbladder wall thickening, or obvious pericholecystic inflammatory changes. PANCREAS: Unremarkable. SPLEEN: Unremarkable. ADRENAL GLANDS: Unremarkable. KIDNEYS AND URETERS: The kidneys are normal in size, shape, and attenuation. No hydronephrosis, hydroureter, or calculi seen. No perinephric stranding. BLADDER: Unremarkable. GASTROINTESTINAL TRACT: There is scattered stool and gas seen throughout the colon without significant distention. The small bowel loops are normal caliber. Appendix is normal caliber with radiodense material in the distal segment of the appendix. Appendix measures 7 mm in diameter. No fat stranding seen. ABDOMINAL WALL: There is a small umbilical hernia containing fat. LYMPH NODES: Normal. VASCULAR: Unremarkable. PELVIC VISCERA: The uterus is anteverted and appears unremarkable. No adnexal mass or free fluid. Solitary phlebolith seen in right lower pelvis OSSEOUS STRUCTURES: No aggressive lytic or sclerotic process seen. Mild degenerative facet joint arthropathy seen at L5-S1 disc level. CT/CT abdomen pelvis wo IV con IMPRESSION: 1. No acute intra-abdominal process seen. 2. Mild constipation. 3. Small umbilical hernia containing fat. Fleischner guidelines were followed.
== END 2022-05-17 10:55 | disposition home or self-care (01) ==
LOC: HO.CT 10:54
PROVIDERS: Visit Provider Registered Nurse
DX: R10.9 Unspecified abdominal pain (principal)
CPT/HCPCS: 74176

== ENCOUNTER → 2022-06-13 14:17 | Outpatient (BNVA) | payer MEDICARE, MEDICAID, SELFPAY | PROVIDERS: PCP Family Medicine; Visit Provider Urology | DX: R32 Unspecified urinary incontinence (principal); N39.0 Urinary tract infection, site not specified; N95.2 Postmenopausal atrophic vaginitis | CPT/HCPCS: 51798; 99212 ==

== ENCOUNTER 2022-10-24 10:10 | Outpatient (REF) | payer MEDICARE, SELFPAY | END 2022-10-24 10:11 | disposition home or self-care (01) | LOC: HO.LAB 10:10 | PROVIDERS: PCP Family Medicine; Visit Provider Advanced Practice Midwife | DX: R10.2 Pelvic and perineal pain (principal) | CPT/HCPCS: 81003 ==

== ENCOUNTER 2022-10-24 10:50 | Outpatient (REF) | payer MEDICARE, SELFPAY | END 2022-10-24 10:51 | disposition home or self-care (01) | LOC: HO.LNP 10:50 | PROVIDERS: Visit Provider Advanced Practice Midwife | DX: Z13.89 Encounter for screening for other disorder (principal) ==

== ENCOUNTER 2022-10-24 11:09 | Outpatient (REF) | payer MEDICARE, SELFPAY ==
[2022-10-24 15:13] LABS: CT PCR NOT DETECTED (Not Detect.); NG PCR NOT DETECTED (Not Detect.)
[2022-10-25 04:11] LABS: Syphilis Screen Nonreactive (Nonreactive)
[2022-10-25 04:46] LABS: HIV AB/AG Nonreactive (Nonreactive); HIV Num 1 0.07 S/CO (0.00-0.99); Hepatitis B Core Antibody Nonreactive (Nonreactive); ~HepC Num1 0.18 S/CO (0.00-0.79); ~Hepatitis C Antibody Nonreactive (Nonreactive)
[2022-10-25 08:57] LABS: BV Int Neg Control Negative (Negative); BV Int Pos Control Positive (Positive)
== END 2022-10-24 11:10 | disposition home or self-care (01) ==
LOC: HO.LAB 11:09
PROVIDERS: PCP Family Medicine; Visit Provider Advanced Practice Midwife
DX: Z11.4 Encounter for screening for human immunodeficiency virus [HIV] (principal); R10.2 Pelvic and perineal pain; Z20.2 Contact with and (suspected) exposure to infections with a predominantly sexual mode of transmission; N89.8 Other specified noninflammatory disorders of vagina; M54.50 Low back pain, unspecified; R82.90 Unspecified abnormal findings in urine
CPT/HCPCS: 0353U; 86704; 86780; 86803; 87086; 87147; 87389; 87480; 87510; 87660

== ENCOUNTER 2022-11-14 08:42 | Outpatient (REF) | payer MEDICARE, SELFPAY ==
--- NOTE | ~2022-11-14 | MM_ITS ---
EXAMINATION: MM SCREENING DIGITAL BREAST TOMOSYNTHESIS, BILATERAL CLINICAL INFORMATION: Screening. Asymptomatic. The lifetime risk of breast cancer based on the Tyrer-Cuzick Model is 8%. COMPARISON: Mammography: 10/25/2021, 10/23/2020, 01/28/2019 TECHNIQUE: Digital breast tomosynthesis is performed in both the craniocaudal and mediolateral oblique views along with computer-aided detection (CAD). Synthesized 2D images are generated from the tomosynthesis. Additional right CC view is provided. FINDINGS: There are scattered areas of fibroglandular density (ACR BI-RADS breast composition Category b). Parenchymal pattern is similar to prior studies. There is no developing density or architectural abnormality. Circumscribed nodule anterior central left breast has resolved since 2020. The axilla and skin contours are unremarkable. No significant changes. MM/MM tomosynthesis screening BI IMPRESSION: No mammographic evidence of malignancy. ASSESSMENT: BI-RADS 2: Benign RECOMMENDATION: Routine annual mammography screening. This patient's information was entered into a reminder system with a target due date for their next mammogram.
== END 2022-11-14 08:43 | disposition home or self-care (01) ==
LOC: HO.MAMMO 08:42
PROVIDERS: PCP Family Medicine; Visit Provider Family Medicine
DX: Z12.31 Encounter for screening mammogram for malignant neoplasm of breast (principal)
CPT/HCPCS: 77063; 77067

== ENCOUNTER 2023-02-17 14:43 | Outpatient (REF) | payer MEDICARE, SELFPAY ==
--- NOTE | ~2023-02-17 | XR_ITS ---
EXAMINATION: XR KNEE, RIGHT CLINICAL INFORMATION: Fall COMPARISON: Previous x-ray November 2021 TECHNIQUE: Four views of the right knee. FINDINGS: Bone alignment is normal. No fracture or dislocation. Arthritis at the medial femoral tibial and patellofemoral joints with joint space narrowing and osteophyte formation. Osteophyte quadriceps tendon insertion to the patella. Moderate to large joint effusion. XR/XR knee RT 4V IMPRESSION: No fracture or dislocation. Arthritis and joint effusion.
== END 2023-02-17 14:44 | disposition home or self-care (01) ==
LOC: HO.HHCX 14:43
PROVIDERS: Visit Provider Internal Medicine Geriatric Medicine
DX: M25.561 Pain in right knee (principal)
CPT/HCPCS: 73564

== ENCOUNTER 2023-03-20 08:55 | Outpatient (REF) | payer MEDICARE, SELFPAY ==
[2023-03-20 11:32] LABS: MANUAL DIFF FLAG NO
[2023-03-20 11:55] LABS: Basophils Percent Auto 0.6 % (0-2); Eosinophils Absolute Auto 0.2 X10*3/uL (0.0-0.4); Eosinophils Percent Auto 2.5 % (0-4); Hematocrit 42.7 % (37.0-47.0); Hemoglobin 13.1 g/dl (12.0-16.0); Imm Gran Abs Auto 0.02 X10*3/uL (0.00-0.03); Imm Gran Pct Auto 0.3 % (0.0-0.4); Lymphocytes Absolute Auto 2.1 X10*3/uL (1.2-4.9); Lymphocytes Percent Auto 28.6 % (20-40); Mean Corpuscular HGB Conc 30.7 g/dl (31.0-35.0); Mean Corpuscular Hemoglobin 26.8 pg (27.0-33.0); Mean Corpuscular Volume 87.5 fL (80.0-98.0); Mean Platelet Volume 10.6 fL (9.4-12.3); Monocytes Absolute Auto 0.6 X10*3/uL (0.1-1.2); Monocytes Percent Auto 8.2 % (2-11); Neutrophils Absolute Auto 4.3 x10*3/uL (2.0-8.3); Neutrophils Percent Auto 59.8 % (45-73); Platelet Count 328 X10*3/uL (160-400); Red Blood Count 4.88 X10*6/uL (4.20-5.50); Red Cell Distribution Width 13.4 % (11.0-16.0); White Blood Count 7.2 X10*3/uL (4.8-10.8)
[2023-03-20 12:25] LABS: Anion Gap 13 (12-20); Blood Urea Nitrogen 20 mg/dL (9-16); Calcium 9.6 mg/dL (8.4-10.2); Carbon Dioxide 25 mmol/L (22-29); Chloride 107 mmol/L (96-108); Cholesterol 137 mg/dL (<200); Estimated Glomerular Filt Rate > 60; Glucose Random 85 mg/dL (60-115); HDL Cholesterol 45 mg/dL (>40); LDL Cholesterol Calculated 72 mg/dL (<100); Potassium 4.5 mmol/L (3.3-5.1); Sodium 140 mmol/L (135-145); Triglycerides 101 mg/dL (<150)
[2023-03-20 12:45] LABS: TSH reflex Free T4 1.76 uIU/mL (0.32-4.0)
== END 2023-03-20 08:56 | disposition home or self-care (01) ==
LOC: HO.HHCL 08:55
PROVIDERS: Visit Provider Internal Medicine
DX: Z00.00 Encounter for general adult medical examination without abnormal findings (principal)
CPT/HCPCS: 36415; 80048; 80061; 84443; 85025

== ENCOUNTER 2023-05-22 08:20 | Outpatient (REF) | payer MEDICARE, SELFPAY ==
--- NOTE | ~2023-05-22 | XR_ITS ---
EXAMINATION: XR KNEE AP STANDING XR KNEE RIGHT AXIAL CLINICAL INFORMATION: Pain. COMPARISON: Radiographs dated 02/17/2023. TECHNIQUE: AP bilateral standing view of the knees was obtained. An axial view of the right knee is obtained. FINDINGS: The lateral and patellofemoral joint space compartments of the right knee are well-maintained. There is mild asymmetric narrowing of the medial joint space compartment, with peripheral osteophyte formation. The lateral and medial joint space compartments of the left knee are well-maintained. There is mild peripheral osteophyte formation of the medial joint space compartment. No fracture or dislocation is seen. No significant varus or valgus configuration is noted bilaterally. XR/XR knee standing BI IMPRESSION: There is mild peripheral osteophyte formation of the medial joint space compartments of the bilateral knees.
--- NOTE | ~2023-05-22 | XR_ITS ---
EXAMINATION: XR KNEE AP STANDING XR KNEE RIGHT AXIAL CLINICAL INFORMATION: Pain. COMPARISON: Radiographs dated 02/17/2023. TECHNIQUE: AP bilateral standing view of the knees was obtained. An axial view of the right knee is obtained. FINDINGS: The lateral and patellofemoral joint space compartments of the right knee are well-maintained. There is mild asymmetric narrowing of the medial joint space compartment, with peripheral osteophyte formation. The lateral and medial joint space compartments of the left knee are well-maintained. There is mild peripheral osteophyte formation of the medial joint space compartment. No fracture or dislocation is seen. No significant varus or valgus configuration is noted bilaterally. XR/XR knee RT 1V IMPRESSION: There is mild peripheral osteophyte formation of the medial joint space compartments of the bilateral knees.
== END 2023-05-22 08:21 | disposition home or self-care (01) ==
LOC: HO.HOSX 08:20
PROVIDERS: Visit Provider Physician Assistant
DX: M17.11 Unilateral primary osteoarthritis, right knee (principal); M25.562 Pain in left knee; R20.0 Anesthesia of skin
CPT/HCPCS: 73560; 73565; 99202

== ENCOUNTER 2023-05-22 10:17 | Outpatient (AMB) | payer MEDICARE, SELFPAY ==
--- NOTE | 2023-05-22 10:21 | A.OFFVIS_ITS ---
Intake Vital Signs 05/22/23 10:45 Height 4 ft 11 in Weight 160 lb BMI 32.3 Intake Visit Reasons: ov- right knee pain Intake Note: Elissa anne 58 year old female presents today as a new patient with complaints of right knee pain. Patient reports bilateral knee surgery at [facility] years ago. Hx of cortisone injection with the last injection about 2 years ago however injection did not provide her relief. States attended PT which provided her temporary relief. Currently her pain is intermittent in the anterior and posterior aspect of knee. States numbness in her outer thigh that travels to her knee, Finds very little relief with meloxicam and Tylenol. Allergies No Known Allergies [No Known Allergies*] Allergy (Verified 05/22/23 10:50) HPI ov- right knee pain HPI Details 58-year-old female who returns to the [facility] today for a follow-up of right knee pain. She currently states she has intermittent pain in the anterior and posterior aspect of her knee which is aggravated with stair use. She also c/o numbness in her outer thighs which radiates down to her knee. She had a cortisone injection about 2 years ago which did not provide her any relief. She had also tried gel injection without benefits. She had also undergone physical therapy which provided her transient relief. She finds minimal relief with meloxicam and Tylenol. She has a history of bilateral knee surgery at [facility] in the past. [facility] Medical History (Updated 05/23/23 @ 12:39 by Gurpreet Hardy PA-C) Hx of bacterial conjunctivitis Depression Urinary incontinence Depression HLD (hyperlipidemia) Coronavirus infection Asthma Hypertension Arthritis Surgical History (Updated 05/22/23 @ 10:44 by HERMILO Cueva) Hx of tubal ligation History of bladder surgery Hx of knee surgery Family History Mother HTN (hypertension) Father Acute arthritis Colon cancer Other No family history of coronary artery disease Social History Household Members: Spouse Housing: Apartment Do you presently have visiting nurse or other home services: No Alcohol intake: never Patient Tobacco Use Status: Never used Tobacco service: No Current occupational status: unemployed and disabled Sexual orientation: Straight/Heterosexual Gender identity: Female Review of Systems Const All systems reviewed & are unremarkable except as noted in HPI and below Physical Exam Vital Signs: BMI result Body Mass Index 32.3 Const General: cooperative, healthy appearing, comfortable, no acute distress, well developed and alert Orientation/consciousness: patient oriented x3 HEENT Head: Yes normal to inspection, Yes normocephalic and Yes atraumatic Eyes General: appearance normal, both eyes and all related structures Resp Effort & Inspection: normal respiratory effort and able to speak in complete sentences Cardio Rate: regular rate Peripheral pulses: Peripheral pulses 2+ throughout GI Palpation (GI): Soft to palpation Skin Lesions: no lesions Rashes: no rashes Neuro General: patient oriented x3 Extrem Other: Right knee: Skin intact, no erythema or joint effusion. Medial and lateral retropatellar tenderness present. Full ROM with crepitus. Negative Feroz?s. No ligamentous laxity. NVI. Assessment & Plan Assessment & Plan (1) Osteoarthritis of right knee: Code(s): M17.11 - Unilateral primary osteoarthritis, right knee Qualifiers: Osteoarthritis type: primary Qualified Code(s): M17.11 - Unilateral primary osteoarthritis, right knee Plan We discussed options which include cortisone, gel and geniculate injections. She is not interested in either of these. I did send a prescription of Celebrex to the pharmacy and also fit her for a Genumed knee brace. If symptoms persist or worsens, patient will contact the office, otherwise follow-up as needed. Orders: Orders XR knee standing BI 05/22/23 M25.561 - Pain in right knee, M25.562 - Pain in left knee XR knee RT 1V 05/22/23 M25.561 - Pain in right knee Medications: New celecoxib (Celebrex) 200 mg PO BID 30 days 60 caps 3RF Patient Instructions: Scribed for Gurpreet Hardy PA-C, by Pete Banks medical engineer, on 05/22/2023 at 10:30 AM [place]. Gurpreet Quinn PA-C, have personally reviewed and agree with the information entered by the scribe. Coding Level of Care Code New Pt Level 3 (26975) Diagnoses Primary osteoarthritis of right knee M17.11 Osteoarthritis type: primary
[2023-05-22 10:45] VITALS: BMI 32.3
== END 2023-05-22 11:08 | disposition home or self-care (01) ==
PROVIDERS: PCP Family Medicine; Visit Provider Physician Assistant
DX: M17.11 Unilateral primary osteoarthritis, right knee (principal)
CPT/HCPCS: 99204

== ENCOUNTER 2023-11-20 10:37 | Outpatient (REF) | payer MEDICARE, SELFPAY | END 2023-11-20 10:38 | disposition home or self-care (01) | LOC: HO.MAMMO 10:37 | PROVIDERS: PCP Family Medicine; Visit Provider Family Medicine | DX: Z12.31 Encounter for screening mammogram for malignant neoplasm of breast (principal) | CPT/HCPCS: 77063; 77067 ==

== ENCOUNTER → 2023-11-20 10:45 | Outpatient (BNV) | payer MEDICARE, SELFPAY | PROVIDERS: PCP Family Medicine; Visit Provider Radiology Diagnostic Radiology | DX: Z12.31 Encounter for screening mammogram for malignant neoplasm of breast (principal) | CPT/HCPCS: 77063; 77067 ==

== ENCOUNTER 2023-12-25 13:18 | Outpatient (REF) | payer MEDICARE, SELFPAY ==
[2023-12-25 17:47] LABS: Bacterial Vaginosis PCR NEGATIVE (Negative); Candida Group PCR NOT DETECTED (Not Detect); Candida glab krusei PCR NOT DETECTED (Not Detect); Trichomonas vaginalis PCR NOT DETECTED (Not Detect)
[2023-12-25 18:33] LABS: CT PCR NOT DETECTED (Not Detect.); NG PCR NOT DETECTED (Not Detect.)
== END 2023-12-25 13:19 | disposition home or self-care (01) ==
LOC: HO.LNP 13:18
PROVIDERS: PCP Family Medicine; Visit Provider Advanced Practice Midwife
DX: Z01.419 Encounter for gynecological examination (general) (routine) without abnormal findings (principal); Z20.2 Contact with and (suspected) exposure to infections with a predominantly sexual mode of transmission
CPT/HCPCS: 0352U; 0353U

== ENCOUNTER 2023-12-25 13:18 | Outpatient (AMB) | payer MEDICARE, SELFPAY ==
--- NOTE | 2023-12-25 13:19 | A.OFFVIS_ITS ---
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 She is doing well with no concerns. Moving in [facility] next week. Attempting to eat a healthy diet with calcium and vitamin D and stays active with exercise. Currently not sexually active. Denies any vaginal dryness or irritation. STI testing offered; she accepts. Last pap smear; 2021. Last mammogram; 2023. [employer] completed. Denies any family history of breast or ovarian. FH aunt w/colon cancer. PFS Medical History Hx of bacterial conjunctivitis Depression Urinary incontinence Depression HLD (hyperlipidemia) Coronavirus infection Asthma Hypertension Arthritis Surgical History Hx of tubal ligation History of bladder surgery Hx of knee surgery Family History Mother HTN (hypertension) Father Acute arthritis Colon cancer Other No family history of coronary artery disease Social History Household Members: Spouse Housing: Apartment Do you presently have visiting nurse or other home services: No Alcohol intake: never Comment: relief of sob Patient Tobacco Use Status: Never used Tobacco service: No Current occupational status: unemployed and disabled Sexual orientation: Straight/Heterosexual Gender identity: Female Female Reproductive History Menstrual control method: none Total pregnancies: 2 Full term: 2 Number of Living Children: 2 Date of last pap smear: 10/18/21 History of abnormal pap smear: No History of STI: No Date of Mammogram: 11/20/23 History of abnormal mammogram: No Review of Systems Const All systems reviewed & are unremarkable except as noted in HPI and below Reports as per HPI Eyes Reports no additional complaints ENT Reports no additional complaints Card Reports no additional complaints Resp Reports no additional complaints GI Reports as per HPI and Reports no additional complaints Reports as per HPI Musc Reports no additional complaints Skin/Breast Reports as per HPI Neuro Reports no additional complaints Psych Reports no additional complaints Endo Reports no additional complaints Jeff/Lymph Reports no additional complaints Aller/Immun Reports no additional complaints Physical Exam Vital Signs: Last Vital Signs BP 114/76 12/25/23 13:20 BMI result Body Mass Index 34.0 Const General: cooperative, healthy appearing, no acute distress, well developed and alert Orientation/consciousness: patient oriented x3 HEENT Head: Yes normal to inspection Eyes General: appearance normal, both eyes and all related structures Neck Neck: Yes normal visual inspection Thyroid: Thyroid normal Chest Chest palpation & inspection: normal inspection of the chest and other (no puckering, dimpling, peau de orange, retraction, discharge, masses) Breast/axilla inspection: normal inspection of the breasts Breast/axilla palpation: normal palpation of the breasts Resp Effort & Inspection: normal respiratory effort GI Inspection: Yes normal to inspection Palpation (GI): Soft to palpation Rectal Exam - Female: deferred General: Yes bladder normal to palpation External Female Exam: normal external appearance and normal appearance of the urethra Speculum Exam - Vagina: normal appearance of the vagina, normal palpation, normal vaginal discharge and vagina atrophic Speculum Exam - Cervix: normal appearance of the cervix and normal palpation Bimanual exam- vagina & uterus: normal bimanual exam, normal palpation, uterine size normal, bladder normal to palpation, normal palpation and non-tender Bimanual Exam- Adnexa, other: no masses Skin General skin exam: no rashes or lesions noted Rashes: no rashes Neuro General: patient oriented x3 Cognition (Neuro): normal cognition Extrem General: Yes normal to inspection Psych Attitude: cooperative Thought process: Normal thought process present Assessment & Plan Assessment & Plan (1) Encounter for well woman exam with routine gynecological exam: Code(s): Z01.419 - Encounter for gynecological examination (general) (routine) without abnormal findings Category: Medical Plan Discussed: Current recommendations for pap smears per ASCCP guidelines. Breast awareness, periodic self breast exams and yearly mammogram. Maintain a healthy lifestyle, well balanced diet including Calcium 1,200 mg and Vitamin D 600 IU daily, and routine exercise. Contact the office with any postmenopausal bleeding. Sign a release of medical records when she is establishing [place] for like mammogram Pap smear in any pertinent records from her PCP. Patient verbalizes understanding and agrees to the plan of care. She was given opportunity to ask questions and all questions were answered to the best of my ability. RTO in 1 year for annual last repairer helper exam, establish new last repairer helper care provider in [place]. This note is constructed using voice recognition software. While every effort has been made to ensure accuracy, shank sorter errors may have been included. Orders: Orders Bacterial Vaginosis Panel Today Z01.419 - Encounter for gynecological examination (general) (routine) without abnormal findings CT NG by PCR Today Z01.419 - Encounter for gynecological examination (general) (routine) without abnormal findings Coding Level of Care Code Est Pt Prev Care 40-64y(81854) Diagnoses Encounter for well woman exam with routine gynecological exam Z01.419
[2023-12-25 13:20] VITALS: BP 114/76; BMI 34.0
== END 2023-12-25 13:49 | disposition home or self-care (01) ==
PROVIDERS: PCP Family Medicine; Visit Provider Advanced Practice Midwife
DX: Z01.419 Encounter for gynecological examination (general) (routine) without abnormal findings (principal)
CPT/HCPCS: 99396

== ENCOUNTER 2024-01-01 18:30 | Outpatient (REF) | payer MEDICARE, SELFPAY | END 2024-01-01 18:31 | disposition home or self-care (01) | LOC: HO.HHCLNP 18:30 | PROVIDERS: Visit Provider Internal Medicine | DX: N30.00 Acute cystitis without hematuria (principal) | CPT/HCPCS: 87086; 87088; 87186 ==